=== PATIENT | female | born 1940 | race Caucasian/White ===

== ENCOUNTER 2016-11-20 12:32 | Inpatient (IN) | payer OTHER, MEDICARE ==
[~2016-11-20] VITALS: Ht 160 cm; Wt 68.9 kg
[~2016-11-20 12:32] MED LIST: ADVAIR DISKUS 21 DSK INH; ALEVE220 MG PO; DUONEB 3 MG/3 ML3 ML INH; FOLIC ACID 1 MG PO; LANOXIN-DIGO0.125 MG PO; LEADER NIC14 MG/24 H TOP; LEVOTHROID0.15 MG PO; LOPRESSOR 12.12.5 MG PO; OXAZEPAM10 MG PO; PAIN RELIEF500 MG PO; PRADAXA150 MG PO; PREDNISONE10 MG PO; VITAMIN D1000 IU PO; ZITHROMAX Z-PA250 M1 PO; [UNRECOGNIZED DRUG - OTHER] TOP
--- NOTE | 2016-11-20 12:37 | ED DYSPNEA/ASTHMA COMPLAINT ---
History of Present Illness General Chief Complaint: Dyspnea (COPD, CHF, Other) Stated Complaint: BIBA SOB Source: patient, EMS Exam Limitations: clinical condition Vital Signs & Intake/Output Vital Signs & Intake/Output Vital Signs Date Time Temp Pulse Resp B/P B/P Pulse O2 O2 Flow FiO2 Mean Ox Delivery Rate 11/21 0456 95 Ventilator 75% 11/21 0415 75 11/21 0233 75 11/21 0000 97.5 60 140/70 11/21 0000 95 Ventilator 75% 11/20 2215 75 11/20 2009 93 BIPAP 50% 11/20 1905 68 96 11/20 1833 96 BIPAP 50% 11/20 1716 66 119/53 94 BIPAP 50% 11/20 1715 66 93 11/20 1701 68 101/50 95 BIPAP 50% 11/20 1646 66 102/48 91 11/20 1630 66 106/46 11/20 1624 66 103/69 92 11/20 1616 67 103/59 11/20 1612 91/66 11/20 1611 78/40 11/20 1611 65 18 95/54 92 BIPAP 50% 11/20 1540 78/37 11/20 1400 71 26 105/52 87 BIPAP 30% 11/20 1345 96.0 11/20 1344 94 11/20 1320 87 96 11/20 1319 89 Nasal 2.0L Cannula 11/20 1235 95.0 72 22 90/68 86 Room Air ED Intake and Output 11/21 0000 11/20 1200 Intake Total 6108 Output Total 210 Balance 5898 Intake, IV 6108 Output, Other 50 Output, Urine 160 Patient 152 lb Weight Weight Reported by Patient Measurement Method Allergies Coded Allergies: NO KNOWN ALLERGIES (10/05/11) Reconcile Medications Acetaminophen (Pain Relief) 500 MG TAB 2 TAB PO DAILY PRN PAIN (Reported) Albuterol Sulfate/Ipratropiu (Duoneb) 3 MG/3 ML NEB 2 PUFF INH Q6 copd Aspirin (Aspirin*) 81 MG TAB.CHEW 1 TAB PO DAILY HEART (Reported) Cholecalciferol (Vitamin D3) 1,000 IU TAB 1 TAB PO DAILY BONES (Reported) Digoxin (Lanoxin-Digoxin 0.125MG Tab) 0.125 MG TAB 0.125 MG PO 1700 AFIB FLUTICASONE/SALMETEROL (Advair 250-50 Diskus) 1 DSK DSK 1 PUFF INH BID COPD ( Reported) Folic Acid 1 MG TAB 1 MG PO DAILY FOLIC ACID SUPPLEMENT (Reported) Levothyroxine Sodium (Levothroid) 0.15 MG TAB 1 TAB PO DAILY AC HYPOTHYROIDISM (Reported) Metoprolol Tartrate (Lopressor) 12.5 MG TAB 1 TAB PO BID AFIB Naproxen Sodium (Aleve) 220 MG TAB 1 TAB PO DAILY PRN PAIN (Reported) Nicotine (Nicotine Patch) 14 MG/24 HR TDM 1 PAT TOP DAILY smoking cessation Oxazepam 10 MG CAP 1 TAB PO Q8 PRN ANXIETY (Reported) Prednisone 5 MG TABLET 1 TAB PO DAILY PSEUDOGOUT Zinc Oxide (Diaper Relief) 1 OIN OIN 1 ESTEFANY TOP BID skin rash Triage Nurses Notes Reviewed? yes Onset: Gradual Duration: week(s): (1), worse persistent since (this morning) Timing: recent history Severity: severe Activities at Onset: sleep Associated Symptoms: DIFFICULTY BREATHING HPI: 76 year old female with history of COPD< still smoking presents via EMS from home for chief complaint of cyanosis and altered mental status. Per the family she was sick with cold symptoms since last sunday and saw Dr. Liang on sunday adn was prescribed a zpack. She also took some cought medications with codeine last night. Today her daughter found her cold, blue and unresponsive. Past History Medical History Any Pertinent Medical History? see below for history Neurological: NONE EENT: NONE Cardiovascular: NONE Respiratory: pneumonia Gastrointestinal: NONE Hepatic: NONE Renal: NONE Musculoskeletal: NONE, ARTHRITIS Psychiatric: NONE Endocrine: hypothyroidism Blood Disorders: NONE Cancer(s): NONE History of MRSA: No History of VRE: No History of CDIFF: No Pneumonia Vaccine: 05/02/13 Surgical History Surgical History: non-contributory Psychosocial History Who do you live with Patient/Self Services at Home None What is your primary language [place]an Family History Hx Contributory? No Review of Systems Review of Systems Constitutional: Reports: weakness. Denies: fever. EENTM: Reports: no symptoms. Respiratory: Reports: cough, short of breath, sputum production. Cardiovascular: Denies: chest pain. GI: Reports: no symptoms. Genitourinary: Reports: no symptoms. Musculoskeletal: Reports: no symptoms. Skin: Reports: no symptoms. Neurological/Psychological: Reports: confusion. Hematologic/Endocrine: Reports: no symptoms. Immunologic/Allergic: Reports: no symptoms. All Other Systems: Reviewed and Negative Physical Exam Physical Exam General Appearance: alert, awake, anxious, thin Head: atraumatic Eyes: Bilateral: PERRL, EOMI. Ears, Nose, Throat: normal pharynx, hearing grossly normal Neck: normal inspection Respiratory: decreased breath sounds, accessory muscle use, wheezing Cardiovascular: regular rate/rhythm Peripheral Pulses: 2+ radial (R), 2+ radial (L) Gastrointestinal: soft, non-tender Extremities: normal inspection, no edema Neurologic/Psych: OBTUNDED, RESPONSIVE TO LOUD VERBAL STIMULI Skin: cyanosis, COLD Core Measures ACS in differential dx? Yes ASA ordered for poss ACS? Yes-ordered Severe Sepsis Present: No Septic Shock Present: No ED Sepsis Exam Date of Focused Sepsis Exam: 11/20/16 Time of Focused Sepsis Exam: 1351 Sepsis Cardiac Exam: Tachycardia Sepsis Resp Exam: B/L WHEEZING Sepsis Cap Refill Exam: >2 sec Sepsis Peripheral Pulse Exam: Weak Sepsis Peripheral Pulse Location: Radial Sepsis Skin Color Exam: Cyanotic Skin Temp/Moisture Exam: Warm/Dry Progress Differential Diagnosis: COPD, pneumonia, HYPERCARBIA, BACTEREMIA, SEPSIS Plan of Care: Orders Procedure Date/time Status Nothing by Mouth 11/21 B Active TROPONIN LEVEL 11/21 0500 Active CBC WITHOUT DIFFERENTIAL 11/21 0500 Active BASIC ELECTROLYTES PLUS BUN&CR 11/21 0500 Active EKG 11/21 0500 Active LACTIC ACID 11/21 0013 Complete ICU LAB BUNDLE 11/21 0013 Complete Nursing Misc 11/21 UNK Active Nothing by Mouth 11/20 D Complete ARTERIAL BLOOD GAS (GEN) 11/20 2339 Complete PARTIAL THROMBOPLASTIN TIME 11/20 2330 Complete LOWER RESPIRATORY CULTURE 11/20 2307 Active CULTURE,BODY FLUID 11/20 2307 Active VENTILATOR PARAMETERS 11/20 2200 Complete TROPONIN LEVEL 11/20 2200 Complete ICU LAB BUNDLE 11/20 2200 Complete EKG 11/20 2200 Active DIRECT BILIRUBIN 11/20 2140 Complete BIPAP 11/20 2130 Complete BIPAP 11/20 2100 Complete Lab Add-on Test 11/20 2020 Active Lab Add-on Test 11/20 1918 Active BIPAP 11/20 1905 Complete LACTIC ACID 11/20 1900 Complete Turn and Reposition 11/20 1832 Active Teach/Educate 11/20 183 Active Skin Integrity Protocol 11/20 1832 Active Skin/Pressure Ulcer Assess (Sk 11/20 1832 Active Precautions 11/20 1832 Active Pain Treatment and Response 11/20 183 Active Nutritional Intake, Monitor 11/20 1832 Active Isolation 11/20 183 Active Patient Care Conference 11/20 1832 Active Activity/Ambulation 11/20 1832 Active VRE ACTIVE SURVIELLANCE 11/20 1720 Active ACTIVE SURVEILLANCE NARES 11/20 1720 Active TRC EVALUATION (GEN) 11/20 1659 Active Pathway - chart 11/20 1659 Active House Staff 11/20 1659 Active Patient Data 11/20 1659 Active STREP PNEUMO URINARY ANTIGEN 11/20 1659 Complete LEGIONELLA URINARY ANTIGEN 11/20 1659 Complete THYROID STIMULATING HORMONE 11/20 1640 Complete FREE T4 11/20 1640 Complete DIGOXIN 11/20 1640 Complete PROTHROMBIN TIME 11/20 1629 Complete ARTERIAL BLOOD GAS (GEN) 11/20 1628 Complete TROPONIN LEVEL 11/20 1628 Complete ICU LAB BUNDLE 11/20 1628 Complete CBC WITHOUT DIFFERENTIAL 11/20 1628 Complete URINE LYTES, SPOT 11/20 1621 Complete LACTIC ACID 11/20 1536 Complete Pathway - chart 11/20 1532 Active Patient Data 11/20 1532 Active Admit to inpatient 11/20 1511 Active Vital Signs 11/20 1511 Complete Black, Insertion/Removal/Asses 11/20 1511 Active CULTURE,URINE 11/20 1511 Active URINE DRUGS OF ABUSE 11/20 1511 Complete URINALYSIS 11/20 1511 Complete Code Status 11/20 1511 Active Add-on Test (ER Only) 11/20 1453 Active EKG 11/20 1452 Active Add-on Test (ER Only) 11/20 1417 Active Intake & Output 11/20 1341 Complete TROPONIN LEVEL 11/20 1253 Complete MAGNESIUM 11/20 1253 Complete LIPID PANEL 11/20 1253 Complete FOLIC ACID 11/20 1253 Complete COMPREHENSIVE METABOLIC PANEL 11/20 1253 Complete CREATINE PHOSPHOKINASE 11/20 1253 Complete VITAMIN B12 11/20 1253 Complete EKG 11/20 1240 Active RT ED ORDERS 11/20 1236 Complete ARTERIAL BLOOD GAS (GEN) 11/20 1236 Complete Telemetry/Audio Visual Aids Director 11/20 1236 Active LOWER RESPIRATORY CULTURE 11/20 1236 Active BLOOD CULTURE 11/20 1236 Active LACTIC ACID 11/20 1236 Complete CBC WITHOUT DIFFERENTIAL 11/20 1236 Complete EKG 11/20 1233 Active US-GUIDANCE 11/20 UNK Active SPUTUM INDUCTION (GEN) 11/20 UNK Complete BIPAP 11/20 UNK Complete Lab Add-on Test 11/20 UNK Active VTE Mechanical Prophylaxis 11/20 UNK Active Vital Signs 11/20 UNK Active Restraint- Medical 11/20 UNK Active OGT 11/20 UNK Active Nursing Misc 11/20 UNK Active Intake & Output 11/20 UNK Active FingerStick- Glucose 11/20 UNK Active ECHOCARDIOGRAM 11/20 UNK Active Current Medications Sig/Shilpa Start time Last Medication Dose Stop Time Status Admin Aspirin 81 MG DAILY 11/21 1000 AC (Aspirin) Ceftriaxone Sodium 1,000 MG DAILY 11/21 1000 CAN (Rocephin) Clopidogrel Bisulfate 75 MG DAILY 11/21 1000 AC (Plavix) Fentanyl Citrate 1,000 MCG Q13H 11/21 07 AC (Fentanyl Drip) Dextrose/Water 250 ML (Dextrose 5%) Levothyroxine Sodium 0.15 MG DAILY AC 11/21 0700 AC (Synthroid) Nystatin 1 ESTEFANY TIDPRN PRN 11/21 0330 AC (Mycostatin) Metronidazole 500 MG IQ8 11/21 0000 AC 11/21 (Flagyl) 0049 N/A 1 UNIT (No Carrier) Propofol 1,000 MG Q24H 11/20 2300 AC 11/20 (PROPOFOL DRIP) 2342 N/A 100 ML ([id number]) Budesonide/ 2 PUF BID 11/20 2199 AC Formoterol Fumarate (Symbicort) Dabigatran 150 MG BID 11/20 2199 CAN (PRADAXA) Methylprednisolone 40 MG Q12 11/20 2199 AC 11/20 (Solumedrol) 2117 Non-Formulary 0 SEE ADMIN CRITERIA 11/20 2199 CAN Medication (NON FORMULARY) Non-Formulary 0 SEE ADMIN CRITERIA 11/20 2199 CAN Medication (NON FORMULARY) Non-Formulary 0 ONCE ONE 11/20 2144 CAN Medication 11/20 2145 (NON FORMULARY) Dextrose/Sodium 1,000 ML Q20H 11/20 2014 AC 11/20 Chloride 2031 (D5-Normal Saline) Pantoprazole Sodium 40 MG DAILY 11/21 2011 AC 11/20 (Protonix) 2038 Norepinephrine 4 MG Q14H 11/21 1999 AC (Levophed Drip) Sodium Chloride 250 ML (Normal Saline 0.9%) Sodium Polystyrene 60 ML ONCE ONE 11/20 1745 CAN Sulfonate 11/20 1746 (Kayexalate) Sodium Polystyrene 60 ML ONCE ONE 11/20 1730 CAN Sulfonate 11/20 1731 (Kayexalate) Atorvastatin Calcium 80 MG 1700 11/20 1700 AC (Lipitor) Sodium Chloride 1,000 ML BOLUS ONE 11/20 1630 CAN (Normal Saline 0.9%) 11/20 1729 Heparin Sodium 25,000 UNIT Q24H 11/20 1500 AC 11/20 (Porcine) 1730 (Heparin) Sodium Chloride 500 ML Laboratory Tests 11/21/16 0445: Sodium Pending, Potassium Pending, Chloride Pending, Carbon Dioxide Pending, Anion Gap Pending, BUN Pending, Creatinine Pending, BUN/Creatinine Ratio Pending , Troponin I Pending, CBC w Diff MAN DIFF ORDERED, WBC Pending, RBC Pending, Hgb Pending, Hct Pending, MCV Pending, MCH Pending, RDW Pending, Plt Count Pending, MPV Pending, Gran % Pending, Lymphocytes % Pending, Monocytes % Pending, Eosinophils % Pending, Basophils % Pending, Absolute Granulocytes Pending, Segmented Neutrophils Pending, Absolute Lymphocytes Pending, Absolute Monocytes Pending, Absolute Eosinophils Pending, Absolute Basophils Pending, PUBS MCHC Pending 11/21/16 0045: pH 7.29 *L, pCO2 38, pO2 75 L, HCO3 18 L, ABG O2 Sat (Measured) 92.0 L, P-50 (Temp Corrected) Y, Carboxyhemoglobin 1.1 L, O2 Concentration % 75%, Temperature 97.5, Respiration Rate 18, O2 Delivery Method ESPRIT, Vent Mode AC, Expiratory Pressure 5, Tidal Volume 450, Phlebotomy Draw Site RIGHT BRACHIAL 11/21/16 0025: Anion Gap 10, Estimated GFR 29 L, Glucose 149 H, Lactic Acid 1.2, Calcium 6.7 L, Phosphorus 5.3 H, Magnesium 2.3, Total Bilirubin 1.7 H, AST 7487 H, ALT 2246 H, Albumin 2.6 L 11/20/16 2325: APTT 30 11/20/16 2140: Anion Gap 7, Estimated GFR 28 L, Glucose 126 H, Calcium 6.6 L, Phosphorus 6.7 H, Magnesium 2.4 H, Total Bilirubin 1.5 H, Direct Bilirubin 1.4 H, AST 7346 H, ALT 2106 H, Troponin I 0.35 *H, Albumin 2.6 L 11/20/161945: Lactic Acid 2.6 H 11/20/16 1825: pH 7.15 *L, pCO2 56 H, pO2 90, HCO3 20 L, ABG O2 Sat (Measured) 92.0 L, P-50 (Temp Corrected) Y, Carboxyhemoglobin 2.3, O2 Concentration % 50%, Temperature 96.1 L, Respiration Rate 26, O2 Delivery Method FFM, Vent Mode ST, Expiratory Pressure 6, Inspiratory Pressure 14, Phlebotomy Draw Site RIGHT RADIAL 11/20/16 1640: Anion Gap 9, Estimated GFR 21 L, Glucose 85, Calcium 7.1 L, Phosphorus 7.6 H, Magnesium 1.6, Total Bilirubin 2.4 H, AST 7358 H, ALT 2161 H, Troponin I 0.33 *H, Albumin 2.8 L, TSH 1.530, Free T4 1.70, PT 19.1 H, INR 1.83 H, CBC w Diff MAN DIFF ORDERED, RBC 4.60, MCV 108.5 H, MCH 34.8 H, RDW 20.5 H, MPV 7.7, Gran % 96.0 H, Lymphocytes % 1.8 L, Monocytes % 2.0, Eosinophils % 0, Basophils % 0.2, Absolute Granulocytes 17.8 H, Segmented Neutrophils 84 H, Band Neutrophils 13 H, Absolute Lymphocytes 0.3 L, Lymphocytes 2 L, Monocytes 1 L, Absolute Monocytes 0.4, Absolute Eosinophils 0, Absolute Basophils 0, Nucleated RBCs 4 H, Platelet Estimate VERIFIED BY SMEAR, Polychromasia 1+, Anisocytosis 1+, Macrocytic Cells 1+, PUBS MCHC 32.1 L, Fld Total RBCs Counted 100, Digoxin 2.5 H 11/20/16 1632: Digoxin Cancelled 11/20/16 1621: Ur Random Creatinine 184.0, Ur Random Sodium < 5 L, Ur Random Potassium 29.6 11/20/16 1621: Urine Opiates Screen > 4000.00 H, Methadone Screen < 40, Barbiturate Screen < 60, Ur Phencyclidine Scrn < 6.00, Amphetamines Screen 113, U Benzodiazepines Scrn 377 H, Urine Cocaine Screen < 50, Urine Cannabis Screen < 5.00, Urinalysis LIGHT H, Urine Color BROWN H, Urine Clarity HAZY H, Urine pH 6.0, Ur Specific [place] 1.025, Urine Protein 100 H, Urine Ketones NEG, Urine Nitrite NEG, Urine Bilirubin MOD H, Urine Urobilinogen 2.0 H, Ur Leukocyte Esterase NEG, Ur Microscopic SEDIMENT EXAMINED, Urine RBC 1-3, Urine WBC 3-5 H, Ur Epithelial Cells FEW, Hyaline Casts RARE H, Urine Mucus FEW, Urine Hemoglobin MOD H, Urine Glucose NEG 11/20/16 1618: Lactic Acid 2.7 H 11/20/16 1516: Ur Random Creatinine Cancelled, Ur Random Sodium Cancelled, Ur Random Potassium Cancelled, Fraction Sodium Excret Cancelled 11/20/16 1254: Lactic Acid 3.1 H, CBC w Diff MAN DIFF ORDERED, RBC 4.62, MCV 107.1 H, MCH 34.9 H, RDW 20.2 H, MPV 7.4, Gran % 81.6 H, Lymphocytes % 3.2 L, Monocytes % 13.8 H, Eosinophils % 0, Basophils % 1.4, Absolute Granulocytes 12.5 H, Segmented Neutrophils 69, Band Neutrophils 14 H, Absolute Lymphocytes 0.5 L, Lymphocytes 10 L, Monocytes 7, Absolute Monocytes 2.1 H, Absolute Eosinophils 0, Absolute Basophils 0.2, Nucleated RBCs 4 H, Platelet Estimate DECREASED, Polychromasia 1+, Poikilocytosis 1+, Anisocytosis 1+, Macrocytic Cells 1+, PUBS MCHC 32.6 L 11/20/16 1253: Anion Gap 12, Estimated GFR 20 L, BUN/Creatinine Ratio 21.3, Glucose 95, Calcium 8.5, Magnesium 2.0, Total Bilirubin 2.1 H, AST 3935 H, ALT 1348 H, Alkaline Phosphatase 183 H, Creatine Kinase 144 H, Troponin I 0.25 *H, Total Protein 6.1 L, Albumin 3.4 L, Globulin 2.7, Albumin/Globulin Ratio 1.3, Triglycerides 106, Cholesterol 158, LDL Cholesterol, Calc 99, HDL Cholesterol 38 L, Cholesterol/HDL Ratio 4, Vitamin B12 > 1000 H, Folate > 20.0 H 11/20/16 1247: pH 7.22 *L, pCO2 67 *H, pO2 55 L, HCO3 27, ABG O2 Sat (Measured) 76.0 L, P-50 (Temp Corrected) N, Carboxyhemoglobin 3.7, O2 Concentration % 2L, O2 Delivery Method N/C, Phlebotomy Draw Site RIGHT RADIAL 11/20/16 1247: pH Pending, pCO2 Pending, pO2 Pending, HCO3 Pending, ABG O2 Sat (Measured) Pending, P-50 (Temp Corrected) Pending, Carboxyhemoglobin Pending, O2 Concentration % Pending, Temperature Pending, O2 Delivery Method Pending, Phlebotomy Draw Site Pending Microbiology 11/20 2334 URINE ROUT: Legionella Antigen - COMP 11/20 2334 URINE ROUT: Streptococcus pneumoniae Antigen (M - COMP 11/20 2309 BODY FLUID: Body Fluid Culture - RECD 11/20 231 BODY FLUID: Gram Stain - RECD 11/20 2200 LOWER RESP: Respiratory Culture - RECD 11/20 2200 LOWER RESP: Gram Stain - RECD 11/20 1800 UPPER RESP: Surveillance Culture - RECD 11/20 1800 GI: Surveillance Culture - RECD 11/20 1621 URINE ROUT: Urine Culture - RECD 11/20 1316 LOWER RESP: Respiratory Culture - RES 11/20 1316 LOWER RESP: Gram Stain - RES 11/20 1306 BLOOD: Blood Culture - RECD 11/20 1300 BLOOD: Blood Culture - RECD 3:25 PM D/W DR PRESLEY REGARDING ACUTE EKG CHANGES. DOES NOT ADVISE CATH TRANSFER AT THIS TIME PATIENT IS CRITICALLY ILL WITH MULTIORGAN FAILURE. AWARE PATIENT TO GO TO ICU. AGREES WITH HEPARINIZATION. (JOEY DE LEÓN,MICHAEL) Diagnostic Imaging: Viewed by Me: Radiology Read. Discussed w/RAD: Radiology Read. CXR Impression: PATIENT: ROHIT FERGUSON PRESENT AGE: 76 PATIENT ACCOUNT NO: [id number] : 42 LOCATION: [facility] ORDERING PHYSICIAN: MICHAEL COOK MD SERVICE DATE: 11/20/16 EXAM TYPE: RAD - XRY-PORTABLE CHEST XRAY EXAMINATION: XR PORTABLE CHEST CLINICAL INFORMATION: Cough and hypoxia, evaluate for pneumonia. COMPARISON: 09/03/2015. TECHNIQUE: Portable upright 75 degree view of the chest was obtained. FINDINGS: The heart appears enlarged largely unchanged. Right paratracheal soft tissue prominence is likely related to rotation and overlapping vessels. The lungs and pleural spaces appear clear without evidence of congestion, consolidation, or significant appearing effusion or atelectasis. There is a new patchy opacity identified lateral to the left heart margin at the left lung base concerning for an evolving infiltrate and pneumonia in the proper clinical setting. There is no evidence of pneumothorax or pulmonary edema. Included osseous structures appear largely unremarkable. IMPRESSION: Cardiomegaly with a patchy opacity left lower lung field abnormality suggesting an evolving pneumonia for which follow-up to clearing is recommended. DICTATED BY: JUSTIN WATTS MD DATE/TIME DICTATED:1332 FIGURE MODEL:SABRINA DATE/TIME TRANSCRIBED:11/20/161332 CONFIDENTIAL, DO NOT COPY WITHOUT APPROPRIATE AUTHORIZATION. <Electronically signed in Other Vendor System> SIGNED BY: JUSTIN WATTS MD 11/20/161338 Initial ED EKG: NSR, ST elevation (333, ) Prior EKG: changed Rhythm Strip: normal sinus rhythm Departure Departure Time of Disposition: 1515 Disposition: STILL A PATIENT Condition: Guarded Clinical Impression Primary Impression: Multiorgan failure Secondary Impressions: Acute respiratory failure with hypoxia and hypercarbia, Conjunctivitis, COPD exacerbation, Tobacco abuse Referrals: ALE DE LEÓN,KONSTANTIN [place] (PCP/Family) Departure Forms: Customer Survey General Discharge Information Prescriptions: Current Visit Scripts Prednisone 1 TAB PO DAILY #30 TAB Admission Note Spoke With: RONA DE LEÓN,ABELARDO Love Documentation of Exam: Documentation of any treatments & extenuating circumstances including Concerns Regarding Discharge (functional status, medication knowledge or non-compliance, living conditions, etc.) that warrant an admission rather than observation: [ TELE MONITOR, BIPAP, IV ABX, IV STEROIDS, TRC/NEBS,, CARDIOLOGY CONSULT DR PRESLEY CALLED, IV HEPARIN, SERIAL EKG/TROPONIN, TREND LFT'S, REPEAT SODIUM, SPOT URINE ELECTROLYTES ] Critical Care Note Critical Care Note Critical Care Time: 75-104 min
--- NOTE | 2016-11-20 12:54 | NUR ---
CRITICAL TEST RESULTS [id number] ROHIT FERGUSON 76 F TESTS AND RESULTS: LACTIC 3.1 Results received and read back by: GRANT THOMAS Results received date and time: 11/20/16 1437 The following provider was notified of the results, and read the results back: Notified date and time: 11/20/16 at 1255
[2016-11-20 13:05] LABS: ABSOLUTE BASOPHIL COUNT 0.2 /CUMM (0.0-0.2); ABSOLUTE EOSINOPHIL COUNT 0 /CUMM (0.0-0.7); ABSOLUTE GRANULOCYTE CT 12.5 /CUMM (1.4-6.5); ABSOLUTE LYMPH COUNT 0.5 /CUMM (1.2-3.4); ABSOLUTE MONOCYTE COUNT 2.1 /CUMM (0.10-0.60); BASOPHIL % 1.4 % (0.0-2.0); EOSINOPHIL % 0 % (0-5); HEMATOCRIT 49.5 % (37-47); MEAN CORPUSCULAR HGB 34.9 PG (27.0-31.0); MEAN CORPUSCULAR HGB CONC 32.6 G/DL (33.0-37.0); MEAN CORPUSCULAR VOLUME 107.1 FL (81.0-99.0); MEAN PLATELET VOLUME 7.4 FL (7.4-10.4); PLATELET COUNT 245 /CUMM (130-400); RBC DISTRIBUTION WIDTH 20.2 % (11.5-14.5); RED BLOOD CELL CT 4.62 /CUMM (4.20-5.40); WHITE BLOOD CELL COUNT 15.3 /CUMM (4.8-10.8)
[2016-11-20 13:09] LABS: GRANULOCYTE % 81.6 % (42.2-75.2)
--- NOTE | 2016-11-20 13:39 | RADIOLOGY REPORT ---
EXAMINATION: XR PORTABLE CHEST CLINICAL INFORMATION: Cough and hypoxia, evaluate for pneumonia. COMPARISON: 09/03/2015. TECHNIQUE: Portable upright 75 degree view of the chest was obtained. FINDINGS: The heart appears enlarged largely unchanged. Right paratracheal soft tissue prominence is likely related to rotation and overlapping vessels. The lungs and pleural spaces appear clear without evidence of congestion, consolidation, or significant appearing effusion or atelectasis. There is a new patchy opacity identified lateral to the left heart margin at the left lung base concerning for an evolving infiltrate and pneumonia in the proper clinical setting. There is no evidence of pneumothorax or pulmonary edema. Included osseous structures appear largely unremarkable. IMPRESSION: Cardiomegaly with a patchy opacity left lower lung field abnormality suggesting an evolving pneumonia for which follow-up to clearing is recommended.
--- NOTE | 2016-11-20 13:40 | NUR ---
ABX INFUSING DIRECTED PT PLACED ON BIBAP APPROX. 1315
--- NOTE | 2016-11-20 13:40 | NUR ---
PT BIBA FROM HOME AFTER PERIOD OF SOB AND UNRESPONSIVENESS. PT ARRIVES SOB BILAT UPPER AND LOWER EXT. COLD TO TOUCH. PT AWAKES TO LOUD VERBAL STIM. DR. COOK AT BEDSIDE. PT HAVING DIFFICULTY BREATHING PLACED ON 02 4L VIA NC. UNABLE TO OBTAIN 02 SAT. ABG COLLECTED BY RESP.
--- NOTE | 2016-11-20 13:59 | NUR ---
SPO2 97% ON 30% FIO2. RESPIRATORY NOTIFIED
--- NOTE | 2016-11-20 14:49 | NUR ---
CRITICAL TEST RESULTS [id number] ROHIT FERGUSON 76 F TESTS AND RESULTS: TROP 0.25 Results received and read back by: DANIELE NOWAK Results received date and time: 11/20/16 1449 The following provider was notified of the results, and read the results back: DR COOK Notified date and time: 11/20/16 at 1442
--- NOTE | 2016-11-20 15:56 | NUR ---
PT WITH SBP IN 70S ON MONITOR AND WITH MANUAL BP. DR COOK AWARE. ADDITIONAL IVF BOLUS ORDERED
--- NOTE | 2016-11-20 15:59 | History & Physical ---
ORTIZ DE LEÓN,[facility] 11/20/16 1559: General Information and HPI Statement: I have seen and personally examined ROHIT FERGUSON and documented this H&P. The patient is a 76 year old F who presented with a patient stated chief complaint of [cough and fevers]. Source of Information: family, old records Exam Limitations: no limitations History of Present Illness: Mrs. Ferguson is a 76-year-old lady was medical issues include hypertension, COPD, one pack per day smoker, A. fib on Pradaxa that presents to the emergency room with her daughter secondary to cough fevers and chills over the course of last week. She did see her PCP Dr. Norwood who prescribed her azithromycin last week however her symptoms have persisted. Patient's daughter states that over the course of the same time she has had decreased by mouth intake area. The patient was found to be hypercarbic, hypotensive, BETH, positive troponin with mild ST to T wave changes. She is being admitted to the intensive care unit for the same. A meaningful review systems could not be obtained from her given her critical condition. Allergies/Medications Allergies: Coded Allergies: NO KNOWN ALLERGIES (10/05/11) Past History Travel History Traveled to [place] past 21 day No Medical History Neurological: NONE EENT: NONE Cardiovascular: NONE Respiratory: COPD, pneumonia Gastrointestinal: NONE Hepatic: NONE Renal: NONE Musculoskeletal: NONE, ARTHRITIS Psychiatric: NONE Endocrine: hypothyroidism Blood Disorders: NONE Cancer(s): NONE History of MRSA: No History of VRE: No History of CDIFF: No Pneumonia Vaccine: 05/02/13 Surgical History Surgical History: non-contributory Past Family/Social History Psychosocial History Who Do You Live With? self Services at Home: None Primary Language: Kazakh ETOH Use: occasional use Illicit Drug Use: denies illicit drug use Functional Ability ADLs Independent: dressing, eating, toileting, bathing. Ambulation: independent Review of Systems Review of Systems Constitutional: Reports: see HPI. Exam & Diagnostic Data Last 24 Hrs of Vital Signs/I&O Vital Signs Date Time Temp Pulse Resp B/P B/P Pulse O2 O2 Flow FiO2 Mean Ox Delivery Rate 11/20 1624 66 103/69 92 11/20 1612 91/66 11/20 1611 78/40 11/20 1611 65 18 95/54 92 BIPAP 50% 11/20 1540 78/37 11/20 1400 71 26 105/52 87 BIPAP 30% 11/20 1345 96.0 11/20 1344 94 11/20 1320 87 96 11/20 1319 89 Nasal 2.0L Cannula 11/20 1235 95.0 72 22 90/68 86 Room Air Intake & Output 11/20 1600 11/20 0800 11/20 0000 Intake Total 1250 Output Total Balance 1250 Intake, IV 1250 Output, Urine Patient 125 lb Weight Weight Estimated Measurement Method Physical Exam General Appearance Alert, Cooperative, Mild Distress Skin No Rashes Skin Temp/Moisture Exam: Cool/Dry Sepsis Skin Exam (color): Mottled HEENT Atraumatic, PERRLA, EOMI Cardiovascular Normal S1, Normal S2, irregular rate and rhythm Lungs bilateral diffuse rhonchi and wheezing Abdomen Normal Bowel Sounds, Soft, No Tenderness Sepsis Peripheral Pulse Location: Radial Sepsis Peripheral Pulse Exam: Weak Sepsis Cap Refill Exam: >2 sec Last 24 Hrs of Labs/Chase: Laboratory Tests 11/20/16 1621: Urine Color Pending, Urine Clarity Pending, Urine pH Pending, Ur Specific [place] Pending, Urine Protein Pending, Urine Ketones Pending, Urine Nitrite Pending, Urine Bilirubin Pending, Urine Urobilinogen Pending, Ur Leukocyte Esterase Pending, Ur Microscopic SEDIMENT EXAMINED, Urine RBC Pending, Urine Hemoglobin Pending, Urine Glucose Pending 11/20/16 1621: Methadone Screen Pending, Barbiturate Screen Pending, Ur Phencyclidine Scrn Pending, Amphetamines Screen Pending, U Benzodiazepines Scrn Pending, Urine Cocaine Screen Pending, Urine Cannabis Screen Pending, Ur Random Creatinine Pending, Ur Random Sodium Pending, Ur Random Potassium Pending, Fraction Sodium Excret Pending 11/20/16 1618: Lactic Acid Pending 11/20/16 1516: Ur Random Creatinine Cancelled, Ur Random Sodium Cancelled, Ur Random Potassium Cancelled, Fraction Sodium Excret Cancelled 11/20/16 1254: Lactic Acid 3.1 H, CBC w Diff MAN DIFF ORDERED, RBC 4.62, MCV 107.1 H, MCH 34.9 H, RDW 20.2 H, MPV 7.4, Gran % 81.6 H, Lymphocytes % 3.2 L, Monocytes % 13.8 H, Eosinophils % 0, Basophils % 1.4, Absolute Granulocytes 12.5 H, Segmented Neutrophils 69, Band Neutrophils 14 H, Absolute Lymphocytes 0.5 L, Lymphocytes 10 L, Monocytes 7, Absolute Monocytes 2.1 H, Absolute Eosinophils 0, Absolute Basophils 0.2, Nucleated RBCs 4 H, Platelet Estimate DECREASED, Polychromasia 1+, Poikilocytosis 1+, Anisocytosis 1+, Macrocytic Cells 1+, PUBS MCHC 32.6 L 11/20/16 1253: Anion Gap 12, Estimated GFR 20 L, BUN/Creatinine Ratio 21.3, Glucose 95, Calcium 8.5, Magnesium 2.0, Total Bilirubin 2.1 H, AST 3935 H, ALT 1348 H, Alkaline Phosphatase 183 H, Creatine Kinase Pending, Troponin I 0.25 *H, Total Protein 6.1 L, Albumin 3.4 L, Globulin 2.7, Albumin/Globulin Ratio 1.3 11/20/16 1247: pH 7.22 *L, pCO2 67 *H, pO2 55 L, HCO3 27, ABG O2 Sat (Measured) 76.0 L, P-50 (Temp Corrected) N, Carboxyhemoglobin 3.7, O2 Concentration % 2L, O2 Delivery Method N/C, Phlebotomy Draw Site RIGHT RADIAL 11/20/16 1247: pH Pending, pCO2 Pending, pO2 Pending, HCO3 Pending, ABG O2 Sat (Measured) Pending, P-50 (Temp Corrected) Pending, Carboxyhemoglobin Pending, O2 Concentration % Pending, Temperature Pending, O2 Delivery Method Pending, Phlebotomy Draw Site Pending Microbiology 11/20 1621 URINE ROUT: Urine Culture - RECD 11/20 1316 LOWER RESP: Respiratory Culture - RES 11/20 1316 LOWER RESP: Gram Stain - RES 11/20 1306 BLOOD: Blood Culture - RECD 11/20 1300 BLOOD: Blood Culture - RECD Diagnostic Data EKG Results Rate 77, per 172, QRS 98, QTc 385 next in sinus rhythm, ST to T wave changes in leads 3, aVL, V4, V5, V6 CXR Results PATIENT: ROHIT FERGUSON PRESENT AGE: 76 PATIENT ACCOUNT NO: [id number] : 42 LOCATION: [facility] ORDERING PHYSICIAN: MICHAEL COOK MD SERVICE DATE: 11/20/16 EXAM TYPE: RAD - XRY-PORTABLE CHEST XRAY EXAMINATION: XR PORTABLE CHEST CLINICAL INFORMATION: Cough and hypoxia, evaluate for pneumonia. COMPARISON: 09/03/2015. TECHNIQUE: Portable upright 75 degree view of the chest was obtained. FINDINGS: The heart appears enlarged largely unchanged. Right paratracheal soft tissue prominence is likely related to rotation and overlapping vessels. The lungs and pleural spaces appear clear without evidence of congestion, consolidation, or significant appearing effusion or atelectasis. There is a new patchy opacity identified lateral to the left heart margin at the left lung base concerning for an evolving infiltrate and pneumonia in the proper clinical setting. There is no evidence of pneumothorax or pulmonary edema. Included osseous structures appear largely unremarkable. IMPRESSION: Cardiomegaly with a patchy opacity left lower lung field abnormality suggesting an evolving pneumonia for which follow-up to clearing is recommended. DICTATED BY: JUSTIN WATTS MD DATE/TIME DICTATED:11/20/161332 BOTTOM TURNER:SABRINA DATE/TIME TRANSCRIBED:11/20/161332 CONFIDENTIAL, DO NOT COPY WITHOUT APPROPRIATE AUTHORIZATION. <Electronically signed in Other Vendor System> SIGNED BY: JUSTIN WATTS MD [id number] Assessment/Plan Assessment: Assessment- 1. Sepsis secondary to left lower lobe pneumonia 2. Hyponatremia secondary to decreased by mouth intake 3. Acute kidney injury, secondary to hypotension and dehydration 4. Positive troponin with ST to T wave changes suggestive of no NSTEMI 5. Transaminitis and hyperbilirubinemia suggestive of shock liver 6. Chronic atrial fibrillation, on Pradaxa 7. Urinary tract infection 8. Leukocytosis with bandemia likely secondary to pneumonia and urinary tract infection 9. Hyperkalemia 10. Hypercarbic respiratory failure 11. Known COPD 12. One pack per day smoker, at present Plan- Admit to the ICU Vitals per protocol IV fluid hydration Maintain map greater than 65, CVP greater than 12 IV heparin started after the ER physician did speak with Dr. Mcpherson Cannot do beta blockers for now given hypotension We'll give aspirin and statin Trend troponin and EKG, repeat labs Nguyễn culture We'll start on ceftriaxone and azithromycin and titrate antibiotics accordingly Reconfirmed CMR with family DVT prophylaxis been addressed with Pradaxa Nothing by mouth for now Repeat ABG Pain pathway Full code As Ranked By This Provider Problem List: 1. Multiorgan failure 2. Tobacco abuse Core Measures/Miscellaneous Acute Coronary Syndrome ACS Diagnosis: Yes Date of most recent Echo 08/30/15 Last Known EF % 60 OLIVIA/ARB For EF <40% No No OLIVIA/ARB d/t Medical Contraindication ASA W/I 24hr of admit Yes Beta-Adolfo W/I 24hrs No No Beta-Adolfo d/t Hypotension LDL assessed W/I 24 hrs Yes Currently on Statin Yes Cerebrovascular Accident CVA/TIA Diagnosis: No Congestive Heart Failure CHF Diagnosis: No Venous Thromboembolism VTE Risk Factors: Age > 40 No [facility] VTE prophylaxis d/t: No contraindications No VTE Pharm Prophylaxis d/t: No contraindications VTE Diagnosis: No VTE Type: NONE VTE Confirmed by (Test): NONE Severe Sepsis Severe Sepsis Present: Yes BC x2: Yes Lactic Acid x2: Yes IV ABX Broad Spectrum: Yes NS/LR Started: Yes Septic Shock Septic Shock Present: No Miscellaneous Documentation Attending Case Discussed With: ABELARDO REA MD Primary Care Physician: KONSTANTIN AGUILERA MD Patient sees these Specialists dr. margaret werner Level of Patient Care: Critical Care (CRI) Resident Review Statement Resident Statement: examined this patient, discussed with manager internal ABELARDO REA MD 11/20/16 1935: General Information and HPI Allergies/Medications Home Med list Acetaminophen (Pain Relief) 500 MG TAB 2 TAB PO DAILY PRN PAIN (Reported) Albuterol Sulfate/Ipratropiu (Duoneb) 3 MG/3 ML NEB 2 PUFF INH Q6 copd Aspirin (Aspirin*) 81 MG TAB.CHEW 1 TAB PO DAILY HEART (Reported) Cholecalciferol (Vitamin D3) 1,000 IU TAB 1 TAB PO DAILY BONES (Reported) DABIGATRAN ETEXILATE MESYLATE (Pradaxa) 150 MG CAP 1 TAB PO BID ATRIAL FIBRILLATION Digoxin (Lanoxin-Digoxin 0.125MG Tab) 0.125 MG TAB 0.125 MG PO 1700 AFIB FLUTICASONE/SALMETEROL (Advair 250-50 Diskus) 1 DSK DSK 1 PUFF INH BID COPD ( Reported) Folic Acid 1 MG TAB 1 MG PO DAILY FOLIC ACID SUPPLEMENT (Reported) Levothyroxine Sodium (Levothroid) 0.15 MG TAB 1 TAB PO DAILY AC HYPOTHYROIDISM (Reported) Metoprolol Tartrate (Lopressor) 12.5 MG TAB 1 TAB PO BID AFIB Naproxen Sodium (Aleve) 220 MG TAB 1 TAB PO DAILY PRN PAIN (Reported) Nicotine (Nicotine Patch) 14 MG/24 HR TDM 1 PAT TOP DAILY smoking cessation Oxazepam 10 MG CAP 1 TAB PO Q8 PRN ANXIETY (Reported) Prednisone 5 MG TABLET 1 TAB PO DAILY PSEUDOGOUT Zinc Oxide (Diaper Relief) 1 OIN OIN 1 ESTEFANY TOP BID skin rash
--- NOTE | 2016-11-20 16:19 | NUR ---
2ND LACTIC SENT
--- NOTE | 2016-11-20 16:23 | NUR ---
PT RESPONSIVE AND APPROPRIATE FOR CATHETER INSERTION. FOLLOWS COMMANDS. 15FR BALDERRAMA CATHETER PLACED. UC SENT.
--- NOTE | 2016-11-20 16:59 | NUR ---
PT TO 110
[2016-11-20 17:00] LABS: ABSOLUTE BASOPHIL COUNT 0 /CUMM (0.0-0.2); ABSOLUTE EOSINOPHIL COUNT 0 /CUMM (0.0-0.7); ABSOLUTE GRANULOCYTE CT 17.8 /CUMM (1.4-6.5); ABSOLUTE LYMPH COUNT 0.3 /CUMM (1.2-3.4); ABSOLUTE MONOCYTE COUNT 0.4 /CUMM (0.10-0.60); BASOPHIL % 0.2 % (0.0-2.0); EOSINOPHIL % 0 % (0-5); HEMATOCRIT 49.9 % (37-47); MEAN CORPUSCULAR HGB 34.8 PG (27.0-31.0); MEAN CORPUSCULAR HGB CONC 32.1 G/DL (33.0-37.0); MEAN CORPUSCULAR VOLUME 108.5 FL (81.0-99.0); MEAN PLATELET VOLUME 7.7 FL (7.4-10.4); PLATELET COUNT 211 /CUMM (130-400); RBC DISTRIBUTION WIDTH 20.5 % (11.5-14.5); WHITE BLOOD CELL COUNT 18.5 /CUMM (4.8-10.8)
[2016-11-20 17:08] LABS: PT 19.1 SEC (9.4-12.5)
--- NOTE | 2016-11-20 17:54 | NUR ---
CRITICAL TEST RESULTS [id number] ROHIT FERGUSON 76 F TESTS AND RESULTS: LACTIC ACID Results received and read back by: AFIA Results received date and time: 11/20/16 2215 The following provider was notified of the results, and read the results back: DR. COOK Notified date and time: 11/20/16 at 1719
[2016-11-20] MEDS ORDERED: ASPIRIN81 M4 PO (18:28)
[2016-11-20] MEDS ORDERED: PREDNISONE5 M1 PO (18:30)
--- NOTE | 2016-11-20 19:36 | NUR ---
RECVD PT AT 1730. DROWSY AROUSABLE, FOLLOWING COMMANDS, MOVES ALL EXTREMETIES. PERRL 3MM. PT ON BIPAP 50 %, ABG DRAWN. REPORTED TO DR REA. ADJUSTMENT MADE TO I/EPAP PER MD ORDER. PT SUCTIONED ORALLY OF GREEN/YELLOW THICK MUCOUS ORALLY. EYES NOTED TO BE RED AND CRUSTED. DTR AT BEDSIDE SAID PT HAS BEEN BEING TREATED FOR PINK EYE. DR BECKY ALCANTAR NOTIFIED. mED LIST PROVIDED TO THIS MD AND PLACED IN CHART. PT IS NSR ON THE MONITOR 60'S BP 100, STARTED ON 4TH L OF NS BOLUS. VANCO STARTED, MAG X 1GM. D50 AND 10U INSULIN GIVEN IV FOR K 5.7. BALDERRAMA INSITU, ONLY 40ML SINCE PT ARRIVED TO UNIT. DR REA NOTIFIED. HEPARIN STARTED WHEN PT ARRIVED TO UNIT AT 12 U PER KG PER HR. RI ASPIRIN GIVEN TO PT. PT DENIES CHEST PAIN. HAT BLOCK MAKER TO BEDSIDE TO ASSESS PT. PT OFFERS NO COMPLAINTS. 3RD IV ACCESS ESTABLISHED. REPORT GIVEN TO ONCOMING RN.
--- NOTE | 2016-11-20 19:41 | Cons- CRCU ---
See Addendum General Information and HPI Consulting Request Date of Consult: 11/20/16 Requested By: ed History of Present Illness: Mrs. Sánchez is a 76-year-old lady was medical issues include hypertension, COPD, one pack per day smoker, A. fib on Pradaxa that presents to the emergency room with her daughter secondary to cough fevers and chills over the course of last week. She did see her PCP Dr. Norwood who prescribed her azithromycin last week however her symptoms have persisted. Patient's daughter states that over the course of the same time she has had decreased by mouth intake area. The patient was found to be hypercarbic, hypotensive, BETH, positive troponin with mild ST to T wave changes. She is being admitted to the intensive care unit for the same. A meaningful review systems could not be obtained from her given her critical condition Pt does have severe copd by pft ongoing smoking Has had gall stones in the past Recent fatigue pt is on anticoag and has been on oxazepam Since she came in she has been more lethargic and then had to be started on BiPAP. Her urine tox screen was positive for benzos and as well as opioids. Patient has been on oxazepam but there is no mention of any benzo use. She also has been on Pradaxa, as needed Naprosyn and has been on steroids as well. She does have digoxin in her med list She has had atrial fibrillation since last admission He is history of alcohol dependence Previous and SVT Previous history of significant hyponatremia. Allergies/Medications Allergies: Coded Allergies: NO KNOWN ALLERGIES (10/05/11) Home Med List: Acetaminophen (Pain Relief) 500 MG TAB 2 TAB PO DAILY PRN PAIN (Reported) Albuterol Sulfate/Ipratropiu (Duoneb) 3 MG/3 ML NEB 2 PUFF INH Q6 copd Aspirin (Aspirin*) 81 MG TAB.CHEW 1 TAB PO DAILY HEART (Reported) Cholecalciferol (Vitamin D3) 1,000 IU TAB 1 TAB PO DAILY BONES (Reported) DABIGATRAN ETEXILATE MESYLATE (Pradaxa) 150 MG CAP 1 TAB PO BID ATRIAL FIBRILLATION Digoxin (Lanoxin-Digoxin 0.125MG Tab) 0.125 MG TAB 0.125 MG PO 1700 AFIB FLUTICASONE/SALMETEROL (Advair 250-50 Diskus) 1 DSK DSK 1 PUFF INH BID COPD ( Reported) Folic Acid 1 MG TAB 1 MG PO DAILY FOLIC ACID SUPPLEMENT (Reported) Levothyroxine Sodium (Levothroid) 0.15 MG TAB 1 TAB PO DAILY AC HYPOTHYROIDISM (Reported) Metoprolol Tartrate (Lopressor) 12.5 MG TAB 1 TAB PO BID AFIB Naproxen Sodium (Aleve) 220 MG TAB 1 TAB PO DAILY PRN PAIN (Reported) Nicotine (Nicotine Patch) 14 MG/24 HR TDM 1 PAT TOP DAILY smoking cessation Oxazepam 10 MG CAP 1 TAB PO Q8 PRN ANXIETY (Reported) Prednisone 5 MG TABLET 1 TAB PO DAILY PSEUDOGOUT Zinc Oxide (Diaper Relief) 1 OIN OIN 1 ESTEFANY TOP BID skin rash Review of Systems Review of Systems Hematologic/Endocrine: Reports: see HPI. 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 self Services at Home: None Primary Language: Wallisian Smoking Status: Current Everyday Smoker ETOH Use: occasional use Illicit Drug Use: denies illicit drug use Functional Ability ADLs Independent: dressing, eating, toileting, bathing. Ambulation: independent Exam & Diagnostic Data Last 24 Hrs of Vital Signs/I&O Vital Signs Date Time Temp Pulse Resp B/P B/P Pulse O2 O2 Flow FiO2 Mean Ox Delivery Rate 11/20 1833 96 BIPAP 50% 11/20 1716 66 119/53 94 BIPAP 50% 11/20 1715 66 93 11/20 1701 68 101/50 95 BIPAP 50% 11/20 1646 66 102/48 91 11/20 1630 66 106/46 11/20 1624 66 103/69 92 11/20 1616 67 103/59 11/20 1612 91/66 11/20 1611 78/40 11/20 1611 65 18 95/54 92 BIPAP 50% 11/20 1540 78/37 11/20 1400 71 26 105/52 87 BIPAP 30% 11/20 1345 96.0 11/20 1344 94 11/20 1320 87 96 11/20 1319 89 Nasal 2.0L Cannula 11/20 1235 95.0 72 22 90/68 86 Room Air Intake & Output 11/20 1600 11/20 0800 11/20 0000 Intake Total 1250 Output Total Balance 1250 Intake, IV 1250 Output, Urine Patient 125 lb Weight Weight Estimated Measurement Method Last 48 Hrs of Labs/Chase: Laboratory Tests 11/20/16 1825: pH 7.15 *L, pCO2 56 H, pO2 90, HCO3 20 L, ABG O2 Sat (Measured) 92.0 L, P-50 (Temp Corrected) Y, Carboxyhemoglobin 2.3, O2 Concentration % 50%, Temperature 96.1 L, Respiration Rate 26, O2 Delivery Method FFM, Vent Mode ST, Expiratory Pressure 6, Inspiratory Pressure 14, Phlebotomy Draw Site RIGHT RADIAL 11/20/16 1640: Anion Gap 9, Estimated GFR 21 L, Glucose 85, Calcium 7.1 L, Phosphorus 7.6 H, Magnesium 1.6, Total Bilirubin 2.4 H, AST 7358 H, ALT 2161 H, Troponin I 0.33 *H, Albumin 2.8 L, PT 19.1 H, INR 1.83 H, CBC w Diff MAN DIFF ORDERED, RBC 4.60, MCV 108.5 H, MCH 34.8 H, RDW 20.5 H, MPV 7.7, Gran % 96.0 H, Lymphocytes % 1.8 L, Monocytes % 2.0, Eosinophils % 0, Basophils % 0.2, Absolute Granulocytes 17.8 H, Segmented Neutrophils 84 H, Band Neutrophils 13 H, Absolute Lymphocytes 0.3 L, Lymphocytes 2 L, Monocytes 1 L, Absolute Monocytes 0.4, Absolute Eosinophils 0, Absolute Basophils 0, Nucleated RBCs 4 H , Platelet Estimate VERIFIED BY SMEAR, Polychromasia 1+, Anisocytosis 1+, Macrocytic Cells 1+, PUBS MCHC 32.1 L, Fld Total RBCs Counted 100, Digoxin 2.5 H 11/20/16 1632: Digoxin Cancelled 11/20/16 1621: Ur Random Creatinine 184.0, Ur Random Sodium < 5 L, Ur Random Potassium 29.6 11/20/16 1621: Urine Opiates Screen > 4000.00 H, Methadone Screen < 40, Barbiturate Screen < 60, Ur Phencyclidine Scrn < 6.00, Amphetamines Screen 113, U Benzodiazepines Scrn 377 H, Urine Cocaine Screen < 50, Urine Cannabis Screen < 5.00, Urinalysis LIGHT H, Urine Color BROWN H, Urine Clarity HAZY H, Urine pH 6.0, Ur Specific [place] 1.025, Urine Protein 100 H, Urine Ketones NEG, Urine Nitrite NEG, Urine Bilirubin MOD H, Urine Urobilinogen 2.0 H, Ur Leukocyte Esterase NEG, Ur Microscopic SEDIMENT EXAMINED, Urine RBC 1-3, Urine WBC 3-5 H, Ur Epithelial Cells FEW, Hyaline Casts RARE H, Urine Mucus FEW, Urine Hemoglobin MOD H, Urine Glucose NEG 11/20/16 1618: Lactic Acid 2.7 H 11/20/16 1516: Ur Random Creatinine Cancelled, Ur Random Sodium Cancelled, Ur Random Potassium Cancelled, Fraction Sodium Excret Cancelled 11/20/16 1254: Lactic Acid 3.1 H, CBC w Diff MAN DIFF ORDERED, RBC 4.62, MCV 107.1 H, MCH 34.9 H, RDW 20.2 H, MPV 7.4, Gran % 81.6 H, Lymphocytes % 3.2 L, Monocytes % 13.8 H, Eosinophils % 0, Basophils % 1.4, Absolute Granulocytes 12.5 H, Segmented Neutrophils 69, Band Neutrophils 14 H, Absolute Lymphocytes 0.5 L, Lymphocytes 10 L, Monocytes 7, Absolute Monocytes 2.1 H, Absolute Eosinophils 0, Absolute Basophils 0.2, Nucleated RBCs 4 H, Platelet Estimate DECREASED, Polychromasia 1+, Poikilocytosis 1+, Anisocytosis 1+, Macrocytic Cells 1+, PUBS MCHC 32.6 L 11/20/16 1253: Anion Gap 12, Estimated GFR 20 L, BUN/Creatinine Ratio 21.3, Glucose 95, Calcium 8.5, Magnesium 2.0, Total Bilirubin 2.1 H, AST 3935 H, ALT 1348 H, Alkaline Phosphatase 183 H, Creatine Kinase 144 H, Troponin I 0.25 *H, Total Protein 6.1 L, Albumin 3.4 L, Globulin 2.7, Albumin/Globulin Ratio 1.3, Triglycerides 106, Cholesterol 158, LDL Cholesterol, Calc 99, HDL Cholesterol 38 L, Cholesterol/HDL Ratio 4, Vitamin B12 Pending, Folate Pending 11/20/16 1247: pH 7.22 *L, pCO2 67 *H, pO2 55 L, HCO3 27, ABG O2 Sat (Measured) 76.0 L, P-50 (Temp Corrected) N, Carboxyhemoglobin 3.7, O2 Concentration % 2L, O2 Delivery Method N/C, Phlebotomy Draw Site RIGHT RADIAL 11/20/16 1247: pH Pending, pCO2 Pending, pO2 Pending, HCO3 Pending, ABG O2 Sat (Measured) Pending, P-50 (Temp Corrected) Pending, Carboxyhemoglobin Pending, O2 Concentration % Pending, Temperature Pending, O2 Delivery Method Pending, Phlebotomy Draw Site Pending Assessment/Plan Impression/Plan: Physical Exam General Appearance Alert, Cooperative, Mild Distress Skin No Rashes Skin Temp/Moisture Exam: Cool/Dry Sepsis Skin Exam (color): Mottled HEENT Atraumatic, PERRLA, EOMI Cardiovascular Normal S1, Normal S2, irregular rate and rhythm Lungs bilateral diffuse rhonchi and wheezing Abdomen Normal Bowel Sounds, Soft, No Tenderness Sepsis Peripheral Pulse Location: Radial Sepsis Peripheral Pulse Exam: Weak Sepsis Cap Refill Exam: >2 sec SIGNIFICANT DATA Urine tox screen reviewed positive for benzos and opiates patient has not been on opiates at home per her records blood work reviewed as noted sodium is low creatinine is elevated anion gap initially was slightly elevated now has normalized lactic acid initially was 3.1 which is coming down to 2.7 her liver enzymes were significantly elevated with the increasing bilirubin and altered LFTs with alkaline phosphatase her troponin was 0.33. Her last TSH was 0.15 to a digoxin level today was elevated at 2.5 She does have hyperkalemia with elevated digoxin Her ABG reviewed which showed 7.15/56/90 previous ABG initially upon admission was 7.22/57. IMPRESSION This is a 76-year-old lady with very poor performance status, severe COPD from her previous PFTs, 1 pack a day smoker, previous alcohol use, and so diazepam use, atrial fibrillation on anticoagulation and on digoxin, hypertension, recent cough wheezing for which she had taken azithromycin, history of hypothyroidism on appropriate supplementation, previous history of pneumonia and chronic respiratory insufficiency with acute on chronic respiratory failure, previous history of strep pneumo infection, now comes in with * Acute on chronic hypercarbic and hypoxemic respiratory failure related to significant COPD compounded by probable pneumonia with minimal wheezing with underlying sepsis. Sepsis appears to be due to pneumonia versus any intra- abdominal pathology which needs to be ruled out. Patient has been on benzodiazepines, however in the urine tox screen she has tested positive for morphine, this may be contributing to her respiratory acidosis as well. * Profound hyponatremia probably related to syndrome of inappropriate ADH secretion * Significantly altered LFTs could be related to sepsis from her suspected pneumonia versus any biliary pathology needs to be ruled out as alkaline phosphatase is elevated as well. Patient has had history of a biliary stones * Atrial fibrillation on anticoagulation with per doc's with no overt bleeding, on digoxin, with elevated digoxin level with mild hyperkalemia. Patient does have trace troponin elevation and subtle EKG changes. If Worse significant digitalis toxicity needs to be treated with Digibind * Hyponatremia and hyperkalemia * Acute renal failure related to sepsis and other obstructive physiology of the urinary tract needs to be ruled out but this seems less likely * Ongoing cigarette smoking with previous history of alcohol use * History of hypothyroidism * Vitamin D deficiency, ongoing smoking with worsening performance status RECOMMENDATION Watch in ICU If she deteriorates clinically we will intubate the patient at this time she is awake alert and oriented 3 and seems to be perfusing well Urine lytes and fena Will not correct sodium rapidly Hold off on further narcotics and benzos 40 mg of Solu-Medrol every 12 hrs from am, Nebs atc Check her labs every 4 hours so that her sodium will not be corrected rapidly After this current liter of IV fluids if her blood pressure is stable will reduce her fluids to D5 normal saline [address] scan chest abdomen and pelvis If there is any evidence suggestive of obstructive jaundice will have a stat GI consult. Rule out for MA Continue to watch sodium, potassium and creatinine. If her potassium continues to rise we will institute Digibind therapy to reverse digitalis toxicity. Cardiology evaluation Intravenous proton pump inhibitor Discontinue her Pradaxa and continue heparin Keep her nothing by mouth Hold all by mouth medications unless it's absolutely necessary Watch WBCs Check folic acid level Echocardiogram Ultrasound of abdomen which has been ordered Prognosis is very poor we'll discuss with the family again Patient is critically ill total time spent 45 minutes Consult Acknowledgment - Thank you for your consult request.
--- NOTE | 2016-11-20 19:41 | Admission Certification ---
Admission Certification Certification Statement - As attending physician, I certify that at the time of - admission, based on clinical presentation, severity of - symptoms, need for further diagnostic testing and - therapeutic interventions, and risk of adverse outcomes - without in-hospital treatment, in my clinical assessment, - this patient requires an acute hospital stay for a minimum - of two nights or longer. I have also considered psychsocial - factors such as support system, advanced age, financial - issues, cognitive issues, and failed out-patient treatments, - past re-admission history, safety of patient, and lack of - compliance as applicable. Specific rationale supporting this admission is: resp failure and sepsis
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
--- NOTE | 2016-11-20 20:19 | ULTRASOUND REPORT ---
EXAMINATION: US ABDOMEN COMPLETE CLINICAL INFORMATION: Fever, transaminitis. Elevated bilirubin.. COMPARISON: CT from 08/29/2015. TECHNIQUE: Real-time imaging of the abdominal viscera. FINDINGS: PANCREAS: The pancreas appears somewhat prominent. The head and body appear otherwise unremarkable. The tail is obscured by gas. ABDOMINAL AORTA: Not well seen secondary to bowel gas. INFERIOR VENA CAVA: Visualized portions are normal. LIVER: The liver demonstrates normal size with heterogeneous echogenicity. No focal lesion or intrahepatic biliary duct dilatation. GALLBLADDER: Gallstones are present. There is prominent gallbladder wall thickening measuring up to 1 cm. There is gallbladder wall edema. Pericholecystic fluid is present. Impacted gallstone measures 1.3 cm. COMMON BILE DUCT: Normal in caliber measuring 0.4 cm in diameter. RIGHT KIDNEY: Normal. No hydronephrosis. No renal calculi or focal parenchymal lesions. The kidney measures 9.8 cm in maximum dimension. LEFT KIDNEY: Normal. No hydronephrosis. No renal calculi or focal parenchymal lesions. The kidney measures 9.4 cm in maximum dimension. SPLEEN: Normal. The spleen measures 7 cm in maximum dimension. FREE FLUID: Small volume of free fluid. IMPRESSION: A normal appearance of the gallbladder. Impacted gallstone in the gallbladder neck with gallbladder wall thickening, gallbladder wall edema, and pericholecystic fluid. These findings are suggestive of acute cholecystitis.
--- NOTE | 2016-11-20 20:52 | NUR ---
@1900, REPORT RECEIVED.PT LETHARGIC AND RESPOND TO VERBAL STIMULUS.PUPILS REACTIVE. FOLLOWS COMMANDS.GEN WEAKNESS AND WARE WITH +CMS.+PP. NO EDEMA. ALEN LE'S COOL TO TOUCH.AFEBRILE, SBP 70-90'S; AND MADE AWARE.RECEIVED IV BOLUS AND MAG REPLACEMENT VIA PIV SITE. HEPARIN GTT AND CT SCAN ON HOLD.US OF ABD/RENAL DONE AT BEDSIDE.NO ACTIVE BLEEDING NOTED. LACTATE ACID DRAWN AND RESULTS PENDING.LUNG SOUNDS DIMINISHED AND ON BIPAP AT 50% AND SATS @90%.HOB ELEVATED. NPO.BALDERRAMA PATENT WITH FAIR UO. PLAN OF CARE REVIEWED WITH FAMILY AND .SKIN COOL TO TOUCH WITH NO PRESSURE ULCER. -PLAN FOR IR PROCEDURE.
--- NOTE | 2016-11-20 22:13 | Event Note ---
Event Note Event Note: Pt was noted to have increased work of breathing and was slightly hypotensive chelsey Discussed with the patient and family they agree for intubation PT intubated by anesthesia and sig amount of yellow sputum suctioned PTs blood pressure is low and has been kevin premwell WIll cont mech vent IVF Peripheral vasopressors Will start on digibind TLC cath IR at the bedside Pt is critically ill family aware TTS additional 30 mins
--- NOTE | 2016-11-20 22:56 | Cons- General Surgery ---
General Information and HPI Consulting Request Date of Consult: 11/20/16 Requested By: RONA DE LEÓN,ABELARDO Love History of Present Illness: I was asked to consult on this 76-year-old woman who presents with apparent respiratory distress. She has COPD, atrial fibrillation with anticoagulation. There is concern about acute cholecystitis. She has multisystem organ dysfunction with significant hepatocellular injury and elevated bilirubin. Ultrasound shows markedly thickened gallbladder wall with inflammatory changes and a gallstone impacted in the neck of the gallbladder. There is no abdominal pain. History is limited due to acute medical illness. Allergies/Medications Allergies: Coded Allergies: NO KNOWN ALLERGIES (10/05/11) Home Med List: Acetaminophen (Pain Relief) 500 MG TAB 2 TAB PO DAILY PRN PAIN (Reported) Albuterol Sulfate/Ipratropiu (Duoneb) 3 MG/3 ML NEB 2 PUFF INH Q6 copd Aspirin (Aspirin*) 81 MG TAB.CHEW 1 TAB PO DAILY HEART (Reported) Cholecalciferol (Vitamin D3) 1,000 IU TAB 1 TAB PO DAILY BONES (Reported) Digoxin (Lanoxin-Digoxin 0.125MG Tab) 0.125 MG TAB 0.125 MG PO 1700 AFIB FLUTICASONE/SALMETEROL (Advair 250-50 Diskus) 1 DSK DSK 1 PUFF INH BID COPD ( Reported) Folic Acid 1 MG TAB 1 MG PO DAILY FOLIC ACID SUPPLEMENT (Reported) Levothyroxine Sodium (Levothroid) 0.15 MG TAB 1 TAB PO DAILY AC HYPOTHYROIDISM (Reported) Metoprolol Tartrate (Lopressor) 12.5 MG TAB 1 TAB PO BID AFIB Naproxen Sodium (Aleve) 220 MG TAB 1 TAB PO DAILY PRN PAIN (Reported) Nicotine (Nicotine Patch) 14 MG/24 HR TDM 1 PAT TOP DAILY smoking cessation Oxazepam 10 MG CAP 1 TAB PO Q8 PRN ANXIETY (Reported) Prednisone 5 MG TABLET 1 TAB PO DAILY PSEUDOGOUT Zinc Oxide (Diaper Relief) 1 OIN OIN 1 ESTEFANY TOP BID skin rash Current Medications: Current Medications Sig/Shilpa Start time Last Medication Dose Route Stop Time Status Admin Albuterol Sulfate 3 ML ONCE ONE 11/20 1245 DC 11/20 INH 11/20 1246 1251 Aspirin 81 MG DAILY 11/21 1000 AC PO Aspirin 300 MG ONCE ONE 11/20 1700 DC 11/20 TX 11/20 1701 1823 Atorvastatin Calcium 80 MG 1700 11/20 1700 AC PO Azithromycin 500 MG Q24H 11/20 1700 DC Sodium Chloride 250 ML IV Azithromycin 500 MG ONCE ONE 11/20 1245 DC 11/20 Sodium Chloride 250 ML IV 11/20 1344 1345 Budesonide/ 2 PUF BID 11/20 2200 AC Formoterol Fumarate INH Ceftriaxone Sodium 1,000 MG DAILY 11/21 1000 CAN IV Ceftriaxone Sodium 0 .STK-MED ONE 11/20 1330 DC .ROUTE Ceftriaxone Sodium 1,000 MG ONCE ONE 11/20 1245 DC 11/20 IV 11/20 1246 1337 Clopidogrel Bisulfate 75 MG DAILY 11/21 1000 AC PO Clopidogrel Bisulfate 300 MG ONCE ONE 11/20 2030 DC PO 11/20 203 Clopidogrel Bisulfate 75 MG DAILY 11/21 2011 DC PO Dabigatran 150 MG BID 11/20 2200 CAN PO Dextrose 25 GM ONCE ONE 11/20 1730 DC 11/20 IV 11/20 1731 1805 Dextrose/Sodium 1,000 ML Q20H 11/20 2014 AC 11/20 Chloride IV 203 Digoxin 0.125 MG 1700 11/20 1700 DC PO Fentanyl Citrate 1,000 MCG Q24H 11/20 2200 AC Dextrose/Water 250 ML IV Heparin Sodium 0 .STK-MED ONE 11/20 170 DC (Porcine) .ROUTE Heparin Sodium 4,000 UNIT ONCE ONE 11/20 1500 DC 11/20 (Porcine) IV 11/20 1501 1712 Heparin Sodium 25,000 UNIT Q24H 11/20 1500 AC 11/20 (Porcine) IV 1730 Sodium Chloride 500 ML Insulin Human Regular 10 UNITS ONCE ONE 11/20 1730 DC 11/20 IV 11/20 1731 1812 Ipratropium [place] 2.5 ML ONCE ONE 11/20 1245 DC 11/20 INH 11/20 1246 1251 Levothyroxine Sodium 0.15 MG DAILY AC 11/21 0700 AC PO Magnesium Sulfate 1 GM Q2H 11/20 1730 DC 11/20 Dextrose/Water 100 ML IV 11/209 1948 Methylprednisolone 40 MG Q8 11/20 2200 DC IV Methylprednisolone 40 MG Q12 11/20 2200 AC 11/20 IV 2118 Methylprednisolone 0 .STK-MED ONE 11/20 1329 DC .ROUTE Methylprednisolone 125 MG ONCE ONE 11/20 1245 DC 11/20 IV 11/20 1246 1337 Metronidazole 500 MG IQ8 11/21 0000 AC N/A 1 UNIT IV Non-Formulary 0 SEE ADMIN CRITERIA 11/20 2199 CAN Medication ANY Non-Formulary 0 SEE ADMIN CRITERIA 11/20 2199 CAN Medication ANY Non-Formulary 0 ONCE ONE 11/20 2144 CAN Medication ANY 11/20 2145 Pantoprazole Sodium 40 MG DAILY 11/21 2011 AC 11/20 IV 2039 Sodium Chloride 1,000 ML BOLUS ONE 11/20 2100 DC 11/20 IV 11/20 2159 2116 Sodium Chloride 1,000 ML ONCE ONE 11/20 1700 AC 11/20 IV 11/21 0259 1948 Sodium Chloride 1,000 ML BOLUS ONE 11/20 1630 DC 11/20 IV 11/20 1729 1712 Sodium Chloride 1,000 ML BOLUS ONE 11/20 1630 CAN IV 11/20 1729 Sodium Chloride 1,000 ML BOLUS ONE 11/20 1545 DC 11/20 IV 11/20 1644 1545 Sodium Chloride 1,000 ML BOLUS ONE 11/20 1545 DC 11/20 IV 11/20 1644 1600 Sodium Chloride 1,000 ML BOLUS ONE 11/20 1400 DC 11/20 IV 11/20 1459 1403 Sodium Chloride 500 ML BOLUS ONE 11/20 1400 DC 11/20 IV 11/20 1459 1410 Sodium Polystyrene 60 ML ONCE ONE 11/20 1930 DC Sulfonate PO 11/20 1931 Sodium Polystyrene 60 ML ONCE ONE 11/20 1745 CAN Sulfonate TX 11/20 1746 Sodium Polystyrene 60 ML ONCE ONE 11/20 1730 CAN Sulfonate PO 11/20 1731 Vancomycin HCl 1,000 MG ONCE ONE 11/20 1515 DC 11/20 Sodium Chloride 250 ML IV 11/20 1614 1730 Past History Medical History Blood Transfusion Hx: No Neurological: NONE EENT: hearing loss Cardiovascular: AFIB, hypertension Respiratory: COPD, pneumonia Gastrointestinal: upper GI bleed Hepatic: NONE Renal: NONE Musculoskeletal: ARTHRITIS Psychiatric: alcohol dependence, anxiety, depression Endocrine: hypothyroidism Blood Disorders: anemia Cancer(s): NONE 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 self Services at Home: None Primary Language: [place] Smoking Status: Current Everyday Smoker (2ppd down to 1/2 ppd) ETOH Use: alcohol abuse Illicit Drug Use: denies illicit drug use Functional Ability ADLs Independent: dressing, eating, toileting, bathing. Ambulation: independent Review of Systems Review of Systems: Unobtainable Exam & Diagnostic Data Vital Signs and I&O Vital Signs Date Time Temp Pulse Resp B/P B/P Pulse O2 O2 Flow FiO2 Mean Ox Delivery Rate 11/20 2215 75 11/20 2009 93 BIPAP 50% 11/20 1905 68 96 11/20 1833 96 BIPAP 50% 11/20 1716 66 119/53 94 BIPAP 50% 11/20 1715 66 93 11/20 1701 68 101/50 95 BIPAP 50% 11/20 1646 66 102/48 91 11/20 1630 66 106/46 11/20 1624 66 103/69 92 11/20 1616 67 103/59 11/20 1612 91/66 11/20 1611 78/40 11/20 1611 65 18 95/54 92 BIPAP 50% 11/20 1540 78/37 11/20 1400 71 26 105/52 87 BIPAP 30% 11/20 1345 96.0 11/20 1344 94 11/20 1320 87 96 11/20 1319 89 Nasal 2.0L Cannula 11/20 1235 95.0 72 22 90/68 86 Room Air Intake & Output 11/20 1600 11/20 0800 11/20 0000 11/19 1600 11/19 0800 11/19 0000 Intake Total 1250 Output Total Balance 1250 Intake, IV 1250 Output, Urine Patient 125 lb Weight Weight Estimated Measurement Method Last 24 Hours of Labs: Laboratory Tests 11/20 11/20 11/20 2140 1946 6835 Blood Gas pH (7.35 - 7.45 PH) 7.15 *L pCO2 (35 - 45 TORR) 56 H pO2 (80 - 100 TORR) 90 HCO3 (21 - 28 MEQ/L) 20 L ABG O2 Sat (Measured) (>96.0 %) 92.0 L P-50 (Temp Corrected) Y Carboxyhemoglobin (1.5 - 5.0 %) 2.3 O2 Concentration % 50% Temperature (97.0 - 100.0 FARH) 96.1 L Respiration Rate (BPM) 26 O2 Delivery Method FFM Vent Mode ST Expiratory Pressure (CM H2O P) 6 Inspiratory Pressure (CM H2O P) 14 Chemistry Sodium Pending Potassium Pending Chloride Pending Carbon Dioxide Pending Anion Gap Pending BUN Pending Creatinine Pending Glucose Pending Lactic Acid (0.7 - 2.1 mmol/L) Pending 2.6 H Calcium Pending Phosphorus Pending Magnesium Pending Total Bilirubin Pending AST Pending ALT Pending Troponin I Pending Albumin Pending Miscellaneous Phlebotomy Draw Site RIGHT RADIAL 11/20 11/20 11/20 1640 1632 1621 Chemistry Sodium (137 - 145 mmol/L) 121 L Potassium (3.5 - 5.1 mmol/L) 5.7 H Chloride (98 - 107 mmol/L) 88 L Carbon Dioxide (22 - 30 mmol/L) 24 Anion Gap (5 - 16) 9 BUN (7 - 17 mg/dL) 46 H Creatinine (0.5 - 1.0 mg/dL) 2.3 H Estimated GFR (>60 ml/min) 21 L Glucose (65 - 99 mg/dL) 85 Calcium (8.4 - 10.2 mg/dL) 7.1 L Phosphorus (2.5 - 4.5 mg/dL) 7.6 H Magnesium (1.6 - 2.3 mg/dL) 1.6 Total Bilirubin (0.2 - 1.3 mg/dL) 2.4 H AST (14 - 36 U/L) 7358 H ALT (9 - 52 U/L) 2161 H Troponin I (< 0.11 ng/ml) 0.33 *H Albumin (3.5 - 5.0 g/dL) 2.8 L TSH (0.270 - 4.200 uIU/mL) 1.530 Free T4 (0.78 - 2.44 ng/dL) 1.70 Coagulation PT (9.4 - 12.5 SEC) 19.1 H INR (0.90 - 1.19) 1.83 H Hematology CBC w Diff MAN DIFF ORDERED WBC (4.8 - 10.8 /CUMM) 18.5 H RBC (4.20 - 5.40 /CUMM) 4.60 Hgb (12.0 - 16.0 G/DL) 16.0 Hct (37 - 47 %) 49.9 H MCV (81.0 - 99.0 FL) 108.5 H MCH (27.0 - 31.0 PG) 34.8 H RDW (11.5 - 14.5 %) 20.5 H Plt Count (130 - 400 /CUMM) 211 MPV (7.4 - 10.4 FL) 7.7 Gran % (42.2 - 75.2 %) 96.0 H Lymphocytes % (20.5 - 51.1 %) 1.8 L Monocytes % (1.7 - 9.3 %) 2.0 Eosinophils % (0 - 5 %) 0 Basophils % (0.0 - 2.0 %) 0.2 Absolute Granulocytes (1.4 - 6.5 /CUMM) 17.8 H Segmented Neutrophils (42.2 - 75.2 %) 84 H Band Neutrophils (0.0 - 5.0 %) 13 H Absolute Lymphocytes (1.2 - 3.4 /CUMM) 0.3 L Lymphocytes (20.5 - 51.1 %) 2 L Monocytes (1.7 - 9.3 %) 1 L Absolute Monocytes (0.10 - 0.60 /CUMM) 0.4 Absolute Eosinophils (0.0 - 0.7 /CUMM) 0 Absolute Basophils (0.0 - 0.2 /CUMM) 0 Nucleated RBCs (0.0 - 0.0 /100WBC) 4 H Platelet Estimate (ADEQUATE) VERIFIED BY SMEAR Polychromasia 1+ Anisocytosis 1+ Macrocytic Cells 1+ PUBS MCHC (33.0 - 37.0 G/DL) 32.1 L Other Body Source Fld Total RBCs Counted (%) 100 Toxicology Digoxin (0.8 - 2.0 ng/mL) 2.5 H Cancelled Urines Ur Random Creatinine (mg/dL) 184.0 Ur Random Sodium (30 - 90 mmol/L) < 5 L Ur Random Potassium (mmol/L) 29.6 11/20 11/20 11/20 1621 1618 1516 Chemistry Lactic Acid (0.7 - 2.1 mmol/L) 2.7 H Toxicology Urine Opiates Screen (>2000 NG/ML) > 4000.00 H Methadone Screen (>300 NG/ML) < 40 Barbiturate Screen (>200 NG/ML) < 60 Ur Phencyclidine Scrn (>25 NG/ML) < 6.00 Amphetamines Screen (>1000 NG/ML) 113 U Benzodiazepines Scrn (>200 NG/ML) 377 H Urine Cocaine Screen (>300 NG/ML) < 50 Urine Cannabis Screen (>50 NG/ML) < 5.00 Urines Urinalysis LIGHT H Urine Color (YEL,AMB,STR) BROWN H Urine Clarity (CLEAR) HAZY H Urine pH (5.0 - 8.0) 6.0 Ur Specific Nitro (1.001 - 1.035) 1.025 Urine Protein (NEG,<30 MG/DL) 100 H Urine Ketones (NEG) NEG Urine Nitrite (NEG) NEG Urine Bilirubin (NEG) MOD H Urine Urobilinogen (0.1 - 1.0 EU/dl) 2.0 H Ur Leukocyte Esterase (NEG) NEG Ur Microscopic SEDIMENT EXAMINED Urine RBC (0 - 5 /HPF) 1-3 Urine WBC (0 - 2 /HPF) 3-5 H Ur Epithelial Cells (NONE,FEW) FEW Hyaline Casts (0/LPF) RARE H Urine Mucus (FEW,NONE) FEW Urine Hemoglobin (NEG) MOD H Ur Random Creatinine Cancelled Ur Random Sodium Cancelled Ur Random Potassium Cancelled Fraction Sodium Excret Cancelled Urine Glucose (N MG/DL) NEG 11/20 11/20 1254 1253 Chemistry Sodium (137 - 145 mmol/L) 120 L Potassium (3.5 - 5.1 mmol/L) 5.4 H Chloride (98 - 107 mmol/L) 79 L Carbon Dioxide (22 - 30 mmol/L) 29 Anion Gap (5 - 16) 12 BUN (7 - 17 mg/dL) 51 H Creatinine (0.5 - 1.0 mg/dL) 2.4 H Estimated GFR (>60 ml/min) 20 L BUN/Creatinine Ratio (7 - 25 %) 21.3 Glucose (65 - 99 mg/dL) 95 Lactic Acid (0.7 - 2.1 mmol/L) 3.1 H Calcium (8.4 - 10.2 mg/dL) 8.5 Magnesium (1.6 - 2.3 mg/dL) 2.0 Total Bilirubin (0.2 - 1.3 mg/dL) 2.1 H AST (14 - 36 U/L) 3935 H ALT (9 - 52 U/L) 1348 H Alkaline Phosphatase (<127 U/L) 183 H Creatine Kinase (30 - 135 U/L) 144 H Troponin I (< 0.11 ng/ml) 0.25 *H Total Protein (6.3 - 8.2 g/dL) 6.1 L Albumin (3.5 - 5.0 g/dL) 3.4 L Globulin (1.9 - 4.2 gm/dL) 2.7 Albumin/Globulin Ratio (1.1 - 2.2 %) 1.3 Triglycerides (<150 mg/dL) 106 Cholesterol (<200 MG/DL) 158 LDL Cholesterol, Calc (65 - 129 mg/dL) 99 HDL Cholesterol (40 - 60 mg/dL) 38 L Cholesterol/HDL Ratio (0.00 - 4.23 %) 4 Vitamin B12 (239 - 931 pg/mL) > 1000 H Folate (2.76 - 20.0 ng/mL) > 20.0 H Hematology CBC w Diff MAN DIFF ORDERED WBC (4.8 - 10.8 /CUMM) 15.3 H RBC (4.20 - 5.40 /CUMM) 4.62 Hgb (12.0 - 16.0 G/DL) 16.1 H Hct (37 - 47 %) 49.5 H MCV (81.0 - 99.0 FL) 107.1 H MCH (27.0 - 31.0 PG) 34.9 H RDW (11.5 - 14.5 %) 20.2 H Plt Count (130 - 400 /CUMM) 245 MPV (7.4 - 10.4 FL) 7.4 Gran % (42.2 - 75.2 %) 81.6 H Lymphocytes % (20.5 - 51.1 %) 3.2 L Monocytes % (1.7 - 9.3 %) 13.8 H Eosinophils % (0 - 5 %) 0 Basophils % (0.0 - 2.0 %) 1.4 Absolute Granulocytes (1.4 - 6.5 /CUMM) 12.5 H Segmented Neutrophils (42.2 - 75.2 %) 69 Band Neutrophils (0.0 - 5.0 %) 14 H Absolute Lymphocytes (1.2 - 3.4 /CUMM) 0.5 L Lymphocytes (20.5 - 51.1 %) 10 L Monocytes (1.7 - 9.3 %) 7 Absolute Monocytes (0.10 - 0.60 /CUMM) 2.1 H Absolute Eosinophils (0.0 - 0.7 /CUMM) 0 Absolute Basophils (0.0 - 0.2 /CUMM) 0.2 Nucleated RBCs (0.0 - 0.0 /100WBC) 4 H Platelet Estimate (ADEQUATE) DECREASED Polychromasia 1+ Poikilocytosis 1+ Anisocytosis 1+ Macrocytic Cells 1+ PUBS MCHC (33.0 - 37.0 G/DL) 32.6 L 11/20 11/20 1247 1247 Blood Gas pH (7.35 - 7.45 PH) 7.22 *L Pending pCO2 (35 - 45 TORR) 67 *H Pending pO2 (80 - 100 TORR) 55 L Pending HCO3 (21 - 28 MEQ/L) 27 Pending ABG O2 Sat (Measured) (>96.0 %) 76.0 L Pending P-50 (Temp Corrected) N Pending Carboxyhemoglobin (1.5 - 5.0 %) 3.7 Pending O2 Concentration % 2L Pending Temperature Pending O2 Delivery Method N/C Pending Miscellaneous Phlebotomy Draw Site RIGHT RADIAL Pending Imaging Results: Ultrasound shows gallstones with severe wall thickening and edema. The CBD is normal. Assessment/Plan Assessment/Plan Patient is significant hepatocellular injury as evidenced by markedly elevated AST and ALT. There is also elevated bilirubin. Normally, acute cholecystitis would not be significant enough to cause such severe elevation in her liver enzymes. 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 If such is the case, decompression of the gallbladder should relieve the obstruction and cause resolution of her hepatocellular injury. The alternative is that her elevated enzymes or from sepsis and "shock liver." More commonly choledocholithiasis and/or ascending cholangitis will cause severe AST ALT and bilirubin elevation. However her bile duct was normal on ultrasound making this diagnosis less likely. The case was discussed with her ICU attending who recommended nonsurgical intervention regarding her gallbladder. Plan will be to proceed with percutaneous cholecystostomy tube in order to temporize her acute cholecystitis. Consult Acknowledgment - Thank you for your consult request.
--- NOTE | 2016-11-20 23:44 | RADIOLOGY REPORT ---
XR PORTABLE CHEST CLINICAL INFORMATION: Endotracheal tube/orogastric tube, and central line placement. COMPARISON: Chest x-ray November 20, 2016. TECHNIQUE: Portable frontal view of the chest was obtained. FINDINGS: Endotracheal tube tip projects at the level of the cori. 3 to 4 cm retraction recommended. Enteric tube is difficult to track below the diaphragm secondary to technique and an abdominal plain film is recommended for more definitive assessment. The right IJ central venous catheter tip terminates over the mid SVC. There is no pneumothorax. Small bilateral pleural effusions with adjacent airspace opacities appear progressed. Cardiac silhouette size remains enlarged. Osseous structures are stable. IMPRESSION: - Endotracheal tube tip projects at the level of the cori. 3 to 4 cm retraction recommended. - Enteric tube is difficult to track below the diaphragm secondary to technique and an abdominal plain film is recommended for more definitive assessment. - The right IJ central venous catheter tip terminates over the mid SVC. There is no pneumothorax. - Worsening small bilateral pleural effusions with adjacent basilar airspace opacities. The referrer has been paged with these results and once reached an addendum will be made.
[2016-11-21] VITALS: BP 140/70
[2016-11-21 00:19] LABS: PTT 30 SEC (25-37)
--- NOTE | 2016-11-21 01:31 | RADIOLOGY REPORT ---
AP PORTABLE CHEST X-RAY CLINICAL INFORMATION: Confirm position of ET tube and OG tube. COMPARISON: Chest x-ray November 20, 2016. FINDINGS: Endotracheal tube tip is likely approximately 2 cm above the cori. The orogastric tube courses below the diaphragm with its tip projecting over the stomach. Right IJ central venous catheter tip terminates over the mid SVC. No pneumothorax. Cardiac silhouette is enlarged and unchanged. Small bilateral pleural effusions with adjacent basilar airspace opacities appear slightly increased. IMPRESSION: - Endotracheal tube tip is likely approximately 2 cm above the cori. Rotation/technique limits definitive assessment. - Orogastric tube tip terminates over the stomach. - Small bilateral pleural effusions with adjacent basilar airspace opacities appear slightly increased.
[2016-11-21 05:45] LABS: ABSOLUTE BASOPHIL COUNT 0 /CUMM (0.0-0.2); ABSOLUTE EOSINOPHIL COUNT 0 /CUMM (0.0-0.7); ABSOLUTE GRANULOCYTE CT 13.1 /CUMM (1.4-6.5); ABSOLUTE LYMPH COUNT 0.2 /CUMM (1.2-3.4); ABSOLUTE MONOCYTE COUNT 0.3 /CUMM (0.10-0.60); BASOPHIL % 0 % (0.0-2.0); EOSINOPHIL % 0 % (0-5); GRANULOCYTE % 96.3 % (42.2-75.2); HEMATOCRIT 47.2 % (37-47); MEAN CORPUSCULAR HGB 35.2 PG (27.0-31.0); MEAN CORPUSCULAR HGB CONC 32.6 G/DL (33.0-37.0); MEAN CORPUSCULAR VOLUME 107.8 FL (81.0-99.0); MEAN PLATELET VOLUME 7.6 FL (7.4-10.4); PLATELET COUNT 262 /CUMM (130-400); RBC DISTRIBUTION WIDTH 20.6 % (11.5-14.5); RED BLOOD CELL CT 4.38 /CUMM (4.20-5.40); WHITE BLOOD CELL COUNT 13.6 /CUMM (4.8-10.8)
--- NOTE | 2016-11-21 07:08 | PN- Resident CRCU ---
KEVIN DE LEÓN,ELIZ 11/21/16 0707: Subjective HPI/CRCU Issues: Patient seen and examined at bedside this AM. She remains intubated on fentanyl for sedation and has percutanous cholecystostomy tube in place that is draining dark bilious material. Patient is also on a heparin drip for anticoagulation in the setting of atrial fibrillation and NSTEMI. She remained afebrile overnight but required pressors for blood pressure support in the setting of severe sepsis. 24 Hour Events: Telemetry events: No significant telemetry events since admission. Vital signs last 24 hours: T 96.1-97.5, HR 58-75, RR 17-26, BP 83-151/39-67, O2 91-99% on BiPAP transitioned to AC ventilation at 2300. settings are AC 18, TV 450, FiO2 75% and 5 PEEP. Total input last 24 hours: 3798 cc Total output last 24 hours: 555 cc of which 90 are from the perc tube Objective Vital Signs & I&O Last 8 Hrs of Vitals and I&O: T 96.1-97.5, HR 58-75, RR 17-26, BP 83-151/39-67, O2 91-99% on BiPAP transitioned to AC ventilation at 2300. settings are AC 18, TV 450, FiO2 75% and 5 PEEP. Exam General Appearance: no apparent distress, sedated, intubated Head: atraumatic, normal appearance Ears, Nose, Throat: Dry mucous membranes, normal pharynx Neck: normal inspection, supple, No JVD Respiratory: Bilateral diffuse rhonchi, occasional wheeze Cardiovascular: Irregular rhythm, normal S1/S2 Gastrointestinal: soft, non-tender Extremities: normal inspection Skin: No rashes Nutrition Nutrition: NPO Current Medications: Current Medications Sig/Shilpa Start time Last Medication Dose Route Stop Time Status Admin Acetaminophen 650 MG .STK-MED ONE 11/20 1813 DC MO 11/20 1814 Albuterol Sulfate 3 ML TID 11/21 1000 AC 11/21 INH 0808 Albuterol Sulfate 3 ML ONCE ONE 11/20 1245 DC 11/20 INH 11/20 1246 1251 Aspirin 81 MG DAILY 11/21 1000 AC PO Aspirin 300 MG ONCE ONE 11/20 1700 DC 11/20 MO 11/20 1701 1823 Atorvastatin Calcium 80 MG 1700 11/20 1700 AC 11/20 PO 1730 Azithromycin 500 MG Q24H 11/21 1345 AC Sodium Chloride 250 ML IV Azithromycin 500 MG Q24H 11/20 1700 DC Sodium Chloride 250 ML IV Azithromycin 500 MG ONCE ONE 11/20 1245 DC 11/20 Sodium Chloride 250 ML IV 11/20 1344 1345 Budesonide/ 2 PUF BID 11/20 2200 AC Formoterol Fumarate INH Ceftriaxone Sodium 1,000 MG Q24H 11/21 1330 AC IV Ceftriaxone Sodium 1,000 MG DAILY 11/21 1000 CAN IV Ceftriaxone Sodium 0 .STK-MED ONE 11/20 1330 DC .ROUTE Ceftriaxone Sodium 1,000 MG ONCE ONE 11/20 1245 DC 11/20 IV 11/20 1246 1337 Clopidogrel Bisulfate 75 MG DAILY 11/21 1000 AC PO Clopidogrel Bisulfate 300 MG ONCE ONE 11/20 2030 DC PO 11/20 2031 Clopidogrel Bisulfate 75 MG DAILY 11/21 2011 DC PO Dabigatran 150 MG BID 11/20 2200 CAN PO Dextrose 25 GM ONCE ONE 11/20 1730 DC 11/20 IV 11/20 1731 1805 Dextrose/Sodium 1,000 ML Q20H 11/20 2015 AC 11/20 Chloride IV 2032 Digoxin 0.125 MG 1700 11/20 1700 DC PO Digoxin Immune LADONNA 1 MOLLY ONCE ONE 11/21 0145 DC 11/21 IV 11/21 0146 0231 Fentanyl Citrate 1,000 MCG Q13H 11/21 0700 AC Dextrose/Water 250 ML IV Fentanyl Citrate 1,000 MCG Q24H 11/20 2200 DC 11/20 Dextrose/Water 250 ML IV 2150 Heparin Sodium 0 .STK-MED ONE 11/20 1702 DC (Porcine) .ROUTE Heparin Sodium 4,000 UNIT ONCE ONE 11/20 1500 DC 11/20 (Porcine) IV 11/20 1501 1712 Heparin Sodium 25,000 UNIT Q24H 11/20 1500 AC 11/20 (Porcine) IV 1730 Sodium Chloride 500 ML Insulin Human Regular 10 UNITS ONCE ONE 11/20 1730 DC 11/20 IV 11/20 1731 1812 Ipratropium Standish 2.5 ML TID 11/21 1000 AC 11/21 INH 0807 Ipratropium Standish 2.5 ML ONCE ONE 11/20 1245 DC 11/20 INH 11/20 1246 1251 Levothyroxine Sodium 0.15 MG DAILY AC 11/21 0700 AC 11/21 PO 0744 Magnesium Sulfate 1 GM Q2H 11/20 1730 DC 11/20 Dextrose/Water 100 ML IV 11/20 2129 1948 Methylprednisolone 40 MG Q8 11/200 DC IV Methylprednisolone 40 MG Q12 11/20 2200 AC 11/20 IV 2118 Methylprednisolone 0 .STK-MED ONE 11/20 1329 DC .ROUTE Methylprednisolone 125 MG ONCE ONE 11/20 1245 DC 11/20 IV 11/20 1246 1337 Metronidazole 500 MG IQ8 11/21 0000 AC 11/21 N/A 1 UNIT IV 0049 Non-Formulary 0 SEE ADMIN CRITERIA 11/20 2199 CAN Medication ANY Non-Formulary 0 SEE ADMIN CRITERIA 11/20 2199 CAN Medication ANY Non-Formulary 0 ONCE ONE 11/20 2144 CAN Medication ANY 11/20 2145 Norepinephrine 4 MG Q14H 11/21 1999 AC 11/20 Sodium Chloride 250 ML IV 2359 Nystatin 1 ESTEFANY TIDPRN PRN 11/21 0330 TOP Pantoprazole Sodium 40 MG DAILY 11/21 2011 AC 11/20 IV 203 Propofol 1,000 MG Q24H 11/20 2300 AC 11/20 N/A 100 ML IV 2342 Propofol 5 MG ONCE ONE 11/20 2145 DC 11/20 IV 11/20 214 2150 Propofol 5 MG ONCE ONE 11/20 2145 DC 11/20 IV 11/20 2146 2150 Sodium Chloride 1,000 ML BOLUS ONE 11/20 2100 DC 11/20 IV 11/20 2159 2116 Sodium Chloride 1,000 ML ONCE ONE 11/20 1700 DC 11/20 IV 11/21 0259 1948 Sodium Chloride 1,000 ML BOLUS ONE 11/20 1630 DC 11/20 IV 11/20 1729 1712 Sodium Chloride 1,000 ML BOLUS ONE 11/20 1630 CAN IV 11/20 1729 Sodium Chloride 1,000 ML BOLUS ONE 11/20 1545 DC 11/20 IV 11/20 1644 1545 Sodium Chloride 1,000 ML BOLUS ONE 11/20 1545 DC 11/20 IV 11/20 1644 1600 Sodium Chloride 1,000 ML BOLUS ONE 11/20 1400 DC 11/20 IV 11/20 1459 1403 Sodium Chloride 500 ML BOLUS ONE 11/20 1400 DC 11/20 IV 11/20 1459 1410 Sodium Polystyrene 60 ML ONCE ONE 11/20 1930 DC Sulfonate PO 11/20 193 Sodium Polystyrene 60 ML ONCE ONE 11/20 1745 CAN Sulfonate MO 11/20 174 Sodium Polystyrene 60 ML ONCE ONE 11/20 1730 CAN Sulfonate PO 11/20 173 Vancomycin HCl 1,000 MG ONCE ONE 11/20 1515 DC 11/20 Sodium Chloride 250 ML IV 11/20 1614 1730 Vecuronium Standish 10 MG ONCE ONE 11/20 2315 DC 11/20 IV 11/20 2316 2342 CXR Findings: IMPRESSION: - Endotracheal tube tip is likely approximately 2 cm above the cori. Rotation/technique limits definitive assessment. - Orogastric tube tip terminates over the stomach. - Small bilateral pleural effusions with adjacent basilar airspace opacities appear slightly increased. EKG Findings: NSR HR 77, QRS 98, QTc 385, ST/T wave changes in leads 3, aVL, V4, V5, V6 US Findings: Abdominal US: IMPRESSION: A normal appearance of the gallbladder. Impacted gallstone in the gallbladder neck with gallbladder wall thickening, gallbladder wall edema, and pericholecystic fluid. These findings are suggestive of acute cholecystitis. Impression/Plan Impression/Problem List Impression: Ms. Sánchez is a 76 year old female with PMH HTN, severe COPD, cigarette abuse (1 PPD), previous alcohol use, atrial fibrillation on Pradaxa and digoxin, GI bleed and hypothyroidism who presents with chief complaint of cough, decreased oral intake, fatigue, fever and chills for one week. Of note, patient did she her PCP Dr. Enma MD who prescribed her azithromycin for presumed bronchitis though her symptoms persisted prompting evaluation in our emergency department. In the ED: Vital signs showed T 95.0, HR 72, RR 22, BP 90/68, O2 86% RA. Labs were significant for WBC 15.3, 14 bands, 81% granulocytes, H&H 16.1/49.5, Plt 245, Na 120, K 5.4, Cl 79, HCO3 29, BUN 51, Cre 2.4, Glu 95, lactic acid 3.1 , TBili 2.1, DBili 1.4, AST/ALT 7358/2161, trop 0.25, INR 1.83. Abdominal US showd impacted gallstone in GB neck with GB wall thickening, wall edema and pericholecystic fluid. CXR showed cardiomegaly with a patchy opacity left lower lung field abnormality. suggesting an evolving pneumonia EKG showed non-specific ST elevations in leads [address] depressions in the high lateral leads I and L. Patient is admitted to the intensive care unit and the following is the management: 1. Septic shock requiring pressors with mutiorgan dysfunction * Patient hypotensive, tachycardic and tachypneic on admission with likely source being intraabdominal pathology * Follow up BC x 2, UC, LRC (urine for legionella and strep negative) * WBC trending down today to 13.6, though patient still has 20 bands; patient has been afebrile since admission * IV fluids at 100 cc/h per sepsis protocol * Continue IV flagyl pending ID recommendations * Trend CBC, ICU bundle 2. Transaminitis and hyperbilirubinemia with acute cholecytsitis * Concern for acute cholecystitis with RUQ US findings of gallstones with wall thickening and edema * Patient is s/p percutaneous cholecystostomy tube with surgery, draining well * Continue to follow surgical recommendations * Hepatitis panel negative, tylenol <10 * Transaminitis possibly attributed to shock liver in the setting of hypotension from sepsis * Trend LFTs/Bili to improvement * GI consult placed, follow up recommendations * Statin on hold 2/2 shock liver 3. Elevated troponin * Troponins peaked at 0.35, have since trended down * Likely represents demand/supply mismatch (demand ischemia); unlikely to be ACS * Cardio consult with Dr. Vida MD appreciated * Aspirin, Plavix and IV heparin initially started but have been discontinued as patient possible surgical candidate, history of GIB and noted oropharyngeal bleeding * Follow up further cardio recommendations, continuous telemetry monitoring * Echo pending, f/u results 4. Possible pneumonia, aspiration vs. CAP * CXR on admission showed LLL abnormality suggestive of PNA * Follow up CT chest today showed small/moderate pleural effusion with RML/ partial RLL collapse; trace left pleural effusion * Increased TV from 450 to 550, add mucomyst and chest PT * Patient started on IV ceftriaxone and azithromycin, continue pending ID recommendations * ID consult placed for antibiotic reevaluation 5. Paroxysmal atrial fibrillation with digitalis toxicity * Digoxin level elevated on admission requiring digibind * Continue to hold digoxin * Hold off anticoagulation, aspirin, plavix at this point as patient was noted to have + oropharyngeal bleeding * Continuous telmetry monitoring * Follow up cardio recommendations * Hold metoprolol due to hypotension, restart once BP well controlled 6. Hyponatremia * Likely hypovolemic hyponatremia in setting of severe dehydration and sepsis * Trend ICU bundle frequently, caution with overcorrection * COntinue IVF with D5W-NS at 100 cc/h 7. Acute on chronic respiratory failure with severe COPD/emphysema in the setting of tobacco dependance * Patient noted to be 86% on RA during admission * Initially placed on BiPAP but was intubated due to increased work of breathing around 2200 on 11/20/16 * Continue AC ventilation and increase tidal volume to 550 2/2 RML/RLL collapse * IV protonix while intubated, daily CXR to ensure appropriate positioning 8. BETH * BUN 51, Cre 2.4 on admission, likely secondary to hypotension and severe sepsis (prerenal) * IMPROVING * Continue IVF and trend ICU bundle * Avoid nephrotoxins FULL CODE DVTP: ALPS (no pharm DVTP at this time 2/2 oropharyngeal bleeding) Diet: NPO Mild pain pathway Problem List: 1. Multiorgan failure 2. Tobacco abuse 3. Acute respiratory failure with hypoxia and hypercarbia 4. Hypoxia 5. Hyponatremia Pain Ratin Tomorrow's Labs & Rationales: ICU bundle (hyponatremia, hyperkalemia, BETH CBC (severe sepsis) PTT (heparin drip) Plan DVT/Prophylaxis: BRINA Cabrales MD 11/21/16 0951: Attending MD Review Statement Attending Sign Off Attending Cosign Statement: I have: examined this patient, reviewed [facility] EMR data, personally reviewd images, discussd w/resident/PA/ENGRAVER MACHINE, discussed mgmt plan w/rick, discussed mgmt plan w/CM, discussed mgmt plan w/pt, agreed w/resident/PA/ENGRAVER MACHINE, amended to note. Other Findings: Impression 76 year old woman * septic shock secondary to likely abdominal pathlogy, also with a pneumonia that can be likely aspiration vs. CAP * shock liver * hyponatremia * digitalis toxicity * troponinemia - likely demand ischemia * BETH improved * respiratory failure - hypoxemic * tobacco dependence and severe COPD/emphysema Plan Respiratory -reduce fio2 as tolerted -abg this pm -dc solumedrol -trc/nebs ID -ID consultation -on flagyl, ceftriaxone and zithromax for now -panculture follow up -s/p cholecystostomy tube CVS -monitor hemodynamics -levophed titrate to off -f/u cardiology recommendations, however in the setting of oropharyngeal bleeding and possible surgical intervention, will hold anticoagulants and will alert the deburr technician -ECHO pending Heme -dc plavix, dc aspirin given bleeding and possible intervention -heparin questionable further use, given hx of gi bleed and oropharyngeal bleeding -will alert cardiology to see if can be stopped Metabolic -ins/outs -beth improved -shock liver -monitor for now -gi/surgery consulted -s/p cholecystomy tube -hyponatremia - improved - hypovolemic most likely - hydrate, monitor cvp Alimentary -NPO Neuro -sedation as necessary TTS 50 min
[2016-11-21 08:00] VITALS: BP 102/62
[2016-11-21 09:55] LABS: PTT 45 SEC (25-37)
--- NOTE | 2016-11-21 12:17 | CT SCAN REPORT ---
EXAMINATION: CT CHEST, ABDOMEN AND PELVIS WITH CONTRAST CLINICAL INFORMATION: Pneumonia and pleural effusions, sepsis. COMPARISON: Abdominal and pelvic CT 08/29/2015. TECHNIQUE: Multidetector volumetric imaging was performed from the thoracic inlet through the pubic symphysis without contrast. Sagittal and coronal reformatted images were obtained on the technologist workstation. DLP: 682 mGy-cm FINDINGS: CHEST: LUNG: There are small bilateral pleural effusions, right side greater than left with airspace disease which appears to be predominately atelectasis involving the majority of the basilar segments in the right lower lobe, and the entire right middle lobe, infiltrate and pneumonia less likely though not entirely excluded, there are some air bronchograms identified proximally in the right middle lobe. No central obstructing mass is seen. There is linear scarring or atelectasis in the right apex medially. There is subsegmental atelectasis in the lingula and right lower lobe, otherwise the right lung appears well-expanded and clear. The right upper lobe is somewhat hyperexpanded and clear. No highly suspicious appearing pulmonary nodules are seen. MEDIASTINUM: The heart is enlarged with atherosclerotic coronary and aortic calcification. The ascending aorta is ectatic and borderline aneurysmal measuring 4 cm AP dimension at the level of the main pulmonary artery. There is no lower cervical, mediastinal, or left hilar adenopathy. No definite right hilar adenopathy is seen, however is more difficult to exclude given the associated right middle and lower lobe collapse. There are a few small pretracheal lymph nodes measuring under 1 cm short axis dimension. There is a right IJ central venous catheter with its tip at the SVC right atrial junction. There is an endotracheal tube identified with its tip 2.8 cm proximal to the cori. An enteric tube is identified in the esophagus with its tip in the body of the stomach. The thyroid appears mildly enlarged and lobular. PERICARDIUM/PLEURA: Bilateral pleural effusions, right side greater than left as noted above. CHEST WALL/AXILLA: Numerous calcifications in the breasts bilaterally. ABDOMEN/PELVIS: LIVER, GALLBLADDER, BILIARY TREE: A portion of a cholecystostomy tube travels through the inferior right lobe of the liver laterally with its pigtail coiled in the fundus of the gallbladder. Small gallstones are suggested. Biliary tree is nondilated. PANCREAS: Unremarkable. SPLEEN: Unremarkable. ADRENAL GLANDS AND KIDNEYS: Unremarkable on this noncontrast examination. URETERS AND BLADDER: Nondilated, no evidence of calculi or soft tissue masses. BOWEL LOOPS: There is fairly extensive colonic diverticulosis throughout the left colon most notably in the sigmoid colon. Definite inflammatory changes are not visualized, however some mild mural thickening especially in the proximal descending colon is not completely excluded, there is a small amount of fluid in the left paracolic gutter. LYMPHOVASCULAR STRUCTURES: There is extensive atherosclerotic aortic calcification without aneurysmal dilatation. There is no evidence of pathologically enlarged lymph nodes by size criteria. PERITONEAL CAVITY: There is a small amount of intraperitoneal free fluid most notably in the right upper quadrant and along the right paracolic gutter, fluid is new compared with the previous exam 08/29/2015. PELVIC VISCERA: Lback catheter is identified in the bladder with a small focus of air likely iatrogenic. The uterus is not visualized likely previously removed. What appears to represent a left ovary appears unremarkable. Right ovary not definitively seen. BONES: There is osteopenia without focal destructive or sclerotic lesions. There are multilevel vertebroplasty changes without evidence of complication with mild compression deformities. No acute compression deformities are seen. There is superficial anasarca predominately in the buttocks regions. IMPRESSION: 1. Small to moderate-sized right-sided pleural effusion with collapse of the right middle lobe and the majority of the basal segments of the right lower lobe. No definite obstructing lesion is identified, however pulmonary consultation should be considered. 2. Trace left pleural effusion. 3. Lines and tubes as noted. 4. Thyroid appears mildly enlarged and nodular. 5. Intraperitoneal free fluid and soft tissue anasarca. 6. Extensive colonic diverticulosis, mild colitis not entirely excluded, clinical correlation recommended.
--- NOTE | 2016-11-21 12:27 | ULTRASOUND REPORT ---
PROCEDURES: LIMITED SONOGRAM OF THE RIGHT UPPER ABDOMINAL QUADRANT PLACEMENT OF AN 8-[place] LOCKING ALL-PURPOSE DRAINAGE CATHETER INTO THE GALLBLADDER CLINICAL HISTORY: 76 year old female with sepsis, transaminitis and ultrasound findings concerning for acute cholecystitis. Patient is hemodynamically unstable. Percutaneous cholecystostomy tube placement is requested at the bedside in the intensive care unit. PHYSICIANS: Bob Jose M.D. MEDICATIONS: The patient was intubated and sedated in the ICU immediately prior to the procedure. For additional details, please see nursing flow sheet. COMPLICATIONS: None ESTIMATED BLOOD LOSS: < 5 mL SPECIMENS: None CONTRAST: None. DLP: 682.34 mGy-cm PROCEDURE NOTE: The procedure, risks, benefits, and alternatives were carefully explained to the patient's family and written informed consent was obtained. Immediately prior to the procedure, the patient was intubated by the ICU team. A time out was performed. Prior to prepping the patient, a limited sonogram of the right upper quadrant was performed to localize the gallbladder and chose an appropriate access. Note was made of loops of colon interposed between the anterior abdominal wall and liver which limited the access window to the gallbladder. The right upper abdomen was prepped and draped in usual sterile fashion. After choosing a subcostal approach, the skin and subcutaneous tissues were anesthetized with Lidocaine. Using a 5-[place] [employer] catheter, the gallbladder was accessed through the liver. Thick bile was aspirated. A 0.035" Amplatz wire wire was advanced through the needle and coiled in the gallbladder. The needle was removed and the tract was dilated over the wire. An 8-[place] Barr-Morales drainage catheter was advanced over the wire. The wire was removed. The drain was sutured to skin with 0 silk suture. FINDINGS: 1. Distended gallbladder on ultrasound, filled with sludge and stones. 2. Aspiration of thick bile upon access of gallbladder. 3. Placement of an 8-[place] Barr-Morales drainage catheter. IMPRESSION: Successful placement of an 8-[place] cholecystostomy catheter. PLAN: The patient was stable after the procedure and remained intubated in the ICU. The tube should be open to external gravity drainage via drainage bag. The tube should be flushed twice daily with 10 mL normal saline. The drain needs to remain in place for at least 6 weeks to give time for the tract to mature.
[2016-11-21 16:00] VITALS: BP 90/54
--- NOTE | 2016-11-21 16:06 | PN- Cardiology ---
Subjective Subjective: * Intubated and sedated. * sinus rhythm * cardiac enzymes are coming down Objective Vital Signs and I&Os Vital Signs Date Time Temp Pulse Resp B/P B/P Pulse O2 O2 Flow FiO2 Mean Ox Delivery Rate 11/21 1250 75 11/21 1200 92 Ventilator 75% 11/21 0957 Ventilator 75% 11/21 0808 75 11/21 0800 92 Ventilator 75% 11/21 0800 97.5 60 18 102/62 92 Ventilator 75% 11/21 0614 75 11/21 0456 95 Ventilator 75% 11/21 0415 75 11/21 0233 75 11/21 0000 97.5 60 140/70 11/21 0000 95 Ventilator 75% 11/20 2215 75 11/20 2009 93 BIPAP 50% 11/20 1905 68 96 11/20 1833 96 BIPAP 50% 11/20 1716 66 119/53 94 BIPAP 50% 11/20 1715 66 93 11/20 1701 68 101/50 95 BIPAP 50% 11/20 1646 66 102/48 91 11/20 1630 66 106/46 11/20 1624 66 103/69 92 11/20 1616 67 103/59 11/20 1612 91/66 11/20 1611 78/40 11/20 1611 65 18 95/54 92 BIPAP 50% Intake & Output 11/21 1600 11/21 0800 11/21 0000 11/20 1600 11/20 0800 11/20 0000 Intake Total 7846 446 7022 2250 Output Total 420 385 210 Balance 892 765 4530 2250 Intake, IV 778 924 5632 2250 Intake, Other 80 Output, 0 Gastric Drainage Output, Other 45 40 50 Output, Urine 375 345 160 Patient 152 lb 125 lb Weight Weight Reported by Patient Estimated Measurement Method Physical Exam: General: WD/ WN female in NAD; sedated Neck: no JVD, no carotid bruit Heart: RRR with 2/6 systolic murmur Lungs: decreased air movement bilaterally, no crackles Abdomen: soft, NT, no bowel sounds Extemities: no edema Assessment/Plan Assessment/Plan * This patient is unlikely to have a ruptured intracoronary plaque with thrombus. There is a real possibility that surgery may be required in this patient. I do not think that IV heparin or antiplatelet agents are necessary and may be held in anticipation of a possible procedure. * creatinine is improved. * Digoxin is being held and is now in an acceptable therapeutic range. * Wean off levophed as tolerated by BP. Continue antibiotic therapy. Continue telemetry? Yes
--- NOTE | 2016-11-21 16:55 | Cons- Infect Disease ---
"General Information and HPI Consulting Request Date of Consult: 11/21/16 Requested By: BRINA BENTON MD Reason for Consult: Rule out sepsis Exam Limitations: clinical condition History of Present Illness: This is a 76-year-old woman with COPD, atrial fibrillation, maintained on Pradaxa, alcohol abuse, rheumatoid arthritis, apparently recently placed on Methotrexate, recently begun on Azithromycin for cough, fevers and chills, with no improvement and with decreasing po intake, admitted on November 20 because of decreasing responsiveness and increasing shortness of breath. On admission she was only responsive to verbal stimuli. She had a temperature of 95 and was in respiratory distress, for which she was placed on BiPAP. Laboratory data revealed a white blood cell count of 15,000, with 69 segs and 14 bands, BUN/ creatinine 51 and 2.4, sodium 120, bilirubin 2.1, alkaline phosphatase 183, AST/ ALT 3935 and 1348, troponin 0.25, INR 1.83. ABG 7.22/67/55 on 2 L/m. Urinalysis 1-3 RBC/3-5 WBCs. Abdominal ultrasound revealed an impacted stone in the gallbladder neck with gallbladder wall thickening, gallbladder wall edema and pericholecystic fluid. Chest x-ray revealed cardiomegaly with a patchy opacity at the left lower lung field. Her blood pressure dropped in the emergency room to the 70s systolic and she was given fluids and admitted to the ICU. She was begun on Ceftriaxone, Azithromycin, and Flagyl and given 1 dose of Vancomycin. She was begun on Heparin and given 1 dose of Solumedrol. Her blood pressure remained in the 80s and she was begun on Levophed and a right IJ triple lumen catheter was placed. Her respiratory status worsened and she was intubated. She was evaluated by Surgery and IR, with placement of a cholecystostomy tube. Overnight her temperatures normalized. Her blood pressure stabilized, though she remains on Levophed. Her white blood cell count has decreased today, though she has increased bands, her renal function has improved and her liver enzymes are decreasing. She has been sedated and is unable to provide any history. Allergies/Medications Allergies: Coded Allergies: NO KNOWN ALLERGIES (10/05/11) Home Med List: Acetaminophen (Pain Relief) 500 MG TAB 2 TAB PO DAILY PRN PAIN (Reported) Albuterol Sulfate/Ipratropiu (Duoneb) 3 MG/3 ML NEB 2 PUFF INH Q6 copd Aspirin (Aspirin*) 81 MG TAB.CHEW 1 TAB PO DAILY HEART (Reported) Cholecalciferol (Vitamin D3) 1,000 IU TAB 1 TAB PO DAILY BONES (Reported) Digoxin (Lanoxin-Digoxin 0.125MG Tab) 0.125 MG TAB 0.125 MG PO 1700 AFIB FLUTICASONE/SALMETEROL (Advair 250-50 Diskus) 1 DSK DSK 1 PUFF INH BID COPD ( Reported) Folic Acid 1 MG TAB 1 MG PO DAILY FOLIC ACID SUPPLEMENT (Reported) Levothyroxine Sodium (Levothroid) 0.15 MG TAB 1 TAB PO DAILY AC HYPOTHYROIDISM (Reported) Metoprolol Tartrate (Lopressor) 12.5 MG TAB 1 TAB PO BID AFIB Naproxen Sodium (Aleve) 220 MG TAB 1 TAB PO DAILY PRN PAIN (Reported) Nicotine (Nicotine Patch) 14 MG/24 HR TDM 1 PAT TOP DAILY smoking cessation Oxazepam 10 MG CAP 1 TAB PO Q8 PRN ANXIETY (Reported) Prednisone 5 MG TABLET 1 TAB PO DAILY PSEUDOGOUT Zinc Oxide (Diaper Relief) 1 OIN OIN 1 ESTEFANY TOP BID skin rash Past History Travel History Traveled to [place] past 21 day No Medical History Blood Transfusion Hx: No Neurological: NONE EENT: hearing loss Cardiovascular: AFIB, hypertension Respiratory: COPD, pneumonia Gastrointestinal: upper GI bleed Hepatic: NONE Renal: NONE Musculoskeletal: ARTHRITIS Psychiatric: alcohol dependence, anxiety, depression Endocrine: hypothyroidism Blood Disorders: anemia Cancer(s): NONE [employer]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 Other Medical Hx: vertebral fracture s/p vertebralplasty GI bleed Hypothyroidism hysterectomy with unilateral oophorectomy hemorrhoidectomy ATRIAL FIBRILLATION (427.31 | I48.91) COPD (CHRONIC OBSTRUCTIVE PULMONARY DISEASE) (496 | J44.9) Arthritis SHORTNESS OF BREATH ON EXERTION (786.05 | R06.02) ANEMIA (285.9 | D64.9) ETOH DEPENDENCE (303.90 | F10.20) COMMUNITY ACQUIRED PNEUMONIA (486 | J18.9) History of MRSA: No History of VRE: No History of CDIFF: No Isolation History: Standard Pneumonia Vaccine: 05/02/13 Surgical History Surgical History: hysterectomy (with unilateral oophorectomy), spinal fusion, vertebral fracture s/p vertebraplasty hemorrhoidectomy Psychosocial History Who Do You Live With? self Services at Home: None Primary Language: Greek Smoking Status: Current Everyday Smoker (2ppd down to 1/2 ppd) ETOH Use: alcohol abuse Illicit Drug Use: denies illicit drug use Functional Ability ADLs Independent: dressing, eating, toileting, bathing. Ambulation: independent Review of Systems Comments Unobtainable Exam & Diagnostic Data Last 24 Hrs of Vital Signs/I&O Vital Signs Date Time Temp Pulse Resp B/P B/P Pulse O2 O2 Flow FiO2 Mean Ox Delivery Rate 11/21 1614 75 11/21 1250 75 11/21 1200 92 Ventilator 75% 11/21 0957 Ventilator 75% 11/21 0808 75 11/21 0800 92 Ventilator 75% 11/21 0800 97.5 60 18 102/62 92 Ventilator 75% 11/21 0614 75 11/21 0456 95 Ventilator 75% 11/21 0415 75 11/21 0233 75 11/21 0000 97.5 60 140/70 11/21 0000 95 Ventilator 75% 11/20 2215 75 11/20 2009 93 BIPAP 50% 11/20 1905 68 96 11/20 1833 96 BIPAP 50% 11/20 1716 66 119/53 94 BIPAP 50% 11/20 1715 66 93 11/20 1701 68 101/50 95 BIPAP 50% 11/20 1646 66 102/48 91 Intake & Output 11/21 1600 11/21 0800 11/21 0000 Intake Total 0972 376 6404 Output Total 420 385 210 Balance 137 888 4027 Intake, IV 679 005 5392 Intake, Other 80 Output, 0 Gastric Drainage Output, Other 45 40 50 Output, Urine 375 345 160 Patient 152 lb Weight Weight Reported by Patient Measurement Method Physical Exam Other Physical Findings: She is sedated and unresponsive on the ventilator. She is afebrile. Skin reveals no rash. HEENT exam is negative. Neck is supple with no adenopathy; right IJ triple-lumen catheter in place with no inflammation at the site. Lungs bilateral rhonchi. Heart regular rhythm with no murmur. Abdomen is distended, with positive bowel sounds; cholecystostomy tube in place with bilious drainage. Back no CVA tenderness. Extremities no cyanosis, clubbing or edema. Neuro is without focality. Black catheter is in place. Last 24 Hours of Lab Results: Laboratory Tests 11/21 11/21 11/21 11/21 1415 1200 0830 0830 Chemistry Sodium (137 - 145 mmol/L) 125 L Cancelled Potassium (3.5 - 5.1 mmol/L) 4.3 Cancelled Chloride (98 - 107 mmol/L) 97 L Cancelled Carbon Dioxide (22 - 30 mmol/L) 22 Cancelled Anion Gap (5 - 16) 6 Cancelled BUN (7 - 17 mg/dL) 43 H Cancelled Creatinine (0.5 - 1.0 mg/dL) 1.4 H Cancelled Estimated GFR (>60 ml/min) 37 L Glucose (65 - 99 mg/dL) 158 H Cancelled Calcium (8.4 - 10.2 mg/dL) 6.5 L Cancelled Phosphorus (2.5 - 4.5 mg/dL) 3.6 Cancelled Magnesium (1.6 - 2.3 mg/dL) 2.1 Cancelled Total Bilirubin (0.2 - 1.3 mg/dL) 1.8 H Cancelled AST (14 - 36 U/L) 3361 H Cancelled ALT (9 - 52 U/L) 1774 H Cancelled Albumin (3.5 - 5.0 g/dL) 2.3 L Cancelled Coagulation APTT (25 - 37 SEC) 45 H Serology Hepatitis A IgM Ab (NONREACTIVE) NONREACTIVE Hep Bs Antigen (NONREACTIVE) NONREACTIVE Hep B Core IgM Ab Conf (NONREACTIVE) NONREACTIVE Hepatitis C Antibody (NONREACTIVE) NONREACTIVE Toxicology Acetaminophen (10.0 - 30.0 ug/mL) Cancelled < 10.0 L 11/21 11/21 0445 0045 Blood Gas pH (7.35 - 7.45 PH) 7.29 *L pCO2 (35 - 45 TORR) 38 pO2 (80 - 100 TORR) 75 L HCO3 (21 - 28 MEQ/L) 18 L ABG O2 Sat (Measured) (>96.0 %) 92.0 L P-50 (Temp Corrected) Y Carboxyhemoglobin (1.5 - 5.0 %) 1.1 L O2 Concentration % 75% Temperature (97.0 - 100.0 FARH) 97.5 Respiration Rate (BPM) 18 O2 Delivery Method ESPRIT Vent Mode AC Expiratory Pressure (CMH2O/P) 5 Tidal Volume (CC) 450 Chemistry Sodium (137 - 145 mmol/L) 126 L Potassium (3.5 - 5.1 mmol/L) 4.6 Chloride (98 - 107 mmol/L) 96 L Carbon Dioxide (22 - 30 mmol/L) 20 L Anion Gap (5 - 16) 9 BUN (7 - 17 mg/dL) 44 H Creatinine (0.5 - 1.0 mg/dL) 1.6 H Estimated GFR (>60 ml/min) 32 L BUN/Creatinine Ratio (7 - 25 %) 27.5 H Phosphorus (2.5 - 4.5 mg/dL) 4.6 H Magnesium (1.6 - 2.3 mg/dL) 2.1 Total Bilirubin (0.2 - 1.3 mg/dL) 1.5 H Direct Bilirubin (< 0.4 mg/dL) 1.3 H AST (14 - 36 U/L) 6223 H ALT (9 - 52 U/L) 2062 H Alkaline Phosphatase (<127 U/L) 159 H Troponin I (< 0.11 ng/ml) 0.29 *H Total Protein (6.3 - 8.2 g/dL) 4.8 L Albumin (3.5 - 5.0 g/dL) 2.5 L Hematology CBC w Diff MAN DIFF ORDERED WBC (4.8 - 10.8 /CUMM) 13.6 H RBC (4.20 - 5.40 /CUMM) 4.38 Hgb (12.0 - 16.0 G/DL) 15.4 Hct (37 - 47 %) 47.2 H MCV (81.0 - 99.0 FL) 107.8 H MCH (27.0 - 31.0 PG) 35.2 H RDW (11.5 - 14.5 %) 20.6 H Plt Count (130 - 400 /CUMM) 262 MPV (7.4 - 10.4 FL) 7.6 Gran % (42.2 - 75.2 %) 96.3 H Lymphocytes % (20.5 - 51.1 %) 1.6 L Monocytes % (1.7 - 9.3 %) 2.1 Eosinophils % (0 - 5 %) 0 Basophils % (0.0 - 2.0 %) 0 L Absolute Granulocytes (1.4 - 6.5 /CUMM) 13.1 H Segmented Neutrophils (42.2 - 75.2 %) 76 H Band Neutrophils (0.0 - 5.0 %) 20 H Absolute Lymphocytes (1.2 - 3.4 /CUMM) 0.2 L Lymphocytes (20.5 - 51.1 %) 3 L Monocytes (1.7 - 9.3 %) 1 L Absolute Monocytes (0.10 - 0.60 /CUMM) 0.3 Absolute Eosinophils (0.0 - 0.7 /CUMM) 0 Absolute Basophils (0.0 - 0.2 /CUMM) 0 Platelet Estimate (ADEQUATE) ADEQUATE Polychromasia 1+ Macrocytic Cells 2+ PUBS MCHC (33.0 - 37.0 G/DL) 32.6 L Miscellaneous Phlebotomy Draw Site RIGHT BRACHIAL 11/21 11/20 11/20 11/20 11/20 0025 2325 2140 1946 1825 Blood Gas pH (7.35 - 7.45 PH) 7.15 *L pCO2 (35 - 45 TORR) 56 H pO2 (80 - 100 TORR) 90 HCO3 (21 - 28 MEQ/L) 20 L ABG O2 Sat (Measured) (>96.0 %) 92.0 L P-50 (Temp Corrected) Y Carboxyhemoglobin (1.5 - 5.0 %) 2.3 O2 Concentration % 50% Temperature (97.0 - 100.0 FARH) 96.1 L Respiration Rate (BPM) 26 O2 Delivery Method FFM Vent Mode ST Expiratory Pressure (CM H2O P) 6 Inspiratory Pressure (CM H2O P) 14 Chemistry Sodium (137 - 145 mmol/L) 125 L 122 L Potassium (3.5 - 5.1 mmol/L) 4.7 5.0 Chloride (98 - 107 mmol/L) 95 L 93 L Carbon Dioxide (22 - 30 mmol/L) 19 L 22 Anion Gap (5 - 16) 10 7 BUN (7 - 17 mg/dL) 44 H 43 H Creatinine (0.5 - 1.0 mg/dL) 1.7 H 1.8 H Estimated GFR (>60 ml/min) 29 L 28 L Glucose (65 - 99 mg/dL) 149 H 126 H Lactic Acid (0.7 - 2.1 mmol/L) 1.2 2.6 H Calcium (8.4 - 10.2 mg/dL) 6.7 L 6.6 L Phosphorus (2.5 - 4.5 mg/dL) 5.3 H 6.7 H Magnesium (1.6 - 2.3 mg/dL) 2.3 2.4 H Total Bilirubin (0.2 - 1.3 mg/dL) 1.7 H 1.5 H Direct Bilirubin (< 0.4 mg/dL) 1.4 H AST (14 - 36 U/L) 7487 H 7346 H ALT (9 - 52 U/L) 2246 H 2106 H Troponin I (< 0.11 ng/ml) 0.35 *H Albumin (3.5 - 5.0 g/dL) 2.6 L 2.6 L Coagulation APTT (25 - 37 SEC) 30 Miscellaneous Phlebotomy Draw Site RIGHT RADIAL Toxicology Digoxin (0.8 - 2.0 ng/mL) 1.9 / 1640 Chemistry Sodium (137 - 145 mmol/L) 121 L Potassium (3.5 - 5.1 mmol/L) 5.7 H Chloride (98 - 107 mmol/L) 88 L Carbon Dioxide (22 - 30 mmol/L) 24 Anion Gap (5 - 16) 9 BUN (7 - 17 mg/dL) 46 H Creatinine (0.5 - 1.0 mg/dL) 2.3 H Estimated GFR (>60 ml/min) 21 L Glucose (65 - 99 mg/dL) 85 Calcium (8.4 - 10.2 mg/dL) 7.1 L Phosphorus (2.5 - 4.5 mg/dL) 7.6 H Magnesium (1.6 - 2.3 mg/dL) 1.6 Total Bilirubin (0.2 - 1.3 mg/dL) 2.4 H AST (14 - 36 U/L) 7358 H ALT (9 - 52 U/L) 2161 H Troponin I (< 0.11 ng/ml) 0.33 *H Albumin (3.5 - 5.0 g/dL) 2.8 L TSH (0.270 - 4.200 uIU/mL) 1.530 Free T4 (0.78 - 2.44 ng/dL) 1.70 Coagulation PT (9.4 - 12.5 SEC) 19.1 H INR (0.90 - 1.19) 1.83 H Hematology CBC w Diff MAN DIFF ORDERED WBC (4.8 - 10.8 /CUMM) 18.5 H RBC (4.20 - 5.40 /CUMM) 4.60 Hgb (12.0 - 16.0 G/DL) 16.0 Hct (37 - 47 %) 49.9 H MCV (81.0 - 99.0 FL) 108.5 H MCH (27.0 - 31.0 PG) 34.8 H RDW (11.5 - 14.5 %) 20.5 H Plt Count (130 - 400 /CUMM) 211 MPV (7.4 - 10.4 FL) 7.7 Gran % (42.2 - 75.2 %) 96.0 H Lymphocytes % (20.5 - 51.1 %) 1.8 L Monocytes % (1.7 - 9.3 %) 2.0 Eosinophils % (0 - 5 %) 0 Basophils % (0.0 - 2.0 %) 0.2 Absolute Granulocytes (1.4 - 6.5 /CUMM) 17.8 H Segmented Neutrophils (42.2 - 75.2 %) 84 H Band Neutrophils (0.0 - 5.0 %) 13 H Absolute Lymphocytes (1.2 - 3.4 /CUMM) 0.3 L Lymphocytes (20.5 - 51.1 %) 2 L Monocytes (1.7 - 9.3 %) 1 L Absolute Monocytes (0.10 - 0.60 /CUMM) 0.4 Absolute Eosinophils (0.0 - 0.7 /CUMM) 0 Absolute Basophils (0.0 - 0.2 /CUMM) 0 Nucleated RBCs (0.0 - 0.0 /100WBC) 4 H Platelet Estimate (ADEQUATE) VERIFIED BY SMEAR Polychromasia 1+ Anisocytosis 1+ Macrocytic Cells 1+ PUBS MCHC (33.0 - 37.0 G/DL) 32.1 L Other Body Source Fld Total RBCs Counted (%) 100 Toxicology Digoxin (0.8 - 2.0 ng/mL) 2.5 H Last 24 Hours of [place] Results: Blood cultures November 20 negative Urine culture November 20 negative Sputum culture November 20 mixed jeane, with gram stain revealing many white blood cells and many gram-positive cocci in pairs Bile culture November 20 pending, with gram stain revealing no white blood cells and no organisms Urine strep pneumo antigen and Legionella antigen November 21 negative Diagnostic Data Recent Imaging Findings: Abdominal ultrasound revealed an impacted stone in the gallbladder neck with gallbladder wall thickening, gallbladder wall edema and pericholecystic fluid. Chest x-ray revealed cardiomegaly with a patchy opacity at the left lower lung field. CT the chest, abdomen and pelvis November 21 reveals small to moderate size right pleural effusion with collapse of the right middle lobe and of the majority of the basal segments of the right lower lobe; intraperitoneal free fluid and soft tissue anasarca; extensive diverticulosis and a question of colitis in the proximal descending colon Chest x-ray November 21 reveals small bilateral pleural effusions with adjacent bibasilar airspace opacities Assessment/Plan Assessment/Plan Impression: This is a 76-year-old woman with a history of COPD, atrial fibrillation, alcohol abuse and rheumatoid arthritis, treated with Azithromycin for the past week for a presumed pneumonia, admitted on November 20 with increasing shortness of breath and altered mental status, found to be hypothermic, hypotensive and hypoxic, requiring fluids, pressors and intubation, with a leukocytosis/bandemia, acute renal failure and elevated liver enzymes with imaging suggesting acute cholecystitis, for which a cholecystostomy tube was placed. Her clinical picture is consistent with severe sepsis. She has several possible sources including the biliary tree, though the gram stain of the bile was negative for white cells and organisms and her ultrasound did not reveal any dilated ducts, another intra-abdominal process, with the question of colitis on the CT scan, which could be ischemic or C. difficile with her recent antibiotics, and pneumonia, with bibasilar densities and effusions, which might suggest the possibility of an empyema, particularly as she did not respond to empiric treatment with Azithromycin as an outpatient. The intraperitoneal free fluid in the right upper quadrant raises the possibility of a perforation and further evaluation for this may be necessary. Her elevated liver enzymes are likely secondary to shock liver, with cholangitis possible but less likely. Suggestion: 1. Follow-up recent cultures 2. Stool for C. difficile if diarrhea 3. Consider repeat CT of the abdomen and pelvis in the a.m. if she has not improved 4. Discontinue Azithromycin 5. Restart Vancomycin 1 g IV every 24 hours pending above 6. Continue Ceftriaxone and Flagyl pending above Consult Acknowledgment - Thank you for your consult request."
--- NOTE | 2016-11-21 17:19 | Cons- Gastroenterology ---
"General Information and HPI Consulting Request Date of Consult: 11/21/16 Requested By: BRINA BENTON MD Reason for Consult: Transaminitis Hyperbilirubinemia Source of Information: old records Exam Limitations: unable to give history History of Present Illness: To follow Allergies/Medications Allergies: Coded Allergies: NO KNOWN ALLERGIES (10/05/11) Home Med List: Acetaminophen (Pain Relief) 500 MG TAB 2 TAB PO DAILY PRN PAIN (Reported) Albuterol Sulfate/Ipratropiu (Duoneb) 3 MG/3 ML NEB 2 PUFF INH Q6 copd Aspirin (Aspirin*) 81 MG TAB.CHEW 1 TAB PO DAILY HEART (Reported) Cholecalciferol (Vitamin D3) 1,000 IU TAB 1 TAB PO DAILY BONES (Reported) Digoxin (Lanoxin-Digoxin 0.125MG Tab) 0.125 MG TAB 0.125 MG PO 1700 AFIB FLUTICASONE/SALMETEROL (Advair 250-50 Diskus) 1 DSK DSK 1 PUFF INH BID COPD ( Reported) Folic Acid 1 MG TAB 1 MG PO DAILY FOLIC ACID SUPPLEMENT (Reported) Levothyroxine Sodium (Levothroid) 0.15 MG TAB 1 TAB PO DAILY AC HYPOTHYROIDISM (Reported) Metoprolol Tartrate (Lopressor) 12.5 MG TAB 1 TAB PO BID AFIB Naproxen Sodium (Aleve) 220 MG TAB 1 TAB PO DAILY PRN PAIN (Reported) Nicotine (Nicotine Patch) 14 MG/24 HR TDM 1 PAT TOP DAILY smoking cessation Oxazepam 10 MG CAP 1 TAB PO Q8 PRN ANXIETY (Reported) Prednisone 5 MG TABLET 1 TAB PO DAILY PSEUDOGOUT Zinc Oxide (Diaper Relief) 1 OIN OIN 1 ESTEFANY TOP BID skin rash Current Medications: Current Medications Sig/Shilpa Start time Last Medication Dose Route Stop Time Status Admin Acetaminophen 650 MG .STK-MED ONE 11/20 1813 DC [place] 11/20 1814 Acetylcysteine 2 ML BID 11/21 1235 AC INH Albuterol Sulfate 3 ML EVERY 4 HRS/AWAKE 11/21 1600 AC 11/21 INH 1613 Albuterol Sulfate 3 ML TID 11/21 1000 DC 11/21 INH 1307 Aspirin 81 MG DAILY 11/21 1000 DC 11/21 PO 0938 Atorvastatin Calcium 80 MG 1700 11/20 1700 DC 11/20 PO 1730 Azithromycin 500 MG Q24H 11/21 1345 DC 11/21 Sodium Chloride 250 ML IV 1439 Azithromycin 500 MG Q24H 11/20 1700 DC Sodium Chloride 250 ML IV Budesonide/ 2 PUF BID 11/20 2200 DC Formoterol Fumarate INH Ceftriaxone Sodium 1,000 MG Q24H 11/21 1330 AC 11/21 IV 1430 Ceftriaxone Sodium 1,000 MG DAILY 11/21 1000 CAN IV Clopidogrel Bisulfate 75 MG DAILY 11/21 1000 DC 11/21 PO 0938 Clopidogrel Bisulfate 300 MG ONCE ONE 11/20 2030 DC PO 11/20 203 Clopidogrel Bisulfate 75 MG DAILY 11/21 2011 DC PO Dabigatran 150 MG BID 11/20 2200 CAN PO Dextrose 25 GM ONCE ONE 11/20 1730 DC 11/20 IV 11/20 1731 1805 Dextrose/Sodium 1,000 ML Q20H 11/20 2015 AC 11/20 Chloride IV 2032 Digoxin 0.125 MG 1700 11/20 1700 DC PO Digoxin Immune LADONNA 1 MOLLY ONCE ONE 11/21 0145 DC 11/21 IV 11/21 0146 0231 Fentanyl Citrate 1,000 MCG Q13H 11/21 0700 AC 11/21 Dextrose/Water 250 ML IV 0941 Fentanyl Citrate 1,000 MCG Q24H 11/20 2200 DC 11/20 Dextrose/Water 250 ML IV 2150 Guaifenesin 600 MG Q12 11/21 1000 AC 11/21 PO 1131 Heparin Sodium 25,000 UNIT Q24H 11/20 1500 DC 11/20 (Porcine) IV 1730 Sodium Chloride 500 ML Insulin Human Regular 10 UNITS ONCE ONE 11/20 1730 DC 11/20 IV 11/20 1731 1812 Ipratropium [place] 2.5 ML TID 11/21 1000 DC 11/21 INH 1307 Levothyroxine Sodium 0.15 MG DAILY AC 11/21 0700 AC 11/21 PO 0744 Magnesium Sulfate 1 GM Q2H 11/20 1730 DC 11/20 Dextrose/Water 100 ML IV 11/20 2129 1948 Methylprednisolone 40 MG Q8 11/20 2199 DC IV Methylprednisolone 40 MG Q12 11/20 2200 DC 11/21 IV 0938 Metronidazole 500 MG IQ8 11/21 0000 AC 11/21 N/A 1 UNIT IV 1131 Non-Formulary 0 SEE ADMIN CRITERIA 11/20 2199 CAN Medication ANY Non-Formulary 0 SEE ADMIN CRITERIA 11/20 2199 CAN Medication ANY Non-Formulary 0 ONCE ONE 11/20 2144 CAN Medication ANY 11/20 2145 Norepinephrine 4 MG Q14H 11/21 1999 AC 11/20 Sodium Chloride 250 ML IV 235 Nystatin 1 ESTEFANY TIDPRN PRN 11/21 0330 AC TOP Pantoprazole Sodium 40 MG DAILY 11/21 2011 AC 11/21 IV 0937 Propofol 1,000 MG Q24H 11/20 2300 AC 11/20 N/A 100 ML IV 234 Propofol 5 MG ONCE ONE 11/20 2145 DC 11/20 IV 11/20 214 2150 Propofol 5 MG ONCE ONE 11/20 2145 DC 11/20 IV 11/20 2145 2150 Sodium Chloride 1,000 ML BOLUS ONE 11/20 2100 DC 11/20 IV 11/20 2158 211 Sodium Chloride 1,000 ML ONCE ONE 11/20 1700 DC 11/20 IV 11/21 0259 1948 Sodium Chloride 1,000 ML BOLUS ONE 11/20 1630 DC 11/20 IV 11/20 1729 1712 Sodium Polystyrene 60 ML ONCE ONE 11/20 1930 DC Sulfonate PO 11/20 1931 Sodium Polystyrene 60 ML ONCE ONE 11/20 1745 CAN Sulfonate [place] 11/20 1746 Sodium Polystyrene 60 ML ONCE ONE 11/20 1730 CAN Sulfonate PO 11/20 1731 Vancomycin HCl 1,000 MG 1800 11/21 1800 AC Sodium Chloride 250 ML IV Vecuronium [place] 10 MG ONCE ONE 11/20 2315 DC 11/20 IV 11/20 231 2342 Past History Travel History Traveled to [place] past 21 day No Medical History Blood Transfusion Hx: No Neurological: NONE EENT: hearing loss Cardiovascular: AFIB, hypertension Respiratory: COPD, pneumonia Gastrointestinal: upper GI bleed Hepatic: NONE Renal: NONE Musculoskeletal: ARTHRITIS Psychiatric: alcohol dependence, anxiety, depression Endocrine: hypothyroidism Blood Disorders: anemia 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(s): 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 self Services at Home: None Primary Language: Telugu Smoking Status: Current Everyday Smoker (2ppd down to 1/2 ppd) ETOH Use: alcohol abuse Illicit Drug Use: denies illicit drug use Functional Ability ADLs Independent: dressing, eating, toileting, bathing. Ambulation: independent Review of Systems Review of Systems: Unobtainable (intubated and sedated) Exam & Diagnostic Data Vital Signs and I&O Vital Signs Date Time Temp Pulse Resp B/P B/P Pulse O2 O2 Flow FiO2 Mean Ox Delivery Rate 11/21 1614 75 11/21 1250 75 11/21 1200 92 Ventilator 75% 11/21 0957 Ventilator 75% 11/21 0808 75 11/21 0800 92 Ventilator 75% 11/21 0800 97.5 60 18 102/62 92 Ventilator 75% 11/21 0614 75 11/21 0456 95 Ventilator 75% 11/21 0415 75 11/21 0233 75 11/21 0000 97.5 60 140/70 11/21 0000 95 Ventilator 75% 11/20 2215 75 11/20 2009 93 BIPAP 50% 11/20 1905 68 96 11/20 1833 96 BIPAP 50% 11/20 1716 66 119/53 94 BIPAP 50% 11/20 1715 66 93 Intake & Output 11/21 1600 11/21 0400 11/20 1600 11/20 0400 11/19 1600 11/19 0400 Intake Total 1994 3858 2250 Output Total 805 210 Balance 1190 3648 2250 Intake, IV 1915 3858 2250 Intake, Other 80 Output, 0 Gastric Drainage Output, Other 85 50 Output, Urine 720 160 Patient 152 lb 125 lb Weight Weight Reported by Patient Estimated Measurement Method Results Pertinent Lab Results: Laboratory Tests 11/21 11/21 11/21 11/21 1415 1200 0830 0830 Chemistry Sodium (137 - 145 mmol/L) 125 L Cancelled Potassium (3.5 - 5.1 mmol/L) 4.3 Cancelled Chloride (98 - 107 mmol/L) 97 L Cancelled Carbon Dioxide (22 - 30 mmol/L) 22 Cancelled Anion Gap (5 - 16) 6 Cancelled BUN (7 - 17 mg/dL) 43 H Cancelled Creatinine (0.5 - 1.0 mg/dL) 1.4 H Cancelled Estimated GFR (>60 ml/min) 37 L Glucose (65 - 99 mg/dL) 158 H Cancelled Calcium (8.4 - 10.2 mg/dL) 6.5 L Cancelled Phosphorus (2.5 - 4.5 mg/dL) 3.6 Cancelled Magnesium (1.6 - 2.3 mg/dL) 2.1 Cancelled Total Bilirubin (0.2 - 1.3 mg/dL) 1.8 H Cancelled AST (14 - 36 U/L) 3361 H Cancelled ALT (9 - 52 U/L) 1774 H Cancelled Albumin (3.5 - 5.0 g/dL) 2.3 L Cancelled Coagulation APTT (25 - 37 SEC) 45 H Serology Hepatitis A IgM Ab (NONREACTIVE) NONREACTIVE Hep Bs Antigen (NONREACTIVE) NONREACTIVE Hep B Core IgM Ab Conf (NONREACTIVE) NONREACTIVE Hepatitis C Antibody (NONREACTIVE) NONREACTIVE Toxicology Acetaminophen (10.0 - 30.0 ug/mL) Cancelled < 10.0 L 11/21 11/21 0445 0045 Blood Gas pH (7.35 - 7.45 PH) 7.29 *L pCO2 (35 - 45 TORR) 38 pO2 (80 - 100 TORR) 75 L HCO3 (21 - 28 MEQ/L) 18 L ABG O2 Sat (Measured) (>96.0 %) 92.0 L P-50 (Temp Corrected) Y Carboxyhemoglobin (1.5 - 5.0 %) 1.1 L O2 Concentration % 75% Temperature (97.0 - 100.0 FARH) 97.5 Respiration Rate (BPM) 18 O2 Delivery Method ESPRIT Vent Mode AC Expiratory Pressure (CMH2O/P) 5 Tidal Volume (CC) 450 Chemistry Sodium (137 - 145 mmol/L) 126 L Potassium (3.5 - 5.1 mmol/L) 4.6 Chloride (98 - 107 mmol/L) 96 L Carbon Dioxide (22 - 30 mmol/L) 20 L Anion Gap (5 - 16) 9 BUN (7 - 17 mg/dL) 44 H Creatinine (0.5 - 1.0 mg/dL) 1.6 H Estimated GFR (>60 ml/min) 32 L BUN/Creatinine Ratio (7 - 25 %) 27.5 H Phosphorus (2.5 - 4.5 mg/dL) 4.6 H Magnesium (1.6 - 2.3 mg/dL) 2.1 Total Bilirubin (0.2 - 1.3 mg/dL) 1.5 H Direct Bilirubin (< 0.4 mg/dL) 1.3 H AST (14 - 36 U/L) 6223 H ALT (9 - 52 U/L) 2062 H Alkaline Phosphatase (<127 U/L) 159 H Troponin I (< 0.11 ng/ml) 0.29 *H Total Protein (6.3 - 8.2 g/dL) 4.8 L Albumin (3.5 - 5.0 g/dL) 2.5 L Hematology CBC w Diff MAN DIFF ORDERED WBC (4.8 - 10.8 /CUMM) 13.6 H RBC (4.20 - 5.40 /CUMM) 4.38 Hgb (12.0 - 16.0 G/DL) 15.4 Hct (37 - 47 %) 47.2 H MCV (81.0 - 99.0 FL) 107.8 H MCH (27.0 - 31.0 PG) 35.2 H RDW (11.5 - 14.5 %) 20.6 H Plt Count (130 - 400 /CUMM) 262 MPV (7.4 - 10.4 FL) 7.6 Gran % (42.2 - 75.2 %) 96.3 H Lymphocytes % (20.5 - 51.1 %) 1.6 L Monocytes % (1.7 - 9.3 %) 2.1 Eosinophils % (0 - 5 %) 0 Basophils % (0.0 - 2.0 %) 0 L Absolute Granulocytes (1.4 - 6.5 /CUMM) 13.1 H Segmented Neutrophils (42.2 - 75.2 %) 76 H Band Neutrophils (0.0 - 5.0 %) 20 H Absolute Lymphocytes (1.2 - 3.4 /CUMM) 0.2 L Lymphocytes (20.5 - 51.1 %) 3 L Monocytes (1.7 - 9.3 %) 1 L Absolute Monocytes (0.10 - 0.60 /CUMM) 0.3 Absolute Eosinophils (0.0 - 0.7 /CUMM) 0 Absolute Basophils (0.0 - 0.2 /CUMM) 0 Platelet Estimate (ADEQUATE) ADEQUATE Polychromasia 1+ Macrocytic Cells 2+ PUBS MCHC (33.0 - 37.0 G/DL) 32.6 L Miscellaneous Phlebotomy Draw Site RIGHT BRACHIAL 11/21 11/20 11/20 11/20 11/20 0025 4719 5937 1946 1825 Blood Gas pH (7.35 - 7.45 PH) 7.15 *L pCO2 (35 - 45 TORR) 56 H pO2 (80 - 100 TORR) 90 HCO3 (21 - 28 MEQ/L) 20 L ABG O2 Sat (Measured) (>96.0 %) 92.0 L P-50 (Temp Corrected) Y Carboxyhemoglobin (1.5 - 5.0 %) 2.3 O2 Concentration % 50% Temperature (97.0 - 100.0 FARH) 96.1 L Respiration Rate (BPM) 26 O2 Delivery Method FFM Vent Mode ST Expiratory Pressure (CM H2O P) 6 Inspiratory Pressure (CM H2O P) 14 Chemistry Sodium (137 - 145 mmol/L) 125 L 122 L Potassium (3.5 - 5.1 mmol/L) 4.7 5.0 Chloride (98 - 107 mmol/L) 95 L 93 L Carbon Dioxide (22 - 30 mmol/L) 19 L 22 Anion Gap (5 - 16) 10 7 BUN (7 - 17 mg/dL) 44 H 43 H Creatinine (0.5 - 1.0 mg/dL) 1.7 H 1.8 H Estimated GFR (>60 ml/min) 29 L 28 L Glucose (65 - 99 mg/dL) 149 H 126 H Lactic Acid (0.7 - 2.1 mmol/L) 1.2 2.6 H Calcium (8.4 - 10.2 mg/dL) 6.7 L 6.6 L Phosphorus (2.5 - 4.5 mg/dL) 5.3 H 6.7 H Magnesium (1.6 - 2.3 mg/dL) 2.3 2.4 H Total Bilirubin (0.2 - 1.3 mg/dL) 1.7 H 1.5 H Direct Bilirubin (< 0.4 mg/dL) 1.4 H AST (14 - 36 U/L) 7487 H 7346 H ALT (9 - 52 U/L) 2246 H 2106 H Troponin I (< 0.11 ng/ml) 0.35 *H Albumin (3.5 - 5.0 g/dL) 2.6 L 2.6 L Coagulation APTT (25 - 37 SEC) 30 Miscellaneous Phlebotomy Draw Site RIGHT RADIAL Toxicology Digoxin (0.8 - 2.0 ng/mL) 1.9 11/20 11/20 11/20 1640 1632 1621 Chemistry Sodium (137 - 145 mmol/L) 121 L Potassium (3.5 - 5.1 mmol/L) 5.7 H Chloride (98 - 107 mmol/L) 88 L Carbon Dioxide (22 - 30 mmol/L) 24 Anion Gap (5 - 16) 9 BUN (7 - 17 mg/dL) 46 H Creatinine (0.5 - 1.0 mg/dL) 2.3 H Estimated GFR (>60 ml/min) 21 L Glucose (65 - 99 mg/dL) 85 Calcium (8.4 - 10.2 mg/dL) 7.1 L Phosphorus (2.5 - 4.5 mg/dL) 7.6 H Magnesium (1.6 - 2.3 mg/dL) 1.6 Total Bilirubin (0.2 - 1.3 mg/dL) 2.4 H AST (14 - 36 U/L) 7358 H ALT (9 - 52 U/L) 2161 H Troponin I (< 0.11 ng/ml) 0.33 *H Albumin (3.5 - 5.0 g/dL) 2.8 L TSH (0.270 - 4.200 uIU/mL) 1.530 Free T4 (0.78 - 2.44 ng/dL) 1.70 Coagulation PT (9.4 - 12.5 SEC) 19.1 H INR (0.90 - 1.19) 1.83 H Hematology CBC w Diff MAN DIFF ORDERED WBC (4.8 - 10.8 /CUMM) 18.5 H RBC (4.20 - 5.40 /CUMM) 4.60 Hgb (12.0 - 16.0 G/DL) 16.0 Hct (37 - 47 %) 49.9 H MCV (81.0 - 99.0 FL) 108.5 H MCH (27.0 - 31.0 PG) 34.8 H RDW (11.5 - 14.5 %) 20.5 H Plt Count (130 - 400 /CUMM) 211 MPV (7.4 - 10.4 FL) 7.7 Gran % (42.2 - 75.2 %) 96.0 H Lymphocytes % (20.5 - 51.1 %) 1.8 L Monocytes % (1.7 - 9.3 %) 2.0 Eosinophils % (0 - 5 %) 0 Basophils % (0.0 - 2.0 %) 0.2 Absolute Granulocytes (1.4 - 6.5 /CUMM) 17.8 H Segmented Neutrophils (42.2 - 75.2 %) 84 H Band Neutrophils (0.0 - 5.0 %) 13 H Absolute Lymphocytes (1.2 - 3.4 /CUMM) 0.3 L Lymphocytes (20.5 - 51.1 %) 2 L Monocytes (1.7 - 9.3 %) 1 L Absolute Monocytes (0.10 - 0.60 /CUMM) 0.4 Absolute Eosinophils (0.0 - 0.7 /CUMM) 0 Absolute Basophils (0.0 - 0.2 /CUMM) 0 Nucleated RBCs (0.0 - 0.0 /100WBC) 4 H Platelet Estimate (ADEQUATE) VERIFIED BY SMEAR Polychromasia 1+ Anisocytosis 1+ Macrocytic Cells 1+ PUBS MCHC (33.0 - 37.0 G/DL) 32.1 L Other Body Source Fld Total RBCs Counted (%) 100 Toxicology Digoxin (0.8 - 2.0 ng/mL) 2.5 H Cancelled Urines Ur Random Creatinine (mg/dL) 184.0 Ur Random Sodium (30 - 90 mmol/L) < 5 L Ur Random Potassium (mmol/L) 29.6 11/20 11/20 11/20 1621 1618 1516 Chemistry Lactic Acid (0.7 - 2.1 mmol/L) 2.7 H Toxicology Urine Opiates Screen (>2000 NG/ML) > 4000.00 H Methadone Screen (>300 NG/ML) < 40 Barbiturate Screen (>200 NG/ML) < 60 Ur Phencyclidine Scrn (>25 NG/ML) < 6.00 Amphetamines Screen (>1000 NG/ML) 113 U Benzodiazepines Scrn (>200 NG/ML) 377 H Urine Cocaine Screen (>300 NG/ML) < 50 Urine Cannabis Screen (>50 NG/ML) < 5.00 Urines Urinalysis LIGHT H Urine Color (YEL,AMB,STR) BROWN H Urine Clarity (CLEAR) HAZY H Urine pH (5.0 - 8.0) 6.0 Ur Specific [place] (1.001 - 1.035) 1.025 Urine Protein (NEG,<30 MG/DL) 100 H Urine Ketones (NEG) NEG Urine Nitrite (NEG) NEG Urine Bilirubin (NEG) MOD H Urine Urobilinogen (0.1 - 1.0 EU/dl) 2.0 H Ur Leukocyte Esterase (NEG) NEG Ur Microscopic SEDIMENT EXAMINED Urine RBC (0 - 5 /HPF) 1-3 Urine WBC (0 - 2 /HPF) 3-5 H Ur Epithelial Cells (NONE,FEW) FEW Hyaline Casts (0/LPF) RARE H Urine Mucus (FEW,NONE) FEW Urine Hemoglobin (NEG) MOD H Ur Random Creatinine Cancelled Ur Random Sodium Cancelled Ur Random Potassium Cancelled Fraction Sodium Excret Cancelled Urine Glucose (N MG/DL) NEG 11/20 11/20 1254 1253 Chemistry Sodium (137 - 145 mmol/L) 120 L Potassium (3.5 - 5.1 mmol/L) 5.4 H Chloride (98 - 107 mmol/L) 79 L Carbon Dioxide (22 - 30 mmol/L) 29 Anion Gap (5 - 16) 12 BUN (7 - 17 mg/dL) 51 H Creatinine (0.5 - 1.0 mg/dL) 2.4 H Estimated GFR (>60 ml/min) 20 L BUN/Creatinine Ratio (7 - 25 %) 21.3 Glucose (65 - 99 mg/dL) 95 Lactic Acid (0.7 - 2.1 mmol/L) 3.1 H Calcium (8.4 - 10.2 mg/dL) 8.5 Magnesium (1.6 - 2.3 mg/dL) 2.0 Total Bilirubin (0.2 - 1.3 mg/dL) 2.1 H AST (14 - 36 U/L) 3935 H ALT (9 - 52 U/L) 1348 H Alkaline Phosphatase (<127 U/L) 183 H Creatine Kinase (30 - 135 U/L) 144 H Troponin I (< 0.11 ng/ml) 0.25 *H Total Protein (6.3 - 8.2 g/dL) 6.1 L Albumin (3.5 - 5.0 g/dL) 3.4 L Globulin (1.9 - 4.2 gm/dL) 2.7 Albumin/Globulin Ratio (1.1 - 2.2 %) 1.3 Triglycerides (<150 mg/dL) 106 Cholesterol (<200 MG/DL) 158 LDL Cholesterol, Calc (65 - 129 mg/dL) 99 HDL Cholesterol (40 - 60 mg/dL) 38 L Cholesterol/HDL Ratio (0.00 - 4.23 %) 4 Vitamin B12 (239 - 931 pg/mL) > 1000 H Folate (2.76 - 20.0 ng/mL) > 20.0 H Hematology CBC w Diff MAN DIFF ORDERED WBC (4.8 - 10.8 /CUMM) 15.3 H RBC (4.20 - 5.40 /CUMM) 4.62 Hgb (12.0 - 16.0 G/DL) 16.1 H Hct (37 - 47 %) 49.5 H MCV (81.0 - 99.0 FL) 107.1 H MCH (27.0 - 31.0 PG) 34.9 H RDW (11.5 - 14.5 %) 20.2 H Plt Count (130 - 400 /CUMM) 245 MPV (7.4 - 10.4 FL) 7.4 Gran % (42.2 - 75.2 %) 81.6 H Lymphocytes % (20.5 - 51.1 %) 3.2 L Monocytes % (1.7 - 9.3 %) 13.8 H Eosinophils % (0 - 5 %) 0 Basophils % (0.0 - 2.0 %) 1.4 Absolute Granulocytes (1.4 - 6.5 /CUMM) 12.5 H Segmented Neutrophils (42.2 - 75.2 %) 69 Band Neutrophils (0.0 - 5.0 %) 14 H Absolute Lymphocytes (1.2 - 3.4 /CUMM) 0.5 L Lymphocytes (20.5 - 51.1 %) 10 L Monocytes (1.7 - 9.3 %) 7 Absolute Monocytes (0.10 - 0.60 /CUMM) 2.1 H Absolute Eosinophils (0.0 - 0.7 /CUMM) 0 Absolute Basophils (0.0 - 0.2 /CUMM) 0.2 Nucleated RBCs (0.0 - 0.0 /100WBC) 4 H Platelet Estimate (ADEQUATE) DECREASED Polychromasia 1+ Poikilocytosis 1+ Anisocytosis 1+ Macrocytic Cells 1+ PUBS MCHC (33.0 - 37.0 G/DL) 32.6 L 11/20 11/20 1247 1247 Blood Gas pH (7.35 - 7.45 PH) 7.22 *L Pending pCO2 (35 - 45 TORR) 67 *H Pending pO2 (80 - 100 TORR) 55 L Pending HCO3 (21 - 28 MEQ/L) 27 Pending ABG O2 Sat (Measured) (>96.0 %) 76.0 L Pending P-50 (Temp Corrected) N Pending Carboxyhemoglobin (1.5 - 5.0 %) 3.7 Pending O2 Concentration % 2L Pending Temperature Pending O2 Delivery Method N/C Pending Miscellaneous Phlebotomy Draw Site RIGHT RADIAL Pending Assessment/Plan Assessment/Recommendations: 1. Transaminitis. Markedly elevated AST greater than ALT. Most likely etiology is ischemic hepatitis in the setting of sepsis. May be contributors of biliary disease, pneumonitis, medications, etc. 2. Hyperbilirubinemia. Likely multifactorial, secondary to ischemic hepatitis and sepsis. Once again, may be contributed biliary disease, although alkaline phosphatase is near normal. Recommendations * Continue to follow LFTs (including alkaline phosphatase) with supportive therapy including antibiotics, vasopressors, gallbladder drainage. * Check INR, and follow this as well. * Consider eventual cholangiogram through cholecystostomy tube; do not perform this as of yet with supposition that an infected gallbladder is still under pressure. Consult Acknowledgment - Thank you for your consult request."
--- NOTE | 2016-11-21 18:29 | ECHOCARDIOGRAM REPORT ---
ROHIT FERGUSON Age: 76 : 1940 Gender: F Exam Date: 11/21/2016 11:12 Exam Location: [facility] Ht (in): 61 Wt (lb): 151 BSA: 1.74 BP: 140 / 70 Ordering Physician: SANDOR ALCANTAR M Referring Physician: SANDOR ALCANTAR MD Technologist: Ovi Hsieh [facility] Room Number: 110-1 Indications: AFIB/FLUTTER Rhythm: Sinus Technical Quality: Technically difficult study FINDINGS Left Ventricle Normal size left ventricle. Mild concentric left ventricular hypertrophy. No obvious regional wall motion abnormalities. Normal left ventricular ejection fraction visually estimated at 65%. Abnormal relaxation filling pattern of the left ventricle for age (stage 1 diastolic dysfunction). Right Ventricle Moderate right ventricular dilatation. Right Atrium Mild to moderate right atrial dilatation. Left Atrium Mild to moderate left atrial dilatation. Mitral Valve Mildly calcified mitral valve. Mildly thickened mitral valve leaflets. No mitral regurgitation. Aortic Valve Aortic valve not well visualized. Very mild aortic stenosis. No aortic regurgitation. Tricuspid Valve Structurally normal tricuspid valve. Mild tricuspid regurgitation. Moderate pulmonary hypertension. Right ventricular systolic pressure estimated to be elevated at 45 mmHg. Pulmonic Valve Pulmonic valve not well visualized, grossly normal. No pulmonic regurgitation. Pericardium No pericardial effusion. Great Vessels Normal size aortic root. Mildly dilated ascending aorta. Dilated inferior vena cava. CONCLUSIONS Normal size left ventricle. Mild concentric left ventricular hypertrophy. Normal left ventricular ejection fraction visually estimated at 65%. Abnormal relaxation filling pattern of the left ventricle for age (stage 1 diastolic dysfunction). Moderate right ventricular dilatation. Mild to moderate atrial dilatation. Very mild aortic stenosis. Mild tricuspid regurgitation. Moderate pulmonary hypertension. Mildly dilated ascending aorta. Dilated inferior vena cava. Ramone Howell M.D. (Electronically Signed) Final Date: 21 Nov 2016 18:29 MEASUREMENTS (Male / Female) Normal Values 2D ECHO LV Diastolic Diameter PLAX 3.7 cm 4.2 - 5.9 / 3.9 - 5.3 cm LV Systolic Diameter PLAX 2.4 cm 2.1 - 4.0 cm LV Fractional Shortening PLAX 35.1 % 25 - 46 % LV Ejection Fraction 2D Teich 65.3 % IVS Diastolic Thickness 1.1 cm LVPW Diastolic Thickness 1.0 cm LV Relative Wall Thickness 0.6 RV Internal Dim ED PLAX 4.1 cm 1.9 - 3.8 cm LVOT Diameter 2.0 cm Aortic Root Diameter 3.0 cm LA Systolic Diameter LX 3.4 cm 3.0 - 4.0 / 2.7 - 3.8 cm Ascending Aorta Diameter 3.4 cm DOPPLER AV Peak Velocity 218.0 cm/s AV Peak Gradient 19.0 mmHg AV Mean Velocity 142.0 cm/s AV Mean Gradient 10.0 mmHg AV Velocity Time Integral 45.0 cm LVOT Peak Velocity 83.5 cm/s LVOT Peak Gradient 2.8 mmHg LVOT Mean Velocity 57.2 cm/s LVOT Mean Gradient 2.0 mmHg LVOT Velocity Time Integral 24.1 cm LVOT Stroke Volume 75.7 cm AV Area Cont Eq vti 1.7 cm AV Area Cont Eq pk 1.2 cm MV Peak Velocity 95.1 cm/s MV Peak Gradient 3.6 mmHg MV Mean Velocity 46.0 cm/s MV Mean Gradient 1.0 mmHg Mitral E Point Velocity 69.6 cm/s Mitral A Point Velocity 83.9 cm/s Mitral E to A Ratio 0.8 MV PHT Velocity 96.4 cm/s MV Deceleration Wagoner 304.0 cm/s MV Pressure Half Time 95.1 ms MV Area PHT 2.3 cm MV Deceleration Time 394.0 ms TR Peak Velocity 297.0 cm/s TR Peak Gradient 35.3 mmHg Right Atrial Pressure 10.0 mmHg Pulmonary Artery Systolic Pressu 45.3 mmHg Right Ventricular Systolic Press 45.3 mmHg PV Peak Velocity 93.0 cm/s PV Peak Gradient 3.5 mmHg PV Mean Velocity 62.4 cm/s PV Mean Gradient 2.0 mmHg PV Velocity Time Integral 21.3 cm LV E' Lateral Velocity 9.6 cm/s Mitral E to LV E' Lateral Ratio 7.3 LV E' Septal Velocity 6.6 cm/s Mitral E to LV E' Septal Ratio 10.5
--- NOTE | 2016-11-21 19:52 | NUR ---
Received patient at 0800. SAS-3 fentanyl gtt at 60 mcg/hr and titrated down to 35 mcg/hr by end of shift w/ bradycardia and propofol running at 15 mcg/kg/min. Orally intubated w/ #8 to the right at 21 cm and mechanically ventilated w/ rate of 16, tv 450 but increased to 550 @ 1250 after going for CTscan and seeing the R lower lobe collapse, FIO2 started at and left at 75% w/ peep of 5. Patient's o2 sats 92-93%. Large oral/deep secretions. White frothy oral and thick [place]/light yellow deep suctioned. When patient aroused, occasionally agitated w/ episodes of coughing caused some bleeding down side of mouth in the am. Plavix and ASA held and heparin gtt shut off and 10 am. No other evidence of bleeding noted. Pupils 2mm and equal/reactive to light briskly all day. Patient moves her arms/opens her eyes occasionally to command. SB-NSR on the monitor 50s-60s. SBP 90s-110s, levo titrated down to 1 mcg/min by end of shift. D5NS increased from 50 mls/hr to 100 mls/hr in the am OGT to low wall suction w/ scant brown/green drainage. abdomen is soft w/ hypoactive bowel sounds. T tube to right side of abdomen w/ dressing bloody/dried and otherwise intact. T tube draining moderate thick/sludgey brown fluid. Skin otherwise intact w/ no edema. Black in place draining adequate clear derrell urine. RIJ TLC placed 11/20/16 w/ dressing replaced today, 11/21/16. All caps changed. Patient to be placed on specialty mattress w/ percussion when available per Bed company. Patient and family given emotional reassurance and continuing to montior.
--- NOTE | 2016-11-21 23:32 | NUR ---
AVSS.SEDATED AND RESPOND TO VERBAL COMMANDS.SEDATED WITH PROPOFOL.FOLLOW COMMANDS.C'O GEN DISCOMFORT AND FENTANYL CONT WITH GOOD EFFECT.+PP.SBP RANGING 90-110'S; LEVOPHED CONT VIA TLC SITE.IVF CONT VIA TLC.REMAIN VENTILATED WITH NO CHANGE TO VENT SETTINGS AND SATS >95%.HOB ELEVATED.OGT TO LWS.BALDERRAMA PATENT WITH GOOD UO. CHOLEYCYSTOMY CATHETER PATENT AND DSG INTACT WITH MARKED DRIED SANGUINOUS OUTPUT.PLAN OF CARE REVIEWED WITH PT.
[2016-11-21 23:46] LABS: PT 15.4 SEC (9.4-12.5)
[2016-11-22] VITALS: BP 100/60
--- NOTE | 2016-11-22 03:20 | NUR ---
11/21/16 2330 PATIENT RECEIVED THRASHING IN BED, BITING ON ETT- PROPOFAL DRIP INCREASED TO 30 MCG/KG/MIN (12.5 ML/HR), FENTANYL INFUSING AT 35 MCG/HR (8.8ML/HR), ETS DONE WITH MODERATE AMTS OF WHITISH SECRETIONS OBTAINED 11/22/16 0000 SEDATION EFFECTIVE- SAS 3, PATIENT AROUSABLE WITH STIMULI BUT QUICKLY RETURNS TO SLEEP ONCE STIMULI CEASES, PUPILS 2MM, EQUAL AND REACTIVE TO LIGHT, ETT TO VENTILATOR WITH FIO2 OF 75%- CONTINUOUS O2 SAT 94 TO 95%, BREATHE SOUNDS: UPPER SIMON RHONCHORUS, RIGHT BASE DIMINISHED, LEFT BASE FAINT CRACKLES, SUMMER CHILD CAREGIVER SINUS WITH HEART RATE 60/MIN, LEVOPHED DRIP INFUSING AT 2 MCG/MIN (7.5 ML/HR) VIA RIGHT IJ TLC, BP 100/60 MANUALLY, OGT IN PLACE AND TO LOW INTERMITTENT WALL SUCTION, ABDOME SOFT, NO AUDIBLE BS NOTED, CHOLEYCYSTOSTOMY TUBE TO GRAVITY- FLUSHES EASILT WITH 10 ML NS ORDERED- BILE COLORED DRAINAGE NOTED, BALDERRAMA TO GRAVITY DRAINAGE WITH ADEQUATE UO NOTED
--- NOTE | 2016-11-22 03:42 | NUR ---
0030 ? CHANGE TO JUNCTIONAL RHYTHYM ON WRAPPER HAND, EKG DONE, DR LOO NOTIFIED AND IN AT BEDSIDE, TROPONIN DRAW AND TO LAB
--- NOTE | 2016-11-22 03:43 | NUR ---
0300 BP UP TO 140/SYSTOLIC- LEVOPHED TITRATED DOWN- SEE FREQUET VS SHEET, LEVOPHED DRIP NOW OFF BP 116/65, MAP 85
[2016-11-22 04:49] LABS: ABSOLUTE BASOPHIL COUNT 0 /CUMM (0.0-0.2); ABSOLUTE EOSINOPHIL COUNT 0 /CUMM (0.0-0.7); ABSOLUTE LYMPH COUNT 0.4 /CUMM (1.2-3.4); ABSOLUTE MONOCYTE COUNT 0.1 /CUMM (0.10-0.60); BASOPHIL % 0 % (0.0-2.0); EOSINOPHIL % 0 % (0-5); MEAN CORPUSCULAR HGB 34.5 PG (27.0-31.0); MEAN CORPUSCULAR HGB CONC 32.9 G/DL (33.0-37.0); MEAN PLATELET VOLUME 7.6 FL (7.4-10.4); PLATELET COUNT 182 /CUMM (130-400); RBC DISTRIBUTION WIDTH 19.7 % (11.5-14.5); RED BLOOD CELL CT 3.89 /CUMM (4.20-5.40); WHITE BLOOD CELL COUNT 8.6 /CUMM (4.8-10.8)
[2016-11-22 04:54] LABS: PT 16.8 SEC (9.4-12.5)
[2016-11-22 04:56] LABS: HEMATOCRIT 40.8 % (37-47)
--- NOTE | 2016-11-22 06:44 | NUR ---
PATIENT REMAINS COMFORTABLY SEDATED WITH SAS 3 ALTHOUGHT DOES RESIST CARE WITH MOVING AND TURNING AND DOES NOT FOLLOW COMMANDS, SBP 100'S TOO 110'S/SYSTOLIC, BREATHE SOUNDS CLEARER THIS AM- NO RHONCHI, NO CRACKLES, RIGHT BASE MUCH DIMINISHED, AM CXR DONE, AWAITING AM MD ROUNDS
--- NOTE | 2016-11-22 06:53 | PN- Resident CRCU ---
KEVIN DE LEÓN,ELIZ 11/22/16 0653: Subjective HPI/CRCU Issues: Patient seen and examined at bedside this AM. She remains sedated on propofol and fentanyl drip, though there was report of agitation yesterday evening and overnight. Patient remained afebrile on current ceftriaxone, vencomycin and flagyl. She is currently off of pressors. She continues to have drainage from her cholecystostomy tube. 24 Hour Events: cafeteria monitor: Noted bradycardia to 41 bpm. Vital signs last 24 hours: T 97.1-98.1, HR 56-72, RR 18-22, BP 91-141/46-66, O2 90-96% on AC ventilation RR 18 TV 550 75% FiO2 and 5 PEEP. Objective Vital Signs & I&O Last 8 Hrs of Vitals and I&O: Intake & Output 11/22 1600 Intake Total Output Total Balance Patient 152 lb Weight Exam General Appearance: well developed/nourished, no apparent distress, sedated, intubated Head: atraumatic, normal appearance Ears, Nose, Throat: moist mucus membranes Neck: normal inspection, supple Respiratory: Rhonchi RLL, decreased breath sounds RUL Cardiovascular: regular rate/rhythm Gastrointestinal: normal bowel sounds, soft, non-tender Extremities: normal inspection Cranial Nerves: PERRL Skin: normal color, warm/dry Nutrition Nutrition: NPO Current Medications: Current Medications Sig/Shilpa Start time Last Medication Dose Route Stop Time Status Admin Acetylcysteine 2 ML BID 11/21 1235 AC 11/22 INH 0756 Albuterol Sulfate 3 ML EVERY 4 HRS/AWAKE 11/21 1600 AC 11/22 INH 1151 Albuterol Sulfate 3 ML TID 11/21 1000 DC 11/21 INH 1307 Azithromycin 500 MG Q24H 11/21 1345 DC 11/21 Sodium Chloride 250 ML IV 1439 Ceftriaxone Sodium 1,000 MG Q24H 11/21 1330 AC 11/21 IV 1430 Dextrose/Sodium 1,000 ML Q20H 11/20 2015 AC 11/22 Chloride IV 1226 Fentanyl Citrate 1,000 MCG Q13H 11/21 0700 AC 11/22 Dextrose/Water 250 ML IV 0000 Guaifenesin 600 MG Q12 11/21 1000 AC 11/21 PO 2131 Ipratropium [place] 2.5 ML TID 11/21 1000 DC 11/21 INH 1307 Levothyroxine Sodium 75 MCG DAILY 11/22 1000 AC 11/22 IV 0933 Levothyroxine Sodium 0.15 MG DAILY AC 11/21 0700 DC 11/21 PO 0744 Lorazepam 50 MG Q24H 11/22 1015 AC 11/22 Dextrose/Water 500 ML IV 1200 Metronidazole 500 MG IQ8 11/21 0000 AC 11/22 N/A 1 UNIT IV 0900 Norepinephrine 4 MG Q14H 11/20 2000 DC 11/22 Sodium Chloride 250 ML IV 0007 Nystatin 1 ESTEFANY TIDPRN PRN 11/21 0330 AC TOP Pantoprazole Sodium 40 MG DAILY 11/21 2011 AC 11/22 IV 0933 Potassium Chloride 10 MEQ ONCE ONE 11/22 0715 DC 11/22 IV 11/22 0716 1032 Propofol 1,000 MG Q8 11/22 0600 AC 11/22 N/A 100 ML IV 0600 Propofol 1,000 MG .STK-MED ONE 11/22 0002 DC IV 11/22 0003 Propofol 1,000 MG Q24H 11/20 2300 DC 11/22 N/A 100 ML IV 0002 Vancomycin HCl 1,000 MG 1800 11/21 1800 AC 11/21 Sodium Chloride [address] Scan Findings: Abdomen/pelvis CT: IMPRESSION: 1. Small to moderate-sized right-sided pleural effusion with collapse of the right middle lobe and the majority of the basal segments of the right lower lobe. No definite obstructing lesion is identified, however pulmonary consultation should be considered. 2. Trace left pleural effusion. 3. Lines and tubes as noted. 4. Thyroid appears mildly enlarged and nodular. 5. Intraperitoneal free fluid and soft tissue anasarca. 6. Extensive colonic diverticulosis, mild colitis not entirely excluded, clinical correlation recommended. ECHO Findings: CONCLUSIONS Normal size left ventricle. Mild concentric left ventricular hypertrophy. Normal left ventricular ejection fraction visually estimated at 65%. Abnormal relaxation filling pattern of the left ventricle for age (stage 1 diastolic dysfunction). Moderate right ventricular dilatation. Mild to moderate atrial dilatation. Very mild aortic stenosis. Mild tricuspid regurgitation. Moderate pulmonary hypertension. Mildly dilated ascending aorta. Dilated inferior vena cava. Impression/Plan Impression/Problem List Impression: Ms. Sánchez is a 76 year old female with PMH HTN, severe COPD, cigarette abuse (1 PPD), previous alcohol use, atrial fibrillation on Pradaxa and digoxin, GI bleed and hypothyroidism who presents with chief complaint of cough, decreased oral intake, fatigue, fever and chills for one week. Of note, patient did she her PCP Dr. Enma MD who prescribed her azithromycin for presumed bronchitis though her symptoms persisted prompting evaluation in our emergency department. In the ED: Vital signs showed T 95.0, HR 72, RR 22, BP 90/68, O2 86% RA. Labs were significant for WBC 15.3, 14 bands, 81% granulocytes, H&H 16.1/49.5, Plt 245, Na 120, K 5.4, Cl 79, HCO3 29, BUN 51, Cre 2.4, Glu 95, lactic acid 3.1 , TBili 2.1, DBili 1.4, AST/ALT 7358/2161, trop 0.25, INR 1.83. Abdominal US showd impacted gallstone in GB neck with GB wall thickening, wall edema and pericholecystic fluid. CXR showed cardiomegaly with a patchy opacity left lower lung field abnormality. suggesting an evolving pneumonia EKG showed non-specific ST elevations in leads [address] depressions in the high lateral leads I and L. Patient is admitted to the intensive care unit and the following is the management: 1. Septic shock requiring pressors with mutiorgan dysfunction * Patient hypotensive, tachycardic and tachypneic on admission with likely source being intraabdominal pathology * Today, WBC normalized to 8.6 without bands today; patient has been afebrile * ID consult appreciated * Cultures so far showing no growth, with no growth from bile culture, sputum only growing mixed jeane * Will continue empiric antibiotic therapy with IV vancomycin, flagyl and ceftriaxone pending final cultures due to severity of her illness * IV fluids with [id number] Saline at 100 cc/h per continued with goal CVP 8-10 * Patient hemodynamically stable OFF of pressors today * Trend CBC, ICU bundle 2. Transaminitis and hyperbilirubinemia with acute cholecytsitis * Concern for acute cholecystitis with RUQ US findings of gallstones with wall thickening and edema * Patient is s/p percutaneous cholecystostomy tube with surgery, draining well * Continue to follow surgical recommendations * Hepatitis panel negative, tylenol <10 * Transaminitis likely 2/2 shock liver in the setting of hypotension from sepsis * Trend LFTs/Bili to improvement * GI consult placed, follow up recommendations; will consider eventual cholangiogram via cholecystostomy tube * Statin on hold 2/2 shock liver 3. Elevated troponin * Troponins peaked at 0.35, have since trended down * Likely represents demand/supply mismatch (demand ischemia); unlikely to be ACS * Cardio consult with Dr. Vida MD appreciated * Aspirin, Plavix and IV heparin initially started but have been discontinued as patient possible surgical candidate, history of GIB and noted oropharyngeal bleeding * Follow up further cardio recommendations, continuous telemetry monitoring * Echo pending, f/u results 4. Possible pneumonia, aspiration vs. CAP * CXR on admission showed LLL abnormality suggestive of PNA * Follow up CT chest today showed small/moderate pleural effusion with RML/ partial RLL collapse; trace left pleural effusion * Increased TV from 450 to 550, add mucomyst and chest PT * Patient started on IV ceftriaxone and azithromycin, continue pending ID recommendations * ID consult placed for antibiotic reevaluation 5. Paroxysmal atrial fibrillation with digitalis toxicity * Digoxin level elevated on admission requiring digibind * Continue to hold digoxin, recheck dig level tomorrow * Hold off anticoagulation, aspirin, plavix at this point as patient was noted to have + oropharyngeal bleeding * Continuous telmetry monitoring * Follow up cardio recommendations * Hold metoprolol due to hypotension, restart once BP well controlled 6. Hyponatremia, improving * Likely hypovolemic hyponatremia in setting of severe dehydration and sepsis * Trend ICU bundle frequently, caution with overcorrection * Continue IVF with D5W-NS at 100 cc/h 7. Acute on chronic respiratory failure with severe COPD/emphysema in the setting of tobacco dependance * Patient noted to be 86% on RA during admission * Initially placed on BiPAP but was intubated due to increased work of breathing around 2200 on 11/20/16 * Continue AC ventilation and increased tidal volume yesterday to 550 2/2 RML/ RLL collapse * Patient continues to have high FiO2 requirements at 75%, titrate down to maintain sat >92% * Add ativan drip to fentanyl and propfol drip for sedation, attempt to tirate off propofol * IV protonix while intubated, daily CXR to ensure appropriate positioning * Recheck ABG 5 pm tonight 8. BETH * BUN 51, Cre 2.4 on admission, likely secondary to hypotension and severe sepsis (prerenal) * IMPROVING * Continue IVF and trend ICU bundle * Avoid nephrotoxins FULL CODE DVTP: ALPS (no pharm DVTP at this time 2/2 oropharyngeal bleeding) Diet: NPO Mild pain pathway Problem List: 1. Acute cholecystitis 2. Multiorgan failure 3. Tobacco abuse 4. Acute respiratory failure with hypoxia and hypercarbia Pain Ratin Tomorrow's Labs & Rationales: CBC (sepsis) ICU bundle (hyponatremia, renal dysfunction) INR (shock liver) Plan DVT/Prophylaxis: BRINA Cabrales MD 11/22/16 0927: Attending MD Review Statement Attending Sign Off Attending Cosign Statement: I have: examined this patient, reviewed [employer] EMR data, personally reviewd images, discussd w/resident/PA/PARENT PARTNER, discussed mgmt plan w/rick, discussed mgmt plan w/CM, discussed mgmt plan w/pt, agreed w/resident/PA/PARENT PARTNER, amended to note. Other Findings: I have: examined this patient, reviewed aval[employer] EMR data, personally reviewd images, discussd w/resident/PA/PARENT PARTNER, discussed mgmt plan w/rick, discussed mgmt plan w/CM, discussed mgmt plan w/pt, agreed w/resident/PA/PARENT PARTNER, amended to note. Other Findings: Impression 76 year old woman * septic shock secondary to likely abdominal pathlogy, also with a pneumonia that can be likely aspiration vs. CAP * shock liver * hyponatremia * digitalis toxicity * troponinemia - likely demand ischemia * BETH improved * respiratory failure - hypoxemic * tobacco dependence and severe COPD/emphysema Plan Respiratory -reduce fio2 as tolerted -abg this pm -dc solumedrol -trc/nebs ID -ID consultation -on flagyl, ceftriaxone and zithromax for now -panculture follow up -s/p cholecystostomy tube CVS -monitor hemodynamics -levophed titrate to off -f/u cardiology recommendations, however in the setting of oropharyngeal bleeding and possible surgical intervention, will hold anticoagulants and will alert the paid intern -ECHO pending Heme -dc plavix, dc aspirin given bleeding and possible intervention -heparin questionable further use, given hx of gi bleed and oropharyngeal bleeding -will alert cardiology to see if can be stopped Metabolic -ins/outs -beth improved -shock liver -monitor for now -gi/surgery consulted -s/p cholecystomy tube -hyponatremia - improved - hypovolemic most likely - hydrate, monitor cvp Alimentary -NPO Neuro -sedation as necessary TTS 50 min
[2016-11-22 08:00] VITALS: BP 130/74
--- NOTE | 2016-11-22 09:02 | NUR ---
Received patient at 0800, SAS-3, fentanyl running at 30 mcg/hr and propofol running at 30 mcg/kg/hr. Pupils 2mm and sluggish. Bilateral wrist restraints in and renewed. Positive pedal pulses bilaterally. Orally intubated w/ #8 to the right at 21 cm and mechanically ventilated w/ AC-18, TV 550, FIO2 75%, Peep of 5 satting 95%. Deep suctioned for scant frothy white, mouth care completed and orally suctioned for scant clear frothy sputum. Lungs clear throughout/diminished to the bases. Scattered course breath sounds througout. SKin is warm/dry/pink and intact. +1 edema to hips/upper thighs. OGT to low wall suction, green drainage noted. Abdomen distended/soft, positive bowel sounds. T-tube to right side of abdomen w/ dried/bloody drainage to dsg. Flushed w/ 10 cc NS at this time. Black in place draining clear derrell urine. NSR 60s on the monitor worker, SBP 110s, no levo running any longer. D5-NS running 100 mls/hr. Given emotional reassurance. Continuing to monitor.
--- NOTE | 2016-11-22 10:42 | PN- Infect Dx ---
Subjective Subjective: Afebrile. She remains off pressors. She does not report any complaints Objective Last 24 Hrs of Vital Signs/I&O Vital Signs Date Time Temp Pulse Resp B/P B/P Pulse O2 O2 Flow FiO2 Mean Ox Delivery Rate 11/22 0844 75 11/22 0800 95 Ventilator 75% 11/22 0800 98.6 64 18 130/74 95 Ventilator 75% 11/22 0653 75 11/22 0400 95 Ventilator 75% 11/22 0338 75 11/22 0151 75 11/22 0007 97.5 60 18 116/54 11/22 0000 94 Ventilator 75% 11/22 0000 97.5 60 18 100/60 94 Ventilator 75% 11/21 2219 75 11/21 2030 92 Ventilator 75% 11/21 1919 75 11/21 1801 61 99/46 11/21 1614 75 11/21 1600 98.1 56 18 90/54 91 Ventilator 75% 11/21 1600 95 Ventilator 75% 11/21 1250 75 11/21 1200 92 Ventilator 75% Intake & Output 11/22 1600 11/22 0800 11/22 0000 Intake Total 1025 1602 Output Total 495 440 Balance 530 1162 Intake, IV 1025 1562 Intake, Tube 40 Irrigant Number 0 Bowel Movements Output, 45 Drainage Output, 50 100 Gastric Drainage Output, Other 50 Output, Urine 400 290 Patient 152 lb Weight Physical Exam Other Physical Findings: She is awake and alert on the ventilator Neck right IJ triple-lumen catheter with no inflammation at the site Lungs clear Heart regular rhythm with no murmur Abdomen is distended, nontender with positive bowel sounds; cholecystostomy tube draining bilious material Extremities trace edema both lower extremities Black catheter remains in place Results Last 24 Hours of Lab Results: Laboratory Tests 11/22 11/22 11/21 0420 0110 2330 Chemistry Sodium (137 - 145 mmol/L) 130 L Potassium (3.5 - 5.1 mmol/L) 3.9 Chloride (98 - 107 mmol/L) 100 Carbon Dioxide (22 - 30 mmol/L) 21 L Anion Gap (5 - 16) 8 BUN (7 - 17 mg/dL) 38 H Creatinine (0.5 - 1.0 mg/dL) 1.0 Estimated GFR (>60 ml/min) 54 L Glucose (65 - 99 mg/dL) 171 H Calcium (8.4 - 10.2 mg/dL) 6.8 L Phosphorus (2.5 - 4.5 mg/dL) 2.5 Magnesium (1.6 - 2.3 mg/dL) 2.0 Total Bilirubin (0.2 - 1.3 mg/dL) 1.7 H AST (14 - 36 U/L) 1719 H ALT (9 - 52 U/L) 1485 H Alkaline Phosphatase (<127 U/L) 123 Troponin I (< 0.11 ng/ml) 0.16 *H Albumin (3.5 - 5.0 g/dL) 2.2 L Coagulation PT (9.4 - 12.5 SEC) 16.8 H 15.4 H INR (0.90 - 1.19) 1.61 H 1.47 H Hematology CBC w Diff MAN DIFF ORDERED WBC (4.8 - 10.8 /CUMM) 8.6 RBC (4.20 - 5.40 /CUMM) 3.89 L Hgb (12.0 - 16.0 G/DL) 13.4 Hct (37 - 47 %) 40.8 MCV (81.0 - 99.0 FL) 105.0 H MCH (27.0 - 31.0 PG) 34.5 H RDW (11.5 - 14.5 %) 19.7 H Plt Count (130 - 400 /CUMM) 182 MPV (7.4 - 10.4 FL) 7.6 Gran % (42.2 - 75.2 %) 94.0 H Lymphocytes % (20.5 - 51.1 %) 5.1 L Monocytes % (1.7 - 9.3 %) 0.9 L Eosinophils % (0 - 5 %) 0 Basophils % (0.0 - 2.0 %) 0 L Absolute Granulocytes (1.4 - 6.5 /CUMM) 8.0 H Segmented Neutrophils (42.2 - 75.2 %) 94 H Absolute Lymphocytes (1.2 - 3.4 /CUMM) 0.4 L Lymphocytes (20.5 - 51.1 %) 2 L Monocytes (1.7 - 9.3 %) 4 Absolute Monocytes (0.10 - 0.60 /CUMM) 0.1 L Absolute Eosinophils (0.0 - 0.7 /CUMM) 0 Absolute Basophils (0.0 - 0.2 /CUMM) 0 Nucleated RBCs (0.0 - 0.0 /100WBC) 1 H Platelet Estimate (ADEQUATE) ADEQUATE Polychromasia 1+ Hypochromic-Microcytic 1+ Poikilocytosis 1+ Anisocytosis 2+ Macrocytic Cells 2+ Ovalocytes 1+ PUBS MCHC (33.0 - 37.0 G/DL) 32.9 L Other Body Source Fld Total RBCs Counted (%) 100 11/21 11/21 11/21 11/21 2253 1715 1415 1200 Blood Gas pH (7.35 - 7.45 PH) 7.47 H pCO2 (35 - 45 TORR) 25 L pO2 (80 - 100 TORR) 71 L HCO3 (21 - 28 MEQ/L) 18 L ABG O2 Sat (Measured) (>96.0 %) 93.0 L Carboxyhemoglobin (1.5 - 5.0 %) 0.9 L O2 Concentration % 75% Temperature (97.0 - 100.0 FARH) 96.6 L Respiration Rate (BPM) 18 O2 Delivery Method VENT Vent Mode CMV Expiratory Pressure (CMH2O/P) 5 Tidal Volume (CC) 550 Chemistry Sodium (137 - 145 mmol/L) 126 L 125 L Cancelled Potassium (3.5 - 5.1 mmol/L) 4.0 4.3 Cancelled Chloride (98 - 107 mmol/L) 99 97 L Cancelled Carbon Dioxide (22 - 30 mmol/L) 21 L 22 Cancelled Anion Gap (5 - 16) 6 6 Cancelled BUN (7 - 17 mg/dL) 42 H 43 H Cancelled Creatinine (0.5 - 1.0 mg/dL) 1.1 H 1.4 H Cancelled Estimated GFR (>60 ml/min) 49 L 37 L Glucose (65 - 99 mg/dL) 164 H 158 H Cancelled Calcium (8.4 - 10.2 mg/dL) 6.6 L 6.5 L Cancelled Phosphorus (2.5 - 4.5 mg/dL) 2.9 3.6 Cancelled Magnesium (1.6 - 2.3 mg/dL) 2.0 2.1 Cancelled Total Bilirubin (0.2 - 1.3 mg/dL) 1.9 H 1.8 H Cancelled AST (14 - 36 U/L) 2519 H 3361 H Cancelled ALT (9 - 52 U/L) 1655 H 1774 H Cancelled Albumin (3.5 - 5.0 g/dL) 2.4 L 2.3 L Cancelled Miscellaneous Phlebotomy Draw Site RIGHT BRACHIAL Last 24 Hours of Chase Results: Blood cultures November 20 negative Sputum culture November 20 mixed jeane with yeast Urine culture November 20 negative Sputum culture November 21 mixed jeane Bile culture November 20 negative Assessment/Plan Impression: Condition has improved with blood pressure stable off pressors, temperatures remaining normal, white blood cell count now normal, with no bandemia, improving renal function and decreasing liver enzymes suggesting a response to treatment for presumed sepsis, though cultures are all negative so far. She is now on Vancomycin, Flagyl and Ceftriaxone empirically for possible acute cholecystitis, with the bile culture remaining negative, versus pneumonia, though her sputum culture is only growing mixed jeane, versus an intra-abdominal process, such as ischemic or C. difficile colitis. If her cultures remain negative her antibiotic regimen can be adjusted but, given the severity of her illness, she should be continued on broad-spectrum antibiotics at this time. Suggestion: 1. Follow-up final cultures 2. Stool for C. difficile if diarrhea 3. Continue Vancomycin, Flagyl and Ceftriaxone pending above
--- NOTE | 2016-11-22 13:44 | PN- Cardiology ---
Subjective Subjective: * Patient is intubated and sedated. * Sinus rhythm with PAC's * creatinine is normal at 1.0 * sodium improved to 130 * hepatic transaminases are trending down Objective Vital Signs and I&Os Vital Signs Date Time Temp Pulse Resp B/P B/P Pulse O2 O2 Flow FiO2 Mean Ox Delivery Rate 11/22 1200 98 Ventilator 75% 11/22 1138 75 11/22 0844 75 11/22 0800 95 Ventilator 75% 11/22 0800 98.6 64 18 130/74 95 Ventilator 75% 11/22 0653 75 11/22 0400 95 Ventilator 75% 11/22 0338 75 11/22 0151 75 11/22 0007 97.5 60 18 116/54 11/22 0000 94 Ventilator 75% 11/22 0000 97.5 60 18 100/60 94 Ventilator 75% 11/21 2219 75 11/21 2030 92 Ventilator 75% 11/21 1919 75 11/21 1801 61 99/46 11/21 1614 75 11/21 1600 98.1 56 18 90/54 91 Ventilator 75% 11/21 1600 95 Ventilator 75% Intake & Output 11/22 1600 11/22 0800 11/22 0000 11/21 1600 11/21 0800 11/21 0000 Intake Total 1025 1602 4622 060 0289 Output Total 495 440 420 385 210 Balance 530 1162 103 921 0982 Intake, IV 1025 1562 556 631 5201 Intake, Other 80 Intake, Tube 40 Irrigant Number 0 Bowel Movements Output, 45 Drainage Output, 50 100 0 Gastric Drainage Output, Other 50 45 40 50 Output, Urine 400 290 375 345 160 Patient 152 lb 152 lb Weight Weight Reported by Patient Measurement Method Physical Exam: General: WD/ WN female in NAD; sedated Heart: RRR with 2/6 systolic murmur Lungs: decreased air movement bilaterally, no crackles Extemities: no edema Assessment/Plan Assessment/Plan * This patient is hemodynamically stable in a sinus rhythm and off pressors. * creatinine is improved. * Digoxin is being held and is now in an acceptable therapeutic range. Continue telemetry? Yes
--- NOTE | 2016-11-22 15:38 | RADIOLOGY REPORT ---
EXAMINATION: XR CHEST CLINICAL INFORMATION: Pneumonia, effusions. Acute chronic respiratory failure. COMPARISON: X-ray portable chest 11/21/2016. TECHNIQUE: Portable frontal view of the chest was obtained. FINDINGS: The tip of the endotracheal tube is located approximately 2.8 cm above the level of the cori. The tip of the enteric tube is not well-visualized but appeared infradiaphragmatic. The right-sided central line appears in good position, projecting at the level of the cavoatrial junction. Small right-sided pleural effusion is noted. Nonspecific bibasilar airspace disease is noted (right greater than left), appears unchanged. Bilateral nonspecific calcifications are noted within the breasts, unchanged. IMPRESSION: 1. The tip of the endotracheal tube is located approximately 2.8 cm above the level of the cori. 2. No significant change within the pleural parenchymal disease since 11/21/2016.
[2016-11-22 16:00] VITALS: BP 120/60
--- NOTE | 2016-11-22 20:03 | NUR ---
1030: PATIENT NOTED TO BE HAVING AN IRREGULAR RHYTHYM/BEATS WITH SOME INVERTED P WAVES/ PVCS' AND PAC'S. DR. BROWN AWARE, AND EKG ORDERED AND DONE SHOWING SB/NSR WITH ATRIAL BEATS AND TWAVE IRREGULARITIES. DR. BROWN STATED IT WAS OKAY AND CONTINUING TO MONTIOR PATIENT. PATIENT PLACED ON ATIVAN GTT AT 2MG AT 1200 AND PROPOFOL TITRATED OFF/D/C'D IN THE EVENING. PATIENT SAS 2-3 AND IMPROVING TO 3 AFTER PROPOFOL TURNED OFF. D5NS @ 100 MLS/HR CHANGED TO NS @ 100 MLS/HR FOR ELEVATED BLOOD SUGARS @ 233 AND 213. IMPROVED AT NS TO 193 AT 1800. FIO2 BEING DECREASED SLOWLY THE SHIFT WENT ON FROM 75% TO 55%. PATIENT'S O2 SATS 94-97% AND DOING WELL ON HER NEW BED WITH THE CHEST PT. CONTINUING TO MONITOR.
[2016-11-23] VITALS: BP 98/60
--- NOTE | 2016-11-23 02:00 | NUR ---
PATIENT ON FENTANYL AT 35 MCG/HR AND ATIVAN AT 2 MG/HR.SAS=3. WILL OPEN EYES TO TACTILE STIMULI. DAVID. MONITOR SINUS BRADYCARDIA AT RATE OF 58.BP 98/60 MANUAL. ETT TO VENTILATOR AT 55%.SAT=95%. OGT TO LOW WALL SUCTION.
[2016-11-23 05:28] LABS: ABSOLUTE BASOPHIL COUNT 0 /CUMM (0.0-0.2); ABSOLUTE EOSINOPHIL COUNT 0 /CUMM (0.0-0.7); ABSOLUTE GRANULOCYTE CT 7.2 /CUMM (1.4-6.5); ABSOLUTE LYMPH COUNT 0.5 /CUMM (1.2-3.4); ABSOLUTE MONOCYTE COUNT 0 /CUMM (0.10-0.60); BASOPHIL % 0.1 % (0.0-2.0); EOSINOPHIL % 0.3 % (0-5); GRANULOCYTE % 92.2 % (42.2-75.2); HEMATOCRIT 42.5 % (37-47); MEAN CORPUSCULAR HGB 34.7 PG (27.0-31.0); MEAN CORPUSCULAR HGB CONC 32.6 G/DL (33.0-37.0); MEAN CORPUSCULAR VOLUME 106.4 FL (81.0-99.0); MEAN PLATELET VOLUME 7.5 FL (7.4-10.4); PLATELET COUNT 181 /CUMM (130-400); RBC DISTRIBUTION WIDTH 20.1 % (11.5-14.5); RED BLOOD CELL CT 3.99 /CUMM (4.20-5.40); WHITE BLOOD CELL COUNT 7.8 /CUMM (4.8-10.8)
[2016-11-23 05:29] LABS: PT 14.7 SEC (9.4-12.5)
--- NOTE | 2016-11-23 06:47 | PN- Resident CRCU ---
Subjective HPI/CRCU Issues: Patient seen and examined at bedside this AM. She remains intubated and sedated on ativan/fentanyl. She does not follow commands. Patient continues to have improvement in WBC cound and she has remained afebrile over the last 24 hours. Her antibiotic regimen has been narrowed per ID recommendations today. 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 Vital signs last 24 hours: T 96.0-97.4, HR 52-72, RR 14-18, BP 91-120/47-57 and O2 saturation of 94-99% on AC 14 TV 500 55% FiO2 and 5 PEEP. Total intake last 24 hours: 2940 cc Total output: 1795 (160 cc from perc. ross. tube) Objective Vital Signs & I&O Last 8 Hrs of Vitals and I&O: T 96.0-97.4, HR 52-72, RR 14-18, BP 91-120/47-57 and O2 saturation of 94-99% on AC 14 TV 500 55% FiO2 and 5 PEEP. Exam General Appearance: well developed/nourished, no apparent distress, comfortable, sedated, intubated Head: atraumatic, normal appearance Ears, Nose, Throat: moist mucus membranes Neck: normal inspection, supple Respiratory: Intubated, diffuse rhonchi worse over right lung field Cardiovascular: regular rate/rhythm Gastrointestinal: normal bowel sounds, soft, non-tender Extremities: normal inspection, Minimal edema Cranial Nerves: No facial droop Skin: normal color, warm/dry Nutrition Nutrition: NPO Current Medications: Current Medications Sig/Shilpa Start time Last Medication Dose Route Stop Time Status Admin Acetylcysteine 2 ML BID 11/21 1235 AC 11/23 INH 0828 Albuterol Sulfate 3 ML EVERY 4 HRS/AWAKE 11/21 1600 AC 11/23 INH 1208 Ampicillin Sodium/ 3,000 MG Q6 11/23 1216 AC Sulbactam Sodium IV Sodium Chloride 100 ML Ceftriaxone Sodium 1,000 MG Q24H 11/21 1330 DC 11/22 IV 1430 Dextrose/Sodium 1,000 ML Q20H 11/20 2014 DC 11/22 Chloride IV 1226 Fentanyl Citrate 1,000 MCG Q13H 11/22 2145 AC 11/23 Dextrose/Water 250 ML IV 0702 Fentanyl Citrate 1,000 MCG Q13H 11/21 0700 DC 11/22 Dextrose/Water 250 ML IV 0000 Guaifenesin 600 MG Q12 11/21 1000 AC 11/21 PO 2131 Levothyroxine Sodium 75 MCG DAILY 11/22 1000 AC 11/23 IV 0933 Lorazepam 50 MG Q24H 11/22 1015 AC 11/22 Dextrose/Water 500 ML IV 1200 Magnesium Sulfate 1 GM ONCE ONE 11/23 0700 DC 11/23 Dextrose/Water 100 ML IV 11/23 1059 0933 Metronidazole 500 MG IQ8 11/21 0000 DC 11/23 N/A 1 UNIT IV 0817 Nystatin 1 ESTEFANY TIDPRN PRN 11/21 0330 AC 11/23 TOP 0934 Pantoprazole Sodium 40 MG DAILY 11/21 2011 AC 11/23 IV 0935 Potassium Chloride 10 MEQ ONCE ONE 11/23 0700 DC 11/23 IV 11/23 0701 0708 Propofol 1,000 MG Q8 11/22 0600 DC 11/22 N/A 100 ML IV 1400 Sodium Chloride 1,000 ML Q10H 11/22 1445 AC 11/23 IV 0933 Vancomycin HCl 1,000 MG 1800 11/21 1800 DC 11/22 Sodium Chloride 250 ML IV 1815 CXR Findings: IMPRESSION: 1. Endotracheal tube tip 7.5 cm above the cori. 2. Positioning of enteric tube and right jugular central venous line as discussed above. 3. No interval change in bilateral lower lobe consolidation, right greater than left with associated small pleural effusions. Impression/Plan Impression/Problem List Impression: Ms. Sánchez is a 76 year old female with PMH HTN, severe COPD, cigarette abuse (1 PPD), previous alcohol use, atrial fibrillation on Pradaxa and digoxin, GI bleed and hypothyroidism who presents with chief complaint of cough, decreased oral intake, fatigue, fever and chills for one week. Of note, patient did she her PCP Dr. Enma MD who prescribed her azithromycin for presumed bronchitis though her symptoms persisted prompting evaluation in our emergency department. In the ED: Vital signs showed T 95.0, HR 72, RR 22, BP 90/68, O2 86% RA. Labs were significant for WBC 15.3, 14 bands, 81% granulocytes, H&H 16.1/49.5, Plt 245, Na 120, K 5.4, Cl 79, HCO3 29, BUN 51, Cre 2.4, Glu 95, lactic acid 3.1 , TBili 2.1, DBili 1.4, AST/ALT 7358/2161, trop 0.25, INR 1.83. Abdominal US showd impacted gallstone in GB neck with GB wall thickening, wall edema and pericholecystic fluid. CXR showed cardiomegaly with a patchy opacity left lower lung field abnormality. suggesting an evolving pneumonia EKG showed non-specific ST elevations in leads [address] depressions in the high lateral leads I and L. Patient is admitted to the intensive care unit and the following is the management: 1. Septic shock requiring pressors with mutiorgan dysfunction, IMPROVING * Patient hypotensive, tachycardic and tachypneic on admission with likely source being intraabdominal pathology * Today, WBC normalized to 7.8 without bands today; patient has been afebrile * ID consult appreciated * Cultures so far showing no growth, with no growth from bile culture, sputum only growing mixed jeane * Will taper antibiotic coverage today to IV unasyn per ID recommendations * IV fluids with Normal Saline at 100 cc/h per continued with goal CVP 8-10 * Patient hemodynamically stable OFF of pressors * Trend CBC, ICU bundle 2. Transaminitis and hyperbilirubinemia with acute cholecytsitis * Concern for acute cholecystitis with RUQ US findings of gallstones with wall thickening and edema * Patient is s/p percutaneous cholecystostomy tube with surgery, draining well * Continue to follow surgical recommendations * Hepatitis panel negative, tylenol <10 * Transaminitis likely 2/2 shock liver in the setting of hypotension from sepsis * Trend LFTs/Bili to improvement * GI consult appreciated; will consider eventual cholangiogram via cholecystostomy tube * Statin on hold 2/2 shock liver * Will discuss with GI about starting tube feeds vs keeping patient NPI 3. Elevated troponin * Troponins peaked at 0.35, have since trended down * Likely represents demand/supply mismatch (demand ischemia); unlikely to be ACS * Cardio consult with Dr. Vida MD appreciated * Aspirin, Plavix and IV heparin initially started but have been discontinued as patient possible surgical candidate, history of GIB and noted oropharyngeal bleeding * Follow up further cardio recommendations, continuous telemetry monitoring * Echo showed mild concentric LVH, normal EF >65%, stage 1 diastolic dysfunction 4. Possible pneumonia, aspiration vs. CAP * CXR on admission showed LLL abnormality suggestive of PNA * Follow up CT chest yesterday showed small/moderate pleural effusion with RML/ partial RLL collapse; trace left pleural effusion * Continue mucomyst and chest PT until resolution * Start IV unasyn today 5. Paroxysmal atrial fibrillation with digitalis toxicity * Digoxin level elevated on admission requiring digibind * Continue to hold digoxin, recheck dig level tomorrow * Hold off anticoagulation, aspirin, plavix at this point as patient was noted to have + oropharyngeal bleeding * Continuous telmetry monitoring * Follow up cardio recommendations * Hold metoprolol due to hypotension, restart once BP well controlled 6. Hyponatremia, improving * Likely hypovolemic hyponatremia in setting of severe dehydration and sepsis * Trend ICU bundle frequently, caution with overcorrection * Continue IVF with NS at 100 cc/h 7. Acute on chronic respiratory failure with severe COPD/emphysema in the setting of tobacco dependance * Patient noted to be 86% on RA during admission * Initially placed on BiPAP but was intubated due to increased work of breathing around 2200 on 11/20/16 * Continue AC ventilation and increased tidal volume yesterday to 500 2/2 RML/ RLL collapse * Titrate FiO2 down to keep O2 sat >92% * Continue ativan and fentanyl for sedation * IV protonix while intubated, daily CXR to ensure appropriate positioning 8. BETH * BUN 51, Cre 2.4 on admission, likely secondary to hypotension and severe sepsis (prerenal) * IMPROVING * Continue IVF and trend ICU bundle * Avoid nephrotoxins FULL CODE DVTP: ALPS (no pharm DVTP at this time 2/2 oropharyngeal bleeding) Diet: NPO Mild pain pathway Problem List: 1. Acute cholecystitis 2. Multiorgan failure 3. Tobacco abuse 4. Acute respiratory failure with hypoxia and hypercarbia Pain Ratin Tomorrow's Labs & Rationales: CBC (septic shock) ICU bundle (hyponatremia, renal dysfunction) INR (shock liver) Plan DVT/Prophylaxis: mechanical INR (shock liver) Plan DVT/Prophylaxis: mechanical
[2016-11-23 08:00] VITALS: BP 106/60
--- NOTE | 2016-11-23 09:35 | PN- CRCU ---
Subjective HPI/Critical Care Issues: pt seen and examined afebrile fio2 55% remains on mechanical ventilation no leukocytosis MCV 106.4 Objective Current Medications: Current Medications Sig/Shilpa Start time Last Medication Dose Route Stop Time Status Admin Acetylcysteine 2 ML BID 11/21 1235 AC 11/23 INH 0828 Albuterol Sulfate 3 ML EVERY 4 HRS/AWAKE 11/21 1600 AC 11/23 INH 0828 Ceftriaxone Sodium 1,000 MG Q24H 11/21 1330 AC 11/22 IV 1430 Dextrose/Sodium 1,000 ML Q20H 11/20 2014 LA 11/22 Chloride IV 1226 Fentanyl Citrate 1,000 MCG Q13H 11/22 2145 11/23 Dextrose/Water 250 ML IV 0702 Fentanyl Citrate 1,000 MCG Q13H 11/21 0700 LA 11/22 Dextrose/Water 250 ML IV 0000 Guaifenesin 600 MG Q12 11/21 1000 AC 11/21 PO 2131 Levothyroxine Sodium 75 MCG DAILY 11/22 1000 11/22 IV 0933 Lorazepam 50 MG Q24H 11/22 1015 11/22 Dextrose/Water 500 ML IV 1200 Magnesium Sulfate 1 GM ONCE ONE 11/23 07 AC Dextrose/Water 100 ML IV 11/23 1059 Metronidazole 500 MG IQ8 11/21 0000 AC 11/23 N/A 1 UNIT IV 0817 Norepinephrine 4 MG Q14H 11/21 1999 LA 11/22 Sodium Chloride 250 ML IV 0007 Nystatin 1 ESTEFANY TIDPRN PRN 11/21 0330 AC TOP Pantoprazole Sodium 40 MG DAILY 11/21 2011 AC 11/22 IV 0933 Potassium Chloride 10 MEQ ONCE ONE 11/23 07 DC 11/23 IV 11/23 0701 0708 Propofol 1,000 MG Q8 11/22 06 DC 11/22 N/A 100 ML IV 1400 Sodium Chloride 1,000 ML Q10H 11/22 1445 11/23 IV 0600 Vancomycin HCl 1,000 MG 1800 11/21 1800 AC 11/22 Sodium Chloride 250 ML IV 1815 Vital Signs & I&O Last 24 Hrs of Vitals and I&O: Vital Signs Date Time Temp Pulse Resp B/P B/P Pulse O2 O2 Flow FiO2 Mean Ox Delivery Rate 11/23 0824 55 11/23 0800 95 Ventilator 55% 11/23 08 96.1 52 14 106/60 94 Ventilator 55% 11/23 0605 55 11/23 0415 55 11/23 0400 94 Ventilator 55% 11/23 0147 55 11/23 0000 97.4 58 14 98/60 95 Ventilator 55% 11/23 0000 95 Ventilator 55% 11/22 2215 55 11/23 1999 97 Ventilator 55% 11/22 1915 55 11/22 1700 60 11/22 1600 97 Ventilator 65% 11/22 1600 97.8 60 18 120/60 96 Ventilator 65% 11/22 1403 65 11/22 1200 98 Ventilator 75% 11/22 1138 75 Intake & Output 11/23 1600 11/23 0800 11/23 0000 Intake Total 905 1013 Output Total 640 560 Balance 265 453 Intake, IV 905 1013 Output, 50 Gastric Drainage Output, Other 50 60 Output, Urine 540 500 Exam Other Physical Findings: gen intubated heent ett cvs s1, s2 lungs transmitted bs abd soft, some distention with cholecystostomy tube ext trace edema Results Last 24 Hrs of Lab Results: Laboratory Tests 11/23/16 0500: pH 7.45, pCO2 27 L, pO2 85, HCO3 18 L, ABG O2 Sat (Measured) 95.0 L, P-50 ( Temp Corrected) Y, Carboxyhemoglobin 0.8 L, O2 Concentration % 55%, Temperature 97.4, Respiration Rate 14, O2 Delivery Method ESPRIT, Vent Mode AC, Expiratory Pressure 5, Tidal Volume 500, Phlebotomy Draw Site RIGHT RADIAL 11/23/16 0400: Anion Gap 9, Estimated GFR > 60, Glucose 110 H, Calcium 6.9 L, Phosphorus 2.9, Magnesium 1.8, Total Bilirubin 1.0, AST 621 H, ALT 914 H, Alkaline Phosphatase 114, Albumin 2.4 L, PT 14.7 H, INR 1.40 H, CBC w Diff NO MAN DIFF REQ, RBC 3.99 L, MCV 106.4 H, MCH 34.7 H, RDW 20.1 H, MPV 7.5, Gran % 92.2 H, Lymphocytes % 6.9 L, Monocytes % 0.5 L, Eosinophils % 0.3, Basophils % 0.1, Absolute Granulocytes 7.2 H, Absolute Lymphocytes 0.5 L, Absolute Monocytes 0 L, Absolute Eosinophils 0, Absolute Basophils 0, PUBS MCHC 32.6 L, Digoxin 0.8 11/22/16 2030: pH 7.53 H, pCO2 21 L, pO2 89, HCO3 18 L, ABG O2 Sat (Measured) 96.0, P-50 ( Temp Corrected) N, Carboxyhemoglobin 1.1 L, O2 Concentration % 55, Temperature 97.0, Respiration Rate 18, O2 Delivery Method ESPRIT, Vent Mode AC, Expiratory Pressure 5, Tidal Volume 550, Phlebotomy Draw Site RIGHT RADIAL Impression/Plan Impression/Plan Impression/Plan: Impression 76 year old woman * septic shock secondary to likely abdominal pathlogy, also with a pneumonia that can be likely aspiration vs. CAP * shock liver significantly improved * hyponatremia * digitalis toxicity * troponinemia - likely demand ischemia * BETH improved * respiratory failure - hypoxemic * tobacco dependence and severe COPD/emphysema Plan Respiratory -reduce fio2 as tolerted -trc/nebs ID -ID consultation -on flagyl, ceftriaxone and zithromax for now -panculture follow up -s/p cholecystostomy tube CVS -monitor hemodynamics -levophed titrate to off -a/c held given bleeding Heme -f/u cbc, coags, cardiology recommendations Metabolic -ins/outs -beth improved -shock liver improved -monitor for now -gi/surgery consulted -s/p cholecystomy tube Alimentary -NPO Neuro -sedation as necessary TTS 40 min
--- NOTE | 2016-11-23 10:02 | PN- Cardiology ---
Subjective Subjective: Patient seen and examined. She is seen lying in bed with her head elevated intubated on a ventilator with multiple lines in place. She appears to be in no acute distress. Review of systems is unobtainable. Review of Systems Constitutional: Reports: see HPI. Objective Vital Signs and I&Os Vital Signs Date Time Temp Pulse Resp B/P B/P Pulse O2 O2 Flow FiO2 Mean Ox Delivery Rate 11/23 0824 55 11/23 0800 95 Ventilator 55% 11/23 0800 96.1 52 14 106/60 94 Ventilator 55% 11/23 0605 55 11/23 0415 55 11/23 0400 94 Ventilator 55% 11/23 0147 55 11/23 0000 97.4 58 14 98/60 95 Ventilator 55% 11/23 0000 95 Ventilator 55% 11/22 2215 55 11/22 2000 97 Ventilator 55% 11/22 1915 55 11/22 1700 60 11/22 1600 97 Ventilator 65% 11/22 1600 97.8 60 18 120/60 96 Ventilator 65% 11/22 1403 65 11/22 1200 98 Ventilator 75% 11/22 1138 75 Intake & Output 11/23 1600 11/23 0800 11/23 0000 11/22 1600 11/22 0800 11/22 0000 Intake Total 905 1013 1022 1025 1602 Output Total 640 560 595 495 440 Balance 265 453 374 375 8537 Intake, IV 905 1013 1012 1025 1562 Intake, Tube 10 40 Irrigant Number 0 Bowel Movements Output, 45 Drainage Output, 50 110 50 100 Gastric Drainage Output, Other 50 60 60 50 Output, Urine 540 500 425 400 290 Patient 68.946 kg Weight Physical Exam: General- frail/elderly ill appearing sedated woman HEENT- NCAT, PERRL, intubated on ventilator, right triple lumen catheter in place, supple, no JVD CVS- 2/6 systolic murmur, RRR Resp- Diminished bibasilar airflow, rhoncherous right air heard GI- soft, nontender, mild distention, cholecystostomy tube in place Ext- normal pulses, no cyanosis/clubbing, bilateral upper extremity soft restraints in place Current Medications: Current Medications Sig/Shilpa Start time Last Medication Dose Route Stop Time Status Admin Acetylcysteine 2 ML BID 11/21 1235 AC 11/23 INH 0828 Albuterol Sulfate 3 ML EVERY 4 HRS/AWAKE 11/21 1600 AC 11/23 INH 0828 Ceftriaxone Sodium 1,000 MG Q24H 11/21 1330 AC 11/22 IV 1430 Dextrose/Sodium 1,000 ML Q20H 11/20 2014 DC 11/22 Chloride IV 1226 Fentanyl Citrate 1,000 MCG Q13H 11/22 2145 AC 11/23 Dextrose/Water 250 ML IV 0702 Fentanyl Citrate 1,000 MCG Q13H 11/21 0700 DC 11/22 Dextrose/Water 250 ML IV 0000 Guaifenesin 600 MG Q12 11/21 1000 AC 11/21 PO 2131 Levothyroxine Sodium 75 MCG DAILY 11/22 1000 AC 11/23 IV 0933 Lorazepam 50 MG Q24H 11/22 1015 AC 11/22 Dextrose/Water 500 ML IV 1200 Magnesium Sulfate 1 GM ONCE ONE 11/23 0700 AC 11/23 Dextrose/Water 100 ML IV 11/23 1059 0933 Metronidazole 500 MG IQ8 11/21 0000 AC 11/23 N/A 1 UNIT IV 0817 Norepinephrine 4 MG Q14H 11/20 2000 DC 11/22 Sodium Chloride 250 ML IV 0007 Nystatin 1 ESTEFANY TIDPRN PRN 11/21 0330 AC 11/23 TOP 0934 Pantoprazole Sodium 40 MG DAILY 11/21 2011 AC 11/23 IV 0935 Potassium Chloride 10 MEQ ONCE ONE 11/23 0700 DC 11/23 IV 11/23 0701 0708 Propofol 1,000 MG Q8 11/22 0600 DC 11/22 N/A 100 ML IV 1400 Sodium Chloride 1,000 ML Q10H 11/22 1445 AC 11/23 IV 0933 Vancomycin HCl 1,000 MG 1800 11/21 1800 AC 11/22 Sodium Chloride 250 ML IV 1815 Assessment/Plan Assessment/Plan * Patient remaints intubed and sedated. She continues to remain hemodynamically stable with telemetry demonstrating sinus bradycardia. She is continued off vasopressors, blood pressure is maintained on intravenous fluids. Creatinine remains stable. * Digoxin was held initially as level was demonstrated to be supretherapeutic. Digoxin level today was 0.8. Patients heart rate has been consistently in 50s/ 60s. Continue to hold digoxin as patients heart rate is on the lower side. Continue telemetry? Yes
--- NOTE | 2016-11-23 10:47 | RADIOLOGY REPORT ---
EXAMINATION: XR PORTABLE CHEST CLINICAL INFORMATION: Hypoxic respiratory failure. ET tube placement. COMPARISON: X-ray portable chest dated 11/22/2016, 11/21/2016, 11/20/2016. TECHNIQUE: Portable frontal view of the chest was obtained. FINDINGS: Endotracheal tube approximately 7.5 cm above the cori. Enteric tube courses into the abdomen with tip not included. Right jugular central venous line is at the cavoatrial junction. The cardiomediastinal silhouette is within normal limits in size. Calcification of the aorta is seen. Bilateral small pleural effusions and associated bibasilar consolidation, right greater than left, again seen, unchanged. Remainder of the lungs remains clear. No pneumothorax. Diffuse osteopenia is seen. IMPRESSION: 1. Endotracheal tube tip 7.5 cm above the cori. 2. Positioning of enteric tube and right jugular central venous line as discussed above. 3. No interval change in bilateral lower lobe consolidation, right greater than left with associated small pleural effusions.
--- NOTE | 2016-11-23 10:53 | PN- Infect Dx ---
Subjective Subjective: Afebrile. Her blood pressure remains stable off pressors Objective Last 24 Hrs of Vital Signs/I&O Vital Signs Date Time Temp Pulse Resp B/P B/P Pulse O2 O2 Flow FiO2 Mean Ox Delivery Rate 11/23 0824 55 11/23 0800 95 Ventilator 55% 11/23 0800 96.1 52 14 106/60 94 Ventilator 55% 11/23 0605 55 11/23 0415 55 11/23 0400 94 Ventilator 55% 11/23 0147 55 11/23 0000 97.4 58 14 98/60 95 Ventilator 55% 11/23 0000 95 Ventilator 55% 11/22 2215 55 11/22 2000 97 Ventilator 55% 11/22 1915 55 11/22 1700 60 11/22 1600 97 Ventilator 65% 11/22 1600 97.8 60 18 120/60 96 Ventilator 65% 11/22 1403 65 11/22 1200 98 Ventilator 75% 11/22 1138 75 Intake & Output 11/23 1600 11/23 0800 05 0000 Intake Total 905 1013 Output Total 640 560 Balance 265 453 Intake, IV 905 1013 Output, 50 Gastric Drainage Output, Other 50 60 Output, Urine 540 500 Physical Exam Other Physical Findings: She is sedated with no response to pain Neck right IJ triple-lumen catheter with no inflammation at the site Lungs bilateral rhonchi Heart regular rhythm with no murmur Abdomen is soft, with positive bowel sounds; cholecystostomy tube with bilious drainage Extremities no cyanosis, clubbing or edema Black catheter remains in place Results Last 24 Hours of Lab Results: Laboratory Tests 11/23 11/23 0500 0400 Blood Gas pH (7.35 - 7.45 PH) 7.45 pCO2 (35 - 45 TORR) 27 L pO2 (80 - 100 TORR) 85 HCO3 (21 - 28 MEQ/L) 18 L ABG O2 Sat (Measured) (>96.0 %) 95.0 L P-50 (Temp Corrected) Y Carboxyhemoglobin (1.5 - 5.0 %) 0.8 L O2 Concentration % 55% Temperature (97.0 - 100.0 FARH) 97.4 Respiration Rate (BPM) 14 O2 Delivery Method ESPRIT Vent Mode AC Expiratory Pressure (CMH2O/P) 5 Tidal Volume (CC) 500 Chemistry Sodium (137 - 145 mmol/L) 134 L Potassium (3.5 - 5.1 mmol/L) 3.9 Chloride (98 - 107 mmol/L) 104 Carbon Dioxide (22 - 30 mmol/L) 21 L Anion Gap (5 - 16) 9 BUN (7 - 17 mg/dL) 27 H Creatinine (0.5 - 1.0 mg/dL) 0.8 Estimated GFR (>60 ml/min) > 60 Glucose (65 - 99 mg/dL) 110 H Calcium (8.4 - 10.2 mg/dL) 6.9 L Phosphorus (2.5 - 4.5 mg/dL) 2.9 Magnesium (1.6 - 2.3 mg/dL) 1.8 Total Bilirubin (0.2 - 1.3 mg/dL) 1.0 AST (14 - 36 U/L) 621 H ALT (9 - 52 U/L) 914 H Alkaline Phosphatase (<127 U/L) 114 Albumin (3.5 - 5.0 g/dL) 2.4 L Coagulation PT (9.4 - 12.5 SEC) 14.7 H INR (0.90 - 1.19) 1.40 H Hematology CBC w Diff NO MAN DIFF REQ WBC (4.8 - 10.8 /CUMM) 7.8 RBC (4.20 - 5.40 /CUMM) 3.99 L Hgb (12.0 - 16.0 G/DL) 13.8 Hct (37 - 47 %) 42.5 MCV (81.0 - 99.0 FL) 106.4 H MCH (27.0 - 31.0 PG) 34.7 H RDW (11.5 - 14.5 %) 20.1 H Plt Count (130 - 400 /CUMM) 181 MPV (7.4 - 10.4 FL) 7.5 Gran % (42.2 - 75.2 %) 92.2 H Lymphocytes % (20.5 - 51.1 %) 6.9 L Monocytes % (1.7 - 9.3 %) 0.5 L Eosinophils % (0 - 5 %) 0.3 Basophils % (0.0 - 2.0 %) 0.1 Absolute Granulocytes (1.4 - 6.5 /CUMM) 7.2 H Absolute Lymphocytes (1.2 - 3.4 /CUMM) 0.5 L Absolute Monocytes (0.10 - 0.60 /CUMM) 0 L Absolute Eosinophils (0.0 - 0.7 /CUMM) 0 Absolute Basophils (0.0 - 0.2 /CUMM) 0 PUBS MCHC (33.0 - 37.0 G/DL) 32.6 L Miscellaneous Phlebotomy Draw Site RIGHT RADIAL Toxicology Digoxin (0.8 - 2.0 ng/mL) 0.8 05/24 2030 Blood Gas pH (7.35 - 7.45 PH) 7.53 H pCO2 (35 - 45 TORR) 21 L pO2 (80 - 100 TORR) 89 HCO3 (21 - 28 MEQ/L) 18 L ABG O2 Sat (Measured) (>96.0 %) 96.0 P-50 (Temp Corrected) N Carboxyhemoglobin (1.5 - 5.0 %) 1.1 L O2 Concentration % 55 Temperature (97.0 - 100.0 FARH) 97.0 Respiration Rate (BPM) 18 O2 Delivery Method ESPRIT Vent Mode AC Expiratory Pressure (CMH2O/P) 5 Tidal Volume (CC) 550 Miscellaneous Phlebotomy Draw Site RIGHT RADIAL Last 24 Hours of [place] Results: Bile culture November 20 negative Blood cultures 2 November 20 negative Assessment/Plan Impression: Condition continues to improve with temperatures and white blood cell count remaining normal, improving renal function and decreasing liver enzymes suggesting a response to treatment for presumed sepsis, though cultures are all negative. She remains on Vancomycin, Flagyl and Ceftriaxone empirically for possible acute cholecystitis versus pneumonia versus an intra-abdominal process, such as ischemic colitis but, with negative cultures, her antibiotics should be able to be narrowed. Suggestion: 1. Discontinue Vancomycin, Flagyl and Ceftriaxone 2. Begin Unasyn 3 g IV every 6 hours
--- NOTE | 2016-11-23 14:53 | NUR ---
ETT ADVANCED, 22CM AT THE LIP. CXR OBTAINED.
--- NOTE | 2016-11-23 14:59 | RADIOLOGY REPORT ---
EXAMINATION: XR PORTABLE CHEST CLINICAL INFORMATION: Endotracheal tube advanced. COMPARISON: 11/23/2016 TECHNIQUE: Portable frontal view of the chest was obtained. FINDINGS: The endotracheal tube terminates approximately 3 cm above the cori. An enteric tube is in place which appears to terminate over the distal esophagus, although visualization is limited. Right internal jugular central venous catheter terminates near the cavoatrial junction. Cardiac leads overlie the chest. The lungs are well expanded. Hazy basilar opacities suggest small pleural effusions with airspace opacity. This correlates to the appearance on the prior CT and is similar to previous given differences in technique, with a more upright positioning on the current study. No pneumothorax. The cardiomediastinal silhouette is unchanged. IMPRESSION: 1. Endotracheal tube terminating 3 cm above the cori. 2. Enteric tube is not well evaluated. This may terminate over the distal esophagus. 3. Persistent small bilateral pleural effusions with airspace opacity.
--- NOTE | 2016-11-23 15:10 | NUR ---
PT CONTINUES TO BE INTUBATED AND SEDATED TO AN SAS OF 3 WITH 1MG/HR OF ATIVAN AND FENTANYL 25MCG/HR. WILL OPEN EYES TO COMMAND, BUT NO OTHER COMMANDS. PERRL 2MM BRISK. PT IS IN A NSR TO SB 50-60'S. BP 90-110. OGT TO LWS, TO BEGIN TUBE FEED THIS EVENING. BALDERRAMA INSITU W 375 ML OF YELLOW CLEAR URINE/8 HRS. PT HAS A T TUBE TO R ABDOMINAL WALL W 40 ML OF DARK GREEN BILIOUS OUTPUT. IV ABX CHANGED TO UNASYN. NS IVF AT 100ML.
[2016-11-23 16:00] VITALS: BP 104/60
--- NOTE | 2016-11-23 16:41 | NUR ---
OGT ADVANCED TO 65 CM AT THE LIP. AWAITING CXR TO CONFIRM PLACEMENT TO START TUBE FEED.
--- NOTE | 2016-11-23 17:24 | RADIOLOGY REPORT ---
EXAMINATION: XR PORTABLE CHEST CLINICAL INFORMATION: Advancement of OG tube. COMPARISON: Radiograph from earlier today TECHNIQUE: Portable frontal view of the chest was obtained. FINDINGS: The endotracheal tube terminates 3 cm above the cori. The enteric tube extends into the stomach, terminating in the region of the antrum. Right internal jugular central venous catheter terminates near the cavoatrial junction. Low lung volumes. Persistent small bilateral pleural effusions, right greater than left, with associated airspace opacity. No pneumothorax. The cardiomediastinal silhouette is unchanged. IMPRESSION: 1. Endotracheal tube terminating 3 cm above the cori. 2. Enteric tube extending into the stomach in good position. 3. Persistent small bilateral pleural effusions with airspace opacity, right greater than left.
--- NOTE | 2016-11-23 20:39 | NUR ---
PATIENT SEDATED. WILL ATTEMPT TO OPEN EYES TO TACTILE STIMULI. ATIVAN DRIP AT 1 MG/HR. FENTANYL DRIP AT 25 MCG/HR. MONITOR SINUS RHYTHM WITH OCCASIONAL PACS AT RATE OF 64. LU=055/70.ETT TO VENTILATOR AT 55%.
[2016-11-24] VITALS: BP 100/58
[2016-11-24 06:05] LABS: ABSOLUTE BASOPHIL COUNT 0 /CUMM (0.0-0.2); ABSOLUTE EOSINOPHIL COUNT 0 /CUMM (0.0-0.7); ABSOLUTE GRANULOCYTE CT 6.7 /CUMM (1.4-6.5); ABSOLUTE LYMPH COUNT 1.7 /CUMM (1.2-3.4); ABSOLUTE MONOCYTE COUNT 0 /CUMM (0.10-0.60); BASOPHIL % 0.3 % (0.0-2.0); EOSINOPHIL % 0.5 % (0-5); GRANULOCYTE % 78.6 % (42.2-75.2); HEMATOCRIT 41.7 % (37-47); MEAN CORPUSCULAR HGB CONC 32.8 G/DL (33.0-37.0); MEAN CORPUSCULAR VOLUME 106.7 FL (81.0-99.0); MEAN PLATELET VOLUME 7.5 FL (7.4-10.4); PLATELET COUNT 153 /CUMM (130-400); RBC DISTRIBUTION WIDTH 20.1 % (11.5-14.5); RED BLOOD CELL CT 3.91 /CUMM (4.20-5.40); WHITE BLOOD CELL COUNT 8.6 /CUMM (4.8-10.8)
[2016-11-24 06:09] LABS: PT 13.4 SEC (9.4-12.5)
--- NOTE | 2016-11-24 06:55 | PN- Resident CRCU ---
Subjective HPI/CRCU Issues: Patient seen and examined at bedside this AM. She remains intubated and sedated and no reported events overnight. She is continued on mechanical ventilation with fentanyl and ativan for sedation. 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 This AM patient found to be in supraventricular bigeminy but HR was controlled and BP stable. Cardio aware. Patient has 2 large bore IVs peripherally so central catheter removed with patient in appropriate trendelenberg positioning and tube feeds off. Vital signs last 24 hours: T 96.1-98.0, HR 52-73, RR 14, BP 94-112/39-60, O2 saturation 93-97% on AC 14 TV 500 55% FiO2 and 5 PEEP. Total intake: 3302 cc last 24 hours Total output: 1320 cc last 24 hours Objective Vital Signs & I&O Last 8 Hrs of Vitals and I&O: Intake & Output 11/24 1600 Intake Total 1605 Output Total 530 Balance 1075 Intake, IV 1188 Intake, Other 40 Intake, Tube 187 Feeding Intake, Tube 190 Irrigant Output, Other 50 Output, Urine 480 Exam General Appearance: well developed/nourished, no apparent distress, sedated, intubated Head: atraumatic, normal appearance Ears, Nose, Throat: normal pharynx, normal ENT inspection Neck: normal inspection, supple Respiratory: chest non-tender, no respiratory distress Cardiovascular: regular rate/rhythm Gastrointestinal: normal bowel sounds, soft Extremities: normal inspection Cranial Nerves: No facial asymmetry Skin: normal color, warm/dry Nutrition Nutrition: tube feeding Current Medications: Current Medications Sig/Shilpa Start time Last Medication Dose Route Stop Time Status Admin Acetylcysteine 2 ML BID 11/21 1235 AC 11/24 INH 0914 Albuterol Sulfate 3 ML EVERY 4 HRS/AWAKE 11/21 1600 AC 11/24 INH 1205 Ampicillin Sodium/ 3,000 MG Q6 11/23 1216 AC 11/24 Sulbactam Sodium IV 1200 Sodium Chloride 100 ML Dextrose/Sodium 1,000 ML Q10H 11/24 0700 AC 11/24 Chloride IV 0851 Fentanyl Citrate 1,000 MCG Q13H 11/22 2145 AC 11/24 Dextrose/Water 250 ML IV 0843 Guaifenesin 600 MG Q12 11/21 1000 DC 11/21 PO 2131 Levothyroxine Sodium 75 MCG DAILY 11/22 1000 AC 11/24 IV 1016 Lorazepam 50 MG Q24H 11/22 1015 AC 11/24 Dextrose/Water 500 ML IV 1317 Magnesium Sulfate 1 GM Q2H 11/24 0700 DC 11/24 Dextrose/Water 100 ML IV 11/24 1059 1015 Nystatin 1 ESTEFANY TIDPRN PRN 11/21 0330 11/23 TOP 0934 Pantoprazole Sodium 40 MG DAILY 11/21 2011 AC 11/24 IV 0909 Phosphate 250 MG ONCE ONE 11/24 0700 DC 11/24 PO 11/24 0701 0909 Potassium Chloride 20 MEQ Q1H 11/24 0700 DC 11/24 IV 11/24 0801 1015 Sodium Chloride 1,000 ML Q10H 11/22 1445 DC 11/24 IV 0652 Impression/Plan Impression/Problem List Impression: Ms. Sánchez is a 76 year old female with PMH HTN, severe COPD, cigarette abuse (1 PPD), previous alcohol use, atrial fibrillation on Pradaxa and digoxin, GI bleed and hypothyroidism who presents with chief complaint of cough, decreased oral intake, fatigue, fever and chills for one week. Of note, patient did she her PCP Dr. Enma MD who prescribed her azithromycin for presumed bronchitis though her symptoms persisted prompting evaluation in our emergency department. In the ED: Vital signs showed T 95.0, HR 72, RR 22, BP 90/68, O2 86% RA. Labs were significant for WBC 15.3, 14 bands, 81% granulocytes, H&H 16.1/49.5, Plt 245, Na 120, K 5.4, Cl 79, HCO3 29, BUN 51, Cre 2.4, Glu 95, lactic acid 3.1 , TBili 2.1, DBili 1.4, AST/ALT 7358/2161, trop 0.25, INR 1.83. Abdominal US showd impacted gallstone in GB neck with GB wall thickening, wall edema and pericholecystic fluid. CXR showed cardiomegaly with a patchy opacity left lower lung field abnormality. suggesting an evolving pneumonia EKG showed non-specific ST elevations in leads [address] depressions in the high lateral leads I and L. Patient is admitted to the intensive care unit and the following is the management: 1. Septic shock requiring pressors with mutiorgan dysfunction, IMPROVING * Patient hypotensive, tachycardic and tachypneic on admission with likely source being intraabdominal pathology * Today, WBC normalized to 8.6 without bands; patient has been afebrile * ID consult appreciated * Cultures so far showing no growth, with no growth from bile culture, sputum only growing mixed jeane * Will continue IV unasyn per ID recommendations * IV fluids with D5-Normal Saline at 100 cc/h per continued with goal CVP 8-10 * Patient hemodynamically stable OFF of pressors * Trend CBC, ICU bundle 2. Transaminitis and hyperbilirubinemia with acute cholecytsitis * Concern for acute cholecystitis with RUQ US findings of gallstones with wall thickening and edema * Patient is s/p percutaneous cholecystostomy tube with surgery, draining well * Continue to follow surgical recommendations * Hepatitis panel negative, tylenol <10 * Transaminitis likely 2/2 shock liver in the setting of hypotension from sepsis , IMPROVING * GI consult appreciated; will consider eventual cholangiogram via cholecystostomy tube * Statin on hold 2/2 shock liver * Continue tube feeds 3. Elevated troponin * Troponins peaked at 0.35, have since trended down * Likely represents demand/supply mismatch (demand ischemia); unlikely to be ACS * Cardio consult with Dr. Vida MD appreciated * Aspirin, Plavix and IV heparin initially started but have been discontinued as patient possible surgical candidate, history of GIB and noted oropharyngeal bleeding * Follow up further cardio recommendations, continuous telemetry monitoring * Echo showed mild concentric LVH, normal EF >65%, stage 1 diastolic dysfunction 4. Possible pneumonia, aspiration vs. CAP * CXR on admission showed LLL abnormality suggestive of PNA * Follow up CT chest showed small/moderate pleural effusion with RML/partial RLL collapse; trace left pleural effusion * Continue mucomyst and chest PT until resolution * IV unasyn 5. Paroxysmal atrial fibrillation with digitalis toxicity * Digoxin level elevated on admission requiring digibind * Continue to hold digoxin, recheck dig level tomorrow * Hold off anticoagulation, aspirin, plavix at this point as patient was noted to have + oropharyngeal bleeding * Continuous telemetry monitoring * Follow up cardio recommendations * Hold metoprolol due to hypotension, restart once BP well controlled 6. Hyponatremia, improved * Likely hypovolemic hyponatremia in setting of severe dehydration and sepsis * Trend ICU bundle frequently, caution with overcorrection * Continue IVF with D5-NS at 100 cc/h 7. Acute on chronic respiratory failure with severe COPD/emphysema in the setting of tobacco dependance * Patient noted to be 86% on RA during admission * Initially placed on BiPAP but was intubated due to increased work of breathing around 2200 on 11/20/16 * Continue AC ventilation and monitor for improvement in RLL collapse * Titrate FiO2 down to keep O2 sat >92% * Continue ativan and fentanyl for sedation * IV protonix while intubated, daily CXR to ensure appropriate positioning 8. BETH * BUN 51, Cre 2.4 on admission, likely secondary to hypotension and severe sepsis (prerenal) * IMPROVING * Continue IVF and trend ICU bundle * Avoid nephrotoxins FULL CODE DVTP: ALPS (no pharm DVTP at this time 2/2 oropharyngeal bleeding) Diet: TUBE FEEDS Mild pain pathway Problem List: 1. Acute cholecystitis 2. Multiorgan failure 3. Tobacco abuse 4. Acute respiratory failure with hypoxia and hypercarbia Pain Ratin Tomorrow's Labs & Rationales: CBC, ICU bundle, digoxin, INR Plan DVT/Prophylaxis: mechanical
[2016-11-24 08:00] VITALS: BP 104/58
--- NOTE | 2016-11-24 09:08 | PN- CRCU ---
Subjective HPI/Critical Care Issues: pt seen and examined remains on mechanical ventilation 55% fio2 Objective Current Medications: Current Medications Sig/Shilpa Start time Last Medication Dose Route Stop Time Status Admin Acetylcysteine 2 ML BID 11/21 1235 AC 11/23 INH 2104 Albuterol Sulfate 3 ML EVERY 4 HRS/AWAKE 11/21 1600 AC 11/23 INH 2104 Ampicillin Sodium/ 3,000 MG Q6 11/23 1216 AC 11/24 Sulbactam Sodium IV 0651 Sodium Chloride 100 ML Ceftriaxone Sodium 1,000 MG Q24H 11/21 1330 DC 11/22 IV 1430 Dextrose/Sodium 1,000 ML Q10H 11/24 0700 AC Chloride IV Fentanyl Citrate 1,000 MCG Q13H 11/22 2145 AC 11/24 Dextrose/Water 250 ML IV 0843 Guaifenesin 600 MG Q12 11/21 1000 DC 11/21 PO 2131 Levothyroxine Sodium 75 MCG DAILY 11/22 1000 AC 11/23 IV 0933 Lorazepam 50 MG Q24H 11/22 1015 11/23 Dextrose/Water 500 ML IV 1336 Magnesium Sulfate 1 GM Q2H 11/24 0700 AC Dextrose/Water 100 ML IV 11/24 1059 Magnesium Sulfate 1 GM ONCE ONE 11/23 0700 DC 11/23 Dextrose/Water 100 ML IV 11/23 1059 0933 Metronidazole 500 MG IQ8 11/21 0000 DC 11/23 N/A 1 UNIT IV 0817 Nystatin 1 ESTEFANY TIDPRN PRN 11/21 0330 11/23 TOP 0934 Pantoprazole Sodium 40 MG DAILY 11/21 2011 11/23 IV 0935 Phosphate 250 MG ONCE ONE 11/24 0700 DC PO 11/24 0701 Potassium Chloride 20 MEQ Q1H 11/24 0700 DC IV 11/24 0801 Sodium Chloride 1,000 ML Q10H 11/22 1445 DC 11/24 IV 0652 Vancomycin HCl 1,000 MG 1800 11/21 1800 DC 11/22 Sodium Chloride 250 ML IV 1815 Vital Signs & I&O Last 24 Hrs of Vitals and I&O: Vital Signs Date Time Temp Pulse Resp B/P B/P Pulse O2 O2 Flow FiO2 Mean Ox Delivery Rate 11/24 0619 55 11/24 0415 55 11/24 0400 94 Ventilator 55% 11/24 0146 55 11/24 0000 98.0 64 14 100/58 93 Ventilator 55% 11/23 2240 55 11/23 Ventilator 55% 11/23 1920 55 11/23 1620 55 11/23 1600 95 Ventilator 50% 11/23 1600 97.2 97 14 104/60 93 Nasal 50% Cannula 11/23 1428 55 11/23 1209 55 11/23 1200 95 Ventilator 50% Intake & Output 11/24 1600 11/24 0800 11/24 0000 Intake Total 1266 983 Output Total 500 405 Balance 766 578 Intake, IV 913 930 Intake, Tube 163 53 Feeding Intake, Tube 190 Irrigant Output, Other 50 50 Output, Urine 450 355 Exam Other Physical Findings: gen intubated heent ett cvs s1, s2 lungs transmitted bs abd soft, some distention with cholecystostomy tube ext trace edema Results Last 24 Hrs of Lab Results: Laboratory Tests 11/24/16 0430: Anion Gap 7, Estimated GFR > 60, Glucose 74, Calcium 7.5 L, Phosphorus 2.1 L, Magnesium 1.7, Total Bilirubin 1.2, AST 203 H, ALT 628 H, Alkaline Phosphatase 100, Albumin 2.1 L, PT 13.4 H, INR 1.28 H, CBC w Diff NO MAN DIFF REQ, RBC 3.91 L, MCV 106.7 H, MCH 35.0 H, RDW 20.1 H, MPV 7.5, Gran % 78.6 H, Lymphocytes % 20.2 L, Monocytes % 0.4 L, Eosinophils % 0.5, Basophils % 0.3, Absolute Granulocytes 6.7 H, Absolute Lymphocytes 1.7, Absolute Monocytes 0 L, Absolute Eosinophils 0, Absolute Basophils 0, PUBS MCHC 32.8 L, Digoxin 0.6 L Impression/Plan Impression/Plan Impression/Plan: Impression 76 year old woman * resolved septic shock secondary to likely abdominal pathlogy, also with a pneumonia that can be likely aspiration vs. CAP * shock liver significantly improved and resolving * hyponatremia * digitalis toxicity * troponinemia - likely demand ischemia * BETH improved * respiratory failure - hypoxemic * tobacco dependence and severe COPD/emphysema Plan Respiratory -reduce fio2 as tolerted - plan for cpap trial when fio2 is 40% -trc/nebs ID -ID consultation -on unasyn -s/p cholecystostomy tube CVS -monitor hemodynamics -a/c held given bleeding Heme -f/u cbc, coags, cardiology recommendations Metabolic -ins/outs -beth improved -shock liver improved -monitor for now -gi/surgery consulted -s/p cholecystomy tube Alimentary -f/u gi/surgery recommendations Neuro -sedation as necessary TTS 40 min
--- NOTE | 2016-11-24 09:52 | PN- Cardiology ---
KYLEIGH DE LEÓN,TANNER 11/24/16 0945: Subjective Subjective: Patient seen and examined. She is seen lying in bed with her head elevated intubated on a ventilator with multiple lines in place. She appears to be in no acute distress. Review of systems is unobtainable. Review of Systems Constitutional: Reports: see HPI. Objective Vital Signs and I&Os Vital Signs Date Time Temp Pulse Resp B/P B/P Pulse O2 O2 Flow FiO2 Mean Ox Delivery Rate 11/24 0905 50 11/24 0619 55 11/24 0415 55 11/24 0400 94 Ventilator 55% 11/24 0146 55 11/24 0000 98.0 64 14 100/58 93 Ventilator 55% 11/23 2240 55 11/24 1999 93 Ventilator 55% 11/23 1920 55 11/23 1620 55 11/23 1600 95 Ventilator 50% 11/23 1600 97.2 97 14 104/60 93 Nasal 50% Cannula 11/23 1428 55 11/23 1209 55 11/23 1200 95 Ventilator 50% Intake & Output 11/24 1600 11/24 0800 11/24 0000 11/23 1600 11/23 0800 11/23 0000 Intake Total 8918 971 0500 905 1013 Output Total 500 405 415 640 560 Balance 766 578 638 265 453 Intake, IV 760 470 2085 905 1013 Intake, Tube 163 53 Feeding Intake, Tube 190 Irrigant Output, 40 Drainage Output, 50 Gastric Drainage Output, Other 50 50 50 60 Output, Urine 450 355 375 540 500 Patient 68.946 kg Weight Physical Exam: General- frail/elderly ill appearing sedated woman HEENT- NCAT, PERRL, intubated on ventilator, right triple lumen catheter in place, supple, no JVD CVS- 2/6 systolic murmur, RRR Resp- Diminished bibasilar airflow, rhoncherous right air heard GI- soft, nontender, mild distention, cholecystostomy tube in place - faith catheter in place draining dark yellow urine Neuro- Intubated and sedated, not rousable to verbal stimuli Ext- normal pulses, no cyanosis/clubbing, bilateral upper extremity soft restraints in place Current Medications: Current Medications Sig/Shilpa Start time Last Medication Dose Route Stop Time Status Admin Acetylcysteine 2 ML BID 11/21 1235 AC 11/24 INH 0914 Albuterol Sulfate 3 ML EVERY 4 HRS/AWAKE 11/21 1600 AC 11/24 INH 0914 Ampicillin Sodium/ 3,000 MG Q6 11/23 1216 AC 11/24 Sulbactam Sodium IV 0651 Sodium Chloride 100 ML Ceftriaxone Sodium 1,000 MG Q24H 11/21 1330 DC 11/22 IV 1430 Dextrose/Sodium 1,000 ML Q10H 11/24 0700 AC 11/24 Chloride IV 0851 Fentanyl Citrate 1,000 MCG Q13H 11/22 2145 AC 11/24 Dextrose/Water 250 ML IV 0843 Guaifenesin 600 MG Q12 11/21 1000 DC 11/21 PO 2131 Levothyroxine Sodium 75 MCG DAILY 11/22 1000 AC 11/23 IV 0933 Lorazepam 50 MG Q24H 11/22 1015 11/23 Dextrose/Water 500 ML IV 1336 Magnesium Sulfate 1 GM Q2H 11/24 0700 AC 11/24 Dextrose/Water 100 ML IV 11/24 1059 0851 Magnesium Sulfate 1 GM ONCE ONE 11/23 0700 DC 11/23 Dextrose/Water 100 ML IV 11/23 1059 0933 Metronidazole 500 MG IQ8 11/21 0000 DC 11/23 N/A 1 UNIT IV 0817 Nystatin 1 ESTEFANY TIDPRN PRN 11/21 0330 11/23 TOP 0934 Pantoprazole Sodium 40 MG DAILY 11/21 2011 11/24 IV 0909 Phosphate 250 MG ONCE ONE 11/24 0700 DC 11/24 PO 11/24 0701 0909 Potassium Chloride 20 MEQ Q1H 11/24 0700 DC 11/24 IV 11/24 0801 0851 Sodium Chloride 1,000 ML Q10H 11/22 1445 DC 11/24 IV 0652 Vancomycin HCl 1,000 MG 1800 11/21 1800 DC 11/22 Sodium Chloride 250 ML IV 1815 Results Last 48 Hrs of Labs/Mics: Laboratory Tests 11/24/16 0925: Troponin I 0.10 11/24/16 0430: Anion Gap 7, Estimated GFR > 60, Glucose 74, Calcium 7.5 L, Phosphorus 2.1 L, Magnesium 1.7, Total Bilirubin 1.2, AST 203 H, ALT 628 H, Alkaline Phosphatase 100, Albumin 2.1 L, PT 13.4 H, INR 1.28 H, CBC w Diff NO MAN DIFF REQ, RBC 3.91 L, MCV 106.7 H, MCH 35.0 H, RDW 20.1 H, MPV 7.5, Gran % 78.6 H, Lymphocytes % 20.2 L, Monocytes % 0.4 L, Eosinophils % 0.5, Basophils % 0.3, Absolute Granulocytes 6.7 H, Absolute Lymphocytes 1.7, Absolute Monocytes 0 L, Absolute Eosinophils 0, Absolute Basophils 0, PUBS MCHC 32.8 L, Digoxin 0.6 L 11/23/16 0500: pH 7.45, pCO2 27 L, pO2 85, HCO3 18 L, ABG O2 Sat (Measured) 95.0 L, P-50 ( Temp Corrected) Y, Carboxyhemoglobin 0.8 L, O2 Concentration % 55%, Temperature 97.4, Respiration Rate 14, O2 Delivery Method ESPRIT, Vent Mode AC, Expiratory Pressure 5, Tidal Volume 500, Phlebotomy Draw Site RIGHT RADIAL 11/23/16 0400: Anion Gap 9, Estimated GFR > 60, Glucose 110 H, Calcium 6.9 L, Phosphorus 2.9, Magnesium 1.8, Total Bilirubin 1.0, AST 621 H, ALT 914 H, Alkaline Phosphatase 114, Albumin 2.4 L, PT 14.7 H, INR 1.40 H, CBC w Diff NO MAN DIFF REQ, RBC 3.99 L, MCV 106.4 H, MCH 34.7 H, RDW 20.1 H, MPV 7.5, Gran % 92.2 H, Lymphocytes % 6.9 L, Monocytes % 0.5 L, Eosinophils % 0.3, Basophils % 0.1, Absolute Granulocytes 7.2 H, Absolute Lymphocytes 0.5 L, Absolute Monocytes 0 L, Absolute Eosinophils 0, Absolute Basophils 0, PUBS MCHC 32.6 L, Digoxin 0.8 11/22/16 2030: pH 7.53 H, pCO2 21 L, pO2 89, HCO3 18 L, ABG O2 Sat (Measured) 96.0, P-50 ( Temp Corrected) N, Carboxyhemoglobin 1.1 L, O2 Concentration % 55, Temperature 97.0, Respiration Rate 18, O2 Delivery Method ESPRIT, Vent Mode AC, Expiratory Pressure 5, Tidal Volume 550, Phlebotomy Draw Site RIGHT RADIAL Assessment/Plan Assessment/Plan * Patient continues to remain intubated/sedated. She remains hemodynamically stable. cardiac monitor in past 24 hours demonstrates normal sinus rhythm with occasional supraventricular beats. Repeat EKG reviewed - demonstrated supraventricular bigeminy. Blood pressure remains within acceptable range. Continue to monitor telemetry and electrolytes, replete as necessary. * Digoxin remains on hold, digoxin level this morning 0.6. Her vitals signs remain borderline, her heart rate has mildly increased to 60's/70's. Continue to hold digoxin. Continue telemetry? Yes SAKINA DE LEÓN,PRIYANKA Jewell 11/24/16 1017: Objective Vital Signs and I&Os Vital Signs Date Time Temp Pulse Resp B/P B/P Pulse O2 O2 Flow FiO2 Mean Ox Delivery Rate 11/24 0905 50 11/24 0619 55 11/24 0415 55 11/24 0400 94 Ventilator 55% 11/24 0146 55 11/24 0000 98.0 64 14 100/58 93 Ventilator 55% 11/23 2240 55 11/23 2000 93 Ventilator 55% 11/23 1920 55 11/23 1620 55 11/23 1600 95 Ventilator 50% 11/23 1600 97.2 97 14 104/60 93 Nasal 50% Cannula 11/23 1428 55 11/23 1209 55 11/23 1200 95 Ventilator 50% Intake & Output 11/24 1600 11/24 0800 11/24 0000 11/23 1600 11/23 0800 11/23 0000 Intake Total 6338 840 1626 905 1013 Output Total 500 405 415 640 560 Balance 766 578 638 265 453 Intake, IV 319 822 7296 905 1013 Intake, Tube 163 53 Feeding Intake, Tube 190 Irrigant Output, 40 Drainage Output, 50 Gastric Drainage Output, Other 50 50 50 60 Output, Urine 450 355 375 540 500 Patient 152 lb Weight
--- NOTE | 2016-11-24 10:15 | PN- Infect Dx ---
Subjective Subjective: Afebrile. She has had no bowel movements. Minimal secretions reported. Objective Last 24 Hrs of Vital Signs/I&O Vital Signs Date Time Temp Pulse Resp B/P B/P Pulse O2 O2 Flow FiO2 Mean Ox Delivery Rate 11/24 0905 50 11/24 0619 55 11/24 0415 55 11/24 0400 94 Ventilator 55% 11/24 0146 55 11/24 0000 98.0 64 14 100/58 93 Ventilator 55% 11/23 2240 55 11/23 2000 93 Ventilator 55% 11/23 1920 55 11/23 1620 55 11/23 1600 95 Ventilator 50% 11/23 1600 97.2 97 14 104/60 93 Nasal 50% Cannula 11/23 1428 55 11/23 1209 55 11/23 1200 95 Ventilator 50% Intake & Output 11/24 1600 11/24 0800 11/24 0000 Intake Total 1266 983 Output Total 500 405 Balance 766 578 Intake, IV 913 930 Intake, Tube 163 53 Feeding Intake, Tube 190 Irrigant Output, Other 50 50 Output, Urine 450 355 Physical Exam Other Physical Findings: She is sedated on the ventilator Neck right IJ triple lumen catheter with no inflammation at the site Lungs bilateral rhonchi Abdomen soft, positive bowel sounds, cholecystostomy tube in place with bilious drainage Extremities no cyanosis, clubbing or edema Black catheter remains in place Results Last 24 Hours of Lab Results: Laboratory Tests 11/24 11/24 0925 0430 Chemistry Sodium (137 - 145 mmol/L) 137 Potassium (3.5 - 5.1 mmol/L) 3.5 Chloride (98 - 107 mmol/L) 107 Carbon Dioxide (22 - 30 mmol/L) 23 Anion Gap (5 - 16) 7 BUN (7 - 17 mg/dL) 20 H Creatinine (0.5 - 1.0 mg/dL) 0.7 Estimated GFR (>60 ml/min) > 60 Glucose (65 - 99 mg/dL) 74 Calcium (8.4 - 10.2 mg/dL) 7.5 L Phosphorus (2.5 - 4.5 mg/dL) 2.1 L Magnesium (1.6 - 2.3 mg/dL) 1.7 Total Bilirubin (0.2 - 1.3 mg/dL) 1.2 AST (14 - 36 U/L) 203 H ALT (9 - 52 U/L) 628 H Alkaline Phosphatase (<127 U/L) 100 Troponin I Pending Albumin (3.5 - 5.0 g/dL) 2.1 L Coagulation PT (9.4 - 12.5 SEC) 13.4 H INR (0.90 - 1.19) 1.28 H Hematology CBC w Diff NO MAN DIFF REQ WBC (4.8 - 10.8 /CUMM) 8.6 RBC (4.20 - 5.40 /CUMM) 3.91 L Hgb (12.0 - 16.0 G/DL) 13.7 Hct (37 - 47 %) 41.7 MCV (81.0 - 99.0 FL) 106.7 H MCH (27.0 - 31.0 PG) 35.0 H RDW (11.5 - 14.5 %) 20.1 H Plt Count (130 - 400 /CUMM) 153 MPV (7.4 - 10.4 FL) 7.5 Gran % (42.2 - 75.2 %) 78.6 H Lymphocytes % (20.5 - 51.1 %) 20.2 L Monocytes % (1.7 - 9.3 %) 0.4 L Eosinophils % (0 - 5 %) 0.5 Basophils % (0.0 - 2.0 %) 0.3 Absolute Granulocytes (1.4 - 6.5 /CUMM) 6.7 H Absolute Lymphocytes (1.2 - 3.4 /CUMM) 1.7 Absolute Monocytes (0.10 - 0.60 /CUMM) 0 L Absolute Eosinophils (0.0 - 0.7 /CUMM) 0 Absolute Basophils (0.0 - 0.2 /CUMM) 0 PUBS MCHC (33.0 - 37.0 G/DL) 32.8 L Toxicology Digoxin (0.8 - 2.0 ng/mL) 0.6 L Last 24 Hours of [place] Results: Bile culture November 20 negative Blood cultures 2 November 20 remain negative Recent Imaging Studies: Chest x-ray November 23, personally reviewed, reveals persistent small bilateral pleural effusions with airspace opacities Assessment/Plan Impression: Remains critically ill, with severe respiratory failure, possibly secondary to atelectasis versus pneumonia, with bilateral pleural effusions. She remains afebrile with white blood cell count normal now on Unasyn Day 4 of treatment for presumed sepsis secondary to acute cholecystitis versus pneumonia versus an intra-abdominal process, such as ischemic colitis, with cultures all negative. Suggestion: 1. Would remove right IJ triple-lumen catheter if peripheral access available; if not would pursue placement of a PICC 2. Continue Unasyn
[2016-11-24 16:00] VITALS: BP 100/60
--- NOTE | 2016-11-24 20:43 | NUR ---
PATIENT SEDATED ON ATIVAN AT 1 MG/HR.FENTANYL AT 25 MCG/HR.WILL ATTEMPT TO OPEN EYES TO COMMAND.WILL RESPOND TO TACTILE STIMULI AND SUCTIONING.DAVID.MONITOR SINUS RHYTHM WITH PACS AT RATE OF 86. MANUAL ZU=659/60.IVF AT 100 ML/HR. TUBE FEEDING VIA OGT AT 45 ML/HR. 5ML RESIDUAL. ETT TO VENTILATOR AT 55%.MOUTH CARE GIVEN.T-TUBE TO GRAVITY DRAINAGE.DRAINING DARK GREEN DRAINAGE.TURNED AND REPOSITIONED.
[2016-11-25] VITALS: BP 114/60
[2016-11-25 04:32] LABS: ABSOLUTE BASOPHIL COUNT 0 /CUMM (0.0-0.2); ABSOLUTE EOSINOPHIL COUNT 0.1 /CUMM (0.0-0.7); ABSOLUTE LYMPH COUNT 1.1 /CUMM (1.2-3.4); ABSOLUTE MONOCYTE COUNT 0.1 /CUMM (0.10-0.60); BASOPHIL % 0.5 % (0.0-2.0); EOSINOPHIL % 0.8 % (0-5); GRANULOCYTE % 82.1 % (42.2-75.2); HEMATOCRIT 42.2 % (37-47); MEAN CORPUSCULAR HGB 34.8 PG (27.0-31.0); MEAN CORPUSCULAR HGB CONC 32.6 G/DL (33.0-37.0); MEAN PLATELET VOLUME 7.5 FL (7.4-10.4); PLATELET COUNT 137 /CUMM (130-400); RBC DISTRIBUTION WIDTH 20.2 % (11.5-14.5); RED BLOOD CELL CT 3.95 /CUMM (4.20-5.40); WHITE BLOOD CELL COUNT 7.3 /CUMM (4.8-10.8)
[2016-11-25 08:00] VITALS: BP 120/60
--- NOTE | 2016-11-25 08:00 | RADIOLOGY REPORT ---
EXAMINATION: XR PORTABLE CHEST CLINICAL INFORMATION: Respiratory failure. ET tube placement COMPARISON: Chest x-ray from 11/23/2016 TECHNIQUE: Portable frontal view of the chest was obtained. FINDINGS: Endotracheal tube is approximately 1.5 cm above the cori. There is an enteric tube in the stomach. Cardiomegaly is unchanged. There is increasing hypoexpansion of the lungs. There is elevation of the right diaphragm. There is increasing opacity at the right lung base which may be a combination of increasing atelectasis/consolidation and pleural effusion. There is no pneumothorax. IMPRESSION: Endotracheal tube positioned 1.5 cm above the cori. Increasing hypoexpansion of the lungs, right greater than left, with increasing opacity at the right lung base possibly related to pleural effusion with atelectasis/consolidation.
--- NOTE | 2016-11-25 08:10 | PN- Resident CRCU ---
Subjective HPI/CRCU Issues: 1. Intubated - AHRF with possible pneumonia, aspiration vs. CAP 2. Septic shock in the setting of acute cholecytsitis and possible PNA - improved 3. Transaminitis - improving 4. Elevated troponin (demand ischemia) - trended down 24 Hour Events: Patient is seen and examined at bedside, she remains intubated on fentanyl and lorazepam. There were no report of overnight events. On the monitor the patient continues to have episodes of supraventricular premature beats. Objective Vital Signs & I&O Last 8 Hrs of Vitals and I&O: Max Temp 98.8 OK 63-74 BP 93/48 to 116/60 Vent setting: rate 14/TV 500/PEEP 5/FiO2 45% I: 1334 cc O: 532 cc Exam General Appearance: well developed/nourished, no apparent distress, sedated, intubated Head: atraumatic Neck: normal inspection Respiratory: scattered expiratory wheezing on both lungs Cardiovascular: regular rate/rhythm Gastrointestinal: normal bowel sounds, soft, per cutaneous cholecystomy tube in place on the right upper abdomen Extremities: normal inspection Cranial Nerves: no facial asymmetry Skin: normal color, warm/dry Skin Temp/Moisture Exam: Warm/Dry Sepsis Skin Exam (color): Normal for Ethnicity Current Medications: Current Medications Sig/Shilpa Start time Last Medication Dose Route Stop Time Status Admin Acetylcysteine 2 ML BID 11/21 1235 AC 11/25 INH 0837 Albuterol Sulfate 3 ML EVERY 4 HRS/AWAKE 11/21 1600 AC 11/25 INH 1157 Ampicillin Sodium/ 3,000 MG Q6 11/23 1216 AC 11/25 Sulbactam Sodium IV 1117 Sodium Chloride 100 ML Bisacodyl 10 MG DAILY PRN 11/25 1245 AC OK Dextrose/Sodium 1,000 ML Q10H 11/24 0700 11/25 Chloride IV 1118 Fentanyl Citrate 1,000 MCG Q13H 11/22 2145 AC 11/24 Dextrose/Water 250 ML IV 0843 Furosemide 20 MG ONCE ONE 11/25 1245 DC 11/25 IV PUSH 11/25 1246 1305 Levothyroxine Sodium 75 MCG DAILY 11/22 1000 AC 11/25 IV 1117 Lorazepam 50 MG Q24H 11/22 1015 AC 11/24 Dextrose/Water 500 ML IV 1317 Magnesium Oxide 400 MG ONE ONE 11/25 0830 DC 11/25 PO 11/25 0831 0922 Nystatin 1 ESTEFANY TIDPRN PRN 11/21 0330 AC 11/23 TOP 0934 Pantoprazole Sodium 40 MG DAILY 11/21 2011 AC 11/25 IV 0922 Polyethylene Glycol 17 GM DAILY 11/25 1240 AC PO Potassium Chloride 40 MEQ ONCE ONE 11/25 0830 DC 11/25 PO 11/25 0831 0922 Impression/Plan Impression/Problem List Impression: Ms. Sánchez is a 76 year old female with PMH HTN, severe COPD, cigarette abuse (1 PPD), previous alcohol use, atrial fibrillation on Pradaxa and digoxin, GI bleed and hypothyroidism who presents with chief complaint of cough, decreased oral intake, fatigue, fever and chills for one week. Of note, patient did she her PCP Dr. Enma MD who prescribed her azithromycin for presumed bronchitis though her symptoms persisted prompting evaluation in our emergency department. In the ED: Vital signs showed T 95.0, HR 72, RR 22, BP 90/68, O2 86% RA. Labs were significant for WBC 15.3, 14 bands, 81% granulocytes, H&H 16.1/49.5, Plt 245, Na 120, K 5.4, Cl 79, HCO3 29, BUN 51, Cre 2.4, Glu 95, lactic acid 3.1 , TBili 2.1, DBili 1.4, AST/ALT 7358/2161, trop 0.25, INR 1.83. Abdominal US showed impacted gallstone in GB neck with GB wall thickening, wall edema and pericholecystic fluid. CXR showed cardiomegaly with a patchy opacity left lower lung field abnormality. suggesting an evolving pneumonia EKG showed non-specific ST elevations in leads [address] depressions in the high lateral leads I and L. Patient is admitted to the intensive care unit and the following has been addressed during her hospital coarse: Respiratory Acute on chronic hypoxic respiratory failure with possible pneumonia, aspiration vs. CAP, in the setting of severe COPD/emphysema and tobacco dependance * Patient noted to be 86% on RA during admission * Initially placed on BiPAP but was intubated due to increased work of breathing around 2200 on 11/20/16 * Titrate FiO2 down to keep O2 sat >92% * Continue ativan and fentanyl for sedation * IV protonix while intubated, daily CXR to ensure appropriate positioning * CXR on admission showed LLL abnormality suggestive of PNA * Follow up CT chest showed small/moderate pleural effusion with RML/partial RLL collapse; trace left pleural effusion * Continue AC ventilation and monitor for improvement in RLL collapse * Continue mucomyst and chest PT until resolution * Continue IV unasyn ID Septic shock requiring pressors with multiorgan dysfunction - resolved * Patient hypotensive, tachycardic and tachypneic on admission most likely source being intra-abdominal pathology * WBC normalized, today 7.3 without bands; patient has been afebrile * Cultures so far showing no growth, with no growth from bile culture, sputum only growing mixed jeane * Will continue IV unasyn per ID recommendations * IV fluids with D5-Normal Saline at 100 cc/h per continued with goal CVP 8-10 * Patient hemodynamically stable OFF of pressors * Trend CBC, ICU bundle Cardiac 1. Elevated troponin * Troponins peaked at 0.35, have since trended down * Likely represents demand/supply mismatch (demand ischemia); unlikely to be ACS * Cardio consult with Dr. Vida MD appreciated * Aspirin, Plavix and IV heparin initially started but have been discontinued as patient possible surgical candidate, history of GIB and noted oropharyngeal bleeding * Follow up further cardio recommendations, continuous telemetry monitoring * Echo showed mild concentric LVH, normal EF >65%, stage 1 diastolic dysfunction 2. Paroxysmal atrial fibrillation with digitalis toxicity * Digoxin level elevated on admission requiring digibind * Continue to hold digoxin, rechecked dig level: 0.4 , Digoxin is continued to be on hold * Hold off anticoagulation, aspirin, plavix at this point as patient was noted to have + oropharyngeal bleeding * Continuous telemetry monitoring * Follow up cardio recommendations * Hold metoprolol due to hypotension, restart once BP well controlled * She has been having mutiple episodes of atrial premature beats, can consider beta-lo if she continues to have frequent APBs. Metabolic 1. Transaminitis and hyperbilirubinemia with acute cholecystitis * Concern for acute cholecystitis with RUQ US findings of gallstones with wall thickening and edema * Patient is s/p percutaneous cholecystostomy tube with surgery, draining well * Continue to follow surgical recommendations * Hepatitis panel negative, tylenol <10 * Transaminitis likely 2/2 shock liver in the setting of hypotension from sepsis , IMPROVING * GI consult appreciated; will consider eventual cholangiogram via cholecystostomy tube * Statin on hold 2/2 transaminitis * Continue tube feeds 2. Hyponatremia, improved * Likely hypovolemic hyponatremia in setting of severe dehydration and sepsis * Trend ICU bundle frequently, caution with overcorrection * Continue IVF with D5-NS at 100 cc/h 3. BETH - resolved * BUN 51, Cre 2.4 on admission, likely secondary to hypotension and severe sepsis (prerenal) * IMPROVING. BUN 15 & Cr 0.6 today * Continue IVF and trend ICU bundle * Avoid nephrotoxins FULL CODE DVTP: ALPS (no pharm DVTP at this time 2/2 oropharyngeal bleeding) Diet: TUBE FEEDS Mild pain pathway Problem List: 1. Acute cholecystitis 2. Multiorgan failure 3. Tobacco abuse 4. Acute respiratory failure with hypoxia and hypercarbia Pain Ratin Tomorrow's Labs & Rationales: CBC, ICU bundle, digoxin, INR Plan DVT/Prophylaxis: mechanical
--- NOTE | 2016-11-25 08:43 | NUR ---
0800: RECEIVED PATIENT IN BED. SAS 3. OPENS EYES TO VERBAL STIMULI. +CMS. NSR ON MONITOR. AFEBRILE. B/P WNL. INTUBATED #8 TO THE LEFT, 23CM. VENT SETTINGS AC-14 500/ 55% PEEP 5. LUNGS RONCHI IN UPPER LOBES. CLEAR ORAL SECRETIONS. OGT IN PLACE WITH TUBE FEED RUNNING AT GOAL OF 60ML/HR RESIDUAL 120ML. Q4 95 ML WATER FLUSHES. LAST BM CHARTED 11-20, WILL ADDRESS. BALDERRAMA IN PLACE DRAINING CLEAR YELLOW URINE. 2 SMALL DTI'S TO LEFT BUTTOCK. TURNED AND REPOSITIONED. DRESSING TO RIGHT NECK FROM TLC REMOVAL YESTERDAY, CLEAN DRY AND INTACT. #20 LH #20 LF. D5-NS @ 100ML/HR. FENTANYL GTT @ 6.3ML/HR OR 25MCG. ATIVAN GTT AT 10ML/HR OR 1MG. T TUBE TO RIGHT UPPER QUADRANT, FLUSHED WITH 10ML NS. DRAINING BILIOUS OUTPUT. WILL MONITOR.
--- NOTE | 2016-11-25 11:01 | PN- Pulmonary ---
Subjective HPI/Critical Care Issues: Intubated and sedated afebrile no sig bm noted Objective Current Medications: Current Medications Sig/Shilpa Start time Last Medication Dose Route Stop Time Status Admin Acetylcysteine 2 ML BID 11/21 1235 AC 11/25 INH 0837 Albuterol Sulfate 3 ML EVERY 4 HRS/AWAKE 11/21 1600 AC 11/25 INH 0835 Ampicillin Sodium/ 3,000 MG Q6 11/23 1216 11/25 Sulbactam Sodium IV 0502 Sodium Chloride 100 ML Dextrose/Sodium 1,000 ML Q10H 11/24 0700 11/24 Chloride IV 2302 Fentanyl Citrate 1,000 MCG Q13H 11/22 2145 11/24 Dextrose/Water 250 ML IV 0843 Levothyroxine Sodium 75 MCG DAILY 11/22 1000 11/24 IV 1016 Lorazepam 50 MG Q24H 11/22 1015 11/24 Dextrose/Water 500 ML IV 1317 Magnesium Oxide 400 MG ONE ONE 11/25 0830 DC 11/25 PO 11/25 0831 0922 Magnesium Sulfate 1 GM Q2H 11/24 0700 DC 11/24 Dextrose/Water 100 ML IV 11/24 1059 1015 Nystatin 1 ESTEFANY TIDPRN PRN 11/21 0330 11/23 TOP 0934 Pantoprazole Sodium 40 MG DAILY 11/21 2011 AC 11/25 IV 0922 Potassium Chloride 40 MEQ ONCE ONE 11/25 0830 DC 11/25 PO 11/25 0831 0922 Vital Signs & I&O Last 24 Hrs of Vitals and I&O: Vital Signs Date Time Temp Pulse Resp B/P B/P Pulse O2 O2 Flow FiO2 Mean Ox Delivery Rate 11/25 0843 55 11/25 0800 98 Ventilator 55% 11/25 0800 98.8 70 14 120/60 98 Ventilator 55% 11/25 0601 55 11/25 0400 96 Ventilator 55% 11/25 0302 55 11/25 0110 55 11/25 0000 98.0 74 14 114/60 93 Ventilator 55% 11/25 0000 93 Ventilator 55% 11/24 2208 55 11/24 2054 55 11/24 2000 93 Ventilator 55% 11/24 1650 55 11/24 1600 96 Ventilator 55% 11/24 1600 98.7 70 14 100/60 96 Ventilator 55% 11/24 1421 55 11/24 1200 93 Ventilator 55% 11/24 1145 55 Intake & Output 11/25 1600 11/25 0800 11/25 0000 Intake Total 1334 1574 Output Total 572 445 Balance 762 1129 Intake, IV 833 1376 Intake, Tube 311 198 Feeding Intake, Tube 190 Irrigant Output, Other 40 50 Output, Urine 532 395 Impression/Plan Impression/Plan Impression/Plan: Physical Exam General Appearance Alert, intubated Skin No Rashes Skin Temp/Moisture Exam: Cool/Dry Sepsis Skin Exam (color): Mottled HEENT Atraumatic, PERRLA, EOMI Cardiovascular Normal S1, Normal S2, irregular rate and rhythm Lungs bilateral diffuse rhonchi and wheezing Abdomen Normal Bowel Sounds, Soft, No Tenderness IMPRESSION This is a 76-year-old lady with very poor performance status, severe COPD from her previous PFTs, 1 pack a day smoker, previous alcohol use, and so diazepam use, atrial fibrillation on anticoagulation and on digoxin, hypertension, recent cough wheezing for which she had taken azithromycin, history of hypothyroidism on appropriate supplementation, previous history of pneumonia and chronic respiratory insufficiency with acute on chronic respiratory failure, previous history of strep pneumo infection, now comes in with * Acute on chronic hypercarbic and hypoxemic respiratory failure related to significant COPD compounded by probable pneumonia with minimal wheezing with underlying sepsis. Sepsis appears to be due to intraabd process with cholecystisis now s/p perc tube p * Resolved sig hyponatremia * Significantly altered LFTs could be related to sepsis with hypoxic liver injury with olimpia aswell * PAtrial fibrillation now not on anticoag as she had bleeding * REsolved Acute renal failure * Ongoing cigarette smoking with previous history of alcohol use * History of hypothyroidism * Vitamin D deficiency, ongoing smoking with worsening performance status RECOMMENDATION Watch in ICU REduce fentanyl to off and use prn morphine Agg bowel regimen today COnt abx iv lasix one dose PSV trials today Will follow Pt is critically ill TTS 40 mins
[2016-11-25 12:00] VITALS: BP 110/60
--- NOTE | 2016-11-25 12:53 | NUR ---
PER DR REA TITRATE FENTANYL DOWN TO OFF, TITRATED DOWN TO 15MCG AT THIS TIME.
--- NOTE | 2016-11-25 13:44 | PN- Cardiology ---
Subjective Subjective: The patient remains intubated and sedated. No obvious clinical changes. No obvious change in cardiac status. Objective Vital Signs and I&Os Vital Signs Date Time Temp Pulse Resp B/P B/P Pulse O2 O2 Flow FiO2 Mean Ox Delivery Rate 11/25 1200 97 Ventilator 35% 11/25 1200 98.5 74 14 110/60 97 Ventilator 35% 11/25 1147 35 11/25 0843 55 11/25 0800 98 Ventilator 55% 11/25 0800 98.8 70 14 120/60 98 Ventilator 55% 11/25 0601 55 11/25 0400 96 Ventilator 55% 11/25 0302 55 11/25 0110 55 11/25 0000 98.0 74 14 114/60 93 Ventilator 55% 11/25 0000 93 Ventilator 55% 11/24 2208 55 11/24 2054 55 11/24 2000 93 Ventilator 55% 11/24 1650 55 11/24 1600 96 Ventilator 55% 11/24 1600 98.7 70 14 100/60 96 Ventilator 55% 11/24 1421 55 Intake & Output 11/25 1600 11/25 0800 11/25 0000 11/24 1600 11/24 0800 11/24 0000 Intake Total 1334 1574 1605 1266 983 Output Total 572 445 530 500 405 Balance 762 1129 1075 766 578 Intake, IV 833 1376 1188 913 930 Intake, Other 40 Intake, Tube 311 198 187 163 53 Feeding Intake, Tube 190 190 190 Irrigant Output, Other 40 50 50 50 50 Output, Urine 532 395 480 450 355 Physical Exam: General- frail/elderly female, intubated, sedated HEENT- normal CVS-regular S1, S2. 1 to 2/6 systolic murmur left sternal border Pulmonary-decreased breath bilaterally with scattered rhonchi noted GI- soft, nontender, mild distention, cholecystostomy tube in place - faith catheter in place draining dark yellow urine Neuro- Intubated/arousable Ext- normal pulses, no cyanosis/clubbing, bilateral upper extremity soft restraints in place Current Medications: Current Medications Sig/Shilpa Start time Last Medication Dose Route Stop Time Status Admin Acetylcysteine 2 ML BID 11/21 1235 AC 11/25 INH 0837 Albuterol Sulfate 3 ML EVERY 4 HRS/AWAKE 11/21 1600 AC 11/25 INH 1157 Ampicillin Sodium/ 3,000 MG Q6 11/23 1216 AC 11/25 Sulbactam Sodium IV 1117 Sodium Chloride 100 ML Bisacodyl 10 MG DAILY PRN 11/25 1245 AC MI Dextrose/Sodium 1,000 ML Q10H 11/24 0700 AC 11/25 Chloride IV 1118 Fentanyl Citrate 1,000 MCG Q13H 11/22 2145 AC 11/24 Dextrose/Water 250 ML IV 0843 Furosemide 20 MG ONCE ONE 11/25 1245 DC 11/25 IV PUSH 11/25 1246 1305 Levothyroxine Sodium 75 MCG DAILY 11/22 1000 AC 11/25 IV 1117 Lorazepam 50 MG Q24H 11/22 1015 AC 11/24 Dextrose/Water 500 ML IV 1317 Magnesium Oxide 400 MG ONE ONE 11/25 0830 DC 11/25 PO 11/25 0831 0922 Nystatin 1 ESTEFANY TIDPRN PRN 11/21 0330 11/23 TOP 0934 Pantoprazole Sodium 40 MG DAILY 11/21 2011 AC 11/25 IV 0922 Polyethylene Glycol 17 GM DAILY 11/25 1240 AC PO Potassium Chloride 40 MEQ ONCE ONE 11/25 0830 DC 11/25 PO 11/25 0831 0922 Results Last 48 Hrs of Labs/Mics: Laboratory Tests 11/25/16 1000: Sodium Cancelled, Potassium Cancelled, Chloride Cancelled, Carbon Dioxide Cancelled, Anion Gap Cancelled, BUN Cancelled, Creatinine Cancelled, Glucose Cancelled, Calcium Cancelled, Phosphorus Cancelled, Magnesium Cancelled, Total Bilirubin Cancelled, AST Cancelled, ALT Cancelled, Albumin Cancelled 11/25/16 0345: Anion Gap 9, Estimated GFR > 60, Glucose 122 H, Calcium 7.7 L, Phosphorus 3.0, Magnesium 1.6, Total Bilirubin 1.2, AST 97 H, ALT 444 H, Albumin 2.1 L, PT 14.0 H, INR 1.34 H, CBC w Diff NO MAN DIFF REQ, RBC 3.95 L, MCV 107.0 H, MCH 34.8 H, RDW 20.2 H, MPV 7.5, Gran % 82.1 H, Lymphocytes % 15.4 L, Monocytes % 1.2 L, Eosinophils % 0.8, Basophils % 0.5, Absolute Granulocytes 6.0, Absolute Lymphocytes 1.1 L, Absolute Monocytes 0.1 L, Absolute Eosinophils 0.1 , Absolute Basophils 0, PUBS MCHC 32.6 L, Digoxin 0.4 L 11/24/16 0925: Troponin I 0.10 11/24/16 0430: Anion Gap 7, Estimated GFR > 60, Glucose 74, Calcium 7.5 L, Phosphorus 2.1 L, Magnesium 1.7, Total Bilirubin 1.2, AST 203 H, ALT 628 H, Alkaline Phosphatase 100, Albumin 2.1 L, PT 13.4 H, INR 1.28 H, CBC w Diff NO MAN DIFF REQ, RBC 3.91 L, MCV 106.7 H, MCH 35.0 H, RDW 20.1 H, MPV 7.5, Gran % 78.6 H, Lymphocytes % 20.2 L, Monocytes % 0.4 L, Eosinophils % 0.5, Basophils % 0.3, Absolute Granulocytes 6.7 H, Absolute Lymphocytes 1.7, Absolute Monocytes 0 L, Absolute Eosinophils 0, Absolute Basophils 0, PUBS MCHC 32.8 L, Digoxin 0.6 L Assessment/Plan Assessment/Plan Assessment: 1. Elevated troponin 2. Acute on chronic hypercapnic/hypoxemic respiratory failure 3. COPD exacerbation with probable pneumonia 4. Abnormal LFTs 5. Hyponatremia-improved 6. History of paroxysmal atrial fibrillation 7. Acute renal insufficiency-improved 8. Hypothyroidism 9. Volume overload Recommendations: -Continue current medical management as per the ICU team. -Continue mechanical ventilation with weaning trials as per the pulmonary service -Continue to monitor on telemetry -No anticoagulation for the present time due to the patient's prior history of bleeding -Further plans from a cardiac perspective depending on the patient's clinical progress over the next several days.
--- NOTE | 2016-11-25 14:29 | NUR ---
FENTANYL TITRATED DOWN TO 5MCG AT THIS TIME. SAS REMAINS AT 3.
[2016-11-26] VITALS: BP 100/60
--- NOTE | 2016-11-26 | NUR ---
PATIENT WILL OPEN EYES,SQUEEZE HANDS. ATIVAN DRIP AT 1 MG/HR. SAS=3. MONITOR SINUS RHYTHM AT RATE OF 89.ETT TO VENTILATOR AT 35%.SAT=92%. TUBE FEED VIA OGT AT GOAL RATE OF 60 ML/HR.NO RESIDUAL.CHOLECYSTOMY TUBE TO R SIDE OF ABDOMEN DRAINING GREEN LIQUID.
[2016-11-26 06:20] LABS: ABSOLUTE BASOPHIL COUNT 0 /CUMM (0.0-0.2); ABSOLUTE EOSINOPHIL COUNT 0.1 /CUMM (0.0-0.7); ABSOLUTE GRANULOCYTE CT 7.7 /CUMM (1.4-6.5); ABSOLUTE LYMPH COUNT 0.8 /CUMM (1.2-3.4); ABSOLUTE MONOCYTE COUNT 0.2 /CUMM (0.10-0.60); BASOPHIL % 0.1 % (0.0-2.0); EOSINOPHIL % 1.3 % (0-5); GRANULOCYTE % 87.3 % (42.2-75.2); HEMATOCRIT 41.5 % (37-47); MEAN CORPUSCULAR HGB 34.7 PG (27.0-31.0); MEAN CORPUSCULAR HGB CONC 32.2 G/DL (33.0-37.0); MEAN CORPUSCULAR VOLUME 107.5 FL (81.0-99.0); MEAN PLATELET VOLUME 7.8 FL (7.4-10.4); PLATELET COUNT 105 /CUMM (130-400); RBC DISTRIBUTION WIDTH 20.1 % (11.5-14.5); RED BLOOD CELL CT 3.86 /CUMM (4.20-5.40)
[2016-11-26 06:24] LABS: PT 14.3 SEC (9.4-12.5)
[2016-11-26 06:41] LABS: WHITE BLOOD CELL COUNT 8.8 /CUMM (4.8-10.8)
--- NOTE | 2016-11-26 07:41 | RADIOLOGY REPORT ---
EXAMINATION: XR PORTABLE CHEST CLINICAL INFORMATION: Intubated COMPARISON: Chest 11/25/2016. TECHNIQUE: Portable frontal view of the chest was obtained. FINDINGS: Position of the endotracheal tube and nasogastric tube are unchanged and in satisfactory position. There is increased opacity of the right lung base with elevated right hemidiaphragm which is stable. The right upper lung and the left lung is expanded and clear. The left lower lobe retrocardiac area is not well visualized. The heart size is enlarged. Pulmonary vascularity is normal. No gross bony abnormality seen. IMPRESSION: No change in support lines and catheters. Persistent opacity right lung base and opacity left lung base retrocardiac area is unchanged.
--- NOTE | 2016-11-26 08:28 | PN- Infect Dx ---
Subjective Subjective: Afebrile without complaints Objective Last 24 Hrs of Vital Signs/I&O Vital Signs Date Time Temp Pulse Resp B/P B/P Pulse O2 O2 Flow FiO2 Mean Ox Delivery Rate 11/26 0756 35 11/26 0645 11/26 0400 92 Ventilator 35% 11/26 0358 35 11/26 0102 35 11/26 0000 98.5 89 14 100/60 92 Ventilator 35% 11/26 0000 92 Ventilator 35% 11/25 2019 11/25 1627 35 11/25 1600 Ventilator 35% 11/25 1401 35 11/25 1200 97 Ventilator 35% 11/25 1200 98.5 74 14 110/60 97 Ventilator 35% 11/25 1147 11/25 0843 55 Intake & Output 11/26 0800 11/26 0000 Intake Total 1474 Output Total 720 Balance 754 Intake, IV 963 Intake, Tube 416 Feeding Intake, Tube 95 Irrigant Output, Other 70 Output, Urine 650 Physical Exam Other Physical Findings: She is arousable, despite sedation, on the ventilator in no acute distress Lungs are clear Heart regular rhythm with no murmur Abdomen soft, nontender with positive bowel sounds; cholecystostomy tube in place with bilious drainage Extremities no cyanosis, clubbing or edema Black catheter remains in place Results Last 24 Hours of Lab Results: Laboratory Tests 11/26 11/25 11/25 0445 1615 UNK Chemistry Sodium (137 - 145 mmol/L) 136 L 138 Cancelled Potassium (3.5 - 5.1 mmol/L) 3.5 3.8 Cancelled Chloride (98 - 107 mmol/L) 105 105 Cancelled Carbon Dioxide (22 - 30 mmol/L) 25 25 Cancelled Anion Gap (5 - 16) 6 8 Cancelled BUN (7 - 17 mg/dL) 12 13 Cancelled Creatinine (0.5 - 1.0 mg/dL) 0.6 0.6 Cancelled Estimated GFR (>60 ml/min) > 60 > 60 Glucose (65 - 99 mg/dL) 110 H 135 H Cancelled Calcium (8.4 - 10.2 mg/dL) 7.7 L 8.0 L Cancelled Phosphorus (2.5 - 4.5 mg/dL) 3.6 3.5 Cancelled Magnesium (1.6 - 2.3 mg/dL) 1.2 L 1.4 L Cancelled Total Bilirubin (0.2 - 1.3 mg/dL) 1.1 1.0 Cancelled AST (14 - 36 U/L) 53 H 74 H Cancelled ALT (9 - 52 U/L) 278 H 376 H Cancelled Albumin (3.5 - 5.0 g/dL) 1.9 L 2.2 L Cancelled Coagulation PT (9.4 - 12.5 SEC) 14.3 H INR (0.90 - 1.19) 1.37 H Hematology CBC w Diff NO MAN DIFF REQ WBC (4.8 - 10.8 /CUMM) 8.8 RBC (4.20 - 5.40 /CUMM) 3.86 L Hgb (12.0 - 16.0 G/DL) 13.4 Hct (37 - 47 %) 41.5 MCV (81.0 - 99.0 FL) 107.5 H MCH (27.0 - 31.0 PG) 34.7 H RDW (11.5 - 14.5 %) 20.1 H Plt Count (130 - 400 /CUMM) 105 L MPV (7.4 - 10.4 FL) 7.8 Gran % (42.2 - 75.2 %) 87.3 H Lymphocytes % (20.5 - 51.1 %) 9.2 L Monocytes % (1.7 - 9.3 %) 2.1 Eosinophils % (0 - 5 %) 1.3 Basophils % (0.0 - 2.0 %) 0.1 Absolute Granulocytes (1.4 - 6.5 /CUMM) 7.7 H Absolute Lymphocytes (1.2 - 3.4 /CUMM) 0.8 L Absolute Monocytes (0.10 - 0.60 /CUMM) 0.2 Absolute Eosinophils (0.0 - 0.7 /CUMM) 0.1 Absolute Basophils (0.0 - 0.2 /CUMM) 0 PUBS MCHC (33.0 - 37.0 G/DL) 32.2 L Last 24 Hours of [place] Results: Sputum culture November 25 moderate growth of yeast Recent Imaging Studies: Chest x-ray November 26, personally reviewed, reveals an increased opacity at the right lung base Assessment/Plan Impression: Overall improved with decreased oxygen requirements and with temperatures and white blood cell count remaining normal on Unasyn now Day 6 of treatment for presumed sepsis ssecondary to acute cholecystitis, status post placement of a cholecystostomy tube 6 days ago, versus pneumonia versus an intra-abdominal process, such as ischemic colitis, with cultures all negative. Her platelet count is decreasing, possibly secondary to medications, which will need to be reviewed. Her chest x-ray does reveal an increasing opacity at the right base, possibly secondary to an increasing pleural effusion, with empyema unlikely given her normal temperatures and white blood cell count. Suggestion: 1. Review her medications and discontinue all unessential ones 2. Further management of her respiratory status/pleural effusions per Pulmonary 3. Continue Unasyn
[2016-11-26 08:43] VITALS: BP 110/60
--- NOTE | 2016-11-26 08:51 | PN- Resident CRCU ---
Subjective HPI/CRCU Issues: Patient was seen and examined this morning, she is awake, follow verbal commands , denied chest pain or abdominal pain by nodding her head. Overnight events reported by the nurse. Ativan drip running at 1 mg/h 24 Hour Events: Temperature 98.8, MAXIMUM TEMPERATURE 98.8 Pulse lowest 70, highest 92 sinus rhythm Blood pressure lowest 87/42, highest 119/60 AC 500/14/5/35% saturating 92% Intake 1688, output 2830 Objective Vital Signs & I&O Last 8 Hrs of Vitals and I&O: 11 Exam General Appearance: no apparent distress, awake, intubated Head: atraumatic, normal appearance Ears, Nose, Throat: normal pharynx, normal ENT inspection Neck: normal inspection, supple, full range of motion Respiratory: chest non-tender Cardiovascular: regular rate/rhythm Gastrointestinal: normal bowel sounds, soft, non-tender, cholecystectomy packed with scant amount of secretion, was flushed this morning "10 mL of normal saline , distended Extremities: normal inspection, normal capillary refill, normal range of motion, no edema Cranial Nerves: normal hearing, PERRL Current Medications: Current Medications Sig/Shilpa Start time Last Medication Dose Route Stop Time Status Admin Acetylcysteine 2 ML BID 11/21 1235 AC 11/26 INH 0805 Albuterol Sulfate 3 ML EVERY 4 HRS/AWAKE 11/21 1600 AC 11/26 INH 1141 Ampicillin Sodium/ 3,000 MG Q6 11/23 1216 11/26 Sulbactam Sodium IV 1051 Sodium Chloride 100 ML Bisacodyl 10 MG DAILY PRN 11/25 1245 AC MI Dextrose/Sodium 1,000 ML Q10H 11/24 0700 AL 11/26 Chloride IV 0750 Fentanyl Citrate 1,000 MCG Q13H 11/22 2145 AL 11/24 Dextrose/Water 250 ML IV 0843 Furosemide 40 MG ONCE ONE 11/26 1345 AC IV 11/26 1346 Levothyroxine Sodium 75 MCG DAILY 11/22 1000 AC 11/26 IV 1051 Lorazepam 50 MG Q24H 11/22 1015 AC 11/25 Dextrose/Water 500 ML IV 1526 Magnesium Sulfate 1 GM Q2H 11/26 0730 AL 11/26 Dextrose/Water 100 ML IV 11/26 1129 0917 Nystatin 1 ESTEFANY TIDPRN PRN 11/21 0330 11/26 TOP 0329 Pantoprazole Sodium 40 MG DAILY 11/21 2011 AC 11/26 IV 0917 Polyethylene Glycol 17 GM DAILY 11/25 1240 AC 11/26 PO 0917 Potassium Chloride 40 MEQ ONCE ONE 11/26 1345 AC PO 11/26 1346 Potassium Chloride 40 MEQ ONCE ONE 11/26 0730 DC 11/26 PO 11/26 0731 0749 Potassium Chloride 40 MEQ ONCE ONE 11/26 0715 CAN PO 11/26 0716 Impression/Plan Impression/Problem List Impression: Ms. Sánchez is a 76 year old female with PMH HTN, severe COPD, cigarette abuse (1 PPD), previous alcohol use, atrial fibrillation on Pradaxa and digoxin, GI bleed and hypothyroidism who presents with chief complaint of cough, decreased oral intake, fatigue, fever and chills for one week. Of note, patient did she her PCP Dr. Enma MD who prescribed her azithromycin for presumed bronchitis though her symptoms persisted prompting evaluation in our emergency department. In the ED: Vital signs showed T 95.0, HR 72, RR 22, BP 90/68, O2 86% RA. Labs were significant for WBC 15.3, 14 bands, 81% granulocytes, H&H 16.1/49.5, Plt 245, Na 120, K 5.4, Cl 79, HCO3 29, BUN 51, Cre 2.4, Glu 95, lactic acid 3.1 , TBili 2.1, DBili 1.4, AST/ALT 7358/2161, trop 0.25, INR 1.83. Abdominal US showed impacted gallstone in GB neck with GB wall thickening, wall edema and pericholecystic fluid. CXR showed cardiomegaly with a patchy opacity left lower lung field abnormality. suggesting an evolving pneumonia EKG showed non-specific ST elevations in leads [address] depressions in the high lateral leads I and L. Patient is admitted to the intensive care unit and the following has been addressed during her hospital coarse: Respiratory Acute on chronic hypoxic respiratory failure with possible pneumonia, aspiration vs. CAP, in the setting of severe COPD/emphysema and tobacco dependance * Patient noted to be 86% on RA during admission * Initially placed on BiPAP but was intubated due to increased work of breathing around 2200 on 11/20/16 * Titrate FiO2 down to keep O2 sat >92% * Continue ativan and fentanyl for sedation, will discontinue Ativan drip later in the day and continue with Ativan when necessary doses * IV protonix while intubated, daily CXR to ensure appropriate positioning * CXR on admission showed LLL abnormality suggestive of PNA * Follow up CT chest showed small/moderate pleural effusion with RML/partial RLL collapse; trace left pleural effusion * Continue AC ventilation and monitor for improvement in RLL collapse * Continue mucomyst and chest PT until resolution * Continue IV unasyn ID Septic shock requiring pressors with multiorgan dysfunction - resolved * Patient hypotensive, tachycardic and tachypneic on admission most likely source being intra-abdominal pathology * Cultures so far showing no growth, with no growth from bile culture, sputum only growing mixed jeane and yeast * Will continue IV unasyn per ID recommendations * Will discontinue IV fluid today * Patient hemodynamically stable OFF of pressors * Trend CBC, ICU bundle Cardiac 1. Elevated troponin * Troponins peaked at 0.35, have since trended down * Likely represents demand/supply mismatch (demand ischemia); unlikely to be ACS * Cardio consult with Dr. Vida MD appreciated * Aspirin, Plavix and IV heparin initially started but have been discontinued as patient possible surgical candidate, history of GIB and noted oropharyngeal bleeding * Follow up further cardio recommendations, continuous telemetry monitoring * Echo showed mild concentric LVH, normal EF >65%, stage 1 diastolic dysfunction 2. Paroxysmal atrial fibrillation with digitalis toxicity * Digoxin level elevated on admission requiring digibind * Continue to hold digoxin, rechecked dig level: 0.4 , Digoxin is continued to be on hold * Hold off anticoagulation, aspirin, plavix at this point as patient was noted to have + oropharyngeal bleeding * Continuous telemetry monitoring * Follow up cardio recommendations * Hold metoprolol due to hypotension, restart once BP well controlled * She has been having mutiple episodes of atrial premature beats, can consider beta-lo if she continues to have frequent APBs. * Patient seems to be hypervolemic today, will give 1 dose of IV Lasix 40 mg, recommendation for 1 additional dose of Lasix 40 if needs later in the day Metabolic 1. Transaminitis and hyperbilirubinemia with acute cholecystitis * Concern for acute cholecystitis with RUQ US findings of gallstones with wall thickening and edema * Patient is s/p percutaneous cholecystostomy tube with surgery, draining well * Continue to follow surgical recommendations * Hepatitis panel negative, tylenol <10 * Transaminitis likely 2/2 shock liver in the setting of hypotension from sepsis , IMPROVING * GI consult appreciated; will consider eventual cholangiogram via cholecystostomy tube * Statin on hold 2/2 transaminitis * Continue tube feeds 2. Hyponatremia, improved * Likely hypovolemic hyponatremia in setting of severe dehydration and sepsis * Trend ICU bundle frequently, caution with overcorrection * Continue IVF with D5-NS at 100 cc/h 3. BETH - resolved * BUN 51, Cre 2.4 on admission, likely secondary to hypotension and severe sepsis (prerenal) * IMPROVING. * Continue IVF and trend ICU bundle * Avoid nephrotoxins 4. Hypokalemia * Repleted with 2 doses of potassium chloride powder 40 mg, would repeat lab and replete as needed to keep potassium above 4 FULL CODE DVTP: ALPS (no pharm DVTP at this time 2/2 oropharyngeal bleeding) Diet: TUBE FEEDS Mild pain pathway Problem List: 1. Multiorgan failure 2. Acute cholecystitis 3. Acute respiratory failure with hypoxia and hypercarbia Pain Ratin Tomorrow's Labs & Rationales: ICU bundle, CBC Plan DVT/Prophylaxis: mechanical
--- NOTE | 2016-11-26 10:36 | PN- CRCU ---
Subjective HPI/Critical Care Issues: Patient was seen and examined this morning, she is awake, follow verbal commands , denied chest pain or abdominal pain by nodding her head. Overnight events reported by the nurse. Ativan drip running at 1 mg/h 24 Hour Events: Temperature 98.8, MAXIMUM TEMPERATURE 98.8 Pulse lowest 70, highest 92 sinus rhythm Blood pressure lowest 87/42, highest 119/60 AC 500/14/5/35% saturating 92% Intake 1688, output 2830 Objective Current Medications: Current Medications Sig/Shilpa Start time Last Medication Dose Route Stop Time Status Admin Acetylcysteine 2 ML BID 11/21 1235 AC 11/26 INH 0805 Albuterol Sulfate 3 ML EVERY 4 HRS/AWAKE 11/21 1600 AC 11/26 INH 0805 Ampicillin Sodium/ 3,000 MG Q6 11/23 1216 AC 11/26 Sulbactam Sodium IV 0615 Sodium Chloride 100 ML Bisacodyl 10 MG DAILY PRN 11/25 1245 AC CO Dextrose/Sodium 1,000 ML Q10H 11/24 0700 11/26 Chloride IV 0750 Fentanyl Citrate 1,000 MCG Q13H 11/22 2145 OH 11/24 Dextrose/Water 250 ML IV 0843 Furosemide 20 MG ONCE ONE 11/25 1245 DC 11/25 IV PUSH 11/25 1246 1305 Levothyroxine Sodium 75 MCG DAILY 11/22 1000 AC 11/25 IV 1117 Lorazepam 50 MG Q24H 11/22 1015 AC 11/25 Dextrose/Water 500 ML IV 1526 Magnesium Sulfate 1 GM Q2H 11/26 0730 11/26 Dextrose/Water 100 ML IV 11/26 1129 0917 Nystatin 1 ESTEFANY TIDPRN PRN 11/21 0330 11/26 TOP 0329 Pantoprazole Sodium 40 MG DAILY 11/21 2011 11/26 IV 0917 Polyethylene Glycol 17 GM DAILY 11/25 1240 AC 11/26 PO 0917 Potassium Chloride 40 MEQ ONCE ONE 11/26 0730 DC 11/26 PO 11/26 0731 0749 Potassium Chloride 40 MEQ ONCE ONE 11/26 0715 CAN PO 11/26 0716 Vital Signs & I&O Last 24 Hrs of Vitals and I&O: Vital Signs Date Time Temp Pulse Resp B/P B/P Pulse O2 O2 Flow FiO2 Mean Ox Delivery Rate 11/26 0843 92 Ventilator 35% 11/26 0843 98.3 80 20 110/60 92 Ventilator 35% 11/26 0756 35 11/26 0645 35 11/26 0400 92 Ventilator 35% 11/26 0358 35 11/26 0102 35 11/26 0000 98.5 89 14 100/60 92 Ventilator 35% 11/26 0000 92 Ventilator 35% 11/25 2019 35 11/25 1627 35 11/25 1600 Ventilator 35% 11/25 1401 35 11/25 1200 97 Ventilator 35% 11/25 1200 98.5 74 14 110/60 97 Ventilator 35% 11/25 1147 35 Intake & Output 11/26 1600 11/26 0800 11/26 0000 Intake Total 1474 Output Total 720 Balance 754 Intake, IV 963 Intake, Tube 416 Feeding Intake, Tube 95 Irrigant Output, Other 70 Output, Urine 650 Laboratory Tests 11/26 11/25 11/25 0445 1615 UNK Chemistry Sodium (137 - 145 mmol/L) 136 L 138 Cancelled Potassium (3.5 - 5.1 mmol/L) 3.5 3.8 Cancelled Chloride (98 - 107 mmol/L) 105 105 Cancelled Carbon Dioxide (22 - 30 mmol/L) 25 25 Cancelled Anion Gap (5 - 16) 6 8 Cancelled BUN (7 - 17 mg/dL) 12 13 Cancelled Creatinine (0.5 - 1.0 mg/dL) 0.6 0.6 Cancelled Estimated GFR (>60 ml/min) > 60 > 60 Glucose (65 - 99 mg/dL) 110 H 135 H Cancelled Calcium (8.4 - 10.2 mg/dL) 7.7 L 8.0 L Cancelled Phosphorus (2.5 - 4.5 mg/dL) 3.6 3.5 Cancelled Magnesium (1.6 - 2.3 mg/dL) 1.2 L 1.4 L Cancelled Total Bilirubin (0.2 - 1.3 mg/dL) 1.1 1.0 Cancelled AST (14 - 36 U/L) 53 H 74 H Cancelled ALT (9 - 52 U/L) 278 H 376 H Cancelled Albumin (3.5 - 5.0 g/dL) 1.9 L 2.2 L Cancelled Coagulation PT (9.4 - 12.5 SEC) 14.3 H INR (0.90 - 1.19) 1.37 H Hematology CBC w Diff NO MAN DIFF REQ WBC (4.8 - 10.8 /CUMM) 8.8 RBC (4.20 - 5.40 /CUMM) 3.86 L Hgb (12.0 - 16.0 G/DL) 13.4 Hct (37 - 47 %) 41.5 MCV (81.0 - 99.0 FL) 107.5 H MCH (27.0 - 31.0 PG) 34.7 H RDW (11.5 - 14.5 %) 20.1 H Plt Count (130 - 400 /CUMM) 105 L MPV (7.4 - 10.4 FL) 7.8 Gran % (42.2 - 75.2 %) 87.3 H Lymphocytes % (20.5 - 51.1 %) 9.2 L Monocytes % (1.7 - 9.3 %) 2.1 Eosinophils % (0 - 5 %) 1.3 Basophils % (0.0 - 2.0 %) 0.1 Absolute Granulocytes (1.4 - 6.5 /CUMM) 7.7 H Absolute Lymphocytes (1.2 - 3.4 /CUMM) 0.8 L Absolute Monocytes (0.10 - 0.60 /CUMM) 0.2 Absolute Eosinophils (0.0 - 0.7 /CUMM) 0.1 Absolute Basophils (0.0 - 0.2 /CUMM) 0 PUBS MCHC (33.0 - 37.0 G/DL) 32.2 L 11/25 0345 Chemistry Sodium (137 - 145 mmol/L) 137 Potassium (3.5 - 5.1 mmol/L) 3.6 Chloride (98 - 107 mmol/L) 107 Carbon Dioxide (22 - 30 mmol/L) 21 L Anion Gap (5 - 16) 9 BUN (7 - 17 mg/dL) 15 Creatinine (0.5 - 1.0 mg/dL) 0.6 Estimated GFR (>60 ml/min) > 60 Glucose (65 - 99 mg/dL) 122 H Calcium (8.4 - 10.2 mg/dL) 7.7 L Phosphorus (2.5 - 4.5 mg/dL) 3.0 Magnesium (1.6 - 2.3 mg/dL) 1.6 Total Bilirubin (0.2 - 1.3 mg/dL) 1.2 AST (14 - 36 U/L) 97 H ALT (9 - 52 U/L) 444 H Albumin (3.5 - 5.0 g/dL) 2.1 L Coagulation PT (9.4 - 12.5 SEC) 14.0 H INR (0.90 - 1.19) 1.34 H Hematology CBC w Diff NO MAN DIFF REQ WBC (4.8 - 10.8 /CUMM) 7.3 RBC (4.20 - 5.40 /CUMM) 3.95 L Hgb (12.0 - 16.0 G/DL) 13.8 Hct (37 - 47 %) 42.2 MCV (81.0 - 99.0 FL) 107.0 H MCH (27.0 - 31.0 PG) 34.8 H RDW (11.5 - 14.5 %) 20.2 H Plt Count (130 - 400 /CUMM) 137 MPV (7.4 - 10.4 FL) 7.5 Gran % (42.2 - 75.2 %) 82.1 H Lymphocytes % (20.5 - 51.1 %) 15.4 L Monocytes % (1.7 - 9.3 %) 1.2 L Eosinophils % (0 - 5 %) 0.8 Basophils % (0.0 - 2.0 %) 0.5 Absolute Granulocytes (1.4 - 6.5 /CUMM) 6.0 Absolute Lymphocytes (1.2 - 3.4 /CUMM) 1.1 L Absolute Monocytes (0.10 - 0.60 /CUMM) 0.1 L Absolute Eosinophils (0.0 - 0.7 /CUMM) 0.1 Absolute Basophils (0.0 - 0.2 /CUMM) 0 PUBS MCHC (33.0 - 37.0 G/DL) 32.6 L Toxicology Digoxin (0.8 - 2.0 ng/mL) 0.4 L Microbiology Date/Time Procedure - Status Source Growth 11/25 1429 Respiratory Culture - RES LOWER RESP YEAST 11/25 1429 Gram Stain - RES LOWER RESP Impression/Plan Impression/Plan Impression/Plan: Physical Exam General Appearance Alert, intubated Skin No Rashes Skin Temp/Moisture Exam: Cool/Dry Sepsis Skin Exam (color): Mottled HEENT Atraumatic, PERRLA, EOMI Cardiovascular Normal S1, Normal S2, irregular rate and rhythm Lungs bilateral diffuse rhonchi and wheezing Abdomen Normal Bowel Sounds, Soft, No Tenderness IMPRESSION This is a 76-year-old lady with very poor performance status, severe COPD from her previous PFTs, 1 pack a day smoker, previous alcohol use, and so diazepam use, atrial fibrillation on anticoagulation and on digoxin, hypertension, recent cough wheezing for which she had taken azithromycin, history of hypothyroidism on appropriate supplementation, previous history of pneumonia and chronic respiratory insufficiency with acute on chronic respiratory failure, previous history of strep pneumo infection, now comes in with * Acute on chronic hypercarbic and hypoxemic respiratory failure related to significant COPD compounded by probable pneumonia with minimal wheezing with underlying sepsis. Sepsis appears to be due to intraabd process with cholecystisis now s/p perc tube p * Resolved sig hyponatremia * Significantly altered LFTs could be related to sepsis with hypoxic liver injury with olimpia aswell * PAtrial fibrillation now not on anticoag as she had bleeding * REsolved Acute renal failure * Ongoing cigarette smoking with previous history of alcohol use * History of hypothyroidism * Vitamin D deficiency, ongoing smoking with worsening performance status * Significant fluid overload today, clinically RECOMMENDATION Continue mechanical ventilator Discontinue D5 normal saline Intravenous Lasix 40 mg 1 dose now Repeat blood work this evening and repeat Lasix if she needs it Keep potassium more than 4, give 40 mEq down the tube 2 or 3 doses today When necessary morphine I reduce Ativan 2.5 mg and use as needed Discontinue Ativan later on today and use Ativan when necessary Agg bowel regimen today COnt abx PSV trials today Will follow Pt is critically ill TTS 40 mins
--- NOTE | 2016-11-26 11:43 | NUR ---
DR REA AT BEDSIDE TO TO ASISST WITH TLC PLACEMENT. LEVOPHED AT 20MCG/MIN. 2ND BOLUS OF NS INFUSING. BP 105/66 HR 99 NSR. 100% NRB AT 97%.
--- NOTE | 2016-11-26 13:11 | PN- Cardiology ---
Subjective Subjective: Patient remains intubated, awake, responsive, no obvious new cardiac issues. Objective Vital Signs and I&Os Vital Signs Date Time Temp Pulse Resp B/P B/P Pulse O2 O2 Flow FiO2 Mean Ox Delivery Rate 11/26 1200 92 Ventilator 35% 11/26 1135 35 11/26 0843 92 Ventilator 35% 11/26 0843 98.3 80 20 110/60 92 Ventilator 35% 11/26 0756 35 11/26 0645 35 11/26 0400 92 Ventilator 35% 11/26 0358 35 11/26 0102 35 11/26 0000 98.5 89 14 100/60 92 Ventilator 35% 11/26 0000 92 Ventilator 35% 11/25 2019 35 11/25 1627 35 11/25 1600 Ventilator 35% 11/25 1401 35 Intake & Output 11/26 0800 11/26 0000 11/25 1600 11/25 0800 11/25 0000 Intake Total 1474 1686 1334 1574 Output Total 720 1460 572 445 Balance 754 976 831 2722 Intake, IV 963 9724 453 7278 Intake, Tube 416 332 311 198 Feeding Intake, Tube 95 340 190 Irrigant Number 0 Bowel Movements Output, Other 70 60 40 50 Output, Urine 650 1400 532 395 Physical Exam: General- frail/elderly female, intubated, arousable/responsive HEENT- normal CVS-regular S1, S2. 1 to 2/6 systolic murmur left sternal border Pulmonary-decreased breath bilaterally with scattered rhonchi noted GI- soft, nontender, mild distention, cholecystostomy tube in place - faith catheter in place draining dark yellow urine Neuro- Intubated/arousable Ext- normal pulses, no cyanosis/clubbing, bilateral upper extremity soft restraints in place Current Medications: Current Medications Sig/Shilpa Start time Last Medication Dose Route Stop Time Status Admin Acetylcysteine 2 ML BID 11/21 1235 AC 11/26 INH 0805 Albuterol Sulfate 3 ML EVERY 4 HRS/AWAKE 11/21 1600 AC 11/26 INH 1141 Ampicillin Sodium/ 3,000 MG Q6 11/23 1216 AC 11/26 Sulbactam Sodium IV 1051 Sodium Chloride 100 ML Bisacodyl 10 MG DAILY PRN 11/25 1245 AC [place] Dextrose/Sodium 1,000 ML Q10H 11/24 0700 AC 11/26 Chloride IV 0750 Fentanyl Citrate 1,000 MCG Q13H 11/22 2145 RI 11/24 Dextrose/Water 250 ML IV 0843 Levothyroxine Sodium 75 MCG DAILY 11/22 1000 AC 11/26 IV 1051 Lorazepam 50 MG Q24H 11/22 1015 AC 11/25 Dextrose/Water 500 ML IV 1526 Magnesium Sulfate 1 GM Q2H 11/26 0730 RI 11/26 Dextrose/Water 100 ML IV 11/26 1129 0917 Nystatin 1 ESTEFANY TIDPRN PRN 11/21 0330 11/26 TOP 0329 Pantoprazole Sodium 40 MG DAILY 11/21 2011 11/26 IV 0917 Polyethylene Glycol 17 GM DAILY 11/25 1240 11/26 PO 0917 Potassium Chloride 40 MEQ ONCE ONE 11/26 0730 DC 11/26 PO 11/26 0731 0749 Potassium Chloride 40 MEQ ONCE ONE 11/26 0715 CAN PO 11/26 0716 Results Last 48 Hrs of Labs/Mics: Laboratory Tests 11/26/16 0445: Anion Gap 6, Estimated GFR > 60, Glucose 110 H, Calcium 7.7 L, Phosphorus 3.6, Magnesium 1.2 L, Total Bilirubin 1.1, AST 53 H, ALT 278 H, Albumin 1.9 L, PT 14.3 H, INR 1.37 H, CBC w Diff NO MAN DIFF REQ, RBC 3.86 L, MCV 107.5 H, MCH 34.7 H, RDW 20.1 H, MPV 7.8, Gran % 87.3 H, Lymphocytes % 9.2 L, Monocytes % 2.1, Eosinophils % 1.3, Basophils % 0.1, Absolute Granulocytes 7.7 H, Absolute Lymphocytes 0.8 L, Absolute Monocytes 0.2, Absolute Eosinophils 0.1, Absolute Basophils 0, PUBS MCHC 32.2 L 11/25/16 1615: Anion Gap 8, Estimated GFR > 60, Glucose 135 H, Calcium 8.0 L, Phosphorus 3.5, Magnesium 1.4 L, Total Bilirubin 1.0, AST 74 H, ALT 376 H, Albumin 2.2 L 11/25/16 1000: Sodium Cancelled, Potassium Cancelled, Chloride Cancelled, Carbon Dioxide Cancelled, Anion Gap Cancelled, BUN Cancelled, Creatinine Cancelled, Glucose Cancelled, Calcium Cancelled, Phosphorus Cancelled, Magnesium Cancelled, Total Bilirubin Cancelled, AST Cancelled, ALT Cancelled, Albumin Cancelled 11/25/16 0345: Anion Gap 9, Estimated GFR > 60, Glucose 122 H, Calcium 7.7 L, Phosphorus 3.0, Magnesium 1.6, Total Bilirubin 1.2, AST 97 H, ALT 444 H, Albumin 2.1 L, PT 14.0 H, INR 1.34 H, CBC w Diff NO MAN DIFF REQ, RBC 3.95 L, MCV 107.0 H, MCH 34.8 H, RDW 20.2 H, MPV 7.5, Gran % 82.1 H, Lymphocytes % 15.4 L, Monocytes % 1.2 L, Eosinophils % 0.8, Basophils % 0.5, Absolute Granulocytes 6.0, Absolute Lymphocytes 1.1 L, Absolute Monocytes 0.1 L, Absolute Eosinophils 0.1 , Absolute Basophils 0, PUBS MCHC 32.6 L, Digoxin 0.4 L Assessment/Plan Assessment/Plan Assessment: 1. Elevated troponin 2. Acute on chronic hypercapnic/hypoxemic respiratory failure 3. COPD exacerbation with probable pneumonia 4. Abnormal LFTs 5. Hyponatremia-improved 6. History of paroxysmal atrial fibrillation 7. Acute renal insufficiency-improved 8. Hypothyroidism 9. Volume overload Recommendations: -Continue current medical management as per the ICU team. -Continue mechanical ventilation with weaning trials as per the pulmonary service -Continue to monitor on telemetry -No anticoagulation for the present time due to the patient's prior history of bleeding -Further plans from a cardiac perspective depending on the patient's clinical progress over the next several days. Continue telemetry? Yes
[2016-11-26 16:00] VITALS: BP 110/59
[2016-11-26 18:06] LABS: ABSOLUTE BASOPHIL COUNT 0 /CUMM (0.0-0.2); ABSOLUTE EOSINOPHIL COUNT 0.1 /CUMM (0.0-0.7); ABSOLUTE GRANULOCYTE CT 10.7 /CUMM (1.4-6.5); ABSOLUTE LYMPH COUNT 0.9 /CUMM (1.2-3.4); ABSOLUTE MONOCYTE COUNT 1.1 /CUMM (0.10-0.60); BASOPHIL % 0.4 % (0.0-2.0); EOSINOPHIL % 1.1 % (0-5); GRANULOCYTE % 83.4 % (42.2-75.2); HEMATOCRIT 44.3 % (37-47); MEAN CORPUSCULAR HGB 34.9 PG (27.0-31.0); MEAN CORPUSCULAR HGB CONC 32.5 G/DL (33.0-37.0); MEAN CORPUSCULAR VOLUME 107.4 FL (81.0-99.0); MEAN PLATELET VOLUME 8.4 FL (7.4-10.4); PLATELET COUNT 95 /CUMM (130-400); RBC DISTRIBUTION WIDTH 19.9 % (11.5-14.5); RED BLOOD CELL CT 4.13 /CUMM (4.20-5.40); WHITE BLOOD CELL COUNT 12.8 /CUMM (4.8-10.8)
--- NOTE | 2016-11-26 18:34 | NUR ---
PT ALARMING VENTILATOR. UPON ASESSMENT, PT NOTED TO BE COUGHING UP TUBE FEED. TUBE FEED WAS TURNED OFF AND PT SUCTIONED ORALLY AND VIA ETT. DR COTTRELL NOTIFIED AND TUBE FEED WAS ORDERED TO REMAIN OFF. PT NOTED TO BE FEBRILE AT THIS TIME WELL 101.2 [address] T[address] IV[address] CORREA NOTIFIED.
--- NOTE | 2016-11-26 21:00 | NUR ---
PATIENT RESPONSIVE TO VERBAL STIMULI.MONITOR SINUS RHYTHM AT RATE OF 96. MANUAL BP=86/50. URINE OUTPUT= 37 ML LAST HOUR AFTER LARGE AMOUNT AFTER LASIX AT 1600. PATIENTS IV FLUIDS WERE D/C,TUBE FEED ON HOLD.DR.UL KENNEDY NOTIFIED AND 500 ML NS BOLUS STATRTED.ENDOTRACHEAL TUBE TO VENTILATOR AT 55%.SAT=93%.
--- NOTE | 2016-11-26 22:20 | NUR ---
BP NOW 93/49.TURNED AND REPOSITIONED. WHILE TURNING MONITOR SHOWED 8 BEAT RUN OF SVT VS VT. DR.UL KENNEDY NOTIFIED.MAGNESIUM BOLUS GIVEN FOR 1801 MG OF 1.5
[2016-11-27] VITALS: BP 94/52
[2016-11-27 05:31] LABS: ABSOLUTE BASOPHIL COUNT 0 /CUMM (0.0-0.2); ABSOLUTE EOSINOPHIL COUNT 0.1 /CUMM (0.0-0.7); ABSOLUTE GRANULOCYTE CT 8.1 /CUMM (1.4-6.5); ABSOLUTE MONOCYTE COUNT 1.8 /CUMM (0.10-0.60); BASOPHIL % 0.1 % (0.0-2.0); EOSINOPHIL % 0.9 % (0-5); GRANULOCYTE % 73.6 % (42.2-75.2); HEMATOCRIT 39.5 % (37-47); MEAN CORPUSCULAR HGB CONC 32.7 G/DL (33.0-37.0); MEAN PLATELET VOLUME 7.7 FL (7.4-10.4); PLATELET COUNT 94 /CUMM (130-400); RBC DISTRIBUTION WIDTH 19.5 % (11.5-14.5); RED BLOOD CELL CT 3.69 /CUMM (4.20-5.40)
--- NOTE | 2016-11-27 07:44 | RADIOLOGY REPORT ---
EXAMINATION: XR PORTABLE CHEST CLINICAL INFORMATION: Mechanical ventilation COMPARISON: Chest x-ray 11/26/2016 TECHNIQUE: Portable frontal view of the chest was obtained. FINDINGS: Endotracheal tube is present with the tip 3.3 cm above the cori. There is a feeding tube or enteric tube with the tip is obscured from view. Heart size is unchanged. Pulmonary vascularity is within normal limits. There is continued elevation of the right diaphragm with opacity at the right lung base unchanged. There is probable right pleural effusion unchanged. There is slight increase in opacity at the left lung base which may represent increasing atelectasis or consolidation. There is no pneumothorax appreciated. IMPRESSION: Endotracheal tube in place. Enteric tube tip is not well delineated. Slight increase in opacity at the left lung base. No change in opacity at the right lung base with elevated right diaphragm.
--- NOTE | 2016-11-27 07:52 | PN- Resident CRCU ---
Subjective HPI/CRCU Issues: Patient seen and examined at bedside this AM. She remains intubated and sedated. She had several episodes of stooling yesterday. All laxatives have since been discontinued. Tmax in the last 24 hours was 101.2 rectally (18:37) at which time she received IV tylenol and had no further episodes of fever. Patient also noted to have an episode of vomiting of tube feeds since yesterday. Tube feeds were held since that time but restarted at low rate this AM. Will consider CT chest/abdomen/pelvis with IV contrast later if vomiting occurs again. FiO2 requirements noted to be increased in the afternoon. ABG ordered and after discussion with resident physician Dr. Abida MD we will do chest, abdomen, pelvis CT with IV contrast after tube feeds held for 4 hours. 24 Hour Events: back hanger: 8 beat Vtach at 22:20 yesterday evening, otherwise no issues. Vital signs last 24 hours: T 97.8-101.2, RR 14-21, HR 78-99, BP 88-110/45-64, O2 92-97% on AC 14 TV 500 FiO2 55% and 5 PEEP. Total intake last 24 hours: 3113 cc Total output last 24 hours: 4022 cc Objective Vital Signs & I&O Last 8 Hrs of Vitals and I&O: T 97.8-101.2, RR 14-21, HR 78-99, BP 88-110/45-64, O2 92-97% on AC 14 TV 500 FiO2 55% and 5 PEEP. Exam General Appearance: well developed/nourished, no apparent distress, sedated, intubated Head: atraumatic, normal appearance Ears, Nose, Throat: normal pharynx, moist mucus membranes Neck: normal inspection, supple Respiratory: Rhonchi bilateral lung heard Cardiovascular: regular rate/rhythm Gastrointestinal: normal bowel sounds, soft, non-tender Extremities: normal inspection Cranial Nerves: PERRL Skin: warm/dry Nutrition Nutrition: tube feeding Current Medications: Current Medications Sig/Shilpa Start time Last Medication Dose Route Stop Time Status Admin Acetaminophen 1,000 MG ONCE ONE 11/26 1845 DC 11/26 N/A 1 UNIT IV 11/26 1859 1837 Acetylcysteine 2 ML BID 11/21 1235 AC 11/27 INH 0937 Albuterol Sulfate 3 ML EVERY 4 HRS/AWAKE 11/21 1600 AC 11/27 INH 0937 Ampicillin Sodium/ 3,000 MG Q6 11/23 1216 AC 11/27 Sulbactam Sodium IV 0523 Sodium Chloride 100 ML Bisacodyl 10 MG DAILY PRN 11/25 1245 DC MA Dextrose/Sodium 1,000 ML Q13H 11/26 2345 DC 11/27 Chloride IV 0011 Dextrose/Sodium 1,000 ML Q13H 11/26 2330 DC Chloride IV 11/27 1229 Dextrose/Sodium 1,000 ML Q10H 11/24 0700 DC 11/26 Chloride IV 0750 Furosemide 20 MG BID 11/27 1000 AC 11/27 IV 11/27 2201 0946 Furosemide 40 MG ONCE ONE 11/26 1345 DC 11/26 IV 11/26 1346 1414 Levothyroxine Sodium 75 MCG DAILY 11/22 1000 AC 11/27 IV 0946 Lorazepam 50 MG Q24H 11/22 1015 AC 11/26 Dextrose/Water 500 ML IV 1740 Magnesium Sulfate 1 GM .STK-MED ONE 11/27 0127 DC IV 11/27 0128 Magnesium Sulfate 1 GM Q2H 11/26 2245 DC 11/27 Dextrose/Water 100 ML IV 11/27 0244 0127 Magnesium Sulfate 1 GM Q2H 11/26 0730 DC 11/26 Dextrose/Water 100 ML IV 11/26 1129 0917 Nystatin 1 ESTEFANY TIDPRN PRN 11/21 0330 AC 11/26 TOP 0329 Pantoprazole Sodium 40 MG DAILY 11/20 2012 AC 11/27 IV 0946 Polyethylene Glycol 17 GM DAILY PRN 11/27 0815 DC PO Polyethylene Glycol 17 GM DAILY 11/25 1240 DC 11/26 PO 0917 Potassium Chloride 40 MEQ ONCE ONE 11/26 1345 DC 11/26 PO 11/26 1346 1414 Sodium Chloride 500 ML BOLUS ONE 11/26 2130 DC 11/26 IV 11/26 2229 2130 CXR Findings: IMPRESSION: Endotracheal tube in place. Enteric tube tip is not well delineated. Slight increase in opacity at the left lung base. No change in opacity at the right lung base with elevated right diaphragm. Impression/Plan Impression/Problem List Impression: Ms. Sánchez is a 76 year old female with PMH HTN, severe COPD, cigarette abuse (1 PPD), previous alcohol use, atrial fibrillation on Pradaxa and digoxin, GI bleed and hypothyroidism who presents with chief complaint of cough, decreased oral intake, fatigue, fever and chills for one week. Of note, patient did she her PCP Dr. Enma MD who prescribed her azithromycin for presumed bronchitis though her symptoms persisted prompting evaluation in our emergency department. In the ED: Vital signs showed T 95.0, HR 72, RR 22, BP 90/68, O2 86% RA. Labs were significant for WBC 15.3, 14 bands, 81% granulocytes, H&H 16.1/49.5, Plt 245, Na 120, K 5.4, Cl 79, HCO3 29, BUN 51, Cre 2.4, Glu 95, lactic acid 3.1 , TBili 2.1, DBili 1.4, AST/ALT 7358/2161, trop 0.25, INR 1.83. Abdominal US showd impacted gallstone in GB neck with GB wall thickening, wall edema and pericholecystic fluid. CXR showed cardiomegaly with a patchy opacity left lower lung field abnormality. suggesting an evolving pneumonia EKG showed non-specific ST elevations in leads [address] depressions in the high lateral leads I and L. Patient is admitted to the intensive care unit and the following is the management: 1. Septic shock requiring pressors with mutiorgan dysfunction, IMPROVING * Patient hypotensive, tachycardic and tachypneic on admission with likely source being intraabdominal pathology * Today, WBC 11 without bands; Tmax 101.2 overnight * ID consult appreciated * Cultures so far showing no growth, with no growth from bile culture, sputum only growing yeast * Will continue IV unasyn (day #4) per ID recommendations * Patient status post aggressive IVF hydration per sepsis protocol and is now fluid overloaded- will give 20 mg IV lasix x 1 today * Strict Is/Os/daily weights * Patient hemodynamically stable OFF of pressors * Trend CBC, ICU bundle 2. Transaminitis and hyperbilirubinemia with acute cholecytsitis * Concern for acute cholecystitis with RUQ US findings of gallstones with wall thickening and edema * Patient is s/p percutaneous cholecystostomy tube with surgery, draining well * Bile showed no growth after 3 days * Hepatitis panel negative, tylenol level <10 * Transaminitis likely 2/2 shock liver in the setting of hypotension from sepsis , IMPROVING * GI consult appreciated; will consider eventual cholangiogram via cholecystostomy tube * Statin on hold 2/2 shock liver * Continue tube feeds 3. Elevated troponin * Troponins peaked at 0.35, have since trended down * Likely represents demand/supply mismatch (demand ischemia); unlikely to be ACS * Cardio consult with Dr. Vida MD appreciated * Aspirin, Plavix and IV heparin initially started but have been discontinued as patient possible surgical candidate, history of GIB and noted oropharyngeal bleeding * Follow up further cardio recommendations, continuous telemetry monitoring * Echo showed mild concentric LVH, normal EF >65%, stage 1 diastolic dysfunction 4. Possible pneumonia, aspiration vs. CAP * CXR on admission showed LLL abnormality suggestive of PNA * Follow up CT chest showed small/moderate pleural effusion with RML/partial RLL collapse; trace left pleural effusion * Continue mucomyst and chest PT until resolution * IV unasyn to continue * Continue MV for now, PSV trials to start 5. Paroxysmal atrial fibrillation with digitalis toxicity * Digoxin level elevated on admission requiring digibind * Continue to hold digoxin, recheck dig level tomorrow * Hold off anticoagulation, aspirin, plavix at this point as patient was noted to have + oropharyngeal bleeding * Continuous telemetry monitoring * Follow up cardio recommendations * Hold metoprolol due to hypotension, restart once BP well controlled 6. Hyponatremia, improved * Likely hypovolemic hyponatremia in setting of severe dehydration and sepsis * Trend ICU bundle frequently, caution with overcorrection * Watch patient off of fluids, administer lasix today 7. Acute on chronic respiratory failure with severe COPD/emphysema in the setting of tobacco dependance * Patient noted to be 86% on RA during admission * Initially placed on BiPAP but was intubated due to increased work of breathing around 2200 on 11/20/16 * Continue AC ventilation and monitor for improvement in RLL collapse * Chest PT and mucomyst to continue * Titrate FiO2 down to keep O2 sat >92% * Continue ativan and fentanyl for sedation * IV protonix while intubated, daily CXR to ensure appropriate positioning 8. BETH * BUN 51, Cre 2.4 on admission, likely secondary to hypotension and severe sepsis (prerenal) * IMPROVING * Trend ICU bundle * Avoid nephrotoxins FULL CODE DVTP: ALPS (no pharm DVTP at this time 2/2 oropharyngeal bleeding) Diet: TUBE FEEDS Mild pain pathway Problem List: 1. Acute cholecystitis 2. Multiorgan failure 3. Tobacco abuse 4. Acute respiratory failure with hypoxia and hypercarbia 5. Hyponatremia 6. Hypokalemia Pain Ratin Tomorrow's Labs & Rationales: CBC (leukocytosis, thrombocytopenia) ICU bundle (hyponatremia, s/p diuresis) Plan DVT/Prophylaxis: mechanical
--- NOTE | 2016-11-27 08:56 | NUR ---
AT 0815 REC'D THE PT ORALLY INTUBATED WITH A #8 ETT TAPED ON THE LEFT AT 21CM. RECEIVING MECHANICAL VENTILATION OF AC-14/TV-500/FIO2-55%/PEEP-5. ALEN BS WTIH SL INSPIRATORY WHEEZE AND DIMINISHED AT THE BASES. O2 SAT IS 92-93%. DR REA NOTIFIED OF INCREASE IN FIO2 YESTERDAY WELL TUBE FEED OFF AT THIS TIME THE PT VOMITED AT 1800 ON 11/26. SUCTIONED FOR SM AMTS OF THIN PALE SILVA SPUTUM. MOUTH CARE PERFORMED. PT REMAINS ON THE ATIVAN GTT AT 1MG/HR OR 10ML/HR INFUSING VIA A #20 TO THE RW. SAS IS A 3. PT FOLLOWING COMMANDS AD OPENS EYES TO VERBAL AND TACTILE STIMULI. PT IS IN A NSR WITH PAC'S PER THE CARBURETOR REPAIRER. LUE WITH 1+ EDEMA AND RUE WITH TRACE EDEMA. THE PT IS CURRENTLY ON D5 1/2NS INFUSING AT 75ML/HR VIA A #20 TO THE LF. ABD IS SOFT WITH NORMOACTIVE BOWEL SOUNDS. OGT AT 55CM TO THE LIP TO LWS, DRAINING SCANT PALE GREEN FLUID. BALDERRAMA DRAINING CLEAR YELLOW URINE. POSITIONED FOR COMFORT.
--- NOTE | 2016-11-27 09:34 | PN- Pulmonary ---
Subjective HPI/Critical Care Issues: Relatively same Did have episode of temperature spike yesterday with one episode of vomiting. Patient has had 3 loose stools as well. Apparently she had thin secretions which didn't now converted into thick secretions since yesterday. This morning she was afebrile was awake and following commands now on 50% FiO2 up from 35% since yesterday MAXIMUM TEMPERATURE 101 Unable to give any history as she is intubated Vital signs otherwise stable Continues to be on assist control 500 FiO2 of 50 with PEEP of 5 She is on 1 mg of Ativan Her tube feedings were held and now back on D5 half-normal saline Urine output reviewed patient is negative by 1 L but still positive for more than 11 L since admission SIGNIFICANT DATA chest x-ray endotracheal tube in place slightly increased opacity left lung base elevated right hemidiaphragm Cultures so far has grown yeast in her sputum and blood cultures done yesterday' s pending Other blood work reviewed BUN is 12 creatinine is 0.5 White count up to 11 platelets down to 94 and there has been a steady decline in her platelet since admission INR was 1.37 Objective Current Medications: Current Medications Sig/Shilpa Start time Last Medication Dose Route Stop Time Status Admin Acetaminophen 1,000 MG ONCE ONE 11/26 1845 DC 11/26 N/A 1 UNIT IV 11/26 1859 1837 Acetylcysteine 2 ML BID 11/21 1235 AC 11/26 INH 0805 Albuterol Sulfate 3 ML EVERY 4 HRS/AWAKE 11/21 1600 AC 11/26 INH 1615 Ampicillin Sodium/ 3,000 MG Q6 11/23 1216 AC 11/27 Sulbactam Sodium IV 0523 Sodium Chloride 100 ML Bisacodyl 10 MG DAILY PRN 11/25 1245 AC CA Dextrose/Sodium 1,000 ML Q13H 11/26 2345 AC 11/27 Chloride IV 0011 Dextrose/Sodium 1,000 ML Q13H 11/26 2330 DC Chloride IV 11/27 1229 Dextrose/Sodium 1,000 ML Q10H 11/24 0700 DC 11/26 Chloride IV 0750 Furosemide 40 MG ONCE ONE 11/26 1345 DC 11/26 IV 11/26 1346 1414 Levothyroxine Sodium 75 MCG DAILY 11/22 1000 AC 11/26 IV 1051 Lorazepam 50 MG Q24H 11/22 1015 AC 11/26 Dextrose/Water 500 ML IV 1740 Magnesium Sulfate 1 GM Q2H 11/26 2245 DC 11/27 Dextrose/Water 100 ML IV 11/27 0244 0127 Magnesium Sulfate 1 GM Q2H 11/26 0730 DC 11/26 Dextrose/Water 100 ML IV 11/26 1129 0917 Nystatin 1 ESTEFANY TIDPRN PRN 11/21 0330 AC 11/26 TOP 0329 Pantoprazole Sodium 40 MG DAILY 11/21 2011 AC 11/26 IV 0917 Polyethylene Glycol 17 GM DAILY PRN 11/27 0815 AC PO Polyethylene Glycol 17 GM DAILY 11/25 1240 DC 11/26 PO 0917 Potassium Chloride 40 MEQ ONCE ONE 11/26 1345 DC 11/26 PO 11/26 1346 1414 Sodium Chloride 500 ML BOLUS ONE 11/26 2130 DC 11/26 IV 11/26 2228 2130 Vital Signs & I&O Last 24 Hrs of Vitals and I&O: Vital Signs Date Time Temp Pulse Resp B/P B/P Pulse O2 O2 Flow FiO2 Mean Ox Delivery Rate 11/27 0618 55 11/27 0400 92 Ventilator 55% 11/27 0321 55 11/27 0132 55 11/27 0000 98.5 91 14 94/52 92 Ventilator 55% 11/27 0000 92 Ventilator 55% 11/26 2220 50 11/26 2026 55 11/26 2000 97.9 11/26 2000 93 Ventilator 55% 11/26 1837 101.2 11/26 1611 55 11/26 1600 99.0 94 14 110/59 94 Ventilator 55% 11/26 1600 94 Ventilator 55% 11/26 1405 35 11/26 1200 92 Ventilator 35% 11/26 1135 35 Intake & Output 11/27 1600 11/27 0800 11/27 0000 Intake Total 590 1098 Output Total 670 2792 Balance -80 -1694 Intake, IV 590 901 Intake, Tube 197 Feeding Number 1 Bowel Movements Output, 150 Gastric Drainage Output, Other 80 100 Output, Urine 440 2692 Impression/Plan Impression/Plan Impression/Plan: Physical Exam General Appearance Alert, intubated Skin No Rashes Skin Temp/Moisture Exam: Cool/Dry Sepsis Skin Exam (color): Mottled HEENT Atraumatic, PERRLA, EOMI Cardiovascular Normal S1, Normal S2, irregular rate and rhythm Lungs bilateral diffuse rhonchi and wheezing Abdomen Normal Bowel Sounds, Soft, No Tenderness IMPRESSION This is a 76-year-old lady with very poor performance status, severe COPD from her previous PFTs, 1 pack a day smoker, previous alcohol use, and so diazepam use, atrial fibrillation on anticoagulation and on digoxin, hypertension, recent cough wheezing for which she had taken azithromycin, history of hypothyroidism on appropriate supplementation, previous history of pneumonia and chronic respiratory insufficiency with acute on chronic respiratory failure, previous history of strep pneumo infection, now comes in with * Acute on chronic hypercarbic and hypoxemic respiratory failure related to significant COPD compounded by probable pneumonia with minimal wheezing with underlying sepsis. Sepsis appears to be due to intraabd process with cholecystisis now s/p perc tube p * Resolved sig hyponatremia * Resolved Significantly altered LFTs could be related to sepsis with hypoxic liver injury with olimpia aswell * PAtrial fibrillation now not on anticoag as she had bleeding * REsolved Acute renal failure * Ongoing cigarette smoking with previous history of alcohol use * History of hypothyroidism * Vitamin D deficiency, ongoing smoking with worsening performance status * Significant fluid overload today, clinically * Thromobocytopenia could be from sepsis vs beta lactam, unlikely hit RECOMMENDATION Continue mechanical ventilator Discontinue D5 normal saline, and resume low grade tube feeding at 20 cc Check stool for cdiff IF she has vomiting again or if she spikes would need ct CAP with IVC Intravenous Lasix 20 mg 1 dose now and rpt this pm if pt tolerates Check labs this pm and replace mag and potassium When necessary morphine REduce ativan to 0.5mg per hour and then dc PSV trials daily DC all hollie softners and miralx etc till diarrhea resolves COnt abx PSV trials today Will follow Pt is critically ill TTS 42 mins
[2016-11-27 10:00] VITALS: BP 96/54
--- NOTE | 2016-11-27 10:21 | NUR ---
PER MD ORDER THE IVF WAS STOPPED AT THIS TIME THE TUBE FEEDING OF JEVITY 1.2 WAS RESTARTED AT 20ML/HR( PER NURSING MISC ORDER THIS IS TO BE THE GOAL RATE) WITH 95ML WATER FLUSHES Q4H. IN ADDITION, THE ATIVAN GTT WAS DECREASED TO 0.5MG/HR OR 5ML/HR. PT WAS INCONTINENT OF A SMALL AMOUT OF DK BROWN GELATINOUS STOOL. BOTH DR ALCANTAR AND DR BROWN MADE AWARE TOO FORMED TO SEND FOR C.DIFF.
--- NOTE | 2016-11-27 10:56 | NUR ---
ALL INTERVENTIONS DOCUMENTED AT 1000 WERE ACTUALLY PERFORMED AT 0800.
--- NOTE | 2016-11-27 13:43 | PN- Cardiology ---
Subjective Subjective: Clinically about the same. FiO2 increased to 60% earlier today. Low-grade fever noted. One episode of vomiting tube feeds noted as well. Brief nonsustained ventricular tachycardia noted earlier today. No other cardiac symptoms apparent. Objective Vital Signs and I&Os Vital Signs Date Time Temp Pulse Resp B/P B/P Pulse O2 O2 Flow FiO2 Mean Ox Delivery Rate 11/27 1200 89 Ventilator 55% 11/27 1000 93 Ventilator 55% 11/27 1000 98.5 89 15 96/54 92 Ventilator 55% 11/27 0935 55 11/27 0618 55 11/27 0400 92 Ventilator 55% 11/27 0321 55 11/27 0132 55 11/27 0000 98.5 91 14 94/52 92 Ventilator 55% 11/27 0000 92 Ventilator 55% 11/26 2220 50 11/26 2026 55 11/26 2000 97.9 11/26 2000 93 Ventilator 55% 11/26 1837 101.2 11/26 1611 55 11/26 1600 99.0 94 14 110/59 94 Ventilator 55% 11/26 1600 94 Ventilator 55% 11/26 1405 35 Intake & Output 11/27 1600 11/27 0800 11/27 0000 11/26 1600 11/26 0800 11/26 0000 Intake Total 590 9694 159 4537 Output Total 670 2792 620 720 Balance -80 -1694 107 754 Intake, IV 590 901 963 Intake, Other 310 Intake, Tube 197 417 416 Feeding Intake, Tube 95 Irrigant Number 1 2 Bowel Movements Output, 150 Gastric Drainage Output, Other 80 100 60 70 Output, Urine 440 2692 560 650 Physical Exam: General- frail/elderly female, intubated, arousable/responsive HEENT- normal CVS-regular S1, S2. 1 to 2/6 systolic murmur left sternal border Pulmonary-decreased breath bilaterally with scattered rhonchi noted GI- soft, nontender, mild distention, cholecystostomy tube in place - faith catheter in place draining dark yellow urine Neuro- Intubated/arousable Ext- normal pulses, no cyanosis/clubbing, bilateral upper extremity soft restraints in place Current Medications: Current Medications Sig/Shilpa Start time Last Medication Dose Route Stop Time Status Admin Acetaminophen 1,000 MG ONCE ONE 11/26 1845 DC 11/26 N/A 1 UNIT IV 11/26 185 1837 Acetylcysteine 2 ML BID 11/21 1235 AC 11/27 INH 0937 Albuterol Sulfate 3 ML EVERY 4 HRS/AWAKE 11/21 1600 AC 11/27 INH 1225 Ampicillin Sodium/ 3,000 MG Q6 11/23 1216 AC 11/27 Sulbactam Sodium IV 1215 Sodium Chloride 100 ML Bisacodyl 10 MG DAILY PRN 11/25 1245 DC OR Dextrose/Sodium 1,000 ML Q13H 11/26 2345 DC 11/27 Chloride IV 0011 Dextrose/Sodium 1,000 ML Q13H 11/26 2330 DC Chloride IV 11/27 1229 Furosemide 20 MG BID 11/27 1000 AC 11/27 IV 11/27 2201 0946 Furosemide 40 MG ONCE ONE 11/26 1345 DC 11/26 IV 11/26 1346 1414 Levothyroxine Sodium 75 MCG DAILY 11/22 1000 AC 11/27 IV 0946 Lorazepam 50 MG Q24H 11/22 1015 AC 11/26 Dextrose/Water 500 ML IV 1740 Magnesium Sulfate 1 GM .STK-MED ONE 11/27 0127 DC IV 11/27 0128 Magnesium Sulfate 1 GM Q2H 11/26 2245 DC 11/27 Dextrose/Water 100 ML IV 11/27 0244 0127 Nystatin 1 ESTEFANY TIDPRN PRN 11/21 0330 AC 11/26 TOP 0329 Pantoprazole Sodium 40 MG DAILY 11/21 2011 AC 11/27 IV 0946 Polyethylene Glycol 17 GM DAILY PRN 11/27 0815 DC PO Polyethylene Glycol 17 GM DAILY 11/25 1240 DC 11/26 PO 0917 Potassium Chloride 40 MEQ ONCE ONE 11/26 1345 DC 11/26 PO 11/26 1346 1414 Sodium Chloride 500 ML BOLUS ONE 11/26 2130 DC 11/26 IV 11/26 2229 2130 Results Last 48 Hrs of Labs/Mics: Laboratory Tests 11/27/16 0515: Anion Gap 8, Estimated GFR > 60, Glucose 85, Calcium 7.8 L, Phosphorus 3.5, Magnesium 1.9, Total Bilirubin 1.5 H, AST 42 H, ALT 218 H, Albumin 2.2 L, CBC w Diff NO MAN DIFF REQ, RBC 3.69 L, MCV 107.0 H, MCH 35.0 H, RDW 19.5 H, MPV 7.7, Gran % 73.6, Lymphocytes % 9.0 L, Monocytes % 16.4 H, Eosinophils % 0.9, Basophils % 0.1, Absolute Granulocytes 8.1 H, Absolute Lymphocytes 1.0 L, Absolute Monocytes 1.8 H, Absolute Eosinophils 0.1, Absolute Basophils 0, PUBS MCHC 32.7 L 11/26/16 1700: Anion Gap 7, Estimated GFR > 60, Glucose 102 H, Calcium 8.1 L, Phosphorus 3.8, Magnesium 1.5 L, Total Bilirubin 1.6 H, AST 65 H, ALT 280 H, Albumin 2.4 L, CBC w Diff MAN DIFF ORDERED, RBC 4.13 L, MCV 107.4 H, MCH 34.9 H, RDW 19.9 H , MPV 8.4, Gran % 83.4 H, Lymphocytes % 6.8 L, Monocytes % 8.3, Eosinophils % 1.1, Basophils % 0.4, Absolute Granulocytes 10.7 H, Segmented Neutrophils 80 H , Absolute Lymphocytes 0.9 L, Lymphocytes 7 L, Monocytes 13 H, Absolute Monocytes 1.1 H, Absolute Eosinophils 0.1, Absolute Basophils 0, Platelet Estimate DECREASED, Macrocytic Cells 2+, PUBS MCHC 32.5 L 11/26/16 0445: Anion Gap 6, Estimated GFR > 60, Glucose 110 H, Calcium 7.7 L, Phosphorus 3.6, Magnesium 1.2 L, Total Bilirubin 1.1, AST 53 H, ALT 278 H, Albumin 1.9 L, PT 14.3 H, INR 1.37 H, CBC w Diff NO MAN DIFF REQ, RBC 3.86 L, MCV 107.5 H, MCH 34.7 H, RDW 20.1 H, MPV 7.8, Gran % 87.3 H, Lymphocytes % 9.2 L, Monocytes % 2.1, Eosinophils % 1.3, Basophils % 0.1, Absolute Granulocytes 7.7 H, Absolute Lymphocytes 0.8 L, Absolute Monocytes 0.2, Absolute Eosinophils 0.1, Absolute Basophils 0, PUBS MCHC 32.2 L 11/25/16 1615: Anion Gap 8, Estimated GFR > 60, Glucose 135 H, Calcium 8.0 L, Phosphorus 3.5, Magnesium 1.4 L, Total Bilirubin 1.0, AST 74 H, ALT 376 H, Albumin 2.2 L Microbiology 11/25 1430 LOWER RESP: Respiratory Culture - COMP YEAST 11/25 1430 LOWER RESP: Gram Stain - COMP Assessment/Plan Assessment/Plan Assessment: 1. Elevated troponin 2. Acute on chronic hypercapnic/hypoxemic respiratory failure 3. COPD exacerbation with probable pneumonia 4. Abnormal LFTs 5. Hyponatremia-improved 6. History of paroxysmal atrial fibrillation 7. Acute renal insufficiency-improved 8. Hypothyroidism 9. Volume overload 10. Nonsustained wide complex tachycardia consistent with VT(8 beats) Recommendations: -Continue current medical management as per the ICU team. -Continue mechanical ventilation with weaning trials as per the pulmonary service -Continue to monitor on telemetry -No anticoagulation for the present time due to the patient's prior history of bleeding -Further plans from a cardiac perspective depending on the patient's clinical progress over the next several days. -If there is any evidence of recurrent wide-complex tachycardia, consider the addition of low-dose metoprolol to the patient's medication regimen.
[2016-11-27 16:00] VITALS: BP 100/52
--- NOTE | 2016-11-27 16:54 | NUR ---
THE PT'S O2 SAT DECREASED TO 88-89% AT 1220 AND DESPITE SUCTIONING/NEB TREATMENTS AND PERCUSSION THERAPY VIA THE BED THE SAT DID NOT ICRESE. SEATER ASSEMBLER INCREASED THE FIO2 TO 60% AT 1300. THE PT'S O2 HAS BEEN 91-93%. IN ADDITION, THE TUBE FEEDINGS WERE STOPPED AT 1345 THE PT HAS TO BE NPO FOR [address] OF THE CHEST/ABD/PELVIS WITH IV CONTRAST. AWAITING WORD FROM CT THEY HAVE OBTAINED CONSENT FROM THE PT'S DAUGHTER,
--- NOTE | 2016-11-27 19:03 | CT SCAN REPORT ---
EXAMINATION: CT CHEST, ABDOMEN AND PELVIS WITH CONTRAST CLINICAL INFORMATION: 76-year-old female with aspiration pneumonia, vomiting on tube feeds. COMPARISON: CT of the chest, abdomen and pelvis done on 11/21/2016. TECHNIQUE: Multidetector volumetric imaging was performed from the thoracic inlet through the pubic symphysis following administration of intravenous contrast of 95 mL of Optiray-320 intravenous contrast. Sagittal and coronal reformatted images were obtained on the technologist's workstation. 935.24 mGy-cm. FINDINGS: CHEST: LUNGS: Comparison is collapsed consolidation is noted at right lower lobe and medial segment of the right middle lobe, similar to prior study. Mild compressive atelectasis, consolidation is noted at left lower lobe of the lung, minimally progressed since prior study. The remainder of the lung bases otherwise appear clear except for presumed pleuroparenchymal scar at left lung apex anteromedially, unchanged. The tracheobronchial tree is patent. The tip of the endotracheal tube is seen extending to the level of the cori and may be repositioned. MEDIASTINUM: The thyroid gland is diffusely enlarged and appears heterogeneous, similar to prior study. Enteric tube is visualized with its tip seen within the distal part of the stomach. There are multiple shotty right paratracheal, a few shotty prevascular, aortopulmonary lymph nodes noted, unchanged. Atherosclerotic disease including coronary arterial calcifications are present. There is mild cardiomegaly present. PERICARDIUM/PLEURA: Moderate-size right-sided pleural effusion is noted, minimally increased since prior study. Trace amount of left-sided pleural effusion is noted, also minimally increased. There is no pericardial effusion present, unchanged. CHEST WALL/AXILLA: Extensive calcifications are noted within both breast, unchanged. ABDOMEN/PELVIS: LIVER, GALLBLADDER, BILIARY TREE: The liver is normal in size, shape, and attenuation. No focal hepatic lesion or biliary ductal dilatation is present. There is a cholecystostomy tube present, appears in good position, unchanged PANCREAS: Unremarkable. SPLEEN: Unremarkable. ADRENAL GLANDS: Unremarkable. KIDNEYS AND URETERS: The kidneys are normal in size, shape, and attenuation. No hydronephrosis or hydroureter or calculi seen. No perinephric stranding. BLADDER: There is a Black catheter present. Air noted within the bladder likely iatrogenic. GASTROINTESTINAL TRACT: Colonic diverticulosis related changes are noted without any CT features of superimposed acute diverticulitis. The small bowel loops are decompressed. The stomach is decompressed. No significant change. ABDOMINAL WALL: No hernia is demonstrated. Generalized fluid retention is noted within the entire subcutaneous visualized part of the predominantly abdomen and pelvis, consistent with anasarca. LYMPH NODES: Normal. VASCULAR: Diffuse atherosclerotic changes are noted throughout the aorta and its branches without aneurysm formation. PELVIC VISCERA: Previously documented free fluid within the abdomen and pelvis is no longer visualized. Minimal presacral nonspecific stranding is noted. There is no pelvic mass or free air present. OSSEOUS STRUCTURES: Stable multilevel vertebral augmentation is noted. Moderate diffuse osteopenia is seen. No suspicious superimposed lytic or sclerotic abnormality, unchanged. IMPRESSION: 1. Compared to most recent prior CT of the chest, abdomen and pelvis dated 11/21/2016, except for mild interval increase in size of previously documented bilateral pleural effusions and interval resolution of free fluid within the abdomen and pelvis, no other significant interval change is noted. 2. The tip of the endotracheal tube is located at the level of the cori and may be repositioned.
--- NOTE | 2016-11-27 19:25 | NUR ---
PT BROUGHT TO CT SCAN FOR CHEST/ABD/PELVIS WITH IV CONTRAST AT 1750 VIA STRETCHER AND ON SIDING COREBOARD INSPECTOR. RETURNED FROM CT SCAN AT 181 AND WAS TRANSFERRED TO THE BED WITHOUT INCIDENT. TUBE FEEDING OF JEVIITY 1.2 AT 20ML/HR RESUMED AT 1845.
--- NOTE | 2016-11-27 21:37 | RADIOLOGY REPORT ---
EXAMINATION: XR CHEST CLINICAL INFORMATION: Evaluate endotracheal tube position. COMPARISON: Multiple priors, most recent chest radiograph done earlier the same day at 6:30 AM. TECHNIQUE: Portable frontal view of the chest was obtained. FINDINGS: The endotracheal tube is noted with its tip terminating approximately 3 cm proximal to the cori. An endogastric tube is redemonstrated although the tip is not clearly visualized secondary to technique. There is an unchanged small right-sided pleural effusion. There is bibasilar atelectatic changes versus infiltrates, not significantly changed. Stable cardiomediastinal silhouette. No acute osseous abnormality. IMPRESSION: 1. Endotracheal tube approximately 3 cm proximal to the cori. 2. Small right pleural effusion and bibasilar atelectasis versus infiltrates, not significant changed.
[2016-11-28] VITALS: BP 100/54
[2016-11-28 05:58] LABS: ABSOLUTE BASOPHIL COUNT 0 /CUMM (0.0-0.2); ABSOLUTE EOSINOPHIL COUNT 0.1 /CUMM (0.0-0.7); ABSOLUTE GRANULOCYTE CT 6.3 /CUMM (1.4-6.5); ABSOLUTE LYMPH COUNT 0.9 /CUMM (1.2-3.4); ABSOLUTE MONOCYTE COUNT 2.2 /CUMM (0.10-0.60); HEMATOCRIT 40.5 % (37-47); MEAN CORPUSCULAR HGB 34.9 PG (27.0-31.0); MEAN CORPUSCULAR HGB CONC 32.8 G/DL (33.0-37.0); MEAN CORPUSCULAR VOLUME 106.4 FL (81.0-99.0); MEAN PLATELET VOLUME 8.6 FL (7.4-10.4); PLATELET COUNT 136 /CUMM (130-400); RBC DISTRIBUTION WIDTH 18.8 % (11.5-14.5); RED BLOOD CELL CT 3.81 /CUMM (4.20-5.40); WHITE BLOOD CELL COUNT 9.5 /CUMM (4.8-10.8)
--- NOTE | 2016-11-28 06:43 | PN- Resident CRCU ---
KEVIN DE LEÓN,ELIZ 11/28/16 0642: Subjective HPI/CRCU Issues: Patient seen and examined at bedside this AM. She was resting comfortably in bed intubated in no acute distress. She was noted to be hypoglycemic this AM to 57, given 25 gm IV dextrose, improved to 150 but then became hypoglycemic again. She was given another dextrose push and FSGs are being monitored closely. Nutrition made aware and will reevaluate tube feeds. Will follow up any further recommendations/changes. 24 Hour Events: Telemetry events: No significant overnight events. Vital signs last 24 hours: T 98.0-98.9, HR 76-108, RR 14-30, BP 91-120/47-60, O2 91-95% on AC 14 TV 500 FiO2 60 5 PEEP. Objective Vital Signs & I&O Last 8 Hrs of Vitals and I&O: T 98.0-98.9, HR 76-108, RR 14-30, BP 91-120/47-60, O2 91-95% on AC 14 TV 500 FiO2 60 5 PEEP. Exam General Appearance: well developed/nourished, no apparent distress, sedated, intubated Head: atraumatic, normal appearance Ears, Nose, Throat: normal pharynx Neck: normal inspection, supple Respiratory: Bilateral rhonchi, intubated Cardiovascular: regular rate/rhythm Gastrointestinal: normal bowel sounds, soft Extremities: normal inspection, no edema Cranial Nerves: PERRL Skin: warm/dry Nutrition Nutrition: tube feeding Current Medications: Current Medications Sig/Shilpa Start time Last Medication Dose Route Stop Time Status Admin Acetylcysteine 2 ML BID 11/21 1235 AC 11/28 INH 0756 Albuterol Sulfate 3 ML EVERY 4 HRS/AWAKE 11/21 1600 AC 11/28 INH 0756 Ampicillin Sodium/ 3,000 MG Q6 11/23 1216 AC 11/28 Sulbactam Sodium IV 0517 Sodium Chloride 100 ML Dextrose 25 GM ONCE ONE 11/28 0145 DC 11/28 IV 11/28 0146 0201 Dextrose 25 GM ONCE ONE 11/27 2230 DC 11/27 IV 11/27 223 223 Furosemide 20 MG BID 11/27 1000 DC 11/27 IV 11/27 2201 2209 Levothyroxine Sodium 75 MCG DAILY 11/22 1000 AC 11/28 IV 1020 Lorazepam 50 MG Q24H 05/24 1015 AC 11/27 Dextrose/Water 500 ML IV 1716 Magnesium Sulfate 1 GM ONCE ONE 11/28 0730 DC 11/28 Dextrose/Water 100 ML IV 11/28 1129 0800 Magnesium Sulfate 1 GM Q2H 11/27 2300 DC 11/28 Dextrose/Water 100 ML IV 11/28 0259 0119 Magnesium Sulfate 1 GM .STK-MED ONE 11/27 2300 DC IM 11/27 2301 Nystatin 1 ESTEFANY TIDPRN PRN 11/21 0330 AC 11/26 TOP 0329 Pantoprazole Sodium 40 MG DAILY 11/21 2011 AC 11/28 IV 0931 Potassium Chloride 10 MEQ Q1H 11/28 0730 DC 11/28 IV 11/28 0831 1116 Potassium Chloride 10 MEQ ONCE ONE 11/27 2300 DC 11/27 IV 11/27 2301 2300 Potassium Chloride 10 MEQ ONCE ONE 11/27 1500 DC 11/27 IV 11/27 1501 1639 Potassium Chloride 10 MEQ ONCE ONE 11/27 1500 DC 11/27 IV 11/27 1501 1516 CXR Findings: IMPRESSION: Endotracheal tube terminates approximately 2.6 cm above the cori. Right pleural effusion and basilar atelectasis, unchanged. Impression/Plan Impression/Problem List Impression: Ms. Sánchez is a 76 year old female with PMH HTN, severe COPD, cigarette abuse (1 PPD), previous alcohol use, atrial fibrillation on Pradaxa and digoxin, GI bleed and hypothyroidism who presents with chief complaint of cough, decreased oral intake, fatigue, fever and chills for one week. Of note, patient did she her PCP Dr. Enma MD who prescribed her azithromycin for presumed bronchitis though her symptoms persisted prompting evaluation in our emergency department. In the ED: Vital signs showed T 95.0, HR 72, RR 22, BP 90/68, O2 86% RA. Labs were significant for WBC 15.3, 14 bands, 81% granulocytes, H&H 16.1/49.5, Plt 245, Na 120, K 5.4, Cl 79, HCO3 29, BUN 51, Cre 2.4, Glu 95, lactic acid 3.1 , TBili 2.1, DBili 1.4, AST/ALT 7358/2161, trop 0.25, INR 1.83. Abdominal US showed impacted gallstone in GB neck with GB wall thickening, wall edema and pericholecystic fluid. CXR showed cardiomegaly with a patchy opacity in the left lower lung field suggesting an evolving pneumonia. EKG showed non- specific ST elevations in leads [address] depressions in the high lateral leads I and L. Patient is admitted to the intensive care unit and the following is the management: 1. Septic shock requiring pressors with mutiorgan dysfunction, IMPROVING * Patient hypotensive, tachycardic and tachypneic on admission with likely source being intraabdominal pathology * Today, WBC 9.5 without bands; Tmax 98.9 overnight * ID consult appreciated * Cultures so far showing no growth, with no growth from bile culture, sputum only growing yeast * Will continue IV unasyn (day #6) per ID recommendations * Strict Is/Os/daily weights * Patient hemodynamically stable OFF of pressors * Trend CBC, ICU bundle 2. Transaminitis and hyperbilirubinemia with acute cholecytsitis * Concern for acute cholecystitis with RUQ US findings of gallstones with wall thickening and edema * Patient is s/p percutaneous cholecystostomy tube with surgery, draining well * Bile showed no growth after 3 days * Hepatitis panel negative, tylenol level <10 * Transaminitis likely 2/2 shock liver in the setting of hypotension from sepsis , IMPROVING * GI consult appreciated; will consider eventual cholangiogram via cholecystostomy tube * Statin on hold 2/2 shock liver * Continue tube feeds (held 2 days ago 2/2 vomiting, will advance to goal)- nutrition consult appreciated 3. Elevated troponin * Troponins peaked at 0.35, have since trended down * Likely represents demand/supply mismatch (demand ischemia); unlikely to be ACS * Cardio consult with Dr. Vida MD appreciated * Aspirin, Plavix and IV heparin initially started but have been discontinued as patient possible surgical candidate, history of GIB and noted oropharyngeal bleeding * Follow up further cardio recommendations, continuous telemetry monitoring * Echo showed mild concentric LVH, normal EF >65%, stage 1 diastolic dysfunction 4. Possible pneumonia, aspiration vs. CAP * CXR on admission showed LLL abnormality suggestive of PNA * Follow up CT chest showed small/moderate pleural effusion with RML/partial RLL collapse; trace left pleural effusion * Continue mucomyst and chest PT until resolution * IV unasyn to continue * Continue MV for now, PSV trials to start * Obtain US chest to evaluate fluid overload and need for possible thoracentesis 5. Paroxysmal atrial fibrillation with digitalis toxicity * Digoxin level elevated on admission requiring digibind * Continue to hold digoxin * Hold off anticoagulation, aspirin, plavix at this point as patient was noted to have + oropharyngeal bleeding * Continuous telemetry monitoring * Follow up cardio recommendations * Hold metoprolol due to hypotension, restart once BP well controlled 6. Hyponatremia, improving * Likely hypovolemic hyponatremia in setting of severe dehydration and sepsis * Trend ICU bundle frequently, caution with overcorrection * Watch patient off of fluids 7. Acute on chronic respiratory failure with severe COPD/emphysema in the setting of tobacco dependance * Patient noted to be 86% on RA during admission * Initially placed on BiPAP but was intubated due to increased work of breathing around 2200 on 11/20/16 * Continue AC ventilation and monitor for improvement in RLL collapse * Chest PT and mucomyst to continue * Titrate FiO2 down to keep O2 sat >92% * Continue ativan and fentanyl for sedation * IV protonix while intubated, daily CXR to ensure appropriate positioning 8. BETH * BUN 51, Cre 2.4 on admission, likely secondary to hypotension and severe sepsis (prerenal) * IMPROVING * Trend ICU bundle * Avoid nephrotoxins FULL CODE DVTP: ALPS (no pharm DVTP at this time 2/2 oropharyngeal bleeding) Diet: TUBE FEEDS Mild pain pathway Problem List: 1. Acute cholecystitis 2. Multiorgan failure 3. Tobacco abuse 4. Acute respiratory failure with hypoxia and hypercarbia Pain Ratin Tomorrow's Labs & Rationales: CBC (Leukocytosis) ICU bundle (hyponatremia, transaminitis) Plan DVT/Prophylaxis: CRISTINO Cabrales MD 11/28/16 0926: Attending MD Review Statement Attending Sign Off Attending Cosign Statement: I have: examined this patient, reviewed avalbl EMR data, personally reviewd images, discussd w/resident/PA/BIOMEDICAL ENGINEERING AIDE, discussed mgmt plan w/rick, discussed mgmt plan w/CM, discussed mgmt plan w/pt, agreed w/resident/PA/BIOMEDICAL ENGINEERING AIDE, amended to note. Other Findings: Cristino Moon M.D. have examined this patient, reviewed available EMR data, personally reviewed images, discussed with resident/PA/BIOMEDICAL ENGINEERING AIDE, discussed management plan with housestaff and nursing staff, discussed managment plan all of healthcare providers, discussed management plan with patient and/or family, agreed with resident/PA/BIOMEDICAL ENGINEERING AIDE. The past history and parts of the chart have been autopopulated. Impression 76 year old woman * resolved septic shock secondary to likely abdominal pathlogy, also with a pneumonia that can be likely aspiration vs. CAP * shock liver significantly improved and resolving * hyponatremia * digitalis toxicity * troponinemia - likely demand ischemia * BETH improved * respiratory failure - hypoxemic * tobacco dependence and severe COPD/emphysema Plan Respiratory -reduce fio2 as tolerted - plan for cpap trial when fio2 is 40% -trc/nebs ID -ID consultation appreciated -on unasyn -s/p cholecystostomy tube CVS -monitor hemodynamics Heme -f/u cbc, coags, cardiology recommendations Metabolic -ins/outs -beth improved -shock liver improved -monitor for now -gi/surgery consulted -s/p cholecystomy tube Alimentary -f/u gi/surgery recommendations Neuro -sedation as necessary DVT prophylaxis at all times TTS 35 min
[2016-11-28 08:00] VITALS: BP 116/50
--- NOTE | 2016-11-28 08:38 | RADIOLOGY REPORT ---
EXAMINATION: XR PORTABLE CHEST CLINICAL INFORMATION: Endotracheal tube placement COMPARISON: 11/27/2016 TECHNIQUE: Portable frontal view of the chest was obtained. FINDINGS: Endotracheal tube terminates approximately 2.6 cm above the cori. No pneumothorax. Director Adult right basilar opacity with pleural effusion and elevation of the hemidiaphragm. No significant change. The left lung base is not included in the image although the left lung appears clear and unchanged. Stable cardiomediastinal silhouette. IMPRESSION: Endotracheal tube terminates approximately 2.6 cm above the cori. Right pleural effusion and basilar atelectasis, unchanged.
--- NOTE | 2016-11-28 11:28 | PN- Infect Dx ---
Subjective Subjective: Afebrile without complaints Objective Last 24 Hrs of Vital Signs/I&O Vital Signs Date Time Temp Pulse Resp B/P B/P Pulse O2 O2 Flow FiO2 Mean Ox Delivery Rate 11/28 0802 60 11/28 0800 93 Ventilator 60% 11/28 0800 97.8 114 27 116/50 93 Ventilator 60% 11/28 0553 60 11/28 0400 92 Ventilator 60% 11/28 0250 60 11/28 0102 60 11/28 0000 98.9 90 14 100/54 92 Ventilator 60% 11/28 0000 94 Ventilator 60% 11/27 2305 60 11/27 2120 60 11/27 2000 94 Ventilator 60% 11/27 1640 60 11/27 1600 92 Ventilator 60% 11/27 1600 98.9 95 14 100/52 92 Ventilator 60% 11/27 1500 60 11/27 1225 55 11/27 1200 89 Ventilator 55% Intake & Output 11/28 1600 11/28 0800 05 0000 Intake Total 778 576 Output Total 2495 600 Balance -1717 -24 Intake, IV 436 385 Intake, Tube 152 96 Feeding Intake, Tube 190 95 Irrigant Number 1 1 Bowel Movements Output, Other 45 Output, Urine 2450 600 Physical Exam Other Physical Findings: She is lethargic but arousable on the ventilator in no acute distress Lungs bilateral rhonchi Heart regular rhythm with no murmur Abdomen is soft, nontender with positive bowel sounds; cholecystostomy tube in place with bilious drainage Extremities no cyanosis, clubbing or edema Black catheter remains in place Results Last 24 Hours of Lab Results: Laboratory Tests 11/28 11/27 0450 1999 Chemistry Sodium (137 - 145 mmol/L) 134 L 133 L Potassium (3.5 - 5.1 mmol/L) 3.5 3.8 Chloride (98 - 107 mmol/L) 97 L 99 Carbon Dioxide (22 - 30 mmol/L) 29 27 Anion Gap (5 - 16) 8 7 BUN (7 - 17 mg/dL) 11 11 Creatinine (0.5 - 1.0 mg/dL) 0.6 0.6 Estimated GFR (>60 ml/min) > 60 > 60 Glucose (65 - 99 mg/dL) 69 66 Calcium (8.4 - 10.2 mg/dL) 7.9 L 7.7 L Phosphorus (2.5 - 4.5 mg/dL) 3.6 3.4 Magnesium (1.6 - 2.3 mg/dL) 1.9 1.6 Total Bilirubin (0.2 - 1.3 mg/dL) 1.9 H 1.8 H AST (14 - 36 U/L) 41 H 39 H ALT (9 - 52 U/L) 173 H 178 H Albumin (3.5 - 5.0 g/dL) 2.3 L 2.1 L Hematology CBC w Diff MAN DIFF ORDERED WBC (4.8 - 10.8 /CUMM) 9.5 RBC (4.20 - 5.40 /CUMM) 3.81 L Hgb (12.0 - 16.0 G/DL) 13.3 Hct (37 - 47 %) 40.5 MCV (81.0 - 99.0 FL) 106.4 H MCH (27.0 - 31.0 PG) 34.9 H RDW (11.5 - 14.5 %) 18.8 H Plt Count (130 - 400 /CUMM) 136 MPV (7.4 - 10.4 FL) 8.6 Lymphocytes % (20.5 - 51.1 %) 9.6 L Monocytes % (1.7 - 9.3 %) 23.3 H Absolute Granulocytes (1.4 - 6.5 /CUMM) 6.3 Segmented Neutrophils (42.2 - 75.2 %) 63 Band Neutrophils (0.0 - 5.0 %) 2 Absolute Lymphocytes (1.2 - 3.4 /CUMM) 0.9 L Lymphocytes (20.5 - 51.1 %) 11 L Monocytes (1.7 - 9.3 %) 24 H Absolute Monocytes (0.10 - 0.60 /CUMM) 2.2 H Absolute Eosinophils (0.0 - 0.7 /CUMM) 0.1 Absolute Basophils (0.0 - 0.2 /CUMM) 0 Platelet Estimate (ADEQUATE) DECREASED Macrocytic Cells 2+ PUBS MCHC (33.0 - 37.0 G/DL) 32.8 L Toxicology Digoxin (0.8 - 2.0 ng/mL) < 0.4 L 11/27 1405 Blood Gas pH (7.35 - 7.45 PH) 7.47 H pCO2 (35 - 45 TORR) 38 pO2 (80 - 100 TORR) 75 L HCO3 (21 - 28 MEQ/L) 27 ABG O2 Sat (Measured) (>96.0 %) 93.0 L Carboxyhemoglobin (1.5 - 5.0 %) 1.3 L O2 Concentration % 60% Respiration Rate (BPM) 14 O2 Delivery Method VENT Vent Mode AC Expiratory Pressure (CMH2O/P) 5 Tidal Volume (CC) 500 Miscellaneous Phlebotomy Draw Site RIGHT RADIAL Last 24 Hours of [place] Results: Blood cultures November 26 negative Sputum culture November 25 moderate growth of yeast Recent Imaging Studies: CT of the chest, abdomen and pelvis November 27 reveals moderate size right pleural effusion, increased from previous study, with a trace left pleural effusion; consolidation at the right lower lobe and medial segment of the right middle lobe with mild compressive atelectasis/consolidation of the left lower lobe Chest x-ray November 28 personally reviewed, reveals right pleural effusion and basilar atelectasis unchanged Assessment/Plan Impression: Worsening of her respiratory status, with an increasing FiO2 over the past 2 days and with an increasing right pleural effusion, with temperatures remaining normal (after a fever spike to 101 2 days ago) and with her white blood cell count also normal (after an increase 2 days ago). She remains on Unasyn Day 8 of treatment for presumed sepsis secondary to acute cholecystitis, status post placement of a cholecystostomy tube 8 days ago, versus pneumonia versus an intra -abdominal process, such as ischemic colitis. Her recent cultures are negative and her recent CT scan does not reveal any new focus of infection, though, with the increasing right pleural effusion, feel that this should be aspirated/ drained, both for diagnostic and therapeutic purposes. She did have some loose guaiac positive stools, which could be secondary to C. difficile or ischemic colitis. Suggestion: 1. Would pursue a right thoracentesis 2. Stool for C. difficile 3. Continue Unasyn pending above
[2016-11-28 16:00] VITALS: BP 106/60
--- NOTE | 2016-11-28 17:31 | ULTRASOUND REPORT ---
EXAMINATION: US PLEURAL EFFUSION CLINICAL INFORMATION: Pleural effusions, assess quantity of fluid for possible thoracentesis COMPARISON: Chest radiograph 11/28/2016, chest CT 11/27/2016 TECHNIQUE: Grayscale and color Doppler techniques were utilized to assess the right and left chest for pleural fluid. FINDINGS: Small right pleural effusion. No left pleural fluid identified. Evaluation is markedly limited due to the mid patient mobility for the evaluation. The patient was unable to sit up. IMPRESSION: Small right pleural effusion. No left pleural fluid identified. Markedly limited evaluation due to patient's inability to sit up for the study.
--- NOTE | 2016-11-28 18:11 | PN- Cardiology ---
Subjective Subjective: * Patient is awake and responsive without symptoms. * sinus rhythm with frequent PAC's. * Heart rate is mildly tachycardic at times. * recent partial lung collapse Objective Vital Signs and I&Os Vital Signs Date Time Temp Pulse Resp B/P B/P Pulse O2 O2 Flow FiO2 Mean Ox Delivery Rate 11/28 1645 50 05/ 1600 93 Ventilator 70% 05/ 1600 98.6 102 14 106/60 93 Ventilator 50% 05/ 1230 60 05/ 1200 93 Ventilator 60% 05/ 0802 60 / 0800 93 Ventilator 60% 05/ 0800 97.8 114 27 116/50 93 Ventilator 60% 05/ 0553 60 05/ 0400 92 Ventilator 60% 05/ 0250 60 / 0102 60 05/ 0000 98.9 90 14 100/54 92 Ventilator 60% 05/ 0000 94 Ventilator 60% 11/27 2305 60 / 2120 60 / 2000 94 Ventilator 60% Intake & Output 11/28 1600 11/28 0800 / 0000 11/27 1600 11/27 0800 11/27 0000 Intake Total 840 778 576 433 570 5071 Output Total 450 2495 600 2000 670 2792 Balance 390 -1717 -24 -1461 -80 -1694 Intake, IV 440 436 385 470 590 901 Intake, Tube 210 152 96 69 197 Feeding Intake, Tube 190 190 95 Irrigant Number 0 1 1 2 1 Bowel Movements Output, 100 Drainage Output, 150 Gastric Drainage Output, Other 45 30 80 100 Output, Urine 350 2450 600 2477 928 2021 Physical Exam: General: WD/ WN female in NAD Heart: RRR with ectopy and 2/6 systolic murmur Lungs: no crackles or wheezing Extemities: no edema Assessment/Plan Assessment/Plan * This patient is slightly tachycardic at times with PAC's. Some NSVT was reported over the weekend. Overall she has been hemodynamically stable. * creatinine is now normal. * This patient likely has high pulmonary pressures related to her lung issues. This will inhibit RV contractility which is compensated for by increased heart rate to maintain an adequate cardiac output. We will hold off on adding digoxin for now. Continue telemetry? Yes
[2016-11-29] VITALS: BP 104/58
[2016-11-29 05:12] LABS: ABSOLUTE BASOPHIL COUNT 0 /CUMM (0.0-0.2); ABSOLUTE EOSINOPHIL COUNT 0.1 /CUMM (0.0-0.7); ABSOLUTE GRANULOCYTE CT 5.6 /CUMM (1.4-6.5); ABSOLUTE LYMPH COUNT 1.1 /CUMM (1.2-3.4); ABSOLUTE MONOCYTE COUNT 2.1 /CUMM (0.10-0.60); BASOPHIL % 0.1 % (0.0-2.0); GRANULOCYTE % 62.8 % (42.2-75.2); HEMATOCRIT 35.7 % (37-47); MEAN CORPUSCULAR HGB 35.5 PG (27.0-31.0); MEAN CORPUSCULAR VOLUME 107.4 FL (81.0-99.0); MEAN PLATELET VOLUME 8.3 FL (7.4-10.4); PLATELET COUNT 163 /CUMM (130-400); RBC DISTRIBUTION WIDTH 17.6 % (11.5-14.5); RED BLOOD CELL CT 3.32 /CUMM (4.20-5.40)
--- NOTE | 2016-11-29 07:00 | PN- Resident CRCU ---
KEVIN DE LEÓN,ELIZ 11/29/16 0700: Subjective HPI/CRCU Issues: Patient seen and examined at bedside this AM. She was resting comfortably in bed on mechanical ventilation and ativan for sedation. 24 Hour Events: Vital signs last 24 hours: T 97.8-100.9, HR 86-114, RR 14-31, BP 95-131/46-77, O2 91-95% on AC 14 TV 500 FiO2 60 reduced to 45%, and 5 PEEP. Total intake last 24 hours: 1931 cc Total output last 24 hours: 1740 cc Objective Vital Signs & I&O Last 8 Hrs of Vitals and I&O: T 97.8-100.9, HR 86-114, RR 14-31, BP 95-131/46-77, O2 91-95% on AC 14 TV 500 FiO2 60 reduced to 45%, and 5 PEEP. Exam General Appearance: well developed/nourished, no apparent distress, alert, awake , comfortable, intubated Head: atraumatic, normal appearance Ears, Nose, Throat: normal pharynx, hearing grossly normal Neck: normal inspection, supple Respiratory: Rhonchi slightly improving but present in bilateral lung heard Cardiovascular: regular rate/rhythm Gastrointestinal: normal bowel sounds, soft, non-tender Extremities: normal inspection Cranial Nerves: normal hearing, PERRL Skin: warm/dry Nutrition Nutrition: tube feeding Current Medications: Current Medications Sig/Shilpa Start time Last Medication Dose Route Stop Time Status Admin Acetylcysteine 2 ML BID 11/21 1235 AC 11/29 INH 0754 Albuterol Sulfate 3 ML EVERY 4 HRS/AWAKE 11/21 1600 AC 11/29 INH 1159 Ampicillin Sodium/ 3,000 MG Q6 11/23 1216 DC 11/29 Sulbactam Sodium IV 0614 Sodium Chloride 100 ML Levothyroxine Sodium 75 MCG DAILY 11/22 1000 AC 11/29 IV 1027 Lorazepam 50 MG Q24H 11/28 2200 AC 11/28 Dextrose/Water 500 ML IV 2329 Lorazepam 50 MG Q24H 11/22 1015 DC 11/27 Dextrose/Water 500 ML IV 11/28 2199 1716 Magnesium Oxide 800 MG ONE ONE 11/29 0830 DC 11/29 PO 11/29 0831 1025 Magnesium Sulfate 1 GM ONCE ONE 11/29 0715 CAN Dextrose/Water 100 ML IV 11/29 1114 Magnesium Sulfate 1 GM ONCE ONE 11/29 0615 DC 11/29 Dextrose/Water 100 ML IV 11/29 1014 0618 Nystatin 1 ESTEFANY TIDPRN PRN 11/21 0330 AC 11/26 TOP 0329 Pantoprazole Sodium 40 MG DAILY 11/21 2011 AC 11/29 IV 0824 Potassium Chloride 40 MEQ ONCE ONE 11/29 0830 DC 11/29 PO 11/29 0831 1025 Potassium Chloride 10 MEQ Q1H 11/29 0715 DC IV 11/29 0816 Potassium Chloride 40 MEQ ONCE ONE 11/29 0615 DC 11/29 PO 11/29 0616 0618 Impression/Plan Impression/Problem List Impression: Ms. Sánchez is a 76 year old female with PMH HTN, severe COPD, cigarette abuse (1 PPD), previous alcohol use, atrial fibrillation on Pradaxa and digoxin, GI bleed and hypothyroidism who presents with chief complaint of cough, decreased oral intake, fatigue, fever and chills for one week. Of note, patient did she her PCP Dr. Enma MD who prescribed her azithromycin for presumed bronchitis though her symptoms persisted prompting evaluation in our emergency department. In the ED: Vital signs showed T 95.0, HR 72, RR 22, BP 90/68, O2 86% RA. Labs were significant for WBC 15.3, 14 bands, 81% granulocytes, H&H 16.1/49.5, Plt 245, Na 120, K 5.4, Cl 79, HCO3 29, BUN 51, Cre 2.4, Glu 95, lactic acid 3.1 , TBili 2.1, DBili 1.4, AST/ALT 7358/2161, trop 0.25, INR 1.83. Abdominal US showed impacted gallstone in GB neck with GB wall thickening, wall edema and pericholecystic fluid. CXR showed cardiomegaly with a patchy opacity in the left lower lung field suggesting an evolving pneumonia. EKG showed non- specific ST elevations in leads [address] depressions in the high lateral leads I and L. Patient is admitted to the intensive care unit and the following is the management: 1. Septic shock requiring pressors with mutiorgan dysfunction, IMPROVING * Patient hypotensive, tachycardic and tachypneic on admission with likely source being intraabdominal pathology (aspiration pneumonia also on ddx) * Today, WBC 9.0; Tmax 100.9 overnight * ID consult appreciated * Cultures so far showing no growth, with no growth from bile culture, sputum only growing yeast * DISCONTINUE unasyn and follow off antibiotics * Patient hemodynamically stable OFF of pressors * Trend CBC, ICU bundle 2. Transaminitis and hyperbilirubinemia with acute cholecytsitis * Concern for acute cholecystitis with RUQ US findings of gallstones with wall thickening and edema * Patient is s/p percutaneous cholecystostomy tube with surgery, draining well * Bile showed no growth after 3 days * Hepatitis panel negative, tylenol level <10 * Transaminitis likely 2/2 shock liver in the setting of hypotension from sepsis , IMPROVING * GI consult appreciated; will consider eventual cholangiogram via cholecystostomy tube * Statin continues ot be on hold * Continue tube feeds at goal rate 3. Elevated troponin * Troponins peaked at 0.35, have since trended down * Likely represents demand/supply mismatch (demand ischemia); unlikely to be ACS * Cardio consult with Dr. Vida MD appreciated * Aspirin, Plavix and IV heparin initially started but have been discontinued as patient possible surgical candidate, history of GIB and noted oropharyngeal bleeding * Follow up further cardio recommendations, continuous telemetry monitoring * Echo showed mild concentric LVH, normal EF >65%, stage 1 diastolic dysfunction 4. Possible pneumonia, aspiration vs. CAP * CXR on admission showed LLL abnormality suggestive of PNA * Follow up CT chest showed small/moderate pleural effusion with RML/partial RLL collapse; trace left pleural effusion * Continue mucomyst and chest PT until resolution * IV unasyn discontinued today * Continue MV for now, PSV trials to continue * Ativan drip while intubated * US chest showed small amount of fluid on the right, not enough effusion for thoracentesis 5. Paroxysmal atrial fibrillation with digitalis toxicity * Digoxin level elevated on admission requiring digibind; continue to hold digoxin * Hold off anticoagulation, aspirin, plavix at this point as patient was noted to have + oropharyngeal bleeding early during admission * Continuous telemetry monitoring * Follow up cardio recommendations * Hold metoprolol due to hypotension, restart once BP well controlled 6. Hyponatremia * Likely hypovolemic hyponatremia in setting of severe dehydration and sepsis * Trend ICU bundle frequently * Watch patient off of fluids 7. Acute on chronic respiratory failure with severe COPD/emphysema in the setting of tobacco dependance * Patient noted to be 86% on RA during admission * Initially placed on BiPAP but was intubated due to increased work of breathing around 2200 on 11/20/16 * Continue AC ventilation and monitor for improvement in RLL collapse * Chest PT and mucomyst to continue * Titrate FiO2 down to keep O2 sat >92%; PSV trials today * Continue ativan for sedation * IV protonix while intubated, daily CXR to ensure appropriate positioning 8. BETH * BUN 51, Cre 2.4 on admission, likely secondary to hypotension and severe sepsis (prerenal) * IMPROVING * Trend ICU bundle * Avoid nephrotoxins FULL CODE DVTP: ALPS (no pharm DVTP at this time 2/2 oropharyngeal bleeding) Diet: TUBE FEEDS Mild pain pathway Problem List: 1. Acute cholecystitis 2. Multiorgan failure 3. Tobacco abuse 4. Acute respiratory failure with hypoxia and hypercarbia Pain Ratin Tomorrow's Labs & Rationales: CBC (anemia, sepsis) ICU bundle (hyponatremia, hypokalemia) Plan DVT/Prophylaxis: CRISTINO Cabrales MD 11/29/16 0932: Attending MD Review Statement Attending Sign Off Attending Cosign Statement: I have: examined this patient, reviewed avalbl EMR data, personally reviewd images, discussd w/resident/PA/CLOTHING WORKER, discussed mgmt plan w/rick, discussed mgmt plan w/CM, discussed mgmt plan w/pt, agreed w/resident/PA/CLOTHING WORKER, amended to note. Other Findings: Cristino Moon M.D. have examined this patient, reviewed available EMR data, personally reviewed images, discussed with resident/PA/CLOTHING WORKER, discussed management plan with housestaff and nursing staff, discussed managment plan all of healthcare providers, discussed management plan with patient and/or family, agreed with resident/PA/CLOTHING WORKER. The past history and parts of the chart have been autopopulated. Impression 76 year old woman * resolved septic shock secondary to likely abdominal pathlogy, also with a pneumonia that can be likely aspiration vs. CAP * shock liver significantly improved and resolving * hyponatremia * digitalis toxicity * troponinemia - likely demand ischemia * respiratory failure - hypoxemic * tobacco dependence and severe COPD/emphysema Plan Respiratory -reduce fio2 as tolerated -no significant pleural effusion on lung ultrasound -plan for cpap trial when fio2 is 40% -trc/nebs ID -ID consultation appreciated -on unasyn -s/p cholecystostomy tube CVS -monitor hemodynamics Heme -f/u cbc, coags, cardiology recommendations Metabolic -ins/outs -gi/surgery consulted -s/p cholecystomy tube Alimentary -f/u gi/surgery recommendations Neuro -sedation as necessary DVT prophylaxis at all times TTS 35 min
[2016-11-29 08:00] VITALS: BP 98/60
--- NOTE | 2016-11-29 08:53 | RADIOLOGY REPORT ---
EXAMINATION: XR PORTABLE CHEST CLINICAL INFORMATION: ET tube placement. Hypoxic respiratory failure. COMPARISON: Chest x-ray 11/28/2016. TECHNIQUE: Portable frontal view of the chest was obtained. FINDINGS: There is an endotracheal tube with the tip approximately 3.2 cm above the level of the cori. An enteric tube is noted with tip extending below the level of the inferior margin of the image. There are multiple monitor leads overlying the chest. There is poor expansion of the right hemithorax, similar compared to the prior study, with right basilar opacity consistent with a pleural effusion and elevation of the right hemidiaphragm. There is thickening of the horizontal fissure, new compared to the prior study. The left lung is well expanded. The 0.9 cm well-defined calcification projected over the left lower zone is unchanged. The aortic arch is calcified and unfolded. There are no acute osseous findings. IMPRESSION: 1. The study demonstrates the ET tube tip 3.2 cm above the level of the cori. 2. There is persistent volume loss at the right base with pleural effusion and atelectasis.
--- NOTE | 2016-11-29 11:37 | PN- Infect Dx ---
Subjective Subjective: MAXIMUM TEMPERATURE 100. She offers no complaints. She has had 2 small bowel movements but no diarrhea. Objective Last 24 Hrs of Vital Signs/I&O Vital Signs Date Time Temp Pulse Resp B/P B/P Pulse O2 O2 Flow FiO2 Mean Ox Delivery Rate 11/29 0800 40 11/29 0800 94 Ventilator 45% 11/29 0800 99.7 91 14 98/60 94 Ventilator 45% 11/29 0615 45 11/29 0420 45 11/29 0400 92 Ventilator 45% 11/29 0145 45 11/29 0000 100.0 100 15 104/58 93 Ventilator 45% 11/29 0000 92 Ventilator 45% 11/28 2251 45 11/28 2000 92 Ventilator 45% 11/28 1900 45 11/28 1645 50 11/28 1600 93 Ventilator 70% 11/28 1600 98.6 102 14 106/60 93 Ventilator 50% 11/28 1230 60 / 1200 93 Ventilator 60% Intake & Output 11/29 1600 11/29 0800 05 0000 Intake Total 607 484 Output Total 880 410 Balance -273 74 Intake, IV 41 44 Intake, Tube 351 250 Feeding Intake, Tube 215 190 Irrigant Output, Other 80 10 Output, Urine 800 400 Physical Exam Other Physical Findings: She appears comfortable on the ventilator in no acute distress Lungs are clear Heart regular rhythm with no murmur Abdomen is soft, nontender with positive bowel sounds Extremities no cyanosis, clubbing or edema Black catheter remains in place Results Last 24 Hours of Lab Results: Laboratory Tests 11/29 11/29 0450 0435 Blood Gas pH (7.35 - 7.45 PH) 7.52 H pCO2 (35 - 45 TORR) 36 pO2 (80 - 100 TORR) 71 L HCO3 (21 - 28 MEQ/L) 28 ABG O2 Sat (Measured) (>96.0 %) 94.0 L P-50 (Temp Corrected) N Carboxyhemoglobin (1.5 - 5.0 %) 0.8 L O2 Concentration % 45% Temperature (97.0 - 100.0 FARH) 98.6 Respiration Rate (BPM) 14 O2 Delivery Method ESPRIT Vent Mode AC Expiratory Pressure (CMH2O/P) 5 Tidal Volume (CC) 500 Chemistry Sodium (137 - 145 mmol/L) 133 L Potassium (3.5 - 5.1 mmol/L) 3.3 L Chloride (98 - 107 mmol/L) 97 L Carbon Dioxide (22 - 30 mmol/L) 28 Anion Gap (5 - 16) 8 BUN (7 - 17 mg/dL) 10 Creatinine (0.5 - 1.0 mg/dL) 0.5 Estimated GFR (>60 ml/min) > 60 Glucose (65 - 99 mg/dL) 96 Calcium (8.4 - 10.2 mg/dL) 7.7 L Phosphorus (2.5 - 4.5 mg/dL) 3.5 Magnesium (1.6 - 2.3 mg/dL) 1.6 Total Bilirubin (0.2 - 1.3 mg/dL) 1.6 H AST (14 - 36 U/L) 32 ALT (9 - 52 U/L) 117 H Albumin (3.5 - 5.0 g/dL) 2.0 L Hematology CBC w Diff MAN DIFF ORDERED WBC (4.8 - 10.8 /CUMM) 9.0 RBC (4.20 - 5.40 /CUMM) 3.32 L Hgb (12.0 - 16.0 G/DL) 11.8 L Hct (37 - 47 %) 35.7 L MCV (81.0 - 99.0 FL) 107.4 H MCH (27.0 - 31.0 PG) 35.5 H RDW (11.5 - 14.5 %) 17.6 H Plt Count (130 - 400 /CUMM) 163 MPV (7.4 - 10.4 FL) 8.3 Gran % (42.2 - 75.2 %) 62.8 Lymphocytes % (20.5 - 51.1 %) 12.6 L Monocytes % (1.7 - 9.3 %) 23.5 H Eosinophils % (0 - 5 %) 1.0 Basophils % (0.0 - 2.0 %) 0.1 Absolute Granulocytes (1.4 - 6.5 /CUMM) 5.6 Segmented Neutrophils (42.2 - 75.2 %) 61 Band Neutrophils (0.0 - 5.0 %) 2 Absolute Lymphocytes (1.2 - 3.4 /CUMM) 1.1 L Lymphocytes (20.5 - 51.1 %) 12 L Monocytes (1.7 - 9.3 %) 24 H Absolute Monocytes (0.10 - 0.60 /CUMM) 2.1 H Eosinophils (0 - 5.0 %) 1 Absolute Eosinophils (0.0 - 0.7 /CUMM) 0.1 Absolute Basophils (0.0 - 0.2 /CUMM) 0 Platelet Estimate (ADEQUATE) ADEQUATE Normochromic RBCs VERIFIED Poikilocytosis 2+ Anisocytosis 1+ Macrocytic Cells 1+ Ovalocytes 1+ Stomatocytes 1+ PUBS MCHC (33.0 - 37.0 G/DL) 33.0 Miscellaneous Phlebotomy Draw Site LEFT RADIAL Other Body Source Fld Total RBCs Counted (%) 100 Last 24 Hours of [place] Results: Blood cultures November 26 negative Recent Imaging Studies: Chest x-ray November 29, personally reviewed, reveals persistent volume loss at the right base with pleural effusion and atelectasis Ultrasound of the chest November 28 small right pleural effusion Assessment/Plan Impression: Improved today with decreased oxygen requirements, with weaning in progress. She did have a low-grade fever overnight, with white blood cell count remaining normal, on Unasyn Day 9 of treatment for presumed sepsis secondary to acute cholecystitis, status post placement of a cholecystostomy tube 9 days ago, versus pneumonia versus an intra-abdominal process, such as ischemic colitis. Her recent cultures are negative and her recent CT scan did not reveal any new focus of infection. The right pleural effusion was apparently felt to be too small to tap. Suggestion: 1. Would remove Black catheter 2. Discontinue Unasyn and follow off antibiotics
[2016-11-29 16:00] VITALS: BP 94/54
[2016-11-30] VITALS: BP 110/66
--- NOTE | 2016-11-30 01:29 | NUR ---
0000 PATIENT RECEIVED RESTLESS IN BED- SKIN PINK, WARM AND DRY, SUSTAINABILITY ANALYST SINUS TACHYCARDIA WITH OCCASIONAL PAC'S, HEART RATE 100'S/MIN, ETT TO VENTLIATOR WITH FIO2 40%, CONTINUOUS O2 SAT 92 TO 95%, BREATHE SOUNDS DISTANT WITH SCATTERED RHONCHI, DIMINISHED RIGHT BASE, ABDOMEN SOFT, +BS, OGT PATENT AND IN PLACE- JEVITY 1.2 INFUSING AT 60 ML/HR, GASTRIC RESIDUAL CHECK WITH NO RETURNS, CHOLECYSTOSTOMY TUBE INTACT AND TO GRAVITY DRAINAGE, BALDERRAMA TO GRAVITY DRAINAGE WITH CLEAR DONNA COLORED UO, PATIENT INCONTINENT OF SMALL AMT LIQUID STOOL- BATHED, LINEN CHANGE DONE, SETTLED FOR SLEEP, CALL LIGHT WITHIN REACH
[2016-11-30 05:17] LABS: ABSOLUTE BASOPHIL COUNT 0 /CUMM (0.0-0.2); ABSOLUTE EOSINOPHIL COUNT 0.1 /CUMM (0.0-0.7); ABSOLUTE GRANULOCYTE CT 6.4 /CUMM (1.4-6.5); ABSOLUTE LYMPH COUNT 1.7 /CUMM (1.2-3.4); ABSOLUTE MONOCYTE COUNT 2.2 /CUMM (0.10-0.60); BASOPHIL % 0.3 % (0.0-2.0); GRANULOCYTE % 61.8 % (42.2-75.2); HEMATOCRIT 33.3 % (37-47); MEAN CORPUSCULAR HGB 35.3 PG (27.0-31.0); MEAN CORPUSCULAR HGB CONC 32.9 G/DL (33.0-37.0); MEAN CORPUSCULAR VOLUME 107.3 FL (81.0-99.0); MEAN PLATELET VOLUME 8.9 FL (7.4-10.4); PLATELET COUNT 208 /CUMM (130-400); RBC DISTRIBUTION WIDTH 18.1 % (11.5-14.5); WHITE BLOOD CELL COUNT 10.4 /CUMM (4.8-10.8)
--- NOTE | 2016-11-30 06:27 | NUR ---
PATIENT HAS SLEPT FAIRLY WELL OVERNIGHT, NO CHANGES IN STATUS NOTED, AM PORTABLE CXR DONE, RESTING QUIETLY, CONTINUES TO TOLERATE TF WELL, AWAITING AM MD ROUNDS
--- NOTE | 2016-11-30 07:08 | PN- Resident CRCU ---
KEVIN DE LEÓN,ELIZ 11/30/16 0708: Subjective HPI/CRCU Issues: Patient seen and examined at bedside this AM. She is alert and comfortable in bed and continues on AC ventilation. She denies chest pain or body pain. She is amenable to PSV trials today. Patient had Tmax 100.0 overnight without increase in WBC count. Cultures have so far seen had no growth, though respiratory culture had a light growth of yeast. Patient had PSV trial this AM and and there was rapid shallow breathing. TV she obtained was about 170s and RR 35-40s. 24 Hour Events: pvc monitor: No events. Vital signs last 24 hours: T 97.5-100.0, HR 80-112, RR 12-20, BP 84-114/45-76, O2 92-98% onAC 14 TV 500 FiO2 40% and 5 PEEP. Total intake last 24 hours: 2084 cc Total output lat 24 hours: 1635 cc Objective Vital Signs & I&O Last 8 Hrs of Vitals and I&O: T 97.5-100.0, HR 80-112, RR 12-20, BP 84-114/45-76, O2 92-98% onAC 14 TV 500 FiO2 40% and 5 PEEP. Exam General Appearance: well developed/nourished, no apparent distress, alert, intubated Head: atraumatic, normal appearance Ears, Nose, Throat: normal pharynx, hearing grossly normal Neck: normal inspection, supple Respiratory: normal breath sounds, chest non-tender Cardiovascular: regular rate/rhythm Gastrointestinal: normal bowel sounds, soft, non-tender Extremities: normal inspection Cranial Nerves: normal hearing, PERRL Skin: intact, warm/dry Weaning Parameters NIF: 240 Minute Volume: 11.6 Resp rate: 20 Vt: 530 Heart Rate: 90 Weaning Schedule Start Time: 1148 Resp Rate: 37 Vt: 250 Heart Rate: 96 End Time: 1152 Minute Volume: 15 Resp Rate: 45 Vt: 150 Heart Rate: 96 Nutrition Nutrition: tube feeding Current Medications: Current Medications Sig/Shilpa Start time Last Medication Dose Route Stop Time Status Admin Acetylcysteine 2 ML BID 11/21 1235 AC 11/30 INH 0815 Albuterol Sulfate 3 ML EVERY 4 HRS/AWAKE 11/21 1600 AC 11/30 INH 1237 Furosemide 40 MG ONCE ONE 11/30 1100 DC 11/30 IV 11/30 1101 1427 Levothyroxine Sodium 75 MCG DAILY 11/22 1000 AC 11/30 IV 0954 Lorazepam 50 MG Q24H 11/28 2200 AC 11/28 Dextrose/Water 500 ML IV 2329 Magnesium Oxide 400 MG ONE ONE 11/30 07 DC 11/30 PO 11/30 0731 0954 Nystatin 1 ESTEFANY TIDPRN PRN 11/21 0330 AC 11/26 TOP 0329 Pantoprazole Sodium 40 MG DAILY 11/21 2011 AC 11/30 IV 0954 Potassium Chloride 20 MEQ ONCE ONE 11/30 729 DC 11/30 PO 11/30 0731 0954 CXR Findings: IMPRESSION: 1. Endotracheal tube tip approximately 4 cm above the cori. 2. Enteric tube courses into the abdomen with tip not included. 3. No significant change in right-sided pleural effusion and associated consolidation in right lung base. 4. Mild left basilar subsegmental atelectasis. Impression/Plan Impression/Problem List Impression: Ms. Sánchez is a 76 year old female with PMH HTN, severe COPD, cigarette abuse (1 PPD), previous alcohol use, atrial fibrillation on Pradaxa and digoxin, GI bleed and hypothyroidism who presents with chief complaint of cough, decreased oral intake, fatigue, fever and chills for one week. Of note, patient did she her PCP Dr. Enma MD who prescribed her azithromycin for presumed bronchitis though her symptoms persisted prompting evaluation in our emergency department. In the ED: Vital signs showed T 95.0, HR 72, RR 22, BP 90/68, O2 86% RA. Labs were significant for WBC 15.3, 14 bands, 81% granulocytes, H&H 16.1/49.5, Plt 245, Na 120, K 5.4, Cl 79, HCO3 29, BUN 51, Cre 2.4, Glu 95, lactic acid 3.1 , TBili 2.1, DBili 1.4, AST/ALT 7358/2161, trop 0.25, INR 1.83. Abdominal US showed impacted gallstone in GB neck with GB wall thickening, wall edema and pericholecystic fluid. CXR showed cardiomegaly with a patchy opacity in the left lower lung field suggesting an evolving pneumonia. EKG showed non- specific ST elevations in leads [address] depressions in the high lateral leads I and L. Patient is admitted to the intensive care unit and the following is the management: 1. Septic shock requiring pressors with mutiorgan dysfunction, IMPROVING * Patient hypotensive, tachycardic and tachypneic on admission with likely source being intraabdominal pathology (aspiration pneumonia also on ddx) * Today, WBC 10.4; Tmax 100.0 overnight * ID consult appreciated * Cultures so far showing no growth, with no growth from bile culture, sputum only growing yeast * DISCONTINUED unasyn on 11/29/16 and follow off antibiotics * Patient hemodynamically stable OFF of pressors * Trend CBC, ICU bundle * Follow up stool for CDiff 2. Transaminitis and hyperbilirubinemia with acute cholecytsitis * Concern for acute cholecystitis with RUQ US findings of gallstones with wall thickening and edema * Patient is s/p percutaneous cholecystostomy tube with surgery, draining well * Bile showed no growth after 3 days * Hepatitis panel negative, tylenol level <10 * Transaminitis likely 2/2 shock liver in the setting of hypotension from sepsis , IMPROVING * GI consult appreciated; will consider eventual cholangiogram via cholecystostomy tube * Statin continues ot be on hold * Continue tube feeds at goal rate 3. Elevated troponin * Troponins peaked at 0.35, have since trended down * Likely represents demand/supply mismatch (demand ischemia); unlikely to be ACS * Cardio consult with Dr. Vida MD appreciated * Aspirin, Plavix and IV heparin initially started but have been discontinued as patient possible surgical candidate, history of GIB and noted oropharyngeal bleeding * Follow up further cardio recommendations, continuous telemetry monitoring * Echo showed mild concentric LVH, normal EF >65%, stage 1 diastolic dysfunction 4. Possible pneumonia, aspiration vs. CAP * CXR on admission showed LLL abnormality suggestive of PNA * Follow up CT chest showed small/moderate pleural effusion with RML/partial RLL collapse; trace left pleural effusion * Continue mucomyst and chest PT until resolution * IV unasyn discontinued yesterday, watch off all antibiotics * Continue MV for now, PSV trials to continue * Ativan drip while intubated * US chest showed small amount of fluid on the right, not enough effusion for thoracentesis 5. Paroxysmal atrial fibrillation with digitalis toxicity * Digoxin level elevated on admission requiring digibind; continue to hold digoxin * Hold off anticoagulation, aspirin, plavix at this point as patient was noted to have + oropharyngeal bleeding early during admission * Continuous telemetry monitoring * Follow up cardio recommendations * Hold metoprolol due to hypotension, restart once BP well controlled 6. Hyponatremia, STABLE * Likely hypovolemic hyponatremia in setting of severe dehydration and sepsis * Trend ICU bundle frequently * Watch patient off of fluids 7. Acute on chronic respiratory failure with severe COPD/emphysema in the setting of tobacco dependance * Patient noted to be 86% on RA during admission * Initially placed on BiPAP but was intubated due to increased work of breathing around 2200 on 11/20/16 * Continue AC ventilation and monitor for improvement in RLL collapse * Chest PT and mucomyst to continue * Titrate FiO2 down to keep O2 sat >92%; PSV trials today * Continue ativan for sedation * IV protonix while intubated, daily CXR to ensure appropriate positioning 8. BETH * BUN 51, Cre 2.4 on admission, likely secondary to hypotension and severe sepsis (prerenal) * IMPROVING * Trend ICU bundle * Avoid nephrotoxins FULL CODE DVTP: ALPS (no pharm DVTP at this time 2/2 oropharyngeal bleeding) Diet: TUBE FEEDS Mild pain pathway Problem List: 1. Acute cholecystitis 2. Multiorgan failure 3. Tobacco abuse 4. Acute respiratory failure with hypoxia and hypercarbia Pain Ratin Tomorrow's Labs & Rationales: CBC (leukocytosis) ICU bundle (hyponatremia) Plan DVT/Prophylaxis: CRISTINO Cabrales MD 11/30/16 0923: Attending MD Review Statement Attending Sign Off Attending Cosign Statement: I have: examined this patient, reviewed avalbl EMR data, personally reviewd images, discussd w/resident/PA/TESTING ENGINEER, discussed mgmt plan w/rick, discussed mgmt plan w/CM, discussed mgmt plan w/pt, agreed w/resident/PA/TESTING ENGINEER, amended to note. Other Findings: Cristino Moon M.D. have examined this patient, reviewed available EMR data, personally reviewed images, discussed with resident/PA/TESTING ENGINEER, discussed management plan with housestaff and nursing staff, discussed managment plan all of healthcare providers, discussed management plan with patient and/or family, agreed with resident/PA/TESTING ENGINEER. The past history and parts of the chart have been autopopulated. Impression 76 year old woman * resolved septic shock secondary to likely abdominal pathlogy, also with a pneumonia that can be likely aspiration vs. CAP * shock liver significantly improved and resolving * hyponatremia * digitalis toxicity * troponinemia - likely demand ischemia * respiratory failure - hypoxemic * tobacco dependence and severe COPD/emphysema Plan Respiratory -reduce fio2 as tolerated -no significant pleural effusion on lung ultrasound -plan for cpap trial when fio2 is 40% -trc/nebs ID -ID consultation appreciated -off Unasyn, monitor off abx -s/p cholecystostomy tube, f/u drainage CVS -monitor hemodynamics Heme -f/u cbc, coags, cardiology recommendations Metabolic -ins/outs -gi/surgery follow up -s/p cholecystomy tube Alimentary -f/u gi/surgery recommendations Neuro -sedation as necessary DVT prophylaxis at all times TTS 35 min
[2016-11-30 08:00] VITALS: BP 108/60
--- NOTE | 2016-11-30 09:40 | RADIOLOGY REPORT ---
EXAMINATION: XR PORTABLE CHEST CLINICAL INFORMATION: ET tube placement. Aspiration pneumonia. COMPARISON: Several prior chest x-rays, most recent of which is dated 11/29/2016. TECHNIQUE: Portable AP semierect view of the chest was obtained. FINDINGS: Endotracheal tube tip approximately 4 cm above the cori. Enteric tube courses into the abdomen with tip not included. Cardiomediastinal silhouette is mildly enlarged, likely related to low lung volumes and AP technique, unchanged. Calcification of the aorta is noted. There is persistent opacity in the right lung base, most consistent with an effusion with associated consolidation. This is unchanged. Minimal linear atelectatic changes in the left lung base are seen. Osteopenia is noted with degenerative changes in the shoulder joints, right greater than left. IMPRESSION: 1. Endotracheal tube tip approximately 4 cm above the cori. 2. Enteric tube courses into the abdomen with tip not included. 3. No significant change in right-sided pleural effusion and associated consolidation in right lung base. 4. Mild left basilar subsegmental atelectasis.
--- NOTE | 2016-11-30 10:36 | PN- Infect Dx ---
Subjective Subjective: MAXIMUM TEMPERATURE 100. She offers no complaints. She has had several liquid stools reported overnight. Objective Last 24 Hrs of Vital Signs/I&O Vital Signs Date Time Temp Pulse Resp B/P B/P Pulse O2 O2 Flow FiO2 Mean Ox Delivery Rate 11/30 0807 40 11/30 0800 94 Ventilator 40% 11/30 0800 97.2 81 20 108/60 92 Ventilator 40% 11/30 0548 40 11/30 0420 40 11/30 0400 97 Ventilator 40% 11/30 0152 40 11/30 0000 92 Ventilator 40% 11/30 0000 100.0 102 15 110/66 92 Ventilator 40% 11/29 2245 40 11/29 2200 94 Ventilator 40% 11/29 2006 40 11/29 1630 40 11/29 1600 95 Ventilator 40% 11/29 1600 99.3 96 14 94/54 95 Ventilator 40% 11/29 1400 40 11/29 1200 94 Ventilator 40% 11/29 1155 40 Intake & Output 11/30 1600 11/30 0800 06 0000 Intake Total 632 697 Output Total 595 515 Balance 37 182 Intake, IV 36 42 Intake, Tube 406 470 Feeding Intake, Tube 190 185 Irrigant Number 1 Bowel Movements Output, Other 45 50 Output, Urine 550 465 Physical Exam Other Physical Findings: She appears comfortable on the ventilator in no acute distress Lungs are clear Heart regular rhythm with no murmur Abdomen is soft, nontender with positive bowel sounds; cholecystostomy tube in place with bilious drainage Extremities trace edema both lower extremities Black catheter remains in place Results Last 24 Hours of Lab Results: Laboratory Tests 11/305 Chemistry Sodium (137 - 145 mmol/L) 131 L Potassium (3.5 - 5.1 mmol/L) 3.8 Chloride (98 - 107 mmol/L) 98 Carbon Dioxide (22 - 30 mmol/L) 28 Anion Gap (5 - 16) 6 BUN (7 - 17 mg/dL) 10 Creatinine (0.5 - 1.0 mg/dL) 0.5 Estimated GFR (>60 ml/min) > 60 Glucose (65 - 99 mg/dL) 98 Calcium (8.4 - 10.2 mg/dL) 7.8 L Phosphorus (2.5 - 4.5 mg/dL) 3.8 Magnesium (1.6 - 2.3 mg/dL) 1.6 Total Bilirubin (0.2 - 1.3 mg/dL) 1.2 AST (14 - 36 U/L) 30 ALT (9 - 52 U/L) 102 H Albumin (3.5 - 5.0 g/dL) 2.2 L Hematology CBC w Diff NO MAN DIFF REQ WBC (4.8 - 10.8 /CUMM) 10.4 RBC (4.20 - 5.40 /CUMM) 3.10 L Hgb (12.0 - 16.0 G/DL) 10.9 L Hct (37 - 47 %) 33.3 L MCV (81.0 - 99.0 FL) 107.3 H MCH (27.0 - 31.0 PG) 35.3 H RDW (11.5 - 14.5 %) 18.1 H Plt Count (130 - 400 /CUMM) 208 MPV (7.4 - 10.4 FL) 8.9 Gran % (42.2 - 75.2 %) 61.8 Lymphocytes % (20.5 - 51.1 %) 16.2 L Monocytes % (1.7 - 9.3 %) 20.7 H Eosinophils % (0 - 5 %) 1.0 Basophils % (0.0 - 2.0 %) 0.3 Absolute Granulocytes (1.4 - 6.5 /CUMM) 6.4 Absolute Lymphocytes (1.2 - 3.4 /CUMM) 1.7 Absolute Monocytes (0.10 - 0.60 /CUMM) 2.2 H Absolute Eosinophils (0.0 - 0.7 /CUMM) 0.1 Absolute Basophils (0.0 - 0.2 /CUMM) 0 PUBS MCHC (33.0 - 37.0 G/DL) 32.9 L Last 24 Hours of [place] Results: Stool C. difficile November 29 pending Blood cultures November 26 negative Recent Imaging Studies: Chest x-ray November 30, personally reviewed, reveals no change in the right-sided pleural effusion and associated consolidation in the right lung base Assessment/Plan Impression: Stable with decreased oxygen requirements, though chest x-ray unchanged, with what appears to be a persistent right pleural effusion apparently not felt to be large enough on ultrasound to tap. She continues to have a low-grade fever, with white blood cell count remaining normal, now off antibiotics after 9 days of treatment for presumed sepsis secondary to acute cholecystitis, status post placement of a cholecystostomy tube 10 days ago, versus pneumonia versus an intra-abdominal process, such as ischemic colitis. She has had recent diarrhea, and a stool for C. difficile is pending. Suggestion: 1. Follow-up stool for C. difficile 2. Would remove Black catheter 3. Continue to follow off antibiotics pending above
[2016-11-30 16:00] VITALS: BP 118/60
--- NOTE | 2016-11-30 17:15 | PN- Cardiology ---
Subjective Subjective: * Patient remains intubated. She is alert and responsive and denies any symptoms. * sinus rhythm * H/H is trending down Objective Vital Signs and I&Os Vital Signs Date Time Temp Pulse Resp B/P B/P Pulse O2 O2 Flow FiO2 Mean Ox Delivery Rate 11/30 1650 40 11/30 1513 40 11/30 1124 40 11/30 0807 40 11/30 0800 94 Ventilator 40% 11/30 0800 97.2 81 20 108/60 92 Ventilator 40% 11/30 0548 40 11/30 0420 40 11/30 0400 97 Ventilator 40% 11/30 0152 40 11/30 0000 92 Ventilator 40% 11/30 0000 100.0 102 15 110/66 92 Ventilator 40% 11/29 2245 40 11/29 2200 94 Ventilator 40% 11/29 2006 40 Intake & Output 11/30 1600 11/30 0800 11/30 0000 11/29 1600 11/29 0800 11/29 0000 Intake Total 632 697 850 607 484 Output Total 595 515 525 880 410 Balance 37 182 325 -273 74 Intake, IV 36 42 420 41 44 Intake, Tube 406 470 240 351 250 Feeding Intake, Tube 190 185 190 215 190 Irrigant Number 1 2 Bowel Movements Output, Other 45 50 50 80 10 Output, Urine 550 465 475 800 400 Physical Exam: General: WD/ WN female in NAD Heart: RRR with ectopy and 2/6 systolic murmur Lungs: no crackles or wheezing Extemities: no edema Assessment/Plan Assessment/Plan * Hemodynamically stable with a blood pressure at the lower limits of normal. Multiple PAC's noted but no significant dysrhythmia's. * This patient likely has high pulmonary pressures related to her lung issues. This will inhibit RV contractility which is compensated for by increased heart rate to maintain an adequate cardiac output. We will hold off on adding digoxin for now. Avoid a dehydrated state since this patient may be preload dependent. Continue telemetry? Yes
[2016-12-01] VITALS: BP 110/66
--- NOTE | 2016-12-01 00:38 | NUR ---
MD ARNOLD MADE AWARE PT HAS AXILLARY TEMP 100.7, AWAITING ORDERS.
[2016-12-01 02:03] LABS: ABSOLUTE BASOPHIL COUNT 0.1 /CUMM (0.0-0.2); ABSOLUTE EOSINOPHIL COUNT 0.1 /CUMM (0.0-0.7); ABSOLUTE GRANULOCYTE CT 8.2 /CUMM (1.4-6.5); ABSOLUTE LYMPH COUNT 1.5 /CUMM (1.2-3.4); ABSOLUTE MONOCYTE COUNT 1.7 /CUMM (0.10-0.60); BASOPHIL % 0.9 % (0.0-2.0); EOSINOPHIL % 1.2 % (0-5); GRANULOCYTE % 70.8 % (42.2-75.2); HEMATOCRIT 35.1 % (37-47); MEAN CORPUSCULAR HGB 34.6 PG (27.0-31.0); MEAN CORPUSCULAR VOLUME 104.8 FL (81.0-99.0); MEAN PLATELET VOLUME 8.4 FL (7.4-10.4); PLATELET COUNT 267 /CUMM (130-400); RED BLOOD CELL CT 3.35 /CUMM (4.20-5.40); WHITE BLOOD CELL COUNT 11.6 /CUMM (4.8-10.8)
--- NOTE | 2016-12-01 06:20 | PN- Resident CRCU ---
TRINA DE LEÓN,[facility] 12/01/16 0619: Subjective HPI/CRCU Issues: Ms Sánchez was seen and examined this morning. She is resting comfortably in bed. She is alert although appears very somnolent. She is able to follow verbal commands. She is currently intubated. Overnight she did spike a fever 100.9--> 101.1 deg F. Patient is unable to offer any complaints. 24 Hour Events: Patient Spiked a fever to 101.1 deg. Patient was hypotensive, BP: 78/41 Total Intake for the last 24 hours: 2108 Total Output: 5070 Delicatessen Manager: No Events. Vital signs last 24 hours: T: 97.2-101.1 HR: 80-112 RR: 14-22 BP: 78/41-144/55 O2 92-97% on AC 14 TV 500 FiO2 40% and 5 PEEP. Objective Vital Signs & I&O Last 8 Hrs of Vitals and I&O: Intake & Output 12/01 0800 Intake Total 828 Output Total 840 Balance -12 Intake, IV 170 Intake, Oral 0 Intake, Tube 468 Feeding Intake, Tube 190 Irrigant Number 2 Bowel Movements Output, Other 40 Output, Urine 800 Exam General Appearance: well developed/nourished, alert, sedated, intubated Head: atraumatic, normal appearance Ears, Nose, Throat: normal pharynx Respiratory: normal breath sounds, chest non-tender Cardiovascular: regular rate/rhythm Gastrointestinal: normal bowel sounds, Cholecystostomy Tube in Place. Draining. Extremities: normal inspection, no edema Weaning Parameters NIF: 36 Minute Volume: 7.14 Resp rate: 36 Vt: 200 Heart Rate: 92 Weaning Schedule Start Time: 1914 Minute Volume: 9.56 Resp Rate: 30 Vt: 318 Heart Rate: 99 End Time: 2039 Minute Volume: 7.89 Resp Rate: 26 Vt: 300 Heart Rate: 100 Current Medications: Current Medications Sig/Shilpa Start time Last Medication Dose Route Stop Time Status Admin Acetaminophen 1,000 MG ONCE ONE 12/01 0445 DC 12/01 N/A 1 UNIT IV 12/01 0459 0450 Acetylcysteine 2 ML BID 11/21 1235 AC 11/30 INH 204 Albuterol Sulfate 3 ML EVERY 4 HRS/AWAKE 11/21 1600 AC 11/30 INH 204 Ampicillin Sodium/ 3,000 MG Q6 12/01 0733 UNVr Sulbactam Sodium IV Sodium Chloride 100 ML Furosemide 40 MG ONCE ONE 11/30 1100 DC 11/30 IV 11/30 1101 1427 Levothyroxine Sodium 75 MCG DAILY 11/22 1000 AC 11/30 IV 0954 Lorazepam 50 MG Q24H 11/28 2200 AC 11/30 Dextrose/Water 500 ML IV 202 Magnesium Sulfate 1 GM Q2H 12/01 0600 AC 12/01 Dextrose/Water 100 ML IV 12/01 0959 0629 Nystatin 1 ESTEFANY TIDPRN PRN 11/21 0330 AC 11/26 TOP 0329 Pantoprazole Sodium 40 MG DAILY 11/21 2011 AC 11/30 IV 0954 Sodium Chloride 500 ML BOLUS ONE 12/01 0715 UNVr IV 12/01 0814 CXR Findings: No X-Ray done this AM Impression/Plan Impression/Problem List Impression: Ms. Sánchez is a 76 year old female with PMH HTN, severe COPD, cigarette abuse (1 PPD), previous alcohol use, atrial fibrillation on Pradaxa and digoxin, GI bleed and hypothyroidism who presents with chief complaint of cough, decreased oral intake, fatigue, fever and chills for one week. Of note, patient did she her PCP Dr. Enma MD who prescribed her azithromycin for presumed bronchitis though her symptoms persisted prompting evaluation in our emergency department. In the ED: Vital signs showed T 95.0, HR 72, RR 22, BP 90/68, O2 86% RA. Labs were significant for WBC 15.3, 14 bands, 81% granulocytes, H&H 16.1/49.5, Plt 245, Na 120, K 5.4, Cl 79, HCO3 29, BUN 51, Cre 2.4, Glu 95, lactic acid 3.1 , TBili 2.1, DBili 1.4, AST/ALT 7358/2161, trop 0.25, INR 1.83. Abdominal US showed impacted gallstone in GB neck with GB wall thickening, wall edema and pericholecystic fluid. CXR showed cardiomegaly with a patchy opacity in the left lower lung field suggesting an evolving pneumonia. EKG showed non- specific ST elevations in leads [address] depressions in the high lateral leads I and L. Patient is admitted to the intensive care unit and the following is the management: 1. Septic shock requiring pressors with mutiorgan dysfunction, IMPROVING * Patient hypotensive, tachycardic and tachypneic on admission with likely source being intraabdominal pathology (aspiration pneumonia also on ddx) * Repeat Chest Ultrasound for assessment if the patient would be eligeable for a thoracentesis. * Today, WBC 11.6; Tmax 101.1 overnight * Patient Hypotensive overnight, One time bolus 500 ml NS ordered. Second bag ordered at 75 ml/hr. * ID consult appreciated * Cultures so far showing no growth, with no growth from bile culture, sputum only growing yeast * Blood Cultures were re ordered * Trend CBC, ICU bundle 2. Transaminitis and hyperbilirubinemia with acute cholecytsitis * Concern for acute cholecystitis with RUQ US findings of gallstones with wall thickening and edema * Patient is s/p percutaneous cholecystostomy tube with surgery, draining well * Bile showed no growth after 3 days * Hepatitis panel negative, tylenol level <10 * Transaminitis likely 2/2 shock liver in the setting of hypotension from sepsis , IMPROVING * GI consult appreciated; will consider eventual cholangiogram via cholecystostomy tube * Statin continues to be on hold * Continue tube feeds at goal rate 3. Elevated troponin * Troponins peaked at 0.35, have since trended down * Likely represents demand/supply mismatch (demand ischemia); unlikely to be ACS * Cardio consult with Dr. Vida MD appreciated * Aspirin, Plavix and IV heparin initially started but have been discontinued as patient possible surgical candidate, history of GIB and noted oropharyngeal bleeding * Follow up further cardio recommendations, continuous telemetry monitoring * Echo showed mild concentric LVH, normal EF >65%, stage 1 diastolic dysfunction 4. Possible pneumonia, aspiration vs. CAP * CXR on admission showed LLL abnormality suggestive of PNA * Follow up CT chest showed small/moderate pleural effusion with RML/partial RLL collapse; trace left pleural effusion * Continue mucomyst and chest PT until resolution * Continue MV for now, PSV trials to continue * Ativan drip while intubated * US chest showed small amount of fluid on the right, not enough effusion for thoracentesis 5. Paroxysmal atrial fibrillation with digitalis toxicity * Digoxin level elevated on admission requiring digibind; continue to hold digoxin * Hold off anticoagulation, aspirin, plavix at this point as patient was noted to have + oropharyngeal bleeding early during admission * Continuous telemetry monitoring * Follow up cardio recommendations * Hold metoprolol due to hypotension, restart once BP well controlled 6. Hyponatremia, STABLE * Likely hypovolemic hyponatremia in setting of severe dehydration and sepsis * Trend ICU bundle frequently * Patient was bolused this am due to hypotension 500 ml NS Bolus. 7. Acute on chronic respiratory failure with severe COPD/emphysema in the setting of tobacco dependance * Patient noted to be 86% on RA during admission * Initially placed on BiPAP but was intubated due to increased work of breathing around 2200 on 11/20/16 * Continue AC ventilation and monitor for improvement in RLL collapse * Chest PT and mucomyst to continue * Titrate FiO2 down to keep O2 sat >92%; PSV trials today * Continue ativan for sedation * IV protonix while intubated, daily CXR to ensure appropriate positioning 8. BETH * BUN 51, Cre 2.4 on admission, likely secondary to hypotension and severe sepsis (prerenal) * IMPROVING, BUN: 11. CR: 0.6 * Trend ICU bundle * Avoid nephrotoxins 9. Diarrhea * Initial C.Diff (11/29), Negative. If diarrhea persists, consider repeating C.Diff. FULL CODE DVTP: ALPS (no pharm DVTP at this time 2/2 oropharyngeal bleeding) Diet: TUBE FEEDS Mild pain pathway Problem List: 1. Acute cholecystitis 2. Multiorgan failure 3. Tobacco abuse 4. Acute respiratory failure with hypoxia and hypercarbia Pain Ratin Tomorrow's Labs & Rationales: CBC: Monitor WBC ICU Bundle: Monitor Electrolytes C xray : Due to intubation Plan DVT/Prophylaxis: CRISTINO Cabrales MD 12/01/16 0917: Attending MD Review Statement Attending Sign Off Attending Cosign Statement: I have: examined this patient, reviewed avalbl EMR data, personally reviewd images, discussd w/resident/PA/MIDDLE SCHOOL LIBRARIAN, discussed mgmt plan w/rick, discussed mgmt plan w/CM, discussed mgmt plan w/pt, agreed w/resident/PA/MIDDLE SCHOOL LIBRARIAN, amended to note. Other Findings: Cristino Moon M.D. have examined this patient, reviewed available EMR data, personally reviewed images, discussed with resident/PA/MIDDLE SCHO[employer] LIBRARIAN, discussed management plan with housestaff and nursing staff, discussed managment plan all of healthcare providers, discussed management plan with patient and/or family, agreed with resident/PA/MIDDLE SCHOOL LIBRARIAN. The past history and parts of the chart have been autopopulated. Impression 76 year old woman * resolved septic shock secondary to likely abdominal pathlogy, also with a pneumonia that can be likely aspiration vs. CAP * shock liver significantly improved and resolving * hyponatremia * digitalis toxicity * troponinemia - likely demand ischemia * respiratory failure - hypoxemic * tobacco dependence and severe COPD/emphysema Plan Respiratory -reduce fio2 as tolerated -no significant pleural effusion on lung ultrasound -plan for cpap trial when fio2 is 40% -trc/nebs ID -ID consultation appreciated -off Unasyn, monitor off abx -s/p cholecystostomy tube, f/u drainage CVS -monitor hemodynamics Heme -f/u cbc, coags, cardiology recommendations Metabolic -ins/outs -gi/surgery follow up -s/p cholecystomy tube Alimentary -f/u gi/surgery recommendations Neuro -sedation as necessary DVT prophylaxis at all times TTS 35 min
--- NOTE | 2016-12-01 07:49 | RADIOLOGY REPORT ---
EXAMINATION: XR PORTABLE CHEST CLINICAL INFORMATION: Endotracheal tube placement. Aspiration pneumonia. COMPARISON: Chest x-ray dated 11/30/2016. TECHNIQUE: Portable AP semierect view of the chest was obtained. FINDINGS: Endotracheal tube tip is 4.3 cm above the cori. Enteric tube courses into the abdomen with tip not included. The cardiac mediastinal silhouette is within normal limits in size. Calcification of the aortic arch is seen. Low lung volumes are seen with small right-sided pleural effusion and associated consolidation in the right lung base, unchanged. Lungs are otherwise clear. No pneumothorax. Diffuse osteopenia is noted. Degenerative changes in the shoulder joints again noted. IMPRESSION: 1. Endotracheal tube tip 4.3 cm above the cori. 2. Enteric tube tip not included. 3. No change in small right-sided pleural effusion and associated basilar consolidation.
--- NOTE | 2016-12-01 10:44 | PN- Infect Dx ---
Subjective Subjective: MAXIMUM TEMPERATURE 101.1. She offers no complaints. She has had several loose stools overnight. Objective Last 24 Hrs of Vital Signs/I&O Vital Signs Date Time Temp Pulse Resp B/P B/P Pulse O2 O2 Flow FiO2 Mean Ox Delivery Rate 12/01 0852 40 / 0627 40 12/01 0607 99.8 / 0450 101.0 / 0400 101.0 / 0400 93 Ventilator 40% 12/01 0345 40 12/01 0116 40 / 0112 100.9 06/ 0000 94 Ventilator 40% 06/ 0000 100.7 110 16 110/66 94 Ventilator 40% 11/30 2241 45 06 2000 92 Ventilator 40% 11/30 1915 40 11/30 1650 40 11/30 1600 97.7 80 14 118/60 97 Ventilator 40% 11/30 1600 94 Ventilator 40% 11/30 1513 40 / 1200 96 Ventilator 40% 11/30 1124 40 Intake & Output 12/01 1600 12/01 0800 06/ 0000 Intake Total 828 565 Output Total 840 3335 Balance -12 -2770 Intake, IV 170 40 Intake, Oral 0 0 Intake, Tube 468 430 Feeding Intake, Tube 190 95 Irrigant Number 2 1 Bowel Movements Output, Other 40 35 Output, Urine 800 3300 Physical Exam Other Physical Findings: She appears comfortable in no acute distress on the ventilator Lungs bilateral rhonchi Heart regular rhythm with no murmur Abdomen is soft, nontender with positive bowel sounds; cholecystostomy tube in place with bilious drainage Back no CVA tenderness Extremities no cyanosis, clubbing or edema Black catheter remains in place Results Last 24 Hours of Lab Results: Laboratory Tests 12/01 0140 Chemistry Sodium (137 - 145 mmol/L) 132 L Potassium (3.5 - 5.1 mmol/L) 3.9 Chloride (98 - 107 mmol/L) 94 L Carbon Dioxide (22 - 30 mmol/L) 31 H Anion Gap (5 - 16) 7 BUN (7 - 17 mg/dL) 11 Creatinine (0.5 - 1.0 mg/dL) 0.6 Estimated GFR (>60 ml/min) > 60 Glucose (65 - 99 mg/dL) 108 H Calcium (8.4 - 10.2 mg/dL) 8.2 L Phosphorus (2.5 - 4.5 mg/dL) 4.6 H Magnesium (1.6 - 2.3 mg/dL) 1.3 L Total Bilirubin (0.2 - 1.3 mg/dL) 1.1 AST (14 - 36 U/L) 33 ALT (9 - 52 U/L) 89 H Albumin (3.5 - 5.0 g/dL) 2.4 L Hematology CBC w Diff NO MAN DIFF REQ WBC (4.8 - 10.8 /CUMM) 11.6 H RBC (4.20 - 5.40 /CUMM) 3.35 L Hgb (12.0 - 16.0 G/DL) 11.6 L Hct (37 - 47 %) 35.1 L MCV (81.0 - 99.0 FL) 104.8 H MCH (27.0 - 31.0 PG) 34.6 H RDW (11.5 - 14.5 %) 17.0 H Plt Count (130 - 400 /CUMM) 267 MPV (7.4 - 10.4 FL) 8.4 Gran % (42.2 - 75.2 %) 70.8 Lymphocytes % (20.5 - 51.1 %) 12.7 L Monocytes % (1.7 - 9.3 %) 14.4 H Eosinophils % (0 - 5 %) 1.2 Basophils % (0.0 - 2.0 %) 0.9 Absolute Granulocytes (1.4 - 6.5 /CUMM) 8.2 H Absolute Lymphocytes (1.2 - 3.4 /CUMM) 1.5 Absolute Monocytes (0.10 - 0.60 /CUMM) 1.7 H Absolute Eosinophils (0.0 - 0.7 /CUMM) 0.1 Absolute Basophils (0.0 - 0.2 /CUMM) 0.1 PUBS MCHC (33.0 - 37.0 G/DL) 33.0 Last 24 Hours of [place] Results: Blood cultures December 01 pending Sputum culture December 01 pending with gram stain revealing few white blood cells and rare gram-positive rods Stool C. difficile November 29 negative Blood cultures November 26 negative Recent Imaging Studies: Chest x-ray December 01, personally reviewed, reveals a persistent right pleural effusion with associated consolidation at the right base Assessment/Plan Impression: Recurrent fever with an increase in her white blood cell count raising concern for an infectious process, with Unasyn apparently restarted this morning after having been discontinued 2 days ago following 9 days of antibiotics for presumed sepsis. Her respiratory status is stable, with weaning in progress, but am concerned about the right pleural effusion and persistent right lower lobe density and feel that another attempt at thoracentesis should be considered. Her abdominal exam appears benign, with a cholecystostomy tube in place for 11 days for acute cholecystitis, but she has had diarrhea and her decreased H&H raises concern for a possible GI bleed. C. difficile is possible, though her toxin test was negative. Suggestion: 1. Would repeat ultrasound and/or CT of the chest and pursue thoracentesis if adequate fluid 2. Repeat urine culture 3. Check stool guaiacs 4. Repeat stool for C. difficile if diarrhea persists 5. Discontinue Unasyn and follow off antibiotics pending above
--- NOTE | 2016-12-01 12:27 | ULTRASOUND REPORT ---
EXAMINATION: US PLEURAL EFFUSION CLINICAL INFORMATION: Shortness of breath and fevers. Evaluate for pleural effusions. COMPARISON: Same day chest x-ray, chest ultrasound 11/28/[address] 11/27/2016 TECHNIQUE: Grayscale imaging was obtained of both pleural spaces. Examination limited secondary to patient's limited mobility within the ICU. FINDINGS: Small right-sided pleural effusion with overlying consolidation. Trace left-sided pleural fluid. IMPRESSION: Small right pleural effusion. Trace left-sided pleural fluid.
[2016-12-01 16:00] VITALS: BP 100/54
[2016-12-01 21:02] LABS: ABSOLUTE BASOPHIL COUNT 0.1 /CUMM (0.0-0.2); ABSOLUTE EOSINOPHIL COUNT 0.1 /CUMM (0.0-0.7); ABSOLUTE GRANULOCYTE CT 6.8 /CUMM (1.4-6.5); ABSOLUTE LYMPH COUNT 1.2 /CUMM (1.2-3.4); ABSOLUTE MONOCYTE COUNT 1.3 /CUMM (0.10-0.60); EOSINOPHIL % 1.1 % (0-5); GRANULOCYTE % 71.9 % (42.2-75.2); HEMATOCRIT 30.4 % (37-47); MEAN CORPUSCULAR HGB 34.9 PG (27.0-31.0); MEAN CORPUSCULAR HGB CONC 32.9 G/DL (33.0-37.0); PLATELET COUNT 260 /CUMM (130-400); RBC DISTRIBUTION WIDTH 17.5 % (11.5-14.5); RED BLOOD CELL CT 2.86 /CUMM (4.20-5.40); WHITE BLOOD CELL COUNT 9.4 /CUMM (4.8-10.8)
[2016-12-02] VITALS: BP 90/48
--- NOTE | 2016-12-02 00:25 | NUR ---
[birth year]29- RECTAL TEMP 101.4. MD JEAN MADE AWARE. IV TYLENOL ORDERED AND ADMINISTERED PER ORDERS. 2024=B/P 76/DOP. 500ML NS BOLUS PER MD DAVIES. DAUGHTER AT BEDSIDE. STAT CT SCAN ON HOLD DUE TO LOW B/P. R FLANK AREA +WARMTH AND ECCYMOTIC. T TUBE DRAINING BRWN-SILVA FLUID. ATIVAN GTT D/C PER MD ORDERS. 2099=B/P 78/41. ADDITIONAL 500ML NS BOLUS PER MD DAVIES 0=87/43 500ML NS BOLUS PER MD JEAN 0=80/42 500ML NS BOLUS PER MD GRULLON 2230=94/45 500ML NS BOLUS PER MD GRULLON 2300=96/55
--- NOTE | 2016-12-02 01:58 | Event Note ---
Event Note Event Note: Pt had doppler BP 76 and had fever of 101.5; given 1L bolus in addition to 125cc maintenance fluids. Subsequent BP 78/35. Antibiotics onboard: Ceftaz/vanco. It is noted that pt was taken off antibiotics (Unasyn) earlier. However, in light of high grade temperature, in addition to drop in pressure in this pt with multiple possible sources including gallbladder (though pt has no tenderness, no erythema and drain is patent), and PNA (her chest US showed small trace pleural effusion) cannot r/o VAP or other hospital acquired infection. Note sputum, bcx x2, urine culture sent in AM. Pt already had u/s of chest and given hypotension did not do CAT scan of chest/abdomen. Plan discussed with attending
[2016-12-02 04:53] LABS: ABSOLUTE BASOPHIL COUNT 0.1 /CUMM (0.0-0.2); ABSOLUTE EOSINOPHIL COUNT 0.2 /CUMM (0.0-0.7); ABSOLUTE GRANULOCYTE CT 7.3 /CUMM (1.4-6.5); ABSOLUTE LYMPH COUNT 1.6 /CUMM (1.2-3.4); ABSOLUTE MONOCYTE COUNT 1.3 /CUMM (0.10-0.60); BASOPHIL % 0.6 % (0.0-2.0); EOSINOPHIL % 1.5 % (0-5); GRANULOCYTE % 70.1 % (42.2-75.2); HEMATOCRIT 31.9 % (37-47); MEAN CORPUSCULAR HGB 34.8 PG (27.0-31.0); MEAN CORPUSCULAR HGB CONC 32.5 G/DL (33.0-37.0); MEAN CORPUSCULAR VOLUME 106.9 FL (81.0-99.0); MEAN PLATELET VOLUME 8.7 FL (7.4-10.4); PLATELET COUNT 303 /CUMM (130-400); RBC DISTRIBUTION WIDTH 17.6 % (11.5-14.5); RED BLOOD CELL CT 2.98 /CUMM (4.20-5.40); WHITE BLOOD CELL COUNT 10.4 /CUMM (4.8-10.8)
[2016-12-02 05:04] LABS: PT 12.7 SEC (9.4-12.5)
[2016-12-02 08:00] VITALS: BP 106/50
--- NOTE | 2016-12-02 08:52 | PN- Resident CRCU ---
Subjective HPI/CRCU Issues: Around 8:30 PM last night, patient spiked fevers to 101.5 and was noted to be hypotensive with SBP of 76 by doppler. She received NS boluses totaling 2 ml in addition to the maintenance fluids that she was on, NS @ 125 cc/hr with improvement of BP. BP remained relatively low with SBP in the 90-110 range overnight but patient maintained adequate urine output. Broad-spectrum antibiotics, vancomycin and ceftazidime, were administered for presumed sepsis of unclear etiology. CT Chest/Abdomen/Pelvis was deferred in the setting of clinical instability. Patient remains intubated and on mechanical ventilation, day #13 with the following vent settings: AC mode, VT 500, RR 14, PEEP 5 and FiO2 40%. Ativan drip was discontinued overnight and patient remains off sedation. Patient was seen and examined this morning. She is alert and following commands. She offers no complaints. Later around 5:50 PM, patient pulled out her ET tube and was subsequently placed on venti mask. A few minutes later, she developed respiratory distress and desatted and required reintubation. Objective Vital Signs & I&O Last 8 Hrs of Vitals and I&O: Intake & Output 12/02 1600 Intake Total 1465 Output Total 895 Balance 570 Intake, IV 911 Intake, Other 75 Intake, Tube 469 Feeding Intake, Tube 10 Irrigant Output, Other 45 Output, Urine 850 Exam General Appearance: well developed/nourished, no apparent distress, alert, awake , comfortable, intubated Head: atraumatic, normal appearance Ears, Nose, Throat: moist mucus membranes Neck: normal inspection Respiratory: rhonchi on bilateral lung heard Cardiovascular: regular rate/rhythm, no murmurs, rubs or gallops Gastrointestinal: soft, non-tender, positive bowel sounds Extremities: no edema, no clubbing or cyanosis Skin: intact, normal color, warm/dry Current Medications: Current Medications Sig/Shilpa Start time Last Medication Dose Route Stop Time Status Admin Acetaminophen 1,000 MG ONCE ONE 12/01 2014 DC 12/01 N/A 1 UNIT IV 12/01 2028 193 Acetylcysteine 2 ML BID 11/21 1235 AC 12/02 INH 0750 Albuterol Sulfate 3 ML EVERY 4 HRS/AWAKE 11/21 1600 AC 12/02 INH 1131 Ampicillin Sodium/ 3,000 MG Q6 12/01 2359 CAN Sulbactam Sodium IV Sodium Chloride 100 ML Ceftazidime 1,000 MG IQ8 12/02 0000 AC 12/02 IV 0944 Levothyroxine Sodium 75 MCG DAILY 11/22 1000 AC 12/02 IV 1124 Lorazepam 50 MG Q24H 11/28 2200 DC 11/30 Dextrose/Water 500 ML IV 202 Magnesium Sulfate 1 GM ONCE ONE 12/02 09 DC Dextrose/Water 100 ML IV 12/02 1259 Magnesium Sulfate 1 GM ONCE ONE 12/02 0715 DC Dextrose/Water 100 ML IV 12/02 1114 Nystatin 1 ESTEFANY TIDPRN PRN 11/21 0330 11/26 TOP 0329 Pantoprazole Sodium 40 MG DAILY 11/21 2011 AC 12/02 IV 0944 Potassium Chloride 20 MEQ ONCE ONE 12/02 09 DC 12/02 PO 12/02 0901 1154 Potassium Chloride 10 MEQ Q1H 12/02 0715 DC 12/02 IV 12/02 0816 1154 Sodium Chloride 1,000 ML BOLUS ONE 12/01 2130 DC 12/01 IV 12/01 2329 2147 Sodium Chloride 500 ML BOLUS ONE 12/01 2115 DC 12/01 IV 12/01 2214 2100 Sodium Chloride 500 ML BOLUS ONE 12/01 2045 DC 12/01 IV 12/01 2144 2025 Sodium Chloride 1,000 ML Q10H 12/01 1145 DC 12/02 IV 0624 Vancomycin HCl 1,000 MG DAILY 12/01 2106 AC 12/02 Sodium Chloride 250 ML IV 0944 Results Results: Laboratory Tests 12/02 12/02 0518 0430 Chemistry Sodium (137 - 145 mmol/L) 134 L Potassium (3.5 - 5.1 mmol/L) 3.5 Chloride (98 - 107 mmol/L) 102 Carbon Dioxide (22 - 30 mmol/L) 25 Anion Gap (5 - 16) 6 BUN (7 - 17 mg/dL) 9 Creatinine (0.5 - 1.0 mg/dL) 0.5 Estimated GFR (>60 ml/min) > 60 Glucose (65 - 99 mg/dL) 111 H Calcium (8.4 - 10.2 mg/dL) 7.4 L Phosphorus (2.5 - 4.5 mg/dL) 3.6 Magnesium (1.6 - 2.3 mg/dL) 1.6 Total Bilirubin (0.2 - 1.3 mg/dL) 0.7 AST (14 - 36 U/L) 22 ALT (9 - 52 U/L) 66 H Albumin (3.5 - 5.0 g/dL) 2.0 L Coagulation PT (9.4 - 12.5 SEC) 12.7 H INR (0.90 - 1.19) 1.21 H Hematology CBC w Diff NO MAN DIFF REQ WBC (4.8 - 10.8 /CUMM) 10.4 RBC (4.20 - 5.40 /CUMM) 2.98 L Hgb (12.0 - 16.0 G/DL) 10.4 L Hct (37 - 47 %) 31.9 L MCV (81.0 - 99.0 FL) 106.9 H MCH (27.0 - 31.0 PG) 34.8 H RDW (11.5 - 14.5 %) 17.6 H Plt Count (130 - 400 /CUMM) 303 MPV (7.4 - 10.4 FL) 8.7 Gran % (42.2 - 75.2 %) 70.1 Lymphocytes % (20.5 - 51.1 %) 15.3 L Monocytes % (1.7 - 9.3 %) 12.5 H Eosinophils % (0 - 5 %) 1.5 Basophils % (0.0 - 2.0 %) 0.6 Absolute Granulocytes (1.4 - 6.5 /CUMM) 7.3 H Absolute Lymphocytes (1.2 - 3.4 /CUMM) 1.6 Absolute Monocytes (0.10 - 0.60 /CUMM) 1.3 H Absolute Eosinophils (0.0 - 0.7 /CUMM) 0.2 Absolute Basophils (0.0 - 0.2 /CUMM) 0.1 PUBS MCHC (33.0 - 37.0 G/DL) 32.5 L 12/010 Chemistry Sodium (137 - 145 mmol/L) 129 L Potassium (3.5 - 5.1 mmol/L) 3.5 Chloride (98 - 107 mmol/L) 98 Carbon Dioxide (22 - 30 mmol/L) 26 Anion Gap (5 - 16) 6 BUN (7 - 17 mg/dL) 10 Creatinine (0.5 - 1.0 mg/dL) 0.5 Estimated GFR (>60 ml/min) > 60 Glucose (65 - 99 mg/dL) 108 H Calcium (8.4 - 10.2 mg/dL) 7.3 L Phosphorus (2.5 - 4.5 mg/dL) 4.2 Magnesium (1.6 - 2.3 mg/dL) 1.6 Total Bilirubin (0.2 - 1.3 mg/dL) 0.8 AST (14 - 36 U/L) 23 ALT (9 - 52 U/L) 75 H Albumin (3.5 - 5.0 g/dL) 2.0 L Hematology CBC w Diff NO MAN DIFF REQ WBC (4.8 - 10.8 /CUMM) 9.4 RBC (4.20 - 5.40 /CUMM) 2.86 L Hgb (12.0 - 16.0 G/DL) 10.0 L Hct (37 - 47 %) 30.4 L MCV (81.0 - 99.0 FL) 106.0 H MCH (27.0 - 31.0 PG) 34.9 H RDW (11.5 - 14.5 %) 17.5 H Plt Count (130 - 400 /CUMM) 260 MPV (7.4 - 10.4 FL) 8.0 Gran % (42.2 - 75.2 %) 71.9 Lymphocytes % (20.5 - 51.1 %) 12.6 L Monocytes % (1.7 - 9.3 %) 13.4 H Eosinophils % (0 - 5 %) 1.1 Basophils % (0.0 - 2.0 %) 1.0 Absolute Granulocytes (1.4 - 6.5 /CUMM) 6.8 H Absolute Lymphocytes (1.2 - 3.4 /CUMM) 1.2 Absolute Monocytes (0.10 - 0.60 /CUMM) 1.3 H Absolute Eosinophils (0.0 - 0.7 /CUMM) 0.1 Absolute Basophils (0.0 - 0.2 /CUMM) 0.1 PUBS MCHC (33.0 - 37.0 G/DL) 32.9 L UCx (12/01/16): NGTD BCx (12/01/16): NGTD x2 Sputum Cx (12/01/16): Light growth of yeast CXR Findings: 1. ET tube terminates approximately 3.5 cm above the cori. 2. Persistent right basilar opacification, representing a combination of pleural effusion and adjacent parenchymal atelectasis/consolidation. US Findings: CHEST US (12/01/16): Small right pleural effusion. Trace left-sided pleural fluid. Impression/Plan Impression/Problem List Impression: Ms. Sánchez is a 76 year old female with PMH HTN, severe COPD, cigarette abuse (1 PPD), previous alcohol use, atrial fibrillation on Pradaxa and digoxin, GI bleed and hypothyroidism who presents with chief complaint of cough, decreased oral intake, fatigue, fever and chills for one week. Of note, patient did she her PCP Dr. Enma MD who prescribed her azithromycin for presumed bronchitis though her symptoms persisted prompting evaluation in our emergency department. In the ED: Vital signs showed T 95.0, HR 72, RR 22, BP 90/68, O2 86% RA. Labs were significant for WBC 15.3, 14 bands, 81% granulocytes, H&H 16.1/49.5, Plt 245, Na 120, K 5.4, Cl 79, HCO3 29, BUN 51, Cre 2.4, Glu 95, lactic acid 3.1 , TBili 2.1, DBili 1.4, AST/ALT 7358/2161, trop 0.25, INR 1.83. Abdominal US showed impacted gallstone in GB neck with GB wall thickening, wall edema and pericholecystic fluid. CXR showed cardiomegaly with a patchy opacity in the left lower lung field suggesting an evolving pneumonia. EKG showed non- specific ST elevations in leads [address] depressions in the high lateral leads I and L. Patient is admitted to the intensive care unit and the following is the management: 1. Septic shock requiring pressors with mutiorgan dysfunction, IMPROVING * Patient hypotensive, tachycardic and tachypneic on admission with likely source being intraabdominal pathology (aspiration pneumonia also on ddx) * Continues to spike fevers, Tmax 101.5 overnight, though WBC count remains normal. * Hypotensive overnight but BP improved after NS boluses, total of 2 L. * Presumed sepsis in the setting of fever and hypotension. Etiology is unclear with potential sources that are being considered including the lungs given right pleural effusion and persistent right lower lobe opacity, gallbladder though there is no RUQ tenderness with cholecystostomy tube in place for 12 days for acute cholecystitis and C. difficile given diarrhea, though recent stool toxin test (11/29/16) was negative. * Repeat C. difficile stool toxin ordered. * Continue vancomycin 1 g IV daily and ceftazidime 1 g IV Q8H started overnight. ID is aware. * CT Chest/Abdomen/Pelvis with IV Contrast ordered to evaluate for potential sources of sepsis. * Monitor off IV fluids for now. * ID consult appreciated * Cultures so far showing no growth, with no growth from bile culture, sputum only growing yeast. * Most recent BCx and UCx from 12/01/16 negative so far, sputum Cx with only light growth of yeast. * Trend CBC, ICU bundle 2. Transaminitis and hyperbilirubinemia with acute cholecytsitis * Concern for acute cholecystitis with RUQ US findings of gallstones with wall thickening and edema * Patient is s/p percutaneous cholecystostomy tube with surgery, draining well * Bile showed no growth after 3 days * Hepatitis panel negative, tylenol level <10 * Transaminitis likely 2/2 shock liver in the setting of hypotension from sepsis , IMPROVING * GI consult appreciated; will consider eventual cholangiogram via cholecystostomy tube * Statin continues to be on hold * Continue tube feeds at goal rate 3. Elevated troponin * Troponins peaked at 0.35, have since trended down * Likely represents demand/supply mismatch (demand ischemia); unlikely to be ACS * Cardio consult with Dr. Vida MD appreciated * Aspirin, Plavix and IV heparin initially started but have been discontinued as patient possible surgical candidate, history of GIB and noted oropharyngeal bleeding * Follow up further cardio recommendations, continuous telemetry monitoring * Echo showed mild concentric LVH, normal EF >65%, stage 1 diastolic dysfunction 4. Possible pneumonia, aspiration vs. CAP * CXR on admission showed LLL abnormality suggestive of PNA * Follow up CT chest showed small/moderate pleural effusion with RML/partial RLL collapse; trace left pleural effusion * Continue mucomyst and chest PT until resolution * Continue MV for now, PSV trials to continue * Chest US yesterday with small right pleural effusion and trace left pleural effusion, not large enought to be tapped. 5. Paroxysmal atrial fibrillation with digitalis toxicity * Digoxin level elevated on admission requiring digibind; continue to hold digoxin * Hold off anticoagulation, aspirin, plavix at this point as patient was noted to have + oropharyngeal bleeding early during admission * Continuous telemetry monitoring * Follow up cardio recommendations * Hold metoprolol due to hypotension, restart once BP well controlled 6. Hyponatremia, STABLE * Likely hypovolemic hyponatremia in setting of severe dehydration and sepsis * Trend ICU bundle frequently 7. Acute on chronic respiratory failure with severe COPD/emphysema in the setting of tobacco dependance * Patient noted to be 86% on RA during admission * Initially placed on BiPAP but was intubated due to increased work of breathing around 2200 on 11/20/16 * Continue AC ventilation and monitor for improvement in RLL collapse * Chest PT and mucomyst to continue * Titrate FiO2 down to keep O2 sat >92%; continue * Ativan drip discontinued overnight. Monitor off sedation. * Self-extubated this evening but had to be reintubated shortly afterwards due to respiratory distress and desatting. * ABG and CXR ordered post-reintubation. * IV protonix while intubated, daily CXR to ensure appropriate positioning * Continue pressure support ventilation trials * Extubated 8. BETH * BUN 51, Cre 2.4 on admission, likely secondary to hypotension and severe sepsis (prerenal) * Resolved, Cr 0.5 this AM * Avoid nephrotoxins 9. Diarrhea * Initial C.Diff (11/29), Negative. * Repeat C. difficile stool toxin ordered. FULL CODE DVTP: ALPS (no pharm DVTP at this time 2/2 oropharyngeal bleeding) Diet: TUBE FEEDS Mild pain pathway Problem List: 1. Acute cholecystitis 2. Multiorgan failure 3. Tobacco abuse 4. Acute respiratory failure with hypoxia and hypercarbia Pain Ratin Tomorrow's Labs & Rationales: CBC and ICU bundle (ICU patient) Plan DVT/Prophylaxis: mechanical
--- NOTE | 2016-12-02 11:30 | PN- CRCU ---
Subjective HPI/Critical Care Issues: Continues to be febrile MAXIMUM TEMPERATURE 101.5 Blood pressure is relatively low but maintaining urine output on 40% FiO2 5 of PEEP Patient is positive by 4 L Patient did have to receive significant amount of normal saline boluses yesterday Significant data Chest x-ray from yesterday reviewed Ultrasound only showed small pleural effusion Blood work reviewed BUN/creatinine stable anion gap is normal white count 10.4 with 15% lymphocytes INR 1.2 ABG reviewed patient was slightly alkalotic so poor sputum cultures only grown yeast Objective Current Medications: Current Medications Sig/Shilpa Start time Last Medication Dose Route Stop Time Status Admin Acetaminophen 1,000 MG ONCE ONE 12/01 2014 DC 12/01 N/A 1 UNIT IV 12/01 2028 1930 Acetylcysteine 2 ML BID 11/21 1235 AC 12/02 INH 0750 Albuterol Sulfate 3 ML EVERY 4 HRS/AWAKE 11/21 1600 AC 12/02 INH 0750 Ampicillin Sodium/ 3,000 MG Q6 12/01 2359 CAN Sulbactam Sodium IV Sodium Chloride 100 ML Ceftazidime 1,000 MG IQ8 12/02 0000 AC 12/02 IV 0944 Levothyroxine Sodium 75 MCG DAILY 11/22 1000 AC 12/01 IV 0916 Lorazepam 50 MG Q24H 11/28 2200 DC 11/30 Dextrose/Water 500 ML IV 202 Magnesium Sulfate 1 GM ONCE ONE 12/02 899 AC Dextrose/Water 100 ML IV 12/02 1259 Magnesium Sulfate 1 GM ONCE ONE 12/02 0715 DC Dextrose/Water 100 ML IV 12/02 1114 Nystatin 1 ESTEFANY TIDPRN PRN 11/21 0330 AC 11/26 TOP 0329 Pantoprazole Sodium 40 MG DAILY 11/21 2011 AC 12/02 IV 0944 Potassium Chloride 20 MEQ ONCE ONE 12/02 0900 DC PO 12/02 0901 Potassium Chloride 10 MEQ Q1H 12/02 0715 DC IV 12/02 0816 Sodium Chloride 1,000 ML BOLUS ONE 12/01 2130 DC 12/01 IV 12/01 2329 2147 Sodium Chloride 500 ML BOLUS ONE 12/01 2115 DC 12/01 IV 12/01 2214 2100 Sodium Chloride 500 ML BOLUS ONE 12/01 2045 DC 12/01 IV 12/01 2144 2025 Sodium Chloride 1,000 ML Q10H 12/01 1145 DC 12/02 IV 0624 Sodium Chloride 500 ML BOLUS ONE 12/01 1115 DC 12/01 IV 12/01 1214 1115 Sodium Chloride 500 ML BOLUS ONE 12/01 0830 DC 12/01 IV 12/01 1509 0916 Vancomycin HCl 1,000 MG DAILY 12/01 2106 AC 12/02 Sodium Chloride 250 ML IV 0944 Vital Signs & I&O Last 24 Hrs of Vitals and I&O: Vital Signs Date Time Temp Pulse Resp B/P B/P Pulse O2 O2 Flow FiO2 Mean Ox Delivery Rate 12/02 0755 40 12/02 0619 40 12/02 0400 97 Ventilator 40% 12/02 0356 40 12/02 0156 40 12/02 0000 99.4 80 14 90/48 94 Ventilator 40% 12/02 0000 94 Ventilator 40% 12/01 2248 40 12/01 2032 101.5 12/01 2000 98 Ventilator 40% 12/01 1933 40 12/01 1930 101.4 12/01 1625 40 12/01 1600 92 Ventilator 40% 12/01 1600 99.0 94 14 100/54 92 Ventilator 40% 12/01 1510 40 12/01 1215 40 12/01 1200 95 Ventilator 40% Intake & Output 12/02 1600 12/02 0800 12/02 0000 Intake Total 1929 2384 Output Total 810 590 Balance 1119 1794 Intake, IV 1270 2158 Intake, Oral 0 Intake, Tube 469 131 Feeding Intake, Tube 190 95 Irrigant Number 1 2 Bowel Movements Output, Other 60 Output, Urine 750 590 Laboratory Tests 12/02 12/02 0518 0430 Chemistry Sodium (137 - 145 mmol/L) 134 L Potassium (3.5 - 5.1 mmol/L) 3.5 Chloride (98 - 107 mmol/L) 102 Carbon Dioxide (22 - 30 mmol/L) 25 Anion Gap (5 - 16) 6 BUN (7 - 17 mg/dL) 9 Creatinine (0.5 - 1.0 mg/dL) 0.5 Estimated GFR (>60 ml/min) > 60 Glucose (65 - 99 mg/dL) 111 H Calcium (8.4 - 10.2 mg/dL) 7.4 L Phosphorus (2.5 - 4.5 mg/dL) 3.6 Magnesium (1.6 - 2.3 mg/dL) 1.6 Total Bilirubin (0.2 - 1.3 mg/dL) 0.7 AST (14 - 36 U/L) 22 ALT (9 - 52 U/L) 66 H Albumin (3.5 - 5.0 g/dL) 2.0 L Coagulation PT (9.4 - 12.5 SEC) 12.7 H INR (0.90 - 1.19) 1.21 H Hematology CBC w Diff NO MAN DIFF REQ WBC (4.8 - 10.8 /CUMM) 10.4 RBC (4.20 - 5.40 /CUMM) 2.98 L Hgb (12.0 - 16.0 G/DL) 10.4 L Hct (37 - 47 %) 31.9 L MCV (81.0 - 99.0 FL) 106.9 H MCH (27.0 - 31.0 PG) 34.8 H RDW (11.5 - 14.5 %) 17.6 H Plt Count (130 - 400 /CUMM) 303 MPV (7.4 - 10.4 FL) 8.7 Gran % (42.2 - 75.2 %) 70.1 Lymphocytes % (20.5 - 51.1 %) 15.3 L Monocytes % (1.7 - 9.3 %) 12.5 H Eosinophils % (0 - 5 %) 1.5 Basophils % (0.0 - 2.0 %) 0.6 Absolute Granulocytes (1.4 - 6.5 /CUMM) 7.3 H Absolute Lymphocytes (1.2 - 3.4 /CUMM) 1.6 Absolute Monocytes (0.10 - 0.60 /CUMM) 1.3 H Absolute Eosinophils (0.0 - 0.7 /CUMM) 0.2 Absolute Basophils (0.0 - 0.2 /CUMM) 0.1 PUBS MCHC (33.0 - 37.0 G/DL) 32.5 L /02 12/01 2049 0140 Chemistry Sodium (137 - 145 mmol/L) 129 L 132 L Potassium (3.5 - 5.1 mmol/L) 3.5 3.9 Chloride (98 - 107 mmol/L) 98 94 L Carbon Dioxide (22 - 30 mmol/L) 26 31 H Anion Gap (5 - 16) 6 7 BUN (7 - 17 mg/dL) 10 11 Creatinine (0.5 - 1.0 mg/dL) 0.5 0.6 Estimated GFR (>60 ml/min) > 60 > 60 Glucose (65 - 99 mg/dL) 108 H 108 H Calcium (8.4 - 10.2 mg/dL) 7.3 L 8.2 L Phosphorus (2.5 - 4.5 mg/dL) 4.2 4.6 H Magnesium (1.6 - 2.3 mg/dL) 1.6 1.3 L Total Bilirubin (0.2 - 1.3 mg/dL) 0.8 1.1 AST (14 - 36 U/L) 23 33 ALT (9 - 52 U/L) 75 H 89 H Albumin (3.5 - 5.0 g/dL) 2.0 L 2.4 L Hematology CBC w Diff NO MAN DIFF REQ NO MAN DIFF REQ WBC (4.8 - 10.8 /CUMM) 9.4 11.6 H RBC (4.20 - 5.40 /CUMM) 2.86 L 3.35 L Hgb (12.0 - 16.0 G/DL) 10.0 L 11.6 L Hct (37 - 47 %) 30.4 L 35.1 L MCV (81.0 - 99.0 FL) 106.0 H 104.8 H MCH (27.0 - 31.0 PG) 34.9 H 34.6 H RDW (11.5 - 14.5 %) 17.5 H 17.0 H Plt Count (130 - 400 /CUMM) 260 267 MPV (7.4 - 10.4 FL) 8.0 8.4 Gran % (42.2 - 75.2 %) 71.9 70.8 Lymphocytes % (20.5 - 51.1 %) 12.6 L 12.7 L Monocytes % (1.7 - 9.3 %) 13.4 H 14.4 H Eosinophils % (0 - 5 %) 1.1 1.2 Basophils % (0.0 - 2.0 %) 1.0 0.9 Absolute Granulocytes (1.4 - 6.5 /CUMM) 6.8 H 8.2 H Absolute Lymphocytes (1.2 - 3.4 /CUMM) 1.2 1.5 Absolute Monocytes (0.10 - 0.60 /CUMM) 1.3 H 1.7 H Absolute Eosinophils (0.0 - 0.7 /CUMM) 0.1 0.1 Absolute Basophils (0.0 - 0.2 /CUMM) 0.1 0.1 PUBS MCHC (33.0 - 37.0 G/DL) 32.9 L 33.0 Microbiology Date/Time Procedure - Status Source Growth 12/01 1700 Urine Culture - RES URINE ROUT 12/01 0628 Respiratory Culture - RES LOWER RESP YEAST 12/01 0628 Gram Stain - RES LOWER RESP 12/01 0150 Blood Culture - [facility]KST BLOOD 12/01 0140 Blood Culture - [facility]KST BLOOD 11/29 1500 Clostridium difficile Toxin A & B - COMP STOOL Impression/Plan Impression/Plan Impression/Plan: Physical Exam General Appearance Alert, intubated Skin No Rashes Skin Temp/Moisture Exam: Cool/Dry Sepsis Skin Exam (color): Mottled HEENT Atraumatic, PERRLA, EOMI Cardiovascular Normal S1, Normal S2, irregular rate and rhythm Lungs bilateral diffuse rhonchi and wheezing Abdomen Normal Bowel Sounds, Soft, No Tenderness IMPRESSION This is a 76-year-old lady with very poor performance status, severe COPD from her previous PFTs, 1 pack a day smoker, previous alcohol use, and so diazepam use, atrial fibrillation on anticoagulation and on digoxin, hypertension, recent cough wheezing for which she had taken azithromycin, history of hypothyroidism on appropriate supplementation, previous history of pneumonia and chronic respiratory insufficiency with acute on chronic respiratory failure, previous history of strep pneumo infection, with * Acute on chronic hypercarbic and hypoxemic respiratory failure related to significant COPD compounded by probable pneumonia with minimal wheezing with underlying sepsis. Sepsis appears to be due to intraabd process with cholecystisis now s/p perc tube p * New onset fever, hypotension yesterday requiring fluid boluses indicative of new onset sepsis investigation ongoing ID on board * Resolved sig hyponatremia, altered LFTs, acute renal failure * PAtrial fibrillation now not on anticoag as she had bleeding * History of Ongoing cigarette smoking with previous history of alcohol use, hypothyroidism, vitamin D deficiency, RECOMMENDATION Continue mechanical ventilator Recall ID about appropriate antibiotic use as patient has received antibiotics last night Check stool for cdiff Patient may require CT scan of the chest abdomen and pelvis with IV contrast if she continues to spike PSV trials today Will follow Pt is critically ill TTS 36 mins
--- NOTE | 2016-12-02 13:49 | RADIOLOGY REPORT ---
EXAMINATION: XR PORTABLE CHEST CLINICAL INFORMATION: Confirm ET tube placement. COMPARISON: Chest radiography 12/01/2016. TECHNIQUE: Portable frontal view of the chest was obtained. FINDINGS: The endotracheal tube terminates approximately 3.5 cm above the cori. An enteric tube courses inferiorly within the esophagus, with the distal tip not well visualized secondary to technical factors. There is persistent right basilar opacification. No new lobar consolidation, pneumothorax, or left pleural effusion. Left breast/chest wall radiodensities are again noted. Mediastinal contours are unchanged. Aortic atherosclerotic calcification. No acute osseous abnormalities. IMPRESSION: 1. ET tube terminates approximately 3.5 cm above the cori. 2. Persistent right basilar opacification, representing a combination of pleural effusion and adjacent parenchymal atelectasis/consolidation.
[2016-12-02 16:00] VITALS: BP 101/61
--- NOTE | 2016-12-02 18:41 | Event Note ---
Event Note Event Note: Around 5:50 PM patient pulled out her ET tube, she was placed on Venti mask and a few minutes later was found to be tachypnic with a RR in the 40's-50's and saturations in the 70-80's. She was re-intubated. She handeled the procedure well. Stat CXR has been obtained to confirm ET tube placement and an ABG has also been obtained to re-assess ventilator settings.
--- NOTE | 2016-12-02 19:08 | RADIOLOGY REPORT ---
EXAMINATION: XR PORTABLE CHEST CLINICAL INFORMATION: Endotracheal tube placement COMPARISON: Chest x-ray 12/02/2016 at 6:37 AM TECHNIQUE: Portable AP view of the chest was obtained. FINDINGS: Stable cardiomediastinal silhouette. Atherosclerotic calcifications of the aortic arch again noted. There is an endotracheal tube in place with its tip located about 3.4 cm above the cori. EKG leads are projecting over the thorax. Right lower lobe opacity again noted, unchanged. The left lung is clear. No pneumothorax. Indistinct calcific densities projecting over the shadow of the left breast, similar to the comparison x-ray. IMPRESSION: An endotracheal tube is in place with its tip located about 3.4 cm above the cori. Unchanged right lower lobe pulmonary opacity.
--- NOTE | 2016-12-02 21:37 | NUR ---
1700: Patient changed of incontinent stool. Washed up/repositioned and restraints retied. Patient reoriented to room/restraints/ventilator. 1740: Noted artifact on quality assurance monitor. This RN went into patient's room, patient leaning down/slouched to the left of bed and left hand wrapped around ETT. Patient is coughing/sputtering and ETT/OGT in patient's mouth and no longer in appropriate place. Tube feeds held. Dr. Horton aware and in room along with RT Adriana & Christina. ETT removed and patient placed on 50% aerosol mask. Patient's voise is hoarse and patient is congested/rhonchorous/coughing, O2 sats up to 99% but RR 40s. Heart rate increasing from 110s to 130s. Patient knods head that she is fine. Continuing to monitor. 1814: Noted patient to start desatting, went into patient's room and assessed loud/stridorous noises coming from patient and patient's mouth closed. Patient turning blue/ayoub and no longer nodding/shaking to questions. RT paged/Dr. Horton at beside w/ intubation tray. Patient reintubated w/ #8 ETT taped to the left at 19 cm and mechanically ventilated w. original settings AC-14, TV-500, FIO2-40%, peep of 5. Orally and deeps suctioned for bloody/frothy secretions. New OGT placed to 55cm as previous. STAT CXR ordered and ETT placement confirmed but not OGT. Informed oncoming RN, Facundo. Patient's vitals stable other than heart rate in the 120s and tolerated re-intubation well. Some restlessness and anxiety noted afterwards. Patient's restraints reinforced. Patient denies pain but is angry and refusing to open mouth to be suctioned. 1mg IV ativan ordered and given at this time by Dr. Horton. Patient's heart rate decreasing w/ medication and emotional reassurance. B/P stable. Continuing to montior. Family updated by Dr. Horton.
--- NOTE | 2016-12-02 22:23 | RADIOLOGY REPORT ---
EXAMINATION: XR PORTABLE CHEST CLINICAL INFORMATION: Follow-up chest. COMPARISON: Chest performed earlier today at 6:41 PM. TECHNIQUE: Portable frontal view of the chest was obtained. FINDINGS: There is a nasogastric tube tip in the stomach. Endotracheal tube is 3.4 cm above the cori. There right CP angle is not in the [id number]. Otherwise both lungs are fairly well-expanded and clear acute process. The heart size is enlarged with normal pulmonary vascularity. No gross bony abnormality seen. IMPRESSION: Support lines and catheters in satisfactory position. Mild cardiomegaly. The lungs are otherwise clear.
[2016-12-03] VITALS: BP 93/44
--- NOTE | 2016-12-03 00:46 | RADIOLOGY REPORT ---
EXAMINATION: XR PORTABLE CHEST CLINICAL INFORMATION: OG tube placement COMPARISON: 12/02/2016 TECHNIQUE: Portable frontal view of the chest was obtained. FINDINGS: The enteric tube terminates in the stomach, similar to the previous study. The endotracheal tube terminates approximately 4 cm above the cori. The right lung is not fully included on this study. The left lung appears clear. The cardiomediastinal silhouette is unchanged, with a calcified aorta. IMPRESSION: Enteric tube terminating in the stomach.
[2016-12-03 05:06] LABS: ABSOLUTE BASOPHIL COUNT 0.1 /CUMM (0.0-0.2); ABSOLUTE EOSINOPHIL COUNT 0.2 /CUMM (0.0-0.7); ABSOLUTE GRANULOCYTE CT 5.2 /CUMM (1.4-6.5); ABSOLUTE LYMPH COUNT 1.4 /CUMM (1.2-3.4); ABSOLUTE MONOCYTE COUNT 1.1 /CUMM (0.10-0.60); BASOPHIL % 0.7 % (0.0-2.0); EOSINOPHIL % 1.9 % (0-5); GRANULOCYTE % 65.5 % (42.2-75.2); MEAN CORPUSCULAR HGB 34.8 PG (27.0-31.0); MEAN CORPUSCULAR VOLUME 105.4 FL (81.0-99.0); MEAN PLATELET VOLUME 8.4 FL (7.4-10.4); PLATELET COUNT 349 /CUMM (130-400); RBC DISTRIBUTION WIDTH 17.2 % (11.5-14.5); RED BLOOD CELL CT 3.03 /CUMM (4.20-5.40)
[2016-12-03 08:00] VITALS: BP 110/58
--- NOTE | 2016-12-03 08:08 | PN- Resident CRCU ---
Subjective HPI/CRCU Issues: Patient seen and examined at bedside this AM. She was taken for CT chest/abdomen /pelvis which showed new fluid collection in the right lateral abdominal wall musculature for which a follow up dedicated US is pending. It continued to show small bilateral effusions with patchy ground glass opacities. Stool for C. Diff returned today as POSITIVE. Dr. Mau MD made aware, patient started on PO flagyl and placed on isolation. Family updated regarding this change. 24 Hour Events: manager therapy: No significant events. Vital signs last 24 hours: T 97.8-99.3, HR 78-116, RR 14-48, BP 84-125/41-71, O2 sat 90-96% on AC 14 TV 500 FiO2 40% and 5 PEEP. Total intake last 24 hours: 2317 cc Total output last 24 hours: 2895 cc Objective Vital Signs & I&O Last 8 Hrs of Vitals and I&O: T 97.8-99.3, HR 78-116, RR 14-48, BP 84-125/41-71, O2 sat 90-96% on AC 14 TV 500 FiO2 40% and 5 PEEP. Exam General Appearance: well developed/nourished, comfortable, intubated Head: atraumatic, normal appearance Ears, Nose, Throat: hearing grossly normal, moist mucus membranes Neck: normal inspection, supple Respiratory: Rhonchi continue to be appreciated bilaterally Cardiovascular: regular rate/rhythm Gastrointestinal: normal bowel sounds, soft, Bilateral flank hematoma appreciated. Right upper abdomen with clean, dry gauze and perc olimpia tube continues to drain Extremities: normal capillary refill Skin: warm/dry Weaning Schedule Start Time: 1305 Minute Volume: 7.99 Resp Rate: 40 Vt: 360 Heart Rate: 96 Nutrition Nutrition: tube feeding Current Medications: Current Medications Sig/Shilpa Start time Last Medication Dose Route Stop Time Status Admin Acetylcysteine 2 ML BID 11/21 1235 AC 12/03 INH 0742 Albuterol Sulfate 3 ML EVERY 4 HRS/AWAKE 11/21 1600 AC 12/03 INH 1203 Ceftazidime 1,000 MG IQ8 12/02 0000 DC 12/03 IV 0900 Dextrose/Sodium 500 ML .Q6H40M 12/02 2345 DC 12/03 Chloride IV 12/03 0624 0013 Levothyroxine Sodium 75 MCG DAILY 11/22 1000 AC 12/03 IV 1059 Lorazepam 1 MG ONE ONE 12/03 0430 CAN PO 12/03 0431 Lorazepam 1 MG ONCE ONE 12/03 0430 DC 12/03 IV 12/03 0431 0427 Lorazepam 1 MG ONCE ONE 12/02 1900 DC 12/02 IV 12/02 190 1909 Magnesium Oxide 400 MG ONE ONE 12/03 0830 DC / PO 12/03 0831 1100 Metronidazole 500 MG IQ8 12/03 1600 CAN N/A 1 UNIT IV Metronidazole 250 MG Q8 12/03 1400 AC PO Nystatin 1 ESTEFANY TIDPRN PRN 11/21 0330 AC 11/26 TOP 0329 Pantoprazole Sodium 40 MG DAILY 11/21 2011 AC 12/03 IV 1059 Potassium Chloride 40 MEQ ONCE ONE 12/03 0830 DC 12/03 PO 12/03 08 1100 Vancomycin HCl 1,000 MG DAILY 12/01 2106 DC 12/03 Sodium Chloride [address] Scan Findings: IMPRESSION: 1. Mixed density, heterogeneous collection along/within the right lateral abdominal wall musculature (see correia images). It is unclear whether this represents a hematoma or infected collection. Consider targeted sonography to evaluate for a discrete/drainable fluid pocket. 2. Small bilateral pleural effusions, right greater than left. Adjacent dependent atelectasis/consolidation persists. Nonspecific patchy groundglass opacities in the right middle lobe, which could represent subtle local infection/inflammation. 3. Cholecystostomy tube in place. The gallbladder is decompressed. 4. No acute bowel pathology. 5. Diffuse atherosclerotic disease including coronary artery calcification. Impression/Plan Impression/Problem List Impression: Ms. Sánchez is a 76 year old female with PMH HTN, severe COPD, cigarette abuse (1 PPD), previous alcohol use, atrial fibrillation on Pradaxa and digoxin, GI bleed and hypothyroidism who presents with chief complaint of cough, decreased oral intake, fatigue, fever and chills for one week. Of note, patient did she her PCP Dr. Enma MD who prescribed her azithromycin for presumed bronchitis though her symptoms persisted prompting evaluation in our emergency department. In the ED: Vital signs showed T 95.0, HR 72, RR 22, BP 90/68, O2 86% RA. Labs were significant for WBC 15.3, 14 bands, 81% granulocytes, H&H 16.1/49.5, Plt 245, Na 120, K 5.4, Cl 79, HCO3 29, BUN 51, Cre 2.4, Glu 95, lactic acid 3.1 , TBili 2.1, DBili 1.4, AST/ALT 7358/2161, trop 0.25, INR 1.83. Abdominal US showed impacted gallstone in GB neck with GB wall thickening, wall edema and pericholecystic fluid. CXR showed cardiomegaly with a patchy opacity in the left lower lung field suggesting an evolving pneumonia. EKG showed non- specific ST elevations in leads [address] depressions in the high lateral leads I and L. Patient is admitted to the intensive care unit and the following is the management: 1. Septic shock requiring pressors with mutiorgan dysfunction, IMPROVING * Patient hypotensive, tachycardic and tachypneic on admission with likely source being intraabdominal pathology (aspiration pneumonia also on ddx) * Today, WBC 8.0; Tmax 99.6 overnight * ID consult appreciated * Cultures so far showing no growth, with no growth from bile culture, sputum only growing yeast * DISCONTINUED unasyn on 11/29/16 and follow off antibiotics * CLOSTRIDIUM noted to be + today, patient started on PO flagyl and placed on isolation * Patient hemodynamically stable OFF of pressors * Trend CBC, ICU bundle 2. Transaminitis and hyperbilirubinemia with acute cholecytsitis * Concern for acute cholecystitis with RUQ US findings of gallstones with wall thickening and edema * Patient is s/p percutaneous cholecystostomy tube with surgery, draining well * Bile showed no growth after 3 days * Hepatitis panel negative, tylenol level <10 * Transaminitis likely 2/2 shock liver in the setting of hypotension from sepsis , IMPROVED and have now normalized * GI consult appreciated; will consider eventual cholangiogram via cholecystostomy tube * Statin continues ot be on hold, will likely resume prior to discharge * Continue tube feeds at goal rate 3. Elevated troponin * Troponins peaked at 0.35, have since trended down * Likely represents demand/supply mismatch (demand ischemia); unlikely to be ACS * Cardio consult with Dr. Vida MD appreciated * Aspirin, Plavix and IV heparin initially started but have been discontinued as patient possible surgical candidate, history of GIB and noted oropharyngeal bleeding * Follow up further cardio recommendations, continuous telemetry monitoring * Echo showed mild concentric LVH, normal EF >65%, stage 1 diastolic dysfunction 4. Possible pneumonia, aspiration vs. CAP * CXR on admission showed LLL abnormality suggestive of PNA * Follow up CT chest showed small/moderate pleural effusion with RML/partial RLL collapse; trace left pleural effusion * Continue mucomyst and chest PT until resolution * IV unasyn has since been discontinued * Continue MV for now, PSV trials to continue * US chest showed small amount of fluid on the right, not enough effusion for thoracentesis 5. Paroxysmal atrial fibrillation with digitalis toxicity * Digoxin level elevated on admission requiring digibind; continue to hold digoxin * Hold off anticoagulation, aspirin, plavix at this point as patient was noted to have + oropharyngeal bleeding early during admission * Continuous telemetry monitoring * Follow up cardio recommendations * Hold metoprolol due to persistent borderline hypotension, restart once BP well controlled 6. Hyponatremia, STABLE * Likely hypovolemic hyponatremia in setting of severe dehydration and sepsis * Trend ICU bundle frequently * Watch patient off of fluids 7. Acute on chronic respiratory failure with severe COPD/emphysema in the setting of tobacco dependance * Patient noted to be 86% on RA during admission * Initially placed on BiPAP but was intubated due to increased work of breathing around 2200 on 11/20/16 * Continue AC ventilation and monitor for improvement in RLL collapse * Chest PT and mucomyst to continue * Titrate FiO2 down to keep O2 sat >92%; PSV trials today * IV protonix while intubated, daily CXR to ensure appropriate positioning 8. BETH * BUN 51, Cre 2.4 on admission, likely secondary to hypotension and severe sepsis (prerenal) * IMPROVING * Trend ICU bundle * Avoid nephrotoxins 9. Left lung nodule * 0.4 cm in left lung apex * Follow up as an outpatient with pulmonology for conitnued monitor 10. Clostridium dificile infection * Place on contact (special enteric) isolation * PO flagyl Q8 * Strict Is/Os * CT negative for acute bowel pathology FULL CODE DVTP: ALPS (no pharm DVTP at this time 2/2 oropharyngeal bleeding) Diet: TUBE FEEDS Mild pain pathway Problem List: 1. Acute cholecystitis 2. Clostridium difficile diarrhea 3. Multiorgan failure 4. Tobacco abuse 5. Acute respiratory failure with hypoxia and hypercarbia Pain Ratin Tomorrow's Labs & Rationales: cbc, icu bundle, cxr Plan DVT/Prophylaxis: mechanical
--- NOTE | 2016-12-03 08:41 | PN- Infect Dx ---
Subjective Subjective: Afebrile without complaints. Her blood pressure apparently dropped overnight December 01 with fever to 101.5, for which she was empirically begun on Vancomycin and Ceftazidime. She apparently pulled out her ET tube last evening, but became tachypneic with a drop in her O2 sats and she was promptly reintubated. Objective Last 24 Hrs of Vital Signs/I&O Vital Signs Date Time Temp Pulse Resp B/P B/P Pulse O2 O2 Flow FiO2 Mean Ox Delivery Rate 12/03 0752 40 / 0610 40 12/03 0400 95 Ventilator 40% 12/03 0319 40 / 0028 40 06/ 0000 98.9 96 14 93/44 95 Ventilator 40% 06/ 0000 95 Ventilator 40% / 2238 40 12/02 2000 93 Ventilator 40% 12/02 1900 40 / 1645 40 / 1600 96 Ventilator 40% / 1600 99.2 108 30 101/61 96 Ventilator 40% /03 1410 40 / 1200 90 Ventilator 40% / 1134 40 Intake & Output 12/03 1600 /04 0800 06/ 0000 Intake Total 741 120 Output Total 575 1425 Balance 166 -1305 Intake, IV 588 0 Intake, Tube 58 120 Feeding Intake, Tube 95 Irrigant Number 0 0 Bowel Movements Output, Other 75 125 Output, Urine 500 1300 Physical Exam Other Physical Findings: She appears comfortable on the ventilator in no acute distress Lungs are clear Heart regular rhythm with no murmur Abdomen is soft, nontender with positive bowel sounds; cholecystostomy tube in place with bilious drainage of 230 mL output yesterday Extremities no cyanosis, clubbing or edema Black catheter remains in place Results Last 24 Hours of Lab Results: Laboratory Tests 12/03 12/02 0435 2115 Blood Gas pH (7.35 - 7.45 PH) 7.48 H pCO2 (35 - 45 TORR) 32 L pO2 (80 - 100 TORR) 80 HCO3 (21 - 28 MEQ/L) 23 ABG O2 Sat (Measured) (>96.0 %) 95.0 L P-50 (Temp Corrected) N Carboxyhemoglobin (1.5 - 5.0 %) 0.4 L O2 Concentration % 40% Temperature (97.0 - 100.0 FARH) 97.8 Respiration Rate (BPM) 14 O2 Delivery Method ESPRIT Vent Mode AC Expiratory Pressure (CMH2O/P) 5 Tidal Volume (CC) 500 Chemistry Sodium (137 - 145 mmol/L) 133 L Potassium (3.5 - 5.1 mmol/L) 3.7 Chloride (98 - 107 mmol/L) 102 Carbon Dioxide (22 - 30 mmol/L) 25 Anion Gap (5 - 16) 6 BUN (7 - 17 mg/dL) 9 Creatinine (0.5 - 1.0 mg/dL) 0.6 Estimated GFR (>60 ml/min) > 60 Glucose (65 - 99 mg/dL) 75 Calcium (8.4 - 10.2 mg/dL) 7.8 L Phosphorus (2.5 - 4.5 mg/dL) 3.3 Magnesium (1.6 - 2.3 mg/dL) 1.9 Total Bilirubin (0.2 - 1.3 mg/dL) 1.0 AST (14 - 36 U/L) 23 ALT (9 - 52 U/L) 52 Albumin (3.5 - 5.0 g/dL) 2.2 L Hematology CBC w Diff NO MAN DIFF REQ WBC (4.8 - 10.8 /CUMM) 8.0 RBC (4.20 - 5.40 /CUMM) 3.03 L Hgb (12.0 - 16.0 G/DL) 10.6 L Hct (37 - 47 %) 32.0 L MCV (81.0 - 99.0 FL) 105.4 H MCH (27.0 - 31.0 PG) 34.8 H RDW (11.5 - 14.5 %) 17.2 H Plt Count (130 - 400 /CUMM) 349 MPV (7.4 - 10.4 FL) 8.4 Gran % (42.2 - 75.2 %) 65.5 Lymphocytes % (20.5 - 51.1 %) 18.0 L Monocytes % (1.7 - 9.3 %) 13.9 H Eosinophils % (0 - 5 %) 1.9 Basophils % (0.0 - 2.0 %) 0.7 Absolute Granulocytes (1.4 - 6.5 /CUMM) 5.2 Absolute Lymphocytes (1.2 - 3.4 /CUMM) 1.4 Absolute Monocytes (0.10 - 0.60 /CUMM) 1.1 H Absolute Eosinophils (0.0 - 0.7 /CUMM) 0.2 Absolute Basophils (0.0 - 0.2 /CUMM) 0.1 PUBS MCHC (33.0 - 37.0 G/DL) 33.0 Miscellaneous Phlebotomy Draw Site RIGHT BRACHIAL Last 24 Hours of Chase Results: Blood cultures December 01 negative Sputum culture December 01 light growth of yeast Urine culture December 01 negative Stool C. difficile December 02 pending Recent Imaging Studies: Chest x-ray December 02 unchanged right lower lobe opacity Ultrasound of the chest December 01 small right pleural effusion Assessment/Plan Impression: Stable with no further fevers and with white blood cell count normal on empiric treatment with Vancomycin and Ceftazidime, begun on the night before last because of recurrent fevers associated with a drop in her blood pressure, though she has no obvious source of sepsis and recent cultures remain negative. She has had loose stools and a repeat C. difficile is pending. Her repeat ultrasound of the chest apparently did not show a significant amount of fluid; therefore a thoracentesis was not performed. She is now 13 days status post placement of a cholecystostomy tube for acute cholecystitis. Suggestion: 1. Follow-up stool for C. difficile 2. Consider repeat CT of the chest, abdomen and pelvis with contrast if fevers recur 3. Discontinue Vancomycin and Ceftazidime and follow off antibiotics
--- NOTE | 2016-12-03 09:55 | PN- CRCU ---
Subjective HPI/Critical Care Issues: Events and data reviewed PT did self extubate herself and had to be reintubated Awake today Was sad that she could not be liberated from the respirator No other compliants Objective Current Medications: Current Medications Sig/Shilpa Start time Last Medication Dose Route Stop Time Status Admin Acetylcysteine 2 ML BID 11/21 1235 AC 12/03 INH 0742 Albuterol Sulfate 3 ML EVERY 4 HRS/AWAKE 11/21 1600 AC 12/03 INH 0742 Ceftazidime 1,000 MG IQ8 12/02 0000 AC 12/03 IV 0012 Dextrose/Sodium 500 ML .Q6H40M 12/02 2345 DC 12/03 Chloride IV 12/03 0624 0013 Levothyroxine Sodium 75 MCG DAILY 11/22 1000 AC 12/02 IV 1124 Lorazepam 1 MG ONE ONE 12/03 0430 CAN PO 12/03 0431 Lorazepam 1 MG ONCE ONE 12/03 0430 DC 12/03 IV 12/03 0431 0427 Lorazepam 1 MG ONCE ONE 12/02 1900 DC 12/02 IV 12/02 1901 1909 Magnesium Oxide 400 MG ONE ONE 12/03 0830 DC PO 12/03 0831 Magnesium Sulfate 1 GM .STK-MED ONE 12/02 1220 DC IM 12/02 1221 Magnesium Sulfate 1 GM ONCE ONE 12/02 0900 DC 12/02 Dextrose/Water 100 ML IV 12/02 1259 1500 Magnesium Sulfate 1 GM ONCE ONE 12/02 0715 DC 12/02 Dextrose/Water 100 ML IV 12/02 1114 1300 Nystatin 1 ESTEFANY TIDPRN PRN 11/21 0330 AC 11/26 TOP 0329 Pantoprazole Sodium 40 MG DAILY 11/21 2011 AC 12/02 IV 0944 Potassium Chloride 40 MEQ ONCE ONE 12/03 0830 DC PO 12/03 0831 Vancomycin HCl 1,000 MG DAILY 12/01 2107 AC 12/02 Sodium Chloride 250 ML IV 0944 Vital Signs & I&O Last 24 Hrs of Vitals and I&O: Vital Signs Date Time Temp Pulse Resp B/P B/P Pulse O2 O2 Flow FiO2 Mean Ox Delivery Rate 12/03 08 95 Ventilator 40% 12/03 08 98.4 86 15 110/58 98 Ventilator 40% 12/03 0752 40 12/03 0610 40 12/03 0400 95 Ventilator 40% 06/04 0319 40 06/04 0028 40 06/04 0000 98.9 96 14 93/44 95 Ventilator 40% 06/04 0000 95 Ventilator 40% / 2238 40 06/ 2000 93 Ventilator 40% 06/ 1900 40 06/03 1645 40 06/03 1600 96 Ventilator 40% 06/03 1600 99.2 108 30 101/61 96 Ventilator 40% 06/03 1410 40 06/ 1200 90 Ventilator 40% / 1134 40 Intake & Output / 1600 06/04 0800 06/ 0000 Intake Total 741 120 Output Total 575 1425 Balance 166 -1305 Intake, IV 588 0 Intake, Tube 58 120 Feeding Intake, Tube 95 Irrigant Number 0 0 Bowel Movements Output, Other 75 125 Output, Urine 500 1300 Impression/Plan Impression/Plan Impression/Plan: Physical Exam General Appearance Alert, intubated Skin No Rashes Skin Temp/Moisture Exam: Cool/Dry Sepsis Skin Exam (color): Mottled HEENT Atraumatic, PERRLA, EOMI Cardiovascular Normal S1, Normal S2, irregular rate and rhythm Lungs bilateral diffuse rhonchi and wheezing Abdomen Normal Bowel Sounds, Soft, No Tenderness IMPRESSION This is a 76-year-old lady with very poor performance status, severe COPD from her previous PFTs, 1 pack a day smoker, previous alcohol use, and so diazepam use, atrial fibrillation on anticoagulation and on digoxin, hypertension, recent cough wheezing for which she had taken azithromycin, history of hypothyroidism on appropriate supplementation, previous history of pneumonia and chronic respiratory insufficiency with acute on chronic respiratory failure, previous history of strep pneumo infection, with * Acute on chronic hypercarbic and hypoxemic respiratory failure related to significant COPD compounded by probable pneumonia with minimal wheezing with underlying sepsis. Sepsis appears to be due to intraabd process with cholecystisis now s/p perc tube p * New onset fever, hypotension yesterday requiring fluid boluses indicative of new onset sepsis investigation ongoing ID on board * Resolved sig hyponatremia, altered LFTs, acute renal failure * PAtrial fibrillation now not on anticoag as she had bleeding * History of Ongoing cigarette smoking with previous history of alcohol use, hypothyroidism, vitamin D deficiency, RECOMMENDATION Continue mechanical ventilator Please follow ID notes Check stool for cdiff Patient may require CT scan of the chest abdomen and pelvis with IV contrast if she continues to spike PSV trials today Will follow Pt is critically ill TTS 40 mins
--- NOTE | 2016-12-03 11:50 | CT SCAN REPORT ---
EXAMINATION: CT SCAN OF THE CHEST WITH CONTRAST CT SCAN OF THE ABDOMEN AND PELVIS WITH CONTRAST CLINICAL INFORMATION: Fever and hypotension on meropenem. Assess for source of infection. COMPARISON: CT chest, abdomen, and pelvis 11/27/2016. DLP: 903 mGy-cm. TECHNIQUE: Axial images of the chest, abdomen, and pelvis were obtained utilizing 94 mL Optiray 320 contrast and oral contrast. Reformatted images were reviewed. No adverse reaction reported. FINDINGS: THORAX: Small right and trace left pleural effusion. There is right greater than left lower lobe atelectasis/consolidation dependently. There is subpleural linear opacification in the medial aspect of the left upper lobe, which likely represents atelectasis versus scarring. There is an unchanged 0.4 cm nodule in the left lung apex on image 72/968. Mild multifocal patchy groundglass opacification in the right middle lobe is nonspecific. The endotracheal tube terminates approximately 3 cm above the cori. Enteric tube courses below the diaphragm and terminates in the stomach. Unchanged appearance of the heterogeneous enlarged thyroid gland with multiple coarse calcifications. There are prominent mediastinal lymph nodes which measure up to 1.1 cm in the paratracheal region, unchanged. Scattered atherosclerotic disease including coronary artery calcification. ABDOMEN/PELVIS: No pneumoperitoneum or large volume ascites. Cholecystostomy tube is noted, with decompressed gallbladder. No suspicious hepatic lesion. No biliary ductal dilatation. The pancreas, spleen, and adrenal glands are unremarkable. Bilateral nephrograms are symmetric without hydronephrosis. Symmetric mild perinephric stranding is nonspecific. No renal or ureteral calculi. Bowel gas pattern is nonobstructive. No evidence of acute bowel inflammation. Scattered colonic diverticula without convincing evidence of diverticulitis. The appendix is normal. There is diffuse subcutaneous edema about the bilateral flanks. There is a heterogeneous mixed density collection within/along the right abdominal wall musculature, well visualized on axial images 75-85/121. This collection measures approximately 7.3 x 5.2 x 9.5 cm. Diffuse atherosclerotic calcification. Subcentimeter intra-abdominal lymph nodes without bulky adenopathy. Bladder is predominantly decompressed with Black catheter in place. The uterus is absent. No suspicious adnexal mass. Mild presacral stranding without discrete fluid collection. MUSCULOSKELETAL: Methylmethacrylate from prior vertebral augmentation at T11, L1, and L3. Unchanged superior endplate compression deformity at L4. No new osseous abnormality. At least mild multilevel degenerative changes of the spine. Decreased bone mineral density. IMPRESSION: 1. Mixed density, heterogeneous collection along/within the right lateral abdominal wall musculature (see correia images). It is unclear whether this represents a hematoma or infected collection. Consider targeted sonography to evaluate for a discrete/drainable fluid pocket. 2. Small bilateral pleural effusions, right greater than left. Adjacent dependent atelectasis/consolidation persists. Nonspecific patchy groundglass opacities in the right middle lobe, which could represent subtle local infection/inflammation. 3. Cholecystostomy tube in place. The gallbladder is decompressed. 4. No acute bowel pathology. 5. Diffuse atherosclerotic disease including coronary artery calcification. 6. Additional findings as described above.
--- NOTE | 2016-12-03 15:25 | ULTRASOUND REPORT ---
EXAMINATION: US ABDOMEN LIMITED CLINICAL INFORMATION: CT showed right flank fluid collection.. COMPARISON: CT scan earlier today. TECHNIQUE: Targeted sonography of the right flank was obtained. FINDINGS: There is a 7.8 x 6.0 x 5.8 cm heterogeneous, nonvascular collection along the right lateral abdominal wall inferior to the cholecystostomy tube. This demonstrates multiple tiny pockets of fluid, with the central aspects more echogenic/complex in nature. IMPRESSION: Redemonstration of the heterogeneous right flank collection. This collection would likely not be amenable to successful percutaneous drainage secondary to significant complexity. Favor this represents an abdominal wall hematoma over abscess; however, an infected hematoma is not excluded.
[2016-12-03 16:00] VITALS: BP 106/52
--- NOTE | 2016-12-03 18:13 | NUR ---
Patient alert/awake, follows commands, WARE, occasionally crying with moving of ETT and coughing. Given emotional reassurance. Remains ventilated w/ #8 to the left at 19 cm, rate of 14, Fio2 turned down to 35% on eves and tolerating well, peep remains at 5. Scattered rhonchi/diminished crackles/ and exp wheezes auscultated throughout. Deep and orally suctions for scant-mod frothy, white, thick sputum. D5-1/2NS @ 75 mls/hr x1 bag finished at 1700. NSR on the monitor 70s-90s. SBP=90s-110s. Abdomen soft/distended/nontender, +bowel sounds. OGT in place w/ Jevity 1.2 running at 30 mls/hr and increased to 60 mls/hr at 1600. No residuals noted. q4 hour water flushes of [address] draining clear yellow urine. +1 edema to LUE, trace generalized edema, +1 edema to R flank and yeast to groin w/ nystatin applied. Bruising to bilateral flanks. Inc of mod amounts of CDIFF positive brown/loose stool. Patient went down for CT scan Abdomen/chest showing a possible infective hematoma to R side of abdomen/flank. Patient denies pain in that area.
[2016-12-04] VITALS: BP 116/66
[2016-12-04 05:29] LABS: ABSOLUTE BASOPHIL COUNT 0 /CUMM (0.0-0.2); ABSOLUTE EOSINOPHIL COUNT 0.2 /CUMM (0.0-0.7); ABSOLUTE GRANULOCYTE CT 4.7 /CUMM (1.4-6.5); ABSOLUTE LYMPH COUNT 1.1 /CUMM (1.2-3.4); BASOPHIL % 0.4 % (0.0-2.0); EOSINOPHIL % 2.6 % (0-5); GRANULOCYTE % 67.5 % (42.2-75.2); HEMATOCRIT 29.5 % (37-47); MEAN CORPUSCULAR HGB 34.8 PG (27.0-31.0); MEAN CORPUSCULAR HGB CONC 32.9 G/DL (33.0-37.0); MEAN CORPUSCULAR VOLUME 105.7 FL (81.0-99.0); MEAN PLATELET VOLUME 8.5 FL (7.4-10.4); PLATELET COUNT 373 /CUMM (130-400); RBC DISTRIBUTION WIDTH 16.7 % (11.5-14.5); RED BLOOD CELL CT 2.79 /CUMM (4.20-5.40)
--- NOTE | 2016-12-04 06:00 | NUR ---
PATIENT ALERT. WILL FOLLOW COMMANDS AND SHAKE HEAD YES AND NO TO QUESTIONING. MONITOR SINUS RHYTHM TO SINUS TACHYCARDIA AT RATE OF 98 TO 106.NA=400/68. ETT TO VENTILATOR AT 35%.TUBE FEED AT GOAL AT 60 ML/HR.T TUBE TO GRAVITY DRAINAGE,DRAINING LIGHT GREEN DRAINAGE.
--- NOTE | 2016-12-04 06:55 | PN- Resident CRCU ---
KEVIN DE LEÓN,ELIZ 12/04/16 0655: Subjective HPI/CRCU Issues: Patient seen and examined at bedside this AM. She is resting comfortably in bed in no acute distress on mecahnical ventilation. She is tearful and using the alphabet chart to signify she is thinking about her mother and father. Patient denies pain. Patient had CDiff culture return POSITIVE yesterday at which time she was placed on contact isolation and started on PO flagyl 500 mg Q8. She was febrile to 101 (rectal temp) last night. 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 Vital signs last 24 hours: T 97.7-101, HR 78-108, RR 15-33, BP 97-126/46-88, O2 93-100% on AC 14, TV 500, FiO2 35% and 5 PEEP. Total intake last 24 hours: 2071 cc Total output last 24 hours: 2330 cc Objective Vital Signs & I&O Last 8 Hrs of Vitals and I&O: T 97.7-101, HR 78-108, RR 15-33, BP 97-126/46-88, O2 93-100% on AC 14, TV 500, FiO2 35% and 5 PEEP. Exam General Appearance: well developed/nourished, no apparent distress, alert, awake , comfortable, intubated Head: atraumatic, normal appearance Ears, Nose, Throat: normal pharynx, moist mucus membranes Neck: normal inspection, supple Respiratory: Occasional rhonchi Cardiovascular: regular rate/rhythm Gastrointestinal: normal bowel sounds, soft, non-tender Extremities: normal inspection, no edema Cranial Nerves: normal hearing, PERRL Skin: normal color, warm/dry Weaning Parameters NIF: 44 Minute Volume: 5.75 Resp rate: 36 Vt: 160 Heart Rate: 98 Weaning Schedule Start Time: 1900 Minute Volume: 11.0 Resp Rate: 30 Vt: 360 Heart Rate: 98 End Time: 1945 Minute Volume: 11.9 Resp Rate: 40 Vt: 290 Heart Rate: 102 Start Time: 1305 Minute Volume: 7.99 Resp Rate: 40 Vt: 360 Heart Rate: 96 Nutrition Nutrition: tube feeding Current Medications: Current Medications Sig/Shilpa Start time Last Medication Dose Route Stop Time Status Admin Acetaminophen 650 MG ONCE ONE 12/04 314 DC 12/04 PO 12/05 315 032 Acetylcysteine 2 ML BID 11/21 1235 AC 12/04 INH 0805 Albuterol Sulfate 3 ML EVERY 4 HRS/AWAKE 11/21 1600 AC 12/04 INH 1137 Levothyroxine Sodium 75 MCG DAILY 11/22 1000 AC 12/04 IV 1028 Magnesium Oxide 400 MG BID 12/04 1000 AC 12/04 PO 12/04 2201 0849 Metronidazole 500 MG Q8 12/03 2200 AC 12/04 PO 0533 Metronidazole 500 MG IQ8 12/03 1600 CAN N/A 1 UNIT IV Metronidazole 250 MG Q8 12/03 1400 DC PO Nystatin 1 ESTEFANY TIDPRN PRN 11/21 0330 AC 12/04 TOP 0849 Pantoprazole Sodium 40 MG DAILY 11/21 2011 AC 12/04 IV 0849 Potassium Chloride 20 MEQ ONCE ONE 12/04 0730 DC 12/04 PO 12/04 0731 0848 CXR Findings: IMPRESSION: 1. Endotracheal tube tip approximately 3 cm above the cori. 2. Mild bibasilar haziness which may reflect atelectasis. Impression/Plan Impression/Problem List Impression: Ms. Sánchez is a 76 year old female with PMH HTN, severe COPD, cigarette abuse (1 PPD), previous alcohol use, atrial fibrillation on Pradaxa and digoxin, GI bleed and hypothyroidism who presents with chief complaint of cough, decreased oral intake, fatigue, fever and chills for one week. Of note, patient did she her PCP Dr. Enma MD who prescribed her azithromycin for presumed bronchitis though her symptoms persisted prompting evaluation in our emergency department. In the ED: Vital signs showed T 95.0, HR 72, RR 22, BP 90/68, O2 86% RA. Labs were significant for WBC 15.3, 14 bands, 81% granulocytes, H&H 16.1/49.5, Plt 245, Na 120, K 5.4, Cl 79, HCO3 29, BUN 51, Cre 2.4, Glu 95, lactic acid 3.1 , TBili 2.1, DBili 1.4, AST/ALT 7358/2161, trop 0.25, INR 1.83. Abdominal US showed impacted gallstone in GB neck with GB wall thickening, wall edema and pericholecystic fluid. CXR showed cardiomegaly with a patchy opacity in the left lower lung field suggesting an evolving pneumonia. EKG showed non- specific ST elevations in leads [address] depressions in the high lateral leads I and L. Patient is admitted to the intensive care unit and the following is the management: 1. Septic shock requiring pressors with mutiorgan dysfunction, IMPROVING * Patient hypotensive, tachycardic and tachypneic on admission with likely source being intraabdominal pathology (aspiration pneumonia also on ddx) * Today, WBC 7.0; Tmax 101 overnight * ID consult appreciated * Cultures showing no growth, with no growth from bile culture, sputum only growing yeast * DISCONTINUED unasyn on 11/29/16 * CLOSTRIDIUM noted to be + on 12/03/16, patient started on PO flagyl and placed on isolation * Continue flagyl 500 mg PO Q8 * Patient hemodynamically stable OFF of pressors * Trend CBC, ICU bundle 2. Transaminitis and hyperbilirubinemia with acute cholecytsitis * Concern for acute cholecystitis with RUQ US findings of gallstones with wall thickening and edema * Patient is s/p percutaneous cholecystostomy tube with surgery, draining well * Bile showed no growth after 3 days * Hepatitis panel negative, tylenol level <10 * Transaminitis likely 2/2 shock liver in the setting of hypotension from sepsis , IMPROVED and have now normalized * GI consult appreciated; will consider eventual cholangiogram via cholecystostomy tube * Statin continues to be on hold, will likely resume prior to discharge * Continue tube feeds at goal rate (hold if patient to be extubated) 3. Elevated troponin * Troponins peaked at 0.35, have since trended down * Likely represents demand/supply mismatch (demand ischemia); unlikely to be ACS * Cardio consult with Dr. Vida MD appreciated * Aspirin, Plavix and IV heparin initially started but have been discontinued as patient possible surgical candidate, history of GIB and noted oropharyngeal bleeding * Follow up further cardio recommendations, continuous telemetry monitoring * Echo showed mild concentric LVH, normal EF >65%, stage 1 diastolic dysfunction 4. Possible pneumonia, aspiration vs. CAP * CXR on admission showed LLL abnormality suggestive of PNA * Follow up CT chest showed small/moderate pleural effusion with RML/partial RLL collapse; trace left pleural effusion * Continue mucomyst and chest PT until resolution * Continue MV for now, PSV trials continued, respiatory status improving * Plan for extubation in next few days 5. Paroxysmal atrial fibrillation with digitalis toxicity * Digoxin level elevated on admission requiring digibind; continue to hold digoxin * Hold off anticoagulation, aspirin, plavix at this point as patient was noted to have + oropharyngeal bleeding early during admission * Continuous telemetry monitoring * Follow up cardio recommendations * Hold metoprolol due to persistent borderline hypotension, restart once BP well controlled 6. Hyponatremia, STABLE * Likely hypovolemic hyponatremia in setting of severe dehydration and sepsis * Trend ICU bundle frequently * Watch patient off of fluids 7. Acute on chronic respiratory failure with severe COPD/emphysema in the setting of tobacco dependance * Patient noted to be 86% on RA during admission * Initially placed on BiPAP but was intubated due to increased work of breathing around 2200 on 11/20/16 * Continue AC ventilation and monitor for improvement in RLL collapse * Chest PT and mucomyst to continue * Titrate FiO2 down to keep O2 sat >92%, continue pressure support trials * IV protonix while intubated, daily CXR to ensure appropriate positioning 8. BETH * BUN 51, Cre 2.4 on admission, likely secondary to hypotension and severe sepsis (prerenal) * IMPROVING * Trend ICU bundle * Avoid nephrotoxins 9. Left lung nodule * 0.4 cm in left lung apex * Follow up as an outpatient with pulmonology for conitnued monitor 10. Clostridium dificile infection * Continue contact (special enteric) isolation * PO flagyl Q8 * Strict Is/Os * CT negative for acute bowel pathology FULL CODE DVTP: ALPS (no pharm DVTP at this time 2/2 oropharyngeal bleeding) Diet: TUBE FEEDS Mild pain pathway Problem List: 1. Clostridium difficile diarrhea 2. Acute cholecystitis 3. Multiorgan failure 4. Tobacco abuse 5. Acute respiratory failure with hypoxia and hypercarbia 6. Bacteria in urine Pain Ratin Tomorrow's Labs & Rationales: CBC, ICU bundle Plan DVT/Prophylaxis: CRISTINO Cabrales MD 12/04/16 0929: Attending MD Review Statement Attending Sign Off Attending Cosign Statement: I have: examined this patient, reviewed avalbl EMR data, personally reviewd images, discussd w/resident/PA/COMPUTING MACHINE OPERATOR, discussed mgmt plan w/rick, discussed mgmt plan w/CM, discussed mgmt plan w/pt, agreed w/resident/PA/COMPUTING MACHINE OPERATOR, amended to note. Other Findings: I, Cristino Gould M.D. have examined this patient, reviewed available EMR data, personally reviewed images, discussed with resident/PA/COMPUTING MACHINE OPERATOR, discussed management plan with housestaff and nursing staff, discussed managment plan all of healthcare providers, discussed management plan with patient and/or family, agreed with resident/PA/COMPUTING MACHINE OPERATOR. The past history and parts of the chart have been autopopulated. Impression 76 year old woman * resolved septic shock secondary to likely abdominal pathlogy, also with a pneumonia that can be likely aspiration vs. CAP * shock liver significantly improved and resolving * hyponatremia * digitalis toxicity * troponinemia - likely demand ischemia * respiratory failure - hypoxemic * tobacco dependence and severe COPD/emphysema Plan Respiratory -reduce fio2 as tolerated -no significant pleural effusion on lung ultrasound -plan for cpap trial when fio2 is 40% -trc/nebs ID -ID consultation appreciated -off Unasyn, monitor off abx -s/p cholecystostomy tube, f/u drainage CVS -monitor hemodynamics Heme -f/u cbc, coags, cardiology recommendations Metabolic -ins/outs -gi/surgery follow up -s/p cholecystomy tube Alimentary -f/u gi/surgery recommendations Neuro -sedation as necessary DVT prophylaxis at all times TTS 35 min
[2016-12-04 08:00] VITALS: BP 102/57
--- NOTE | 2016-12-04 09:13 | RADIOLOGY REPORT ---
EXAMINATION: XR PORTABLE CHEST CLINICAL INFORMATION: ET tube placement, respiratory failure COMPARISON: 12/03/2016 TECHNIQUE: Portable frontal view of the chest was obtained. FINDINGS: Endotracheal tube tip lies approximately 3 cm above the cori. Lung volumes are symmetric. There is mild haziness at the bilateral lung bases. The mid and upper lungs are essentially clear. No evidence of pneumothorax. Trace pleural effusions cannot be excluded. No overt pulmonary edema. Cardiac size is within normal limits. There is atherosclerotic calcification along the aorta. No acute osseous findings are seen. IMPRESSION: 1. Endotracheal tube tip approximately 3 cm above the cori. 2. Mild bibasilar haziness which may reflect atelectasis.
--- NOTE | 2016-12-04 09:54 | PN- Cardiology ---
Subjective Subjective: * No complaints. * sinus rhythm * C. diff positive Objective Vital Signs and I&Os Vital Signs Date Time Temp Pulse Resp B/P B/P Pulse O2 O2 Flow FiO2 Mean Ox Delivery Rate 06/ 0555 35 06/05 0423 101.0 06/05 0404 35 06/05 0400 95 Ventilator 35% 06/05 0324 101.0 06/05 0059 35 06/05 0000 99.0 102 15 116/66 93 Ventilator 35% 06/05 0000 93 Ventilator 35% 06/04 2257 35 06/04 2000 94 Ventilator 35% 06/04 1900 35 06/04 1610 40 06/04 1600 97.7 96 24 106/52 99 Ventilator 40% 06/04 1600 95 Ventilator 40% 06/04 1400 40 06/04 1213 40 06/04 1200 98 Ventilator 40% 06/04 1000 95 Ventilator 40% Intake & Output / 1600 06/05 0800 06/05 0000 06/04 1600 06/04 0800 06/04 0000 Intake Total 596 583 892 741 120 Output Total 685 930 474 376 6343 Balance -89 -347 177 166 -1305 Intake, IV 150 586 588 0 Intake, Other 165 Intake, Tube 406 338 131 58 120 Feeding Intake, Tube 190 95 10 95 Irrigant Number 1 0 0 Bowel Movements Output, Other 45 30 65 75 125 Output, Urine 640 900 247 155 9038 Physical Exam: General: WD/ WN female in NAD, awake and responsive Heart: RRR with 2/6 systolic murmur Lungs: no crackles, positive wheezing Extemities: no edema Assessment/Plan Assessment/Plan * Hemodynamically stable in NSR. * This patient likely has high pulmonary pressures related to her lung issues. This will inhibit RV contractility which is compensated for by increased heart rate to maintain an adequate cardiac output. We will hold off on adding digoxin for now. Avoid a dehydrated state since this patient may be preload dependent. * Continue treatment for C. difficile colitis. Continue telemetry? Yes
--- NOTE | 2016-12-04 10:42 | PN- Infect Dx ---
Subjective Subjective: MAXIMUM TEMPERATURE 101. She offers no complaints. She has had several loose bowel movements reported overnight. Objective Last 24 Hrs of Vital Signs/I&O Vital Signs Date Time Temp Pulse Resp B/P B/P Pulse O2 O2 Flow FiO2 Mean Ox Delivery Rate 12/04 0805 35 06/05 0555 35 06/ 0423 101.0 06/05 0404 35 06/05 0400 95 Ventilator 35% 06/05 0324 101.0 06/05 0059 35 06/05 0000 99.0 102 15 116/66 93 Ventilator 35% 06/05 0000 93 Ventilator 35% 06/04 2257 35 06/ 2000 94 Ventilator 35% 06/04 1900 35 06/04 1610 40 06/04 1600 97.7 96 24 106/52 99 Ventilator 40% /04 1600 95 Ventilator 40% /04 1400 40 06/04 1213 40 06/04 1200 98 Ventilator 40% Intake & Output 12/04 1600 06/05 0800 06/05 0000 Intake Total 596 583 Output Total 685 930 Balance -89 -347 Intake, IV 150 Intake, Tube 406 338 Feeding Intake, Tube 190 95 Irrigant Output, Other 45 30 Output, Urine 640 900 Physical Exam Other Physical Findings: She appears comfortable in no acute distress Lungs scattered rhonchi bilaterally Heart regular rhythm with no murmur Abdomen is soft, nontender with positive bowel sounds Back bilateral flank ecchymoses, tender to palpation, with no induration Extremities no cyanosis, clubbing or edema Black catheter remains in place Results Last 24 Hours of Lab Results: Laboratory Tests 12/04 0430 Chemistry Sodium (137 - 145 mmol/L) 130 L Potassium (3.5 - 5.1 mmol/L) 3.8 Chloride (98 - 107 mmol/L) 100 Carbon Dioxide (22 - 30 mmol/L) 24 Anion Gap (5 - 16) 7 BUN (7 - 17 mg/dL) 8 Creatinine (0.5 - 1.0 mg/dL) 0.5 Estimated GFR (>60 ml/min) > 60 Glucose (65 - 99 mg/dL) 111 H Calcium (8.4 - 10.2 mg/dL) 7.7 L Phosphorus (2.5 - 4.5 mg/dL) 3.6 Magnesium (1.6 - 2.3 mg/dL) 1.7 Total Bilirubin (0.2 - 1.3 mg/dL) 0.8 AST (14 - 36 U/L) 22 ALT (9 - 52 U/L) 54 H Albumin (3.5 - 5.0 g/dL) 2.2 L Hematology CBC w Diff NO MAN DIFF REQ WBC (4.8 - 10.8 /CUMM) 7.0 RBC (4.20 - 5.40 /CUMM) 2.79 L Hgb (12.0 - 16.0 G/DL) 9.7 L Hct (37 - 47 %) 29.5 L MCV (81.0 - 99.0 FL) 105.7 H MCH (27.0 - 31.0 PG) 34.8 H RDW (11.5 - 14.5 %) 16.7 H Plt Count (130 - 400 /CUMM) 373 MPV (7.4 - 10.4 FL) 8.5 Gran % (42.2 - 75.2 %) 67.5 Lymphocytes % (20.5 - 51.1 %) 15.5 L Monocytes % (1.7 - 9.3 %) 14.0 H Eosinophils % (0 - 5 %) 2.6 Basophils % (0.0 - 2.0 %) 0.4 Absolute Granulocytes (1.4 - 6.5 /CUMM) 4.7 Absolute Lymphocytes (1.2 - 3.4 /CUMM) 1.1 L Absolute Monocytes (0.10 - 0.60 /CUMM) 1.0 H Absolute Eosinophils (0.0 - 0.7 /CUMM) 0.2 Absolute Basophils (0.0 - 0.2 /CUMM) 0 PUBS MCHC (33.0 - 37.0 G/DL) 32.9 L Last 24 Hours of [place] Results: Stool C. difficile December 02 positive Blood cultures December 01 negative Recent Imaging Studies: CT of the chest, abdomen and pelvis December 03 revealed a mixed density, heterogeneous collection along the right lateral abdominal wall musculature, measuring 7 x 5 x 9.5 cm; small bilateral pleural effusions, right greater than left, with adjacent dependent atelectasis/consolidation; cholecystostomy tube remains in place with a decompressed gallbladder Abdominal ultrasound December 03 demonstrates the heterogeneous right flank collection inferior to the cholecystostomy tube with multiple tiny pockets of fluid Chest x-ray December 04 reveals mild bibasilar haziness Assessment/Plan Impression: New diagnosis of C. difficile, which likely explains her recent fevers, with her white blood cell count remaining normal now on Flagyl Day 1. The significance of the heterogeneous fluid collection noted on CT and ultrasound is unclear but likely represents a hematoma given her overlying flank ecchymosis, which is of unclear etiology, particularly as it appears to be bilateral. The possibility of an infected hematoma could be considered and, if her fevers persist, this may need to be ruled out. She is now 2 weeks status post placement of a cholecystostomy tube for acute cholecystitis. Suggestion: 1. Would remove Black catheter if I's and O's are not critical 2. Continue po Flagyl
--- NOTE | 2016-12-04 13:48 | Transfer of Care Summary ---
Hospital Course Course Hospital Course: Ms. Sánchez is a 76 year old female with PMH HTN, severe COPD, cigarette abuse (1 PPD), previous alcohol use, atrial fibrillation on Pradaxa and digoxin, GI bleed and hypothyroidism who presented with chief complaint of cough, decreased oral intake, fatigue, fever and chills for one week. Of note, patient did she her PCP Dr. Enma MD who prescribed her azithromycin for presumed bronchitis though her symptoms persisted prompting evaluation in our emergency department. In the ED: Vital signs showed T 95.0, HR 72, RR 22, BP 90/68, O2 86% RA. Labs were significant for WBC 15.3, 14 bands, 81% granulocytes, H&H 16.1/49.5, Plt 245, Na 120, K 5.4, Cl 79, HCO3 29, BUN 51, Cre 2.4, Glu 95, lactic acid 3.1 , TBili 2.1, DBili 1.4, AST/ALT 7358/2161, trop 0.25, INR 1.83. Abdominal US showed impacted gallstone in GB neck with GB wall thickening, wall edema and pericholecystic fluid. CXR showed cardiomegaly with a patchy opacity in the left lower lung field suggesting an evolving pneumonia. EKG showed non- specific ST elevations in leads [address] depressions in the high lateral leads I and L. Patient was admitted to the intensive care unit and the following was the management to date: 1. Septic shock: Patient initially presented with septic shock likely secondary to intra-abdominal pathology complicated by acute cholecystitis. Percutaneous cholecystostomy tube was inserted by IR and daily drainage was noted with decompression of gallbladder appreciated. Patient was intubated during this procedure and returned to the critical care unit intubated. Patient was empirically started on IV ceftriaxone and azithromycin and antibotics were quickly switched to IV flagyl. She was placed on aggressive hydration for sepsis and pressors were given for a short period of time (titrated off after a few days). ID was consulted and suggested switching antibiotics to IV vancomycin, flagyl and ceftriaxone as pulmonary source of infection was then considered on differential of septic shock (concern for aspiration). Microbiology had no significant growth so antibiotics were again switched and Helen was started on IV unasyn. White blood cell count quickly normalized. Per ID recommendations, C. Diff was sent and patient watched off of antibiotics as she remained afebrile and completed a course of unasyn. First C. Diff returned as negative but second was noted to be positive. Patient was started on PO flagyl 500 mg Q8 and she was placed on contact (enteric) isolation. TO DO: Continue to watch patient off of pressors, perform vital signs per protocol, continue to follow ID recommendations and complete course of PO flagyl. 2. Acute cholecystitis: Concern for acute cholecystitis with RUQ US findings of gallstones with wall thickening and edema. IR was consulted and a percutaneous cholecystostomy tube was placed. No growth was noted in the bile drained from the gall bladder. Flagyl was initially started but was subsequently discontinued as noted above. Continue percutaneous cholecystostomy drain and have Helen follow up with the automotive design layout drafter/surgery for eventual removal of the drain. 3. Clostridium difficile infection: Patient had noted worsening of clinical status (febrile, borderline hypotensive requiring IV fluid boluses) with unknown source of infection on November 27. C. Diff was sent but cancelled as stool was noted to be formed. Follow up C. Diff ordered on November 29 was sent and returned negative for clostridium difficile toxin A. Follow up C. Diff toxin A positive on December 02 and Helen was placed on PO flagyl as noted above. Patient should complete course and she should have close clinical monitoring for any sign of decompensation/complications associated with C. Diff. 4. Elevated troponin: In the setting of septic shock and respiratory failure, troponin and EKG were sent. Troponins were noted to be elevated with a peak of 0.35; no EKG changes consistent with STEMI appreciated. Cardiology consult with patient's ore roaster Dr. Vida MD placed and he recommended the initiation of IV heparin therapy along with aspirin and plavix. There was subsequent mild oropharyngeal bleeding appreciated and Dr. Vida MD aggreed that it was appropriate to discontinue this medical therapy as patient likely had demand/ supply mismatch (demand ischemia) and not true acute coronary syndrome. Echo was done and showed mild concentric LVH, normal EF >65%, stage 1 diastolic dysfunction. She was continued on the compliance monitor and no further troponins noted to be elevated. Continue current regimen, follow cardiac recommendations and once patient clinically stable, discuss with cardiology about further management and discharge medications/recommendations. 5. Acute on chronic respiratory failure with severe COPD/emphysema in the setting of tobacco dependance: During admission, patient noted to be saturating 86% on room air. She was initially placed on BiPAP but was intubated both due to increased work of breathing and planned IR guided procedure. The acute failure was likely due to a combination of hyptoension in the setting of septic shock and possible aspiration pneumonia or community acquired pneumonia (CXR on admission showed left lower lobe abnormality). Patient was given several courses of antibiotics as noted above, namely unasyn to cover aspiration pneumonia. She had a follow up chest CT that showed small/moderate pleural effusions with right middle and lower lobe collapse. She was started on mucomyst therapy and chest PT to improve this collapse. She had bilateral chest ultrasound performed which documented that the pleural effusions noted on chest CT were not large enough for thoracentesis. Patient is continued on mechanical ventilation with current pressure support ventilation trials with goal of extubation in the next few days. Continue daily CXR while intubated to monitor placement of ET tube and continue to follow pulmonary recommendations. 6. Paroxysmal atrial fibrillation with digitalis toxicity: Patient was noted to have elevated digoxin level on admission requiring digibind. She was placed on continuous compliance monitor with initial bradycardia appreciated. As digoxin was continued to be held, her heart rate improved. Cardiology consult with Dr. Vida MD placed and he also suggested holding metoprolol in the setting of septic shock/hypotension. These medications continue to remain on hold. Patient is now noted to be occasionally tachycardic which Dr. Vida MD reports is a reaction to the right middle/lower lobe collapse and there is no indication to provide digoxin at this time. Continue to follow cardiology recommendations and continue to monitor patient on compliance monitor. 7. Hyponatremia: Sodium low to 120 on admission and likely hypovolemic hyponatremia in setting of severe dehydration and sepsis. Labs were trended frequently and her sodium level responded to IV fluid resuscitation. Continue to monitor Na levels daily and address as needed. 8. BETH: BUN/cre on admission 51/2.4, likely secondary to end organ dysfunction from sepsis/hypotension. She was provided with IV fluids, nephrotoxins were avoided. Her renal function improved well over the first few days of admission and her renal function was soon within normal limits. 9. Left lung nodule: 0.4 cm left lung nodule noted on CT chest. This should be followed as an outpatient with Dr. Luis Fernando MD. 10. Code status: FULL 11. DVT Prophylaxis: ALPS (no pharm 2/2 bleeding) 12. Diet: Tube feeds at goal rate with Jevity 1.2. Complications: Patient self-extubated herself on 12/02/16 at 5:50 PM and she was subsequently reintubatd without complication. Assessment/Plan: See above. Attending MD Review Statement Documenting Attending: BRINA BENTON MD
[2016-12-04 16:00] VITALS: BP 118/60
--- NOTE | 2016-12-04 16:54 | NUR ---
PT. WEANED FOR 1/2 HR, THEN DESATED, RR RATE INTO 40'S, BP AND HR ELEVATION, PLACED BACK ON VENT, THEN 1/2 HR LATER FI02 INCREASED TO 40%
--- NOTE | 2016-12-04 22:16 | RADIOLOGY REPORT ---
EXAMINATION: XR ABDOMEN CLINICAL INDICATION: Pulled out OG tube. Re-inserted. COMPARISON: Chest x-ray 12/04/2016. Abdomen 11/21/2016. TECHNIQUE: AP view of the abdomen. FINDINGS: There is an enteric tube that descends the esophagus with tip in the body of the stomach. Kyphoplasty cement is seen at several levels. Lung bases are clear. Nonobstructive abdominal bowel gas pattern. IMPRESSION: Enteric tube with tip in the body the stomach.
--- NOTE | 2016-12-04 23:26 | NUR ---
avss.a/conf to time.follows commands.anxious/restless at times.pt pulled out ngt and reinserted catheter with no issues. and dr. morrison made aware.abd xray done and results verified per md.restarted tf with no issues.aspiration precaution maintained and hob elevated. remain ventilated with no vent setting change.oral care done.t-tube and faith intact.+bm and perineal care done. no pressure ulcers noted.plan of care reviewed.
[2016-12-05] VITALS: BP 131/67
--- NOTE | 2016-12-05 00:46 | NUR ---
PT AWAKE AND ALERT, COOPERATIVE. BILATERL AOFT WRIST RESTRAINT ON BECAUSE SHE PULLED OFF HER OGT. INTUBATED AT 40% FIO2, BILATERAL RHONCHI HEARD UPPER LOBES BILATERALLY. SATURATION 96%. TOLERATING TF FS JEVITY 1.2 AT 60ML/H, WITH WATER FLUSHES OF 95 ML Q4H. ABDOMEN SOFT, NORMOACTIVE BS. BALDERRAMA IN PLACE, ADEQUATE UO. T TUBE IN PLACE TO RIGHT ABDOMEN.
[2016-12-05 05:03] LABS: ABSOLUTE BASOPHIL COUNT 0.1 /CUMM (0.0-0.2); ABSOLUTE EOSINOPHIL COUNT 0.3 /CUMM (0.0-0.7); ABSOLUTE GRANULOCYTE CT 6.2 /CUMM (1.4-6.5); ABSOLUTE LYMPH COUNT 1.6 /CUMM (1.2-3.4); ABSOLUTE MONOCYTE COUNT 1.1 /CUMM (0.10-0.60); BASOPHIL % 0.8 % (0.0-2.0); EOSINOPHIL % 2.9 % (0-5); GRANULOCYTE % 66.9 % (42.2-75.2); HEMATOCRIT 32.3 % (37-47); MEAN CORPUSCULAR HGB 33.9 PG (27.0-31.0); MEAN CORPUSCULAR HGB CONC 32.2 G/DL (33.0-37.0); MEAN CORPUSCULAR VOLUME 105.2 FL (81.0-99.0); MEAN PLATELET VOLUME 9.6 FL (7.4-10.4); RBC DISTRIBUTION WIDTH 16.9 % (11.5-14.5); RED BLOOD CELL CT 3.07 /CUMM (4.20-5.40); WHITE BLOOD CELL COUNT 9.3 /CUMM (4.8-10.8)
[2016-12-05 05:34] LABS: PLATELET COUNT 376 /CUMM (130-400)
--- NOTE | 2016-12-05 07:24 | PN- Resident CRCU ---
CHACE DE LEÓN,ISARIL 12/05/16 0724: Subjective HPI/CRCU Issues: Alert but orientation cannot be assessed. Pt still intubated and mechanically ventilated. bilateral UE soft restrainers in place. Has a Black catheter in place. IV in place with no sign of infiltration or infection. Patient denies any current pain. 24 Hour Events: Tmax yesterday 101 HR 87-104 with average of 92 BP lowest 91/47 and highest 142/44 Yesterday I/O 2071/2330 Total balance to date (I/O) 40718/ 95830 Objective Vital Signs & I&O Last 8 Hrs of Vitals and I&O: Vital Signs Date Time Temp Pulse Resp B/P B/P Pulse O2 O2 Flow FiO2 Mean Ox Delivery Rate 12/05 0842 40 12/05 08 96 Ventilator 40% 12/05 08 98.7 92 19 120/80 94 Ventilator 40% 12/05 0549 40 12/05 0400 993 Nasal 4.0L Cannula 12/05 0329 40 Exam General Appearance: no apparent distress, alert, awake, intubated Head: atraumatic, normal appearance Neck: supple Respiratory: rhonchi Cardiovascular: regular rate/rhythm Gastrointestinal: normal bowel sounds, soft, non-tender Extremities: normal inspection, no edema Weaning Parameters NIF: 38 Minute Volume: 10.0 Resp rate: 32 Vt: 310 Heart Rate: 90 Weaning Schedule Start Time: 1225 Minute Volume: 10.8 Resp Rate: 33 Vt: 305 Heart Rate: 98 End Time: 1310 Minute Volume: 9.9 Resp Rate: 42 Vt: 299 Heart Rate: 105 Start Time: 1305 Minute Volume: 7.99 Resp Rate: 40 Vt: 360 Heart Rate: 96 Current Medications: Current Medications Sig/Shilpa Start time Last Medication Dose Route Stop Time Status Admin Acetylcysteine 2 ML BID 11/21 1235 AC 12/05 INH 0839 Albuterol Sulfate 3 ML EVERY 4 HRS/AWAKE 11/21 1600 AC 12/05 INH 0838 Levothyroxine Sodium 75 MCG DAILY 11/22 1000 AC 12/05 IV 1029 Magnesium Oxide 400 MG BID 12/04 1000 DC 12/04 PO 12/04 2201 2240 Magnesium Sulfate 1 GM Q2H 12/05 0600 DC 12/05 Dextrose/Water 100 ML IV 12/05 0959 0812 Metronidazole 500 MG Q8 12/03 2200 AC 12/05 PO 0502 Nystatin 1 ESTEFANY TIDPRN PRN 11/21 0330 AC 12/04 TOP 0849 Pantoprazole Sodium 40 MG DAILY 11/21 2011 AC 12/05 IV 1015 Potassium Chloride 10 MEQ ONCE ONE 12/05 829 DC 12/05 IV 12/05 830 1014 Impression/Plan Impression/Problem List Impression: Ms. Sánchez is a 76 year old female with PMH HTN, severe COPD, cigarette abuse (1 PPD), previous alcohol use, atrial fibrillation on Pradaxa and digoxin, GI bleed and hypothyroidism who presents with chief complaint of cough, decreased oral intake, fatigue, fever and chills for one week. Of note, patient did she her PCP Dr. Enma MD who prescribed her azithromycin for presumed bronchitis though her symptoms persisted prompting evaluation in our emergency department. In the ED: Vital signs showed T 95.0, HR 72, RR 22, BP 90/68, O2 86% RA. Labs were significant for WBC 15.3, 14 bands, 81% granulocytes, H&H 16.1/49.5, Plt 245, Na 120, K 5.4, Cl 79, HCO3 29, BUN 51, Cre 2.4, Glu 95, lactic acid 3.1 , TBili 2.1, DBili 1.4, AST/ALT 7358/2161, trop 0.25, INR 1.83. Abdominal US showed impacted gallstone in GB neck with GB wall thickening, wall edema and pericholecystic fluid. CXR showed cardiomegaly with a patchy opacity in the left lower lung field suggesting an evolving pneumonia. EKG showed non- specific ST elevations in leads [address] depressions in the high lateral leads I and L. Patient is admitted to the intensive care unit and the following is the management: 1. Septic shock requiring pressors with mutiorgan dysfunction, IMPROVING * Patient hypotensive, tachycardic and tachypneic on admission with likely source being intraabdominal pathology (aspiration pneumonia also on ddx) * Today, WBC 9.3; Tmax 101 overnight * Cultures showing no growth, with no growth from bile culture, sputum only growing yeast * DISCONTINUED unasyn on 11/29/16 * CLOSTRIDIUM noted to be + on 12/03/16, patient started on PO flagyl and placed on isolation * Continue flagyl 500 mg PO Q8 * Patient hemodynamically stable OFF of pressors 2. Transaminitis and hyperbilirubinemia with acute cholecytsitis * Concern for acute cholecystitis with RUQ US findings of gallstones with wall thickening and edema * Patient is s/p percutaneous cholecystostomy tube with surgery, draining well * Bile showed no growth * Hepatitis panel negative, tylenol level <10 * Transaminitis likely 2/2 shock liver in the setting of hypotension from sepsis , IMPROVED and have now normalized * GI consult appreciated; will consider eventual cholangiogram via cholecystostomy tube * Statin continues to be on hold, will likely resume prior to discharge * Continue tube feeds at goal rate (hold if patient to be extubated) 3. Elevated troponin * Troponins peaked at 0.35, have since trended down * Likely represents demand/supply mismatch (demand ischemia); unlikely to be ACS * Aspirin, Plavix and IV heparin initially started but have been discontinued as patient possible surgical candidate, history of GIB and noted oropharyngeal bleeding * Echo showed mild concentric LVH, normal EF >65%, stage 1 diastolic dysfunction 4. Possible pneumonia, aspiration vs. CAP * CXR on admission showed LLL abnormality suggestive of PNA * Follow up CT chest showed small/moderate pleural effusion with RML/partial RLL collapse; trace left pleural effusion * Continue mucomyst and chest PT until resolution * Continue MV for now, PSV trials continued, respiatory status improving * Plan for extubation today or tomorrow 5. Paroxysmal atrial fibrillation with digitalis toxicity * Digoxin level elevated on admission requiring digibind; continue to hold digoxin * Hold off anticoagulation, aspirin, plavix at this point as patient was noted to have + oropharyngeal bleeding early during admission * Follow up cardio recommendations * Hold metoprolol due to persistent borderline hypotension, restart once BP well controlled 6. Hyponatremia, STABLE * Likely hypovolemic hyponatremia in setting of severe dehydration and sepsis * Trend ICU bundle frequently * Watch patient off of fluids 7. Acute on chronic respiratory failure with severe COPD/emphysema in the setting of tobacco dependance * Patient noted to be 86% on RA during admission * Initially placed on BiPAP but was intubated due to increased work of breathing around 2200 on 11/20/16 * Continue AC ventilation and monitor for improvement in RLL collapse * Chest PT and mucomyst to continue * Titrate FiO2 down to keep O2 sat >92%, continue pressure support trials * IV protonix while intubated, daily CXR to ensure appropriate positioning 8. BETH * BUN 51, Cre 2.4 on admission, likely secondary to hypotension and severe sepsis (prerenal) * Now is 0.5 * Trend ICU bundle * Avoid nephrotoxins 9. Left lung nodule * 0.4 cm in left lung apex * Follow up as an outpatient with pulmonology for conitnued monitor 10. Clostridium dificile infection * Continue contact (special enteric) isolation * PO flagyl Q8 * Strict Is/Os * CT negative for acute bowel pathology FULL CODE DVTP: ALPS (no pharm DVTP at this time 2/2 oropharyngeal bleeding) Diet: TUBE FEEDS Mild pain pathway Problem List: 1. Clostridium difficile diarrhea 2. Multiorgan failure 3. Tobacco abuse 4. Acute respiratory failure with hypoxia and hypercarbia 5. Bacteria in urine Pain Ratin Tomorrow's Labs & Rationales: ICU bundle and CBC Plan DVT/Prophylaxis: mechanical CRISTINO BENTON MD 12/05/16 0936: Attending MD Review Statement Attending Sign Off Attending Cosign Statement: I have: examined this patient, reviewed avalbl EMR data, personally reviewd images, discussd w/resident/PA/AUTO SERVICER, discussed mgmt plan w/rick, discussed mgmt plan w/CM, discussed mgmt plan w/pt, agreed w/resident/PA/AUTO SERVICER, amended to note. Other Findings: ICristino M.D. have examined this patient, reviewed available EMR data, personally reviewed images, discussed with resident/PA/AUTO SERVICER, discussed management plan with housestaff and nursing staff, discussed managment plan all of healthcare providers, discussed management plan with patient and/or family, agreed with resident/PA/AUTO SERVICER. The past history and parts of the chart have been autopopulated. Impression 76 year old woman * resolved septic shock secondary to likely abdominal pathlogy, also with a pneumonia that can be likely aspiration vs. CAP * shock liver significantly improved and resolving * hyponatremia * digitalis toxicity * troponinemia - likely demand ischemia * respiratory failure - hypoxemic * tobacco dependence and severe COPD/emphysema Plan Respiratory -reduce fio2 as tolerated -no significant pleural effusion on lung ultrasound -plan for cpap trial when fio2 is 40% -trc/nebs ID -ID consultation appreciated -off Unasyn, monitor off abx -s/p cholecystostomy tube, f/u drainage CVS -monitor hemodynamics Heme -f/u cbc, coags, cardiology recommendations Metabolic -ins/outs -gi/surgery follow up -s/p cholecystomy tube Alimentary -f/u gi/surgery recommendations Neuro -sedation as necessary DVT prophylaxis at all times TTS 35 min DVT prophylaxis at all times TTS 35 min
--- NOTE | 2016-12-05 07:26 | RADIOLOGY REPORT ---
EXAMINATION: XR PORTABLE CHEST CLINICAL INFORMATION: ET tube placement. COMPARISON: 12/04/2016 TECHNIQUE: Portable frontal view of the chest was obtained. FINDINGS: The endotracheal tube is 3.9 cm above the cori without significant change from prior. Cardiomediastinal silhouette is stable. Lungs are hypoexpanded. Streaky atelectasis at the medial right lung base, unchanged. No significant pleural effusion seen. No pneumothorax. IMPRESSION: ET tube 3.9 cm above the cori without significant change from prior.
[2016-12-05 08:00] VITALS: BP 120/80
--- NOTE | 2016-12-05 08:45 | NUR ---
RECEIVED PATIENT ALERT/APPROPRIATE, ORIENTED TO SELF/ROOM/TUBES/DRAINS BALDERRAMA/BILATERAL WRIST RESTRAINTS RENEWED VENT SETTINGS REMAIN, #8/RIGHT/@19 CM, AC-14/TV-500/FIO-40%/PEEP-5 MOD FROTHY LIGHT YELLOW SECRETIONS WHEN DEEP SUCTIONED T TUBE TO R ABDOMEN W/ CLEAR LIGHT BROWN/YELLOW DRAINAGE, DSG CDI OGT IN PLACE GETTING JEVITY 1.2 @ GOAL OF 60 MLS/HR W/ Q4 H2O FLUSHES OF 95 ML TOLERATING WELL/NO RESIDUALS INC OF STOOL WHEN GOES, NONE NOTED AT THIS TIME, ABDOMEN SOFT/NONTENDER/+BS BALDERRAMA DRAINING LARGE CLEAR DONNA, MAG 1.5 AND REPLETED W/ 1GRAM IV X2 BRUISING TO BILATERAL FLANKS/TRACE GEN EDEMA/+1 LUE EDEMA/+1 R FLANK/HIP EDEMA BOTTOM RED/BLANCHING SAFETY MAINTAINED
--- NOTE | 2016-12-05 10:27 | PN- Infect Dx ---
Subjective Subjective: MAXIMUM TEMPERATURE 100.3. She has had no diarrhea overnight. She pulled out her OG tube overnight, which was replaced. She offers no complaints. Objective Last 24 Hrs of Vital Signs/I&O Vital Signs Date Time Temp Pulse Resp B/P B/P Pulse O2 O2 Flow FiO2 Mean Ox Delivery Rate 12/05 0842 40 12/05 0800 96 Ventilator 40% 12/05 0800 98.7 92 19 120/80 94 Ventilator 40% 12/05 0549 40 12/05 0400 993 Nasal 4.0L Cannula 12/05 0329 40 12/05 0109 40 12/05 0000 96 Ventilator 40% 12/05 0000 97.9 98 14 131/67 96 Ventilator 40% 12/04 2252 40 12/04 2000 95 Ventilator 40% 12/04 1955 40 12/04 1713 40 12/04 1600 96 Ventilator 40% / 1600 100.3 96 22 118/60 96 Ventilator 40% 06/05 1400 40 / 1200 92 Ventilator 35% /05 1142 35 Intake & Output 12/05 1600 12/05 0800 12/05 0000 Intake Total 670 515 Output Total 790 1170 Balance -120 -655 Intake, Tube 380 360 Feeding Intake, Tube 290 155 Irrigant Number 4 Bowel Movements Output, 80 Drainage Output, Other 70 Output, Urine 710 1100 Physical Exam Other Physical Findings: She appears anxious on the ventilator but in no acute distress Lungs rhonchi on the right Heart regular rhythm with no murmur Abdomen is soft, nontender with positive bowel sounds; cholecystostomy tube remains in place, with bilious drainage Extremities no cyanosis, clubbing or edema Black catheter remains in place Results Last 24 Hours of Lab Results: Laboratory Tests 12/05 0343 Chemistry Sodium (137 - 145 mmol/L) 131 L Potassium (3.5 - 5.1 mmol/L) 3.9 Chloride (98 - 107 mmol/L) 99 Carbon Dioxide (22 - 30 mmol/L) 23 Anion Gap (5 - 16) 9 BUN (7 - 17 mg/dL) 7 Creatinine (0.5 - 1.0 mg/dL) 0.5 Estimated GFR (>60 ml/min) > 60 Glucose (65 - 99 mg/dL) 106 H Calcium (8.4 - 10.2 mg/dL) 8.3 L Phosphorus (2.5 - 4.5 mg/dL) 3.7 Magnesium (1.6 - 2.3 mg/dL) 1.5 L Total Bilirubin (0.2 - 1.3 mg/dL) 0.9 AST (14 - 36 U/L) 26 ALT (9 - 52 U/L) 50 Albumin (3.5 - 5.0 g/dL) 2.3 L Hematology CBC w Diff NO MAN DIFF REQ WBC (4.8 - 10.8 /CUMM) 9.3 RBC (4.20 - 5.40 /CUMM) 3.07 L Hgb (12.0 - 16.0 G/DL) 10.4 L Hct (37 - 47 %) 32.3 L MCV (81.0 - 99.0 FL) 105.2 H MCH (27.0 - 31.0 PG) 33.9 H RDW (11.5 - 14.5 %) 16.9 H Plt Count (130 - 400 /CUMM) 376 MPV (7.4 - 10.4 FL) 9.6 Gran % (42.2 - 75.2 %) 66.9 Lymphocytes % (20.5 - 51.1 %) 17.3 L Monocytes % (1.7 - 9.3 %) 12.1 H Eosinophils % (0 - 5 %) 2.9 Basophils % (0.0 - 2.0 %) 0.8 Absolute Granulocytes (1.4 - 6.5 /CUMM) 6.2 Absolute Lymphocytes (1.2 - 3.4 /CUMM) 1.6 Absolute Monocytes (0.10 - 0.60 /CUMM) 1.1 H Absolute Eosinophils (0.0 - 0.7 /CUMM) 0.3 Absolute Basophils (0.0 - 0.2 /CUMM) 0.1 PUBS MCHC (33.0 - 37.0 G/DL) 32.2 L Last 24 Hours of [place] Results: No recent cultures Recent Imaging Studies: Chest x-ray December 05, personally reviewed, right base improved, with a persistent left lower lobe density Assessment/Plan Impression: Stable on Flagyl now Day 2 of treatment for C. difficile, with decreased diarrhea, temperatures lower grade and white blood cell count remaining normal. The heterogeneous fluid collection noted on CT and ultrasound likely represents a hematoma given her overlying flank ecchymosis, and, though this could theoretically be infected, if her fevers resolve this should not require further evaluation. She is now 15 days status post placement of a cholecystostomy tube for acute cholecystitis. Suggestion: 1. Would remove Black catheter if I's and O's are not critical 2. Continue po Flagyl
[2016-12-05 16:00] VITALS: BP 120/64
--- NOTE | 2016-12-05 22:14 | NUR ---
AVSS.A/INT CONFUSED.FOLLOW COMMANDS.ANXIOUS/RESTLESS AT TIMES AND ATIVAN X1 GIVEN WITH GOOD EFFECT.NO VENT CHANGES NOTED AND REMAIN VENTILATED WITH SATS >93%.ORAL CARE DONE.NPO.OGT PATENT WITH TF CONT.T-TUBE AND BALDERRAMA PATENT. PLAN OF CARE CONT ATC.
[2016-12-06] VITALS: BP 118/64
--- NOTE | 2016-12-06 01:35 | NUR ---
PT WIDE AWAKE, FOLLOWS COMMANDS, USING COMMUNICATION BOARD AND SHAKES HEAD YES OR NO, PT WANTING TO KNOW WHERE HER "CHECKS ARE". HR SR W/PAC'S 100'S. FIO2 40% RHONCHI AUSCULTATED IN ALL LOBES, SUCTIONED FOR MODERATE AMOUNTS OF YELLOW FROTHY SECRETIONS AND ORAL SECRETIONS. NO C/O PAIN. TOLERATING TUBE FEEDS NO RESIDUAL NOTED. BALDERRAMA IN PLACE ADEQUATE OUTPUT. PT REPOSITIONED FOR COMFORT.
[2016-12-06 04:32] LABS: ABSOLUTE BASOPHIL COUNT 0 /CUMM (0.0-0.2); ABSOLUTE EOSINOPHIL COUNT 0.3 /CUMM (0.0-0.7); ABSOLUTE LYMPH COUNT 1.7 /CUMM (1.2-3.4); BASOPHIL % 0.4 % (0.0-2.0); EOSINOPHIL % 3.7 % (0-5); GRANULOCYTE % 62.4 % (42.2-75.2); MEAN CORPUSCULAR HGB 34.5 PG (27.0-31.0); MEAN CORPUSCULAR HGB CONC 32.8 G/DL (33.0-37.0); MEAN PLATELET VOLUME 8.6 FL (7.4-10.4); PLATELET COUNT 537 /CUMM (130-400); RED BLOOD CELL CT 3.15 /CUMM (4.20-5.40)
--- NOTE | 2016-12-06 07:19 | PN- Resident CRCU ---
Subjective HPI/CRCU Issues: Afebrile, hemodynamically stable, intubated and mechanically ventilated, saturating 90s on 40% oxygen. She would like to have a tracheostomy if ventilatory failed again. No overnight events reported. Patient denies any current active complaints 24 Hour Events: Tmax 99 HR: 90- 106 with average being 92 BP: lowest 108/58 and highest 132/56 Patient is on ventilator with FiO2 40% Yesterday I/Os (negative) Total balance to date [id number] (positive) Objective Vital Signs & I&O Last 8 Hrs of Vitals and I&O: Vital Signs Date Time Temp Pulse Resp B/P B/P Pulse O2 O2 Flow FiO2 Mean Ox Delivery Rate 12/07 811 40 12/06 08 97.9 90 20 118/60 96 Ventilator 40% 12/06 08 96 Ventilator 40% 12/06 0601 40 12/06 0400 97 Ventilator 40% 12/06 0344 40 Exam General Appearance: alert, awake, intubated Head: atraumatic, normal appearance Respiratory: chest non-tender, rhonchi Cardiovascular: regular rate/rhythm Gastrointestinal: normal bowel sounds, soft, non-tender Extremities: normal inspection, normal capillary refill, normal range of motion, no edema Cranial Nerves: PERRL Weaning Parameters NIF: 38 Minute Volume: 10.0 Resp rate: 32 Vt: 310 Heart Rate: 90 Weaning Schedule Start Time: 0910 Minute Volume: 11.2 Resp Rate: 22 Vt: 475 Heart Rate: 89 End Time: 0912 Minute Volume: 14.5 Resp Rate: 38 Vt: 210 Heart Rate: 88 Start Time: 1305 Minute Volume: 7.99 Resp Rate: 40 Vt: 360 Heart Rate: 96 Current Medications: Current Medications Sig/Shilpa Start time Last Medication Dose Route Stop Time Status Admin Acetylcysteine 2 ML BID 11/21 1235 AC 12/06 INH 0822 Albuterol Sulfate 3 ML EVERY 4 HRS/AWAKE 11/21 1600 AC 12/06 INH 0822 Levothyroxine Sodium 75 MCG DAILY 11/22 1000 AC 12/05 IV 1029 Lorazepam 0.5 MG ONCE PRN 12/06 0945 DC 12/06 IV 0951 Lorazepam 0.5 MG ONCE PRN 12/05 1345 DC 12/05 IV 12/05 2200 2106 Magnesium Sulfate 1 GM Q2H 12/06 0545 DC 12/06 Dextrose/Water 100 ML IV 12/06 0944 0951 Magnesium Sulfate 1 GM Q2H 12/05 0600 SD 12/05 Dextrose/Water 100 ML IV 12/05 0959 0812 Metronidazole 500 MG Q8 12/03 2200 12/06 PO 0538 Nystatin 1 ESTEFANY TIDPRN PRN 11/21 0330 12/04 TOP 0849 Pantoprazole Sodium 40 MG DAILY 11/21 2011 12/06 IV 0951 Impression/Plan Impression/Problem List Impression: Ms. Sánchez is a 76 year old female with PMH HTN, severe COPD, cigarette abuse (1 PPD), previous alcohol use, atrial fibrillation on Pradaxa and digoxin, GI bleed and hypothyroidism who presents with chief complaint of cough, decreased oral intake, fatigue, fever and chills for one week. Of note, patient did she her PCP Dr. Enma MD who prescribed her azithromycin for presumed bronchitis though her symptoms persisted prompting evaluation in our emergency department. Respiratory Patient noted to be 86% on RA during admission. Initially placed on BiPAP but was intubated due to increased work of breathing on 11/20/16. Questionable aspiration pneumonia: CXR on admission showed LLL abnormality suggestive of PNA. Follow up CT chest showed small/moderate pleural effusion with RML/partial RLL collapse; trace left pleural effusion. Patient finished antibiotic. I'll culture came back negative. She still intubated and mechanically ventilated. Also she was found to have Left lung nodule: 0.4 cm in left lung apex. * today lungs has some scattered rhonchi on Physical Exam * Ventilator settings -Mode: VCV-A/C -FiO2: 40% -TV set: 500 -TV Act:519 -Patient's RR:14 -Ventilator's RR 18 -PEEP: 5 -Peak airway resistance 25 * Oxygen saturation is on mid 90s * Chest x-ray results this AM: ET tube in satisfactory position. Mild atelectasis within right lung base and probable trace right pleural effusion. Pulmonary medications * Albuterol Plan 1. We will try to wean off the mechanical ventilator 2.if continue require mechanical ventilator, we will plan a tracheostomy 3.Will be instructed to follow up as an outpatient for the lungs nodule Infectious disease Patient initially presented with septic shock secondary to intra-abdominal pathology complicated by acute cholecystitis. She was placed on aggressive hydration for sepsis and pressors were given for a short period of time. Percutaneous cholecystostomy tube was inserted by IR and decompression of gallbladder was appreciated. Patient was intubated during this procedure and returned to the ICU intubated. Patient was empirically started on IV ceftriaxone and azithromycin. There was a concern of aspiration pneumonia so antibiotic was switching to IV vancomycin, flagyl and ceftriaxone as per ID. Because no significant cultures growth was observed antibiotic was switched to IV unasyn( unasyn was discontinued on 11/29/16), after that she was found to be C. difficile positive on 12/03/16 and she was started on Metronidazole oral. * Tmax 99 * Current Temp is 97.9 * WBCs 8 * On Metronidazole 500 mg Q8 for C.diff Plan 1. Metronidazole 500 mg Q8 for C.diff Cardiovascular Elevated troponin ( peak at 0.35) in the setting of septic shock and respiratory failure. Cardiology Dr. Vida MD statement that this is monst likely demand ischemia. Echo was done and showed mild concentric LVH, normal EF >65%, stage 1 diastolic dysfunction. Paroxysmal atrial fibrillation with digitalis toxicity on admission requiring digibind. Dr. Vida MD suggested holding metoprolol in the setting of septic shock/hypotension. These medications continue to remain on hold. Patient is now noted to be occasionally tachycardic. * HR: 90- 106 with average being 92 * BP: lowest 108/58 and highest 132/56 * Patient is not on any cardiac medication Plan 1.Confirm with cardiology the need to restart metoprolol 2.Continue monitor vitals 3.Instructed to follow cardiology post discharge Hematology * H&H :10.9 & 33 * Plt count 537 Plan 1. CBC daily Neurology * Alert and follow commands * Strength 5/5 on UE B/L and 4/5 on LE B/L * Not on any sedative meds Plan 1.NTD GIT There was a concern for acute cholecystitis with RUQ US findings of gallstones with wall thickening and edema. IR was consulted and a percutaneous cholecystostomy tube was placed. No growth was noted in the bile drained from the gall bladder. Hepatitis panel negative and tylenol level <10. * Percutaneous cholecystostomy bag is filled with clear yellow fluid * Benign abdominal examination Plan 1.Continue hold statin 2.We will follow GI recommendation Renal BETH on admission likely secondary to sepsis/hypotension. She was provided with IV fluids, nephrotoxins were avoided until her kidney function became within normal limits. * Cr 0.9 * BUN 7 * Yesterday I/Os (negative) * Total balance to date [id number] (positive) Plan 1. Strict I's and O's 2. Renal function daily Endocrinology Patient had a history of hypothyroidism. on 11/20 TSH 1.53 and FT4 1.7. Plan 1. Continue levothyroxin 75 MCG IV daily Code status: FULL DVT: Prophylaxis: ALPS (no pharm 2/2 bleeding) GI Prophylaxis: Pantoprazole 40 mg IV Diet: Tube feeds at goal rate Problem List: 1. Multiorgan failure 2. Tobacco abuse 3. Clostridium difficile diarrhea Pain Ratin Tomorrow's Labs & Rationales: ICU bundle and CBC Plan DVT/Prophylaxis: mechanical
[2016-12-06 08:00] VITALS: BP 118/60
--- NOTE | 2016-12-06 08:10 | RADIOLOGY REPORT ---
EXAMINATION: XR PORTABLE CHEST CLINICAL INFORMATION: Hypoxic respiratory failure. ET tube placement. COMPARISON: CXR from TECHNIQUE: Portable frontal view of the chest was obtained. FINDINGS: Endotracheal tube is located 4 cm above the cori. Enteric tube extends below the diaphragm, into the stomach and beyond the [id number]. Lungs are symmetrically expanded. Linear streak of atelectasis is present in the right lower lobe. Hazy opacity in the right base probably represents layering of a trace right pleural effusion. Cardiac silhouette is mildly enlarged and the mitral valve annulus is calcified. Thoracic aorta is calcified. Bones appear diffusely osteopenic. IMPRESSION: 1. ET tube is in satisfactory position at 4 cm above the cori. 2. Cardiomegaly without evidence of active pulmonary edema or other significant interval change compared to the prior radiograph. 3. Mild atelectasis within right lung base and probable trace right pleural effusion.
--- NOTE | 2016-12-06 10:40 | PN- Infect Dx ---
Subjective Subjective: Afebrile without complaints. Her stools are becoming more formed. Objective Last 24 Hrs of Vital Signs/I&O Vital Signs Date Time Temp Pulse Resp B/P B/P Pulse O2 O2 Flow FiO2 Mean Ox Delivery Rate 12/06 0812 40 / 0800 97.9 90 20 118/60 96 Ventilator 40% 12/06 0800 96 Ventilator 40% / 0601 40 / 0400 97 Ventilator 40% 12/06 0344 40 / 0121 40 06/ 0000 95 Ventilator 40% 06/ 0000 97.9 97 21 118/64 95 Ventilator 40% / 2259 40 12/05 2021 40 12/05 2015 95 Ventilator 40% / 1705 40 / 1600 97.7 94 23 120/64 95 Ventilator 40% 12/05 1600 95 Ventilator 40% / 1345 40 / 1200 95 Ventilator 40% 12/05 1101 40 Intake & Output 12/06 1600 / 0800 06/ 0000 Intake Total 854 690 Output Total 750 680 Balance 104 10 Intake, IV 130 Intake, Oral 0 Intake, Other 280 Intake, Tube 444 480 Feeding Intake, Tube 210 Irrigant Number 2 1 Bowel Movements Output, Other 40 Output, Urine 750 640 Physical Exam Other Physical Findings: She appears comfortable in no acute distress Lungs scattered rhonchi on the right Heart regular rhythm with no murmur Abdomen is soft, nontender with positive bowel sounds; cholecystostomy tube in place with bilious output Extremities no cyanosis, clubbing or edema Black catheter remains in place Results Last 24 Hours of Lab Results: Laboratory Tests 12/06 0325 Chemistry Sodium (137 - 145 mmol/L) 130 L Potassium (3.5 - 5.1 mmol/L) 4.3 Chloride (98 - 107 mmol/L) 97 L Carbon Dioxide (22 - 30 mmol/L) 25 Anion Gap (5 - 16) 9 BUN (7 - 17 mg/dL) 7 Creatinine (0.5 - 1.0 mg/dL) 0.5 Estimated GFR (>60 ml/min) > 60 Glucose (65 - 99 mg/dL) 87 Calcium (8.4 - 10.2 mg/dL) 8.6 Phosphorus (2.5 - 4.5 mg/dL) 4.2 Magnesium (1.6 - 2.3 mg/dL) 1.6 Total Bilirubin (0.2 - 1.3 mg/dL) 0.8 AST (14 - 36 U/L) 24 ALT (9 - 52 U/L) 51 Albumin (3.5 - 5.0 g/dL) 2.6 L Hematology CBC w Diff NO MAN DIFF REQ WBC (4.8 - 10.8 /CUMM) 8.0 RBC (4.20 - 5.40 /CUMM) 3.15 L Hgb (12.0 - 16.0 G/DL) 10.9 L Hct (37 - 47 %) 33.0 L MCV (81.0 - 99.0 FL) 105.0 H MCH (27.0 - 31.0 PG) 34.5 H RDW (11.5 - 14.5 %) 17.0 H Plt Count (130 - 400 /CUMM) 537 H MPV (7.4 - 10.4 FL) 8.6 Gran % (42.2 - 75.2 %) 62.4 Lymphocytes % (20.5 - 51.1 %) 20.6 Monocytes % (1.7 - 9.3 %) 12.9 H Eosinophils % (0 - 5 %) 3.7 Basophils % (0.0 - 2.0 %) 0.4 Absolute Granulocytes (1.4 - 6.5 /CUMM) 5.0 Absolute Lymphocytes (1.2 - 3.4 /CUMM) 1.7 Absolute Monocytes (0.10 - 0.60 /CUMM) 1.0 H Absolute Eosinophils (0.0 - 0.7 /CUMM) 0.3 Absolute Basophils (0.0 - 0.2 /CUMM) 0 PUBS MCHC (33.0 - 37.0 G/DL) 32.8 L Last 24 Hours of [place] Results: No recent cultures Recent Imaging Studies: Chest x-ray December 06, personally reviewed, reveals mild atelectasis at the right base Assessment/Plan Impression: Doing well on Flagyl now Day 3 of treatment for C. difficile, with decreased diarrhea and with temperatures and white blood cell count normal now 16 days status post placement of a cholecystostomy tube for acute cholecystitis. She remains ventilator dependent with weaning trials in progress. Suggestion: 1. Continue po Flagyl
--- NOTE | 2016-12-06 10:57 | PN- CRCU ---
Subjective HPI/Critical Care Issues: pt seen and examined remains intubated awake and alert comfortable will continue aggressive cpap trials, will consider t-piece Objective Current Medications: Current Medications Sig/Shilpa Start time Last Medication Dose Route Stop Time Status Admin Acetylcysteine 2 ML BID 11/21 1235 AC 12/06 INH 0822 Albuterol Sulfate 3 ML EVERY 4 HRS/AWAKE 11/21 1600 AC 12/06 INH 0822 Levothyroxine Sodium 75 MCG DAILY 11/22 1000 AC 12/06 IV 1044 Lorazepam 0.5 MG ONCE PRN 12/06 0945 DC 12/06 IV 0951 Lorazepam 0.5 MG ONCE PRN 12/05 1345 DC 12/05 IV 12/05 2200 2106 Magnesium Sulfate 1 GM Q2H 12/06 0545 DC 12/06 Dextrose/Water 100 ML IV 12/06 0944 0951 Metronidazole 500 MG Q8 12/03 2200 AC 12/06 PO 0538 Nystatin 1 ESTEFANY TIDPRN PRN 11/21 0330 AC 12/04 TOP 0849 Pantoprazole Sodium 40 MG DAILY 11/21 2011 12/06 IV 0951 Vital Signs & I&O Last 24 Hrs of Vitals and I&O: Vital Signs Date Time Temp Pulse Resp B/P B/P Pulse O2 O2 Flow FiO2 Mean Ox Delivery Rate 12/06 0812 40 12/06 0800 97.9 90 20 118/60 96 Ventilator 40% 12/06 0800 96 Ventilator 40% 12/06 0601 40 12/06 0400 97 Ventilator 40% 12/06 0344 40 12/06 0121 40 12/06 0000 95 Ventilator 40% 12/06 0000 97.9 97 21 118/64 95 Ventilator 40% 12/05 2259 40 12/05 202 40 12/05 2014 95 Ventilator 40% / 1705 40 12/05 1600 97.7 94 23 120/64 95 Ventilator 40% 12/05 1600 95 Ventilator 40% 12/05 1345 40 12/05 1200 95 Ventilator 40% / 1101 40 Intake & Output 12/06 1600 12/06 0800 06/ 0000 Intake Total 854 690 Output Total 750 680 Balance 104 10 Intake, IV 130 Intake, Oral 0 Intake, Other 280 Intake, Tube 444 480 Feeding Intake, Tube 210 Irrigant Number 2 1 Bowel Movements Output, Other 40 Output, Urine 750 640 Exam Other Physical Findings: gen awake heent ett cvs s1, s2 lungs transmitted abd soft bs+ ext without edema Results Last 24 Hrs of Lab Results: Laboratory Tests 12/06/16 0325: Anion Gap 9, Estimated GFR > 60, Glucose 87, Calcium 8.6, Phosphorus 4.2, Magnesium 1.6, Total Bilirubin 0.8, AST 24, ALT 51, Albumin 2.6 L, CBC w Diff NO MAN DIFF REQ, RBC 3.15 L, MCV 105.0 H, MCH 34.5 H, RDW 17.0 H, MPV 8.6, Gran % 62.4, Lymphocytes % 20.6, Monocytes % 12.9 H, Eosinophils % 3.7, Basophils % 0.4, Absolute Granulocytes 5.0, Absolute Lymphocytes 1.7, Absolute Monocytes 1.0 H, Absolute Eosinophils 0.3, Absolute Basophils 0, PUBS MCHC 32.8 L Impression/Plan Impression/Plan Impression/Plan: Impression 76 year old woman * c.diff * respiratory failure - hypoxemic * tobacco dependence and severe COPD/emphysema Plan Respiratory -reduce fio2 as tolerted -cpap and consideration for t-piece trials, if continues to require intubation, will need a tracheostomy -trc/nebs ID -f/u ID, cont po flagyl CVS -monitor hemodynamics -a/c held given bleeding Heme -f/u cbc, coags, cardiology recommendations Metabolic -ins/outs -net negative fluid balance Alimentary -f/u gi/surgery recommendations Neuro -sedation as necessary TTS 35 min
--- NOTE | 2016-12-06 15:39 | NUR ---
Patient wanting/trying to pull ETT out. Spoke with Dr. Gould and housestaff. Patient to remain a full code and to be re-intubated if extubation doesn't go well. Patient to be placed on high flow O2 of bipap. Patient understanding and willing to be reintubated if necessary. Vitals stable. 0.5 mg IV ativan given previous to trialing. Trialed w/ PSV 10 from 1005 to 1119 when patient became apneic per Sarah, RT, desatting to 89%. Vent settings resumed. Patient unhappy that tube is still in place. Retaped at 1430 to center of mouth and patient continuing to try to pull tube out. Dr. Gould at bedside to extubate @ 1545 for trial.
[2016-12-06 16:00] VITALS: BP 120/60
--- NOTE | 2016-12-06 18:35 | NUR ---
1830: PATIENT PULLING AT LINES/GOWN. REORIENTED TO ROOM AND O2. STRIDOR NOTED UPON ASSESSMENT. O2 SAT 91%, HR 110S-120S, TYR=127I. REYMUNDO, RT AT THE BEDSIDE GIVEN RECEMEIC EPI TREATMENT. PATIENT DENIES SOB. DR. BENTON AWARE. CONTINUING TO MONITOR PATIENT AND PROVIDE SAFETY.
[2016-12-07] VITALS: BP 112/64
[2016-12-07 05:40] LABS: ABSOLUTE BASOPHIL COUNT 0 /CUMM (0.0-0.2); ABSOLUTE EOSINOPHIL COUNT 0 /CUMM (0.0-0.7); ABSOLUTE GRANULOCYTE CT 6.5 /CUMM (1.4-6.5); ABSOLUTE LYMPH COUNT 0.4 /CUMM (1.2-3.4); ABSOLUTE MONOCYTE COUNT 0.1 /CUMM (0.10-0.60); BASOPHIL % 0 % (0.0-2.0); EOSINOPHIL % 0 % (0-5); MEAN CORPUSCULAR HGB 34.5 PG (27.0-31.0); MEAN CORPUSCULAR HGB CONC 32.5 G/DL (33.0-37.0); MEAN CORPUSCULAR VOLUME 106.1 FL (81.0-99.0); MEAN PLATELET VOLUME 8.1 FL (7.4-10.4); PLATELET COUNT 611 /CUMM (130-400); RBC DISTRIBUTION WIDTH 16.5 % (11.5-14.5); RED BLOOD CELL CT 3.21 /CUMM (4.20-5.40); WHITE BLOOD CELL COUNT 6.9 /CUMM (4.8-10.8)
[2016-12-07 05:44] LABS: PT 13.5 SEC (9.4-12.5); PTT 31 SEC (25-37)
[2016-12-07 06:35] LABS: GRANULOCYTE % 93.7 % (42.2-75.2)
--- NOTE | 2016-12-07 07:18 | PN- Resident CRCU ---
CHACE DE LEÓN,[facility] 12/07/16 0718: Subjective HPI/CRCU Issues: Afebrile, hemodynamically stable, saturating well on BiPAP 60% oxygen, and mildly tachycardic . No overnight event reported. She denies any current active complaints. 24 Hour Events: * Tmax 99 * HR: 90- 163 with average being 126 * Multiple sinus tachycardia on the athletic monitor the highest reading was 163/Min * BP: lowest 93/80 and highest 149/66 * Patient is on ventilator with FiO2 40% * Yesterday I/Os 2397/2500 (negative balance) * Total balance to date 02784/07567 (overall positive balance) Objective Vital Signs & I&O Last 8 Hrs of Vitals and I&O: Vital Signs Date Time Temp Pulse Resp B/P B/P Pulse O2 O2 Flow FiO2 Mean Ox Delivery Rate 12/07 0808 95 BIPAP 60% 12/07 0807 79 95 12/07 0800 96 BIPAP 60% 12/07 0800 96.9 87 30 118/66 96 BIPAP 60% 12/07 0558 78 99 08 0400 94 BIPAP 60% 12/07 0327 84 98 /08 0128 93 95 06/08 0000 98.4 108 32 112/64 94 BIPAP 60% 12/07 0000 94 BIPAP 60% 12/06 2235 116 94 12/06 2014 122 91 / 2000 88 Nasal 50% Cannula 12/06 1830 91 Nasal 55% Cannula 12/06 1600 98.3 104 32 120/60 96 Nasal 50% Cannula 12/06 1600 96 Nasal 50% Cannula 12/06 1540 40 /07 1348 40 /07 1200 92 Ventilator 40% Intake & Output / 1600 06/08 0800 06/08 0000 Intake Total 376 194 Output Total 695 550 Balance -319 -356 Intake, IV 376 194 Number 1 1 Bowel Movements Output, Other 45 100 Output, Urine 650 450 Exam General Appearance: no apparent distress, alert, awake, comfortable, on BiPAP Head: atraumatic, normal appearance Neck: normal inspection Respiratory: normal breath sounds, chest non-tender, no respiratory distress Cardiovascular: regular rate/rhythm Gastrointestinal: normal bowel sounds, soft, non-tender Extremities: normal inspection, no edema Weaning Parameters NIF: 35 Minute Volume: 9.37 Resp rate: 32 Vt: 293 Heart Rate: 94 Weaning Schedule Start Time: 1005 Minute Volume: 10.7 Resp Rate: 32 Vt: 335 Heart Rate: 96 End Time: 1119 Minute Volume: 14.5 Resp Rate: 38 Vt: 210 Heart Rate: 88 Start Time: 1305 Minute Volume: 7.99 Resp Rate: 40 Vt: 360 Heart Rate: 96 Current Medications: Current Medications Sig/Shilpa Start time Last Medication Dose Route Stop Time Status Admin Acetylcysteine 2 ML BID 11/21 1235 DC 12/06 INH 0822 Albuterol Sulfate 3 ML EVERY 4 HRS/AWAKE 11/21 1600 AC 12/07 INH 1132 Dextrose/Sodium 1,000 ML Q20H 12/06 1945 AC 12/06 Chloride IV 2000 Dextrose/Sodium 1,000 ML Q20H 12/06 1845 DC 12/06 Chloride IV 12/07 1444 1856 Levothyroxine Sodium 75 MCG DAILY 11/22 1000 AC 12/07 IV 1023 Methylprednisolone 40 MG Q8 12/07 1400 AC IV Methylprednisolone 60 MG Q8 12/06 1930 DC 12/07 IV 0514 Methylprednisolone 60 MG ONCE ONE 12/06 1600 DC 12/06 IV 12/06 1601 1800 Metoprolol Tartrate 12.5 MG BID 12/07 1000 CAN PO Metronidazole 500 MG IQ8 12/06 1615 AC 12/07 N/A 1 UNIT IV 0830 Metronidazole 500 MG Q8 12/03 2200 DC 12/06 PO 0538 Nystatin 1 ESTEFANY TIDPRN PRN 11/21 0330 AC 12/04 TOP 0849 Pantoprazole Sodium 40 MG DAILY 11/21 2011 AC 12/07 IV 1022 Racepinephrine 0.5 ML Q6-PRN PRN 12/06 1915 AC 12/06 INH 1830 Impression/Plan Impression/Problem List Impression: Ms. Sánchez is a 76 year old female with PMH HTN, severe COPD, cigarette abuse (1 PPD), previous alcohol use, atrial fibrillation on Pradaxa and digoxin, GI bleed and hypothyroidism who presents with chief complaint of cough, decreased oral intake, fatigue, fever and chills for one week. Of note, patient did she her PCP Dr. Enma MD who prescribed her azithromycin for presumed bronchitis though her symptoms persisted prompting evaluation in our emergency department. Respiratory Patient noted to be 86% on RA during admission. Initially placed on BiPAP but was intubated due to increased work of breathing on 11/20/16. Questionable aspiration pneumonia: CXR on admission showed LLL abnormality suggestive of PNA. Follow up CT chest showed small/moderate pleural effusion with RML/partial RLL collapse; trace left pleural effusion. Patient finished antibiotic. All culture came back negative. Also she was found to have Left lung nodule: 0.4 cm in left lung apex. She was extubated yesterday after 17 days of intubation. This morning she was on BiPAP * Examination significant for mild scattered rhonchi * BiPAP setting -IPAP 16 -EPAP 6 -RR 20 -Fio2 60% * Oxygen saturation is on mid 90s Pulmonary medications * Albuterol * Solu-Medrol 40 mg every 8 IV Plan 1.Continue steroid 40 mg IV every 8 2.Will be instructed to follow up as an outpatient for the lungs nodule Infectious disease Patient initially presented with septic shock secondary to intra-abdominal pathology complicated by acute cholecystitis. She was placed on aggressive hydration for sepsis and pressors were given for a short period of time. Percutaneous cholecystostomy tube was inserted by IR and decompression of gallbladder was appreciated. Patient was intubated during this procedure and returned to the ICU intubated. Patient was empirically started on IV ceftriaxone and azithromycin. There was a concern of aspiration pneumonia so antibiotic was switching to IV vancomycin, flagyl and ceftriaxone as per ID. Because no significant cultures growth was observed antibiotic was switched to IV unasyn( unasyn was discontinued on 11/29/16), after that she was found to be C. difficile positive on 12/03/16 and she was started on Metronidazole oral. * Tmax 99 * Current Temp is 96.9 * WBCs 6.9 * On Metronidazole 500 mg Q8 for C.diff Plan 1. Metronidazole 500 mg Q8 for C.diff 2. Remove Black catheter Cardiovascular Elevated troponin ( peak at 0.35) in the setting of septic shock and respiratory failure. Cardiology Dr. Vida MD statement that this is monst likely demand ischemia. Echo was done and showed mild concentric LVH, normal EF >65%, stage 1 diastolic dysfunction. Paroxysmal atrial fibrillation with digitalis toxicity on admission requiring digibind. Dr. Vida MD suggested holding metoprolol in the setting of septic shock/hypotension. These medications continue to remain on hold. Patient is now noted to be occasionally tachycardic. * HR: 90- 163 with average being 126 * Multiple sinus tachycardia on the athletic monitor the highest reading was 163/Min * BP: lowest 93/80 and highest 149/66 * On Metoprolol 12.5 mg twice a day Plan 1.Start metoprolol 2.Continue monitor vitals 3.Avoid a dehydrated state since this patient may be preload dependent(as per cardio) 4.hold off on adding digoxin for now(as per cardio) 5.Instructed to follow cardiology post discharge Hematology * H&H :11.1 & 34 * Plt count 611 Plan 1. CBC daily Neurology * Alert and follow commands * Strength 11/03 X4 * Not on any sedative meds Plan 1.NTD GIT There was a concern for acute cholecystitis with RUQ US findings of gallstones with wall thickening and edema. IR was consulted and a percutaneous cholecystostomy tube was placed, Today is day 17 post PC tube placement. No growth was noted in the bile drained from the gall bladder. Hepatitis panel negative and tylenol level <10. * Percutaneous cholecystostomy bag is filled with clear yellow fluid * Benign abdominal examination Plan 1.Continue hold statin 2.We will follow GI recommendation Renal BETH on admission likely secondary to sepsis/hypotension. She was provided with IV fluids, nephrotoxins were avoided until her kidney function became within normal limits. * Cr 0.4 * BUN 10 * Yesterday I/Os 2397/2500 (negative balance) * Total balance to date 33920/26493 (overall positive balance) Plan 1. Strict I's and O's 2. Renal function daily Endocrinology Patient had a history of hypothyroidism. on 11/20 TSH 1.53 and FT4 1.7. Plan 1. Continue levothyroxin 75 MCG IV daily Code status: FULL DVT: Prophylaxis: ALPS (no pharm 2/2 bleeding) GI Prophylaxis: Pantoprazole 40 mg IV Diet: Tube feeds at goal rate Problem List: 1. Clostridium difficile diarrhea 2. Acute cholecystitis 3. Acute respiratory failure with hypoxia and hypercarbia 4. COPD exacerbation Pain Ratin Tomorrow's Labs & Rationales: ICU bundle and CBC Plan DVT/Prophylaxis: mechanical CRISTINO BENTON MD 12/07/16 0947: Attending MD Review Statement Attending Sign Off Attending Cosign Statement: I have: examined this patient, reviewed [facility] EMR data, personally reviewd images, discussd w/resident/PA/OYSTER CULTURIST, discussed mgmt plan w/rick, discussed mgmt plan w/CM, discussed mgmt plan w/pt, agreed w/resident/PA/OYSTER CULTURIST, amended to note. Other Findings: Cristino Moon M.D. have examined this patient, reviewed available EMR data, personally reviewed images, discussed with resident/PA/OYSTER CULTURIST, discussed management plan with housestaff and nursing staff, discussed managment plan all of healthcare providers, discussed management plan with patient and/or family, agreed with resident/PA/OYSTER CULTURIST. The past history and parts of the chart have been autopopulated. TTS 35 min
--- NOTE | 2016-12-07 07:49 | PN- Cardiology ---
Subjective Subjective: * Patient is now extubated and feels well. No chest discomfort, shortness of breath, lightheadedness or palptations. * sinus rhythm with occasional tachycardia Objective Vital Signs and I&Os Vital Signs Date Time Temp Pulse Resp B/P B/P Pulse O2 O2 Flow FiO2 Mean Ox Delivery Rate 12/07 0558 78 99 12/07 0400 94 BIPAP 60% 12/07 0327 84 98 /08 0128 93 95 06/08 0000 98.4 108 32 112/64 94 BIPAP 60% 12/07 0000 94 BIPAP 60% 12/06 2235 116 94 12/06 2014 122 91 12/06 2000 88 Nasal 50% Cannula 12/06 1830 91 Nasal 55% Cannula 12/06 1600 98.3 104 32 120/60 96 Nasal 50% Cannula 12/06 1600 96 Nasal 50% Cannula 12/06 1540 40 / 1348 40 06/07 1200 92 Ventilator 40% 12/06 1125 40 12/06 0812 40 / 0800 97.9 90 20 118/60 96 Ventilator 40% 12/06 0800 96 Ventilator 40% Intake & Output / 0800 06/08 0000 06/07 1600 06/07 0800 06/07 0000 /06 1600 Intake Total 376 194 504 736 262 8271 Output Total 977 219 7905 750 680 980 Balance -319 -356 -576 104 10 62 Intake, IV 376 194 100 130 380 Intake, Oral 0 Intake, Other 120 280 195 Intake, Tube 274 444 480 457 Feeding Intake, Tube 10 210 10 Irrigant Number 1 1 2 1 Bowel Movements Output, Other 45 100 105 40 80 Output, Urine 650 450 975 750 640 900 Physical Exam: General: WD/ WN female in NAD, awake and responsive Heart: RRR with 2/6 systolic murmur Lungs: no crackles or wheezing Extemities: no edema Assessment/Plan Assessment/Plan * Hemodynamically stable in NSR. Begin Metoprolol 12.5mg BID for mild tachycardia. * This patient likely has high pulmonary pressures related to her lung issues. This will inhibit RV contractility which is compensated for by increased heart rate to maintain an adequate cardiac output. We will hold off on adding digoxin for now. Avoid a dehydrated state since this patient may be preload dependent. Continue telemetry? Yes
[2016-12-07 08:00] VITALS: BP 118/66
--- NOTE | 2016-12-07 08:30 | NUR ---
RECEIVED THE PT ON BIPAP AT 60% WITH AN I=16 AND AN E=6 WELL A RATE OF 20. O2 SAT ON BIPAP IS 96%. PLACED ON A HIGH FLOW NASAL CANNULA(HFNC) OF 65% AT THIS TIME. RUL WITH AN INSPIRATORY WHEEZE AND ALL OTHER LOBES HAVE DECREASED BS. PT HAS A PRODUCTIVE COUGH. NO RESPIRATORY DISTRESS NOTED, DOES GET SL SOB WITH TALKING. PT IS A&OX3, WARE AND DENIES ANY PAIN, NUMBNESS OR TINGLING. REPOSITIONED TO THE R FOR COMFORT. 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 NO EDEMA NOTED. PT WAS ORDERED LOPRESSOR 12.5MG PO, PT HAS NOT HAD ANYTHING PO SINCE PRIOR TO BEING INTUBATED ON 11/20. DR NELI MONTALVO MADE AWARE. IN ADDITION, THE PT IS HR IS CURRENTLY IN THE 80'S. THE LOPRESSOR ORDER WAS CANCELLED AND A SWALLOW EVALUATION WAS ORDERED. ABD IS SOFT WITH NORMOACTIVE BOWEL SOUNDS. BALDERRAMA IN PLACE DRAINING CLEAR LIGHT DONNA URINE, RECEIVING D5NS AT 40ML/HR VIA A #20 TO THE RF.
--- NOTE | 2016-12-07 10:36 | PN- Infect Dx ---
Subjective Subjective: Afebrile. She was extubated yesterday afternoon and remains so, with no complaints at this time. She had one soft stool reported overnight. Objective Last 24 Hrs of Vital Signs/I&O Vital Signs Date Time Temp Pulse Resp B/P B/P Pulse O2 O2 Flow FiO2 Mean Ox Delivery Rate 12/08 807 95 BIPAP 60% 12/07 0807 79 95 12/07 0800 96 BIPAP 60% 12/07 0800 96.9 87 30 118/66 96 BIPAP 60% 12/07 0558 78 99 /08 0400 94 BIPAP 60% 12/07 0327 84 98 /08 0128 93 95 06/08 0000 98.4 108 32 112/64 94 BIPAP 60% 12/07 0000 94 BIPAP 60% 12/06 2235 116 94 12/06 2014 122 91 12/06 2000 88 Nasal 50% Cannula 12/06 1830 91 Nasal 55% Cannula 12/06 1600 98.3 104 32 120/60 96 Nasal 50% Cannula 12/06 1600 96 Nasal 50% Cannula 12/06 1540 40 /07 1348 40 06/07 1200 92 Ventilator 40% 07 1125 40 Intake & Output 12/07 1600 06/08 0800 06/08 0000 Intake Total 376 194 Output Total 695 550 Balance -319 -356 Intake, IV 376 194 Number 1 1 Bowel Movements Output, Other 45 100 Output, Urine 650 450 Physical Exam Other Physical Findings: She appears comfortable in no acute distress on BiPAP Lungs scattered rhonchi Heart regular rhythm with no murmur Abdomen soft, nontender with positive bowel sounds; cholecystostomy tube remains in place Extremities no cyanosis, clubbing or edema Black catheter remains in place Results Last 24 Hours of Lab Results: Laboratory Tests 12/07 12/07 0515 0410 Blood Gas pH (7.35 - 7.45 PH) 7.38 pCO2 (35 - 45 TORR) 45 pO2 (80 - 100 TORR) 89 HCO3 (21 - 28 MEQ/L) 26 ABG O2 Sat (Measured) (>96.0 %) 96.0 P-50 (Temp Corrected) Y Carboxyhemoglobin (1.5 - 5.0 %) 0.1 L O2 Concentration % 60% Temperature (97.0 - 100.0 FARH) 98.7 Respiration Rate (BPM) 20 O2 Delivery Method VISION-FFM Vent Mode ST Expiratory Pressure (CM H2O P) 6 Inspiratory Pressure (CM H2O P) 16 Chemistry Sodium (137 - 145 mmol/L) 133 L Potassium (3.5 - 5.1 mmol/L) 4.9 Chloride (98 - 107 mmol/L) 99 Carbon Dioxide (22 - 30 mmol/L) 25 Anion Gap (5 - 16) 9 BUN (7 - 17 mg/dL) 10 Creatinine (0.5 - 1.0 mg/dL) 0.4 L Estimated GFR (>60 ml/min) > 60 Glucose (65 - 99 mg/dL) 138 H Calcium (8.4 - 10.2 mg/dL) 8.4 Phosphorus (2.5 - 4.5 mg/dL) 5.1 H Magnesium (1.6 - 2.3 mg/dL) 1.7 Total Bilirubin (0.2 - 1.3 mg/dL) 0.7 AST (14 - 36 U/L) 24 ALT (9 - 52 U/L) 46 Albumin (3.5 - 5.0 g/dL) 2.6 L Coagulation PT (9.4 - 12.5 SEC) 13.5 H INR (0.90 - 1.19) 1.29 H APTT (25 - 37 SEC) 31 Hematology CBC w Diff NO MAN DIFF REQ WBC (4.8 - 10.8 /CUMM) 6.9 RBC (4.20 - 5.40 /CUMM) 3.21 L Hgb (12.0 - 16.0 G/DL) 11.1 L Hct (37 - 47 %) 34.0 L MCV (81.0 - 99.0 FL) 106.1 H MCH (27.0 - 31.0 PG) 34.5 H RDW (11.5 - 14.5 %) 16.5 H Plt Count (130 - 400 /CUMM) 611 H MPV (7.4 - 10.4 FL) 8.1 Gran % (42.2 - 75.2 %) 93.7 H Lymphocytes % (20.5 - 51.1 %) 5.5 L Monocytes % (1.7 - 9.3 %) 0.8 L Eosinophils % (0 - 5 %) 0 Basophils % (0.0 - 2.0 %) 0 L Absolute Granulocytes (1.4 - 6.5 /CUMM) 6.5 Absolute Lymphocytes (1.2 - 3.4 /CUMM) 0.4 L Absolute Monocytes (0.10 - 0.60 /CUMM) 0.1 L Absolute Eosinophils (0.0 - 0.7 /CUMM) 0 Absolute Basophils (0.0 - 0.2 /CUMM) 0 PUBS MCHC (33.0 - 37.0 G/DL) 32.5 L Miscellaneous Phlebotomy Draw Site LEFT RADIAL Last 24 Hours of [place] Results: No recent cultures Assessment/Plan Impression: Stable status post successful extubation yesterday with temperatures and white blood cell count remaining normal on Flagyl now Day 4 of treatment for C. difficile, with stools becoming more formed. She is now 17 days status post placement of a cholecystostomy tube for acute cholecystitis. Suggestion: 1. Remove Black catheter 2. Continue po Flagyl
[2016-12-07 16:00] VITALS: BP 118/70
--- NOTE | 2016-12-07 20:45 | NUR ---
PT A/OX3, FOLLOWS COMMANDS. DENIES ANY PAIN AT PRESENT. EXP WHEEZES THOUGHOUT BILATERALLY. NO SOB OR RESP DISTRESS NOTED AT PRESENT. PRODUCTIVE COUGH OF THICK CLEAR SECREATIONS. SEE FLOW SHEET FOR VS, 02 SATS, I/O'S. MONITOR SHOW NSR WITH 1ST DEGREE AV BLOCK, NO VENTRICULAR ECTOPY NOTED AT PRESENT.BP STABLE AT PRESENT. ABD SOFT, NONTENDER, NONDISTENDED, POSITIVE BOWEL SOUNDS. T TUBE IN PLACE-DRAINING BROWN DRAINAGE. INC OF URINE. GROIN WITH RED EXCORIATION, SKIN OTHERWISE INTACT
[2016-12-07 23:00] VITALS: BP 112/66
[2016-12-08 05:28] LABS: ABSOLUTE BASOPHIL COUNT 0 /CUMM (0.0-0.2); ABSOLUTE EOSINOPHIL COUNT 0 /CUMM (0.0-0.7); ABSOLUTE GRANULOCYTE CT 7.1 /CUMM (1.4-6.5); ABSOLUTE LYMPH COUNT 0.6 /CUMM (1.2-3.4); ABSOLUTE MONOCYTE COUNT 0.2 /CUMM (0.10-0.60); BASOPHIL % 0.1 % (0.0-2.0); EOSINOPHIL % 0 % (0-5); GRANULOCYTE % 89.7 % (42.2-75.2); HEMATOCRIT 34.2 % (37-47); MEAN CORPUSCULAR HGB 34.1 PG (27.0-31.0); MEAN CORPUSCULAR HGB CONC 32.3 G/DL (33.0-37.0); MEAN CORPUSCULAR VOLUME 105.7 FL (81.0-99.0); MEAN PLATELET VOLUME 8.6 FL (7.4-10.4); PLATELET COUNT 698 /CUMM (130-400); RBC DISTRIBUTION WIDTH 16.6 % (11.5-14.5); RED BLOOD CELL CT 3.23 /CUMM (4.20-5.40)
--- NOTE | 2016-12-08 07:29 | PN- Resident CRCU ---
Subjective HPI/CRCU Issues: Afebrile, hemodynamically stable, saturating lower 90s on high flow NC 40% oxygen. No acute overnight events reported. She has right eye subconjunctival hemorrhage. Patient denies any other current active complaints 24 Hour Events: * Tmax 97.9 * HR: 79- 95. average overnight is 92 * BP: lowest 104/72 and highest 127/63 * Patient is saturating lower 90s on high flow NC with Fio2 of 45% * Yesterday I/Os 1784/910 (negative balance) * Total balance to date 67521/10183. Objective Vital Signs & I&O Last 8 Hrs of Vitals and I&O: Vital Signs Date Time Temp Pulse Resp B/P B/P Pulse O2 O2 Flow FiO2 Mean Ox Delivery Rate 12/08 0926 78 118/70 12/08 0913 92 Nasal 40% Cannula 12/08 0400 89 Nasal 40% Cannula 12/08 0044 91 Nasal 40% Cannula 12/08 0000 89 Nasal 40% Cannula 12/07 2300 96.0 87 28 112/66 93 Nasal 40% Cannula 12/07 2119 102 22 121/69 12/07 2000 98 Nasal 45% Cannula 12/07 1631 98 Nasal 65% Cannula 12/07 1600 96 Nasal 65% Cannula 12/07 1600 97.5 90 26 118/70 96 Nasal 65% Cannula 12/07 1200 94 Nasal 65% Cannula Intake & Output 12/08 1600 12/08 0800 12/08 0000 Intake Total 431 644 Output Total 375 Balance 431 269 Intake, IV 311 324 Intake, Oral 120 320 Number 3 4 Bowel Movements Output, Other 100 Output, Urine 275 Exam General Appearance: no apparent distress, alert, awake, comfortable Head: atraumatic, normal appearance Respiratory: normal breath sounds, no respiratory distress, wheezing overlying bilaterally Cardiovascular: regular rate/rhythm Gastrointestinal: normal bowel sounds, soft, non-tender Extremities: normal inspection, no edema Weaning Parameters NIF: 35 Minute Volume: 9.37 Resp rate: 32 Vt: 293 Heart Rate: 94 Weaning Schedule Start Time: 1005 Minute Volume: 10.7 Resp Rate: 32 Vt: 335 Heart Rate: 96 End Time: 1119 Minute Volume: 14.5 Resp Rate: 38 Vt: 210 Heart Rate: 88 Start Time: 1305 Minute Volume: 7.99 Resp Rate: 40 Vt: 360 Heart Rate: 96 Current Medications: Current Medications Sig/Shilpa Start time Last Medication Dose Route Stop Time Status Admin Albuterol Sulfate 3 ML EVERY 4 HRS/AWAKE 11/21 1600 AC 12/08 INH 0912 Artificial Tears 2 GTT 4 TIMES/DAY PRN 12/08 0345 AC OPH Dextrose/Sodium 1,000 ML Q20H 12/06 1945 AC 12/07 Chloride IV 2241 Levothyroxine Sodium 0.15 MG DAILY AC 12/08 1000 AC 12/08 PO 0926 Levothyroxine Sodium 75 MCG DAILY 11/22 1000 DC 12/07 IV 1023 Methylprednisolone 40 MG Q12 12/08 2200 AC IV Methylprednisolone 40 MG Q8 12/07 1400 DC 12/08 IV 0612 Metoprolol Tartrate 12.5 MG BID 12/07 2200 AC 12/08 PO 0926 Metronidazole 500 MG Q8 12/07 1430 AC 12/08 PO 0606 Metronidazole 500 MG IQ8 12/06 1615 DC 12/07 N/A 1 UNIT IV 0830 Nystatin 1 ESTEFANY TIDPRN PRN 11/21 0330 AC 12/07 TOP 1448 Pantoprazole Sodium 40 MG DAILY 11/21 2011 AC 12/08 IV 0927 Racepinephrine 0.5 ML Q6-PRN PRN 12/06 1915 AC 12/06 INH 1830 Ramelteon 8 MG ONCE ONE 12/08 0045 DC 12/08 PO 12/08 0046 0055 Vitamin A/Vitamin D 1 ESTEFANY BID 12/08 1000 AC 12/08 TOP 0926 Zinc Oxide 1 ESTEFANY BID 12/08 1000 AC 12/08 TOP 0926 Impression/Plan Impression/Problem List Impression: Ms. Sánchez is a 76 year old female with PMH HTN, severe COPD, cigarette abuse (1 PPD), previous alcohol use, atrial fibrillation on Pradaxa and digoxin, GI bleed and hypothyroidism who presents with chief complaint of cough, decreased oral intake, fatigue, fever and chills for one week. Of note, patient did she her PCP Dr. Enma MD who prescribed her azithromycin for presumed bronchitis though her symptoms persisted prompting evaluation in our emergency department. Respiratory Patient noted to be 86% on RA during admission. Initially placed on BiPAP but was intubated due to increased work of breathing on 11/20/16. Questionable aspiration pneumonia: CXR on admission showed LLL abnormality suggestive of PNA. Follow up CT chest showed small/moderate pleural effusion with RML/partial RLL collapse; trace left pleural effusion. Patient finished antibiotic. All culture came back negative. Also she was found to have Left lung nodule: 0.4 cm in left lung apex. She was extubated on 12/07/16 after 17 days of intubation. This morning patient is on high flow NC at 40% oxygen * Examination significant for mild scattered rhonchi and wheezing * Oxygen saturation is on mid 90s on high flow NC 40% oxygen Pulmonary medications * Albuterol * Solu-Medrol 40 mg every 12 IV Plan 1.decrease steroid 40 mg IV every 8 to 40 mg IV every 12 hours 2.Will be instructed to follow up as an outpatient for the lungs nodule 3.Repeat x-ray tomorrow Infectious disease Patient initially presented with septic shock secondary to intra-abdominal pathology complicated by acute cholecystitis. She was placed on aggressive hydration for sepsis and pressors were given for a short period of time. Percutaneous cholecystostomy tube was inserted by IR and decompression of gallbladder was appreciated. Patient was intubated during this procedure and returned to the ICU intubated. Patient was empirically started on IV ceftriaxone and azithromycin. There was a concern of aspiration pneumonia so antibiotic was switching to IV vancomycin, flagyl and ceftriaxone as per ID. Because no significant cultures growth was observed antibiotic was switched to IV unasyn( unasyn was discontinued on 11/29/16), after that she was found to be C. difficile positive on 12/03/16 and she was started on Metronidazole oral. * Tmax 97.9 * Current Temp is 97.2 * WBCs 8 * On Metronidazole 500 mg Q8 for C.diff Plan 1. Continue Metronidazole 500 mg Q8 for C.diff Cardiovascular Elevated troponin ( peak at 0.35) in the setting of septic shock and respiratory failure. Cardiology Dr. Vida MD statement that this is monst likely demand ischemia. Echo was done and showed mild concentric LVH, normal EF >65%, stage 1 diastolic dysfunction. Paroxysmal atrial fibrillation with digitalis toxicity on admission requiring digibind. Dr. Vida MD suggested holding metoprolol in the setting of septic shock/hypotension. These medications continue to remain on hold. Patient is now noted to be occasionally tachycardic. * HR: 79- 95. average overnight is 92 * BP: lowest 104/72 and highest 127/63 * On Metoprolol 12.5 mg twice a day Plan 1.continue metoprolol 2.Continue monitor vitals 3.Avoid a dehydrated state since this patient may be preload dependent(as per cardio) 4.hold off on adding digoxin for now(as per cardio) 5.Instructed to follow cardiology post discharge Hematology * H&H :11 & 34.2 * Plt count 698 Plan 1. CBC daily Neurology * Alert and follow commands * Strength 5/5 X4 * Not on any sedative meds Plan 1.NTD GIT There was a concern for acute cholecystitis with RUQ US findings of gallstones with wall thickening and edema. IR was consulted and a percutaneous cholecystostomy tube was placed, Today is day 17 post PC tube placement. No growth was noted in the bile drained from the gall bladder. Hepatitis panel negative and tylenol level <10. * Percutaneous cholecystostomy bag is filled with clear yellow fluid * Benign abdominal examination Plan 1.Continue hold statin 2.We will follow GI recommendation Renal BETH on admission likely secondary to sepsis/hypotension. She was provided with IV fluids, nephrotoxins were avoided until her kidney function became within normal limits. * Cr 0.4 * BUN 11 * Yesterday I/Os 1784/910 (negative balance) * Total balance to date 68270/68453. Plan 1. Strict I's and O's 2. Renal function daily Endocrinology Patient had a history of hypothyroidism. on 11/20 TSH 1.53 and FT4 1.7. Plan 1. Continue levothyroxin 75 MCG IV daily Code status: FULL DVT: Prophylaxis: ALPS (no pharm 2/2 bleeding) GI Prophylaxis: Pantoprazole 40 mg IV Diet: Tube feeds at goal rate Patient is stable until tomorrow she will most likely downgraded to the floor Problem List: 1. Clostridium difficile diarrhea Pain Ratin Tomorrow's Labs & Rationales: ICU bundle and CBC Plan DVT/Prophylaxis: mechanical Plan DVT/Prophylaxis: mechanical
[2016-12-08 08:00] VITALS: BP 118/70
--- NOTE | 2016-12-08 08:05 | NUR ---
PT AWAKE THOUGHOUT NIGHT DESPITE ROZAREM DOSE-SEE EMAR. AT 0330 C/O RT EYE ITCHING-BLOOD NOTED OUTER CORNER OF RT EYE-REPORTED TO DR. HOOKER WHO EXAMINED PT-ARTIFICIAL TEARS ORDERED. DENIED ANY PAIN THOUGHOUT SHIFT. REMAINED ON HIGH FLOW AT 40% FOR SHIFT-PER RESP THERAPIST WOULD ACCEPT SATS >86%. DIMINISHED BREATH SOUNDS, PRODUCTIVE COUGH OF THICK CLEAR SECREATIONS, INCREASING IN FREQUENCY DURING THE NIGHT. MONITOR NSR, 1 ST DEGREE AVB, FREQUENT PAC'S FOR SHIFT. BP STABLE THOUGHOUT SHIFT. INC OF URINE AND STOOL. SKIN INTACT. T TUBE DRAINING BROWN DRAINAGE. NO OTHER CHANGE IN PT ASSESSMENTS THOUGHOUT SHIFT
--- NOTE | 2016-12-08 08:43 | PN- CRCU ---
Subjective HPI/Critical Care Issues: pt seen and examined extubated 12/06 fio2 now at 40%, however continues to saturate 89%-91% Objective Current Medications: Current Medications Sig/Shilpa Start time Last Medication Dose Route Stop Time Status Admin Albuterol Sulfate 3 ML EVERY 4 HRS/AWAKE 11/21 1600 AC 12/07 INH 2046 Artificial Tears 2 GTT 4 TIMES/DAY PRN 12/08 0345 AC OPH Dextrose/Sodium 1,000 ML Q20H 12/06 1945 AC 12/07 Chloride IV 2241 Levothyroxine Sodium 0.15 MG DAILY AC 12/08 1000 AC PO Levothyroxine Sodium 75 MCG DAILY 11/22 1000 DC 12/07 IV 1023 Methylprednisolone 40 MG Q8 12/07 1400 AC 12/08 IV 0612 Methylprednisolone 60 MG Q8 12/06 1930 DC 12/07 IV 0514 Metoprolol Tartrate 12.5 MG BID 12/07 2200 AC 12/07 PO 2119 Metronidazole 500 MG Q8 12/07 1430 AC 12/08 PO 0606 Metronidazole 500 MG IQ8 12/06 1615 DC 12/07 N/A 1 UNIT IV 0830 Nystatin 1 ESTEFANY TIDPRN PRN 11/21 0330 AC 12/07 TOP 1448 Pantoprazole Sodium 40 MG DAILY 11/21 2011 AC 12/07 IV 1022 Racepinephrine 0.5 ML Q6-PRN PRN 12/06 1915 AC 12/06 INH 1830 Ramelteon 8 MG ONCE ONE 12/08 0045 DC 12/08 PO 12/08 0046 0055 Vitamin A/Vitamin D 1 ESTEFANY BID 12/08 1000 AC TOP Zinc Oxide 1 ESTEFANY BID 12/08 1000 AC TOP Vital Signs & I&O Last 24 Hrs of Vitals and I&O: Vital Signs Date Time Temp Pulse Resp B/P B/P Pulse O2 O2 Flow FiO2 Mean Ox Delivery Rate 12/08 0400 89 Nasal 40% Cannula 12/08 0044 91 Nasal 40% Cannula 12/08 0000 89 Nasal 40% Cannula 12/07 2300 96.0 87 28 112/66 93 Nasal 40% Cannula 12/07 2119 102 22 121/69 12/07 2000 98 Nasal 45% Cannula 12/07 1631 98 Nasal 65% Cannula 12/07 1600 96 Nasal 65% Cannula 12/07 1600 97.5 90 26 118/70 96 Nasal 65% Cannula 12/07 1200 94 Nasal 65% Cannula Intake & Output 12/08 1600 12/08 0800 12/08 0000 Intake Total 431 644 Output Total 375 Balance 431 269 Intake, IV 311 324 Intake, Oral 120 320 Number 3 4 Bowel Movements Output, Other 100 Output, Urine 275 Exam Other Physical Findings: gen awake and alert heent nasal cannula cvs s1, s2 lungs rhonchi, bronchial sounds abd soft bs+ ext without edema Results Last 24 Hrs of Lab Results: Laboratory Tests 12/08/16 0313: Anion Gap 9, Estimated GFR > 60, Glucose 156 H, Calcium 8.7, Phosphorus 2.9, Magnesium 1.7, Total Bilirubin 0.7, AST 21, ALT 41, Albumin 2.8 L, CBC w Diff MAN DIFF ORDERED, RBC 3.23 L, MCV 105.7 H, MCH 34.1 H, RDW 16.6 H, MPV 8.6, Gran % 89.7 H, Lymphocytes % 7.4 L, Monocytes % 2.8, Eosinophils % 0, Basophils % 0.1, Absolute Granulocytes 7.1 H, Segmented Neutrophils 80 H, Band Neutrophils 10 H, Absolute Lymphocytes 0.6 L, Lymphocytes 6 L, Monocytes 4, Absolute Monocytes 0.2, Absolute Eosinophils 0, Absolute Basophils 0, Platelet Estimate INCREASED, Normochromic RBCs VERIFIED, Macrocytic Cells 2+, Stomatocytes RARE, PUBS MCHC 32.3 L, Fld Total RBCs Counted 100 Impression/Plan Impression/Plan Impression/Plan: Impression 76 year old woman * c.diff * respiratory failure - hypoxemic * tobacco dependence and severe COPD/emphysema Plan -reduce fio2 as tolerted -trc/nebs -reduce solumedrol to 40mg q12h ID -f/u ID, cont po flagyl CVS -monitor hemodynamics -a/c held given bleeding Heme -f/u cbc, coags, cardiology recommendations Metabolic -ins/outs -net negative fluid balance Alimentary -diet, aspiration precautions Neuro -no acute issues TTS 35 min Remain in ICU Will need to re-address code status PT If does well tomorrow can downgrade to floors
--- NOTE | 2016-12-08 09:23 | RADIOLOGY REPORT ---
EXAMINATION: XR PORTABLE CHEST CLINICAL INFORMATION: Requiring increased O2 COMPARISON: Multiple chest x-rays most recent prior dated 12/06/2016 TECHNIQUE: Portable frontal view of the chest was obtained. FINDINGS: Interval removal of the endotracheal tube. Stable Cardia mediastinal silhouette. Low lung volume. Minor hazy infiltrate or atelectasis noted in the left base. Right lung is clear. Bony thorax is intact. Subtle rounded opacity projecting upon the outer aspect left lower lung may be external to the patient. This was not seen on the previous examinations. IMPRESSION: Hazy minor infiltrate or atelectasis left lung base.
--- NOTE | 2016-12-08 10:46 | PN- Infect Dx ---
Subjective Subjective: Afebrile. She had a bad night secondary to an uncomfortable bed. She denies any shortness of breath but does report a cough, productive of whitish/slightly yellow sputum. She had 2 loose stools reported overnight. Objective Last 24 Hrs of Vital Signs/I&O Vital Signs Date Time Temp Pulse Resp B/P B/P Pulse O2 O2 Flow FiO2 Mean Ox Delivery Rate 12/08 925 78 118/70 12/08 912 92 Nasal 40% Cannula 12/08 0400 89 Nasal 40% Cannula 12/08 0044 91 Nasal 40% Cannula 12/08 0000 89 Nasal 40% Cannula 12/07 2300 96.0 87 28 112/66 93 Nasal 40% Cannula 12/07 2119 102 22 121/69 12/07 2000 98 Nasal 45% Cannula 12/07 1631 98 Nasal 65% Cannula 12/07 1600 96 Nasal 65% Cannula 12/07 1600 97.5 90 26 118/70 96 Nasal 65% Cannula 12/07 1200 94 Nasal 65% Cannula Intake & Output 12/08 1600 12/08 0800 12/08 0000 Intake Total 431 644 Output Total 375 Balance 431 269 Intake, IV 311 324 Intake, Oral 120 320 Number 3 4 Bowel Movements Output, Other 100 Output, Urine 275 Physical Exam Other Physical Findings: She appears comfortable on high flow oxygen in no acute distress Lungs scattered rhonchi bilaterally Heart regular rhythm with no murmur Abdomen soft, nontender with positive bowel sounds; cholecystostomy tube remains in place Extremities no cyanosis, clubbing or edema Results Last 24 Hours of Lab Results: Laboratory Tests 12/08 312 Chemistry Sodium (137 - 145 mmol/L) 135 L Potassium (3.5 - 5.1 mmol/L) 4.0 Chloride (98 - 107 mmol/L) 100 Carbon Dioxide (22 - 30 mmol/L) 26 Anion Gap (5 - 16) 9 BUN (7 - 17 mg/dL) 11 Creatinine (0.5 - 1.0 mg/dL) 0.4 L Estimated GFR (>60 ml/min) > 60 Glucose (65 - 99 mg/dL) 156 H Calcium (8.4 - 10.2 mg/dL) 8.7 Phosphorus (2.5 - 4.5 mg/dL) 2.9 Magnesium (1.6 - 2.3 mg/dL) 1.7 Total Bilirubin (0.2 - 1.3 mg/dL) 0.7 AST (14 - 36 U/L) 21 ALT (9 - 52 U/L) 41 Albumin (3.5 - 5.0 g/dL) 2.8 L Hematology CBC w Diff MAN DIFF ORDERED WBC (4.8 - 10.8 /CUMM) 8.0 RBC (4.20 - 5.40 /CUMM) 3.23 L Hgb (12.0 - 16.0 G/DL) 11.0 L Hct (37 - 47 %) 34.2 L MCV (81.0 - 99.0 FL) 105.7 H MCH (27.0 - 31.0 PG) 34.1 H RDW (11.5 - 14.5 %) 16.6 H Plt Count (130 - 400 /CUMM) 698 H MPV (7.4 - 10.4 FL) 8.6 Gran % (42.2 - 75.2 %) 89.7 H Lymphocytes % (20.5 - 51.1 %) 7.4 L Monocytes % (1.7 - 9.3 %) 2.8 Eosinophils % (0 - 5 %) 0 Basophils % (0.0 - 2.0 %) 0.1 Absolute Granulocytes (1.4 - 6.5 /CUMM) 7.1 H Segmented Neutrophils (42.2 - 75.2 %) 80 H Band Neutrophils (0.0 - 5.0 %) 10 H Absolute Lymphocytes (1.2 - 3.4 /CUMM) 0.6 L Lymphocytes (20.5 - 51.1 %) 6 L Monocytes (1.7 - 9.3 %) 4 Absolute Monocytes (0.10 - 0.60 /CUMM) 0.2 Absolute Eosinophils (0.0 - 0.7 /CUMM) 0 Absolute Basophils (0.0 - 0.2 /CUMM) 0 Platelet Estimate (ADEQUATE) INCREASED Normochromic RBCs VERIFIED Macrocytic Cells 2+ Stomatocytes RARE PUBS MCHC (33.0 - 37.0 G/DL) 32.3 L Other Body Source Fld Total RBCs Counted (%) 100 Last 24 Hours of [place] Results: No recent cultures Recent Imaging Studies: Chest x-ray December 08, personally reviewed, reveals improvement with a minimal density at the left base Assessment/Plan Impression: Overall improved status post successful extubation 2 days ago with temperatures and white blood cell count remaining normal on Flagyl now Day 5 of treatment for C. difficile, but with continued diarrhea suggesting a poor response to Flagyl. She is now 18 days status post placement of a cholecystostomy tube for acute cholecystitis. Suggestion: 1. Discontinue Flagyl 2. Begin Vancomycin 125 mg po every 6 hours
--- NOTE | 2016-12-08 11:16 | NUR ---
0800: RECEIVED PATIENT IN BED. ALERT AND ORIENTED. 1ST DEGREE AV BLOCK WITH MULTIPLE PAC'S. B/P 118/70. ON HIFLO AT 40% EXP WHEEZE NOTED WITH SOME RHONCHI. PRODUCTIVE COUGH. DENIES SOB. TOLERATING CHOPPED DIET. DENIES ANY ISSUES SWALLOWING. STILL HAVING LOOSE STOOLS, INCONTINENT OF URINE AT TIMES. BOTTOM EXCORIATED, DESITIN AND A&D OINTMENT ORDERED. GROIN RED. BILATERAL FLANK BRUISES NOTED. NO EDEMA. #20 RF D5-NS @ 40ML/HR #20 LF FLUSHING WELL. T TUBE TO RIGHT LOWER QUADRANT, FLUSHED WITH 10ML NS. BROWN LIQUID OUTPUT NOTED. DRESSING CD&I. PATIENT PLACED IN MARIBELL CHAIR WITH MAX ASSIST. PT CONSULT. WILL MONITOR.
[2016-12-08 12:00] VITALS: BP 128/76
--- NOTE | 2016-12-08 14:44 | NUR ---
PATIENT REFUSING SIZEWISE MATTRESS. REGULAR ICU BED PLACED IN ROOM. PATIENT WILL TRY THAT BED TONIGHT. TAKEN OFF HIFLO OXYGEN AND PLACED ON 5L NC.
[2016-12-08 16:00] VITALS: BP 118/66
--- NOTE | 2016-12-08 20:14 | PN- Cardiology ---
Subjective Subjective: * Patient extubated and communicative. She denies any symptoms at this time. She also denies chest discomfort or abdominal discomfort during any part of this illness although she does admit to a cough with shortness of breath. * sinus rhythm with PAC's Objective Vital Signs and I&Os Vital Signs Date Time Temp Pulse Resp B/P B/P Pulse O2 O2 Flow FiO2 Mean Ox Delivery Rate 12/08 1630 96 Nasal 5.0L Cannula 12/08 1600 91 Nasal 4.0L Cannula 12/08 1600 96.9 83 24 118/66 91 Nasal 4.0L Cannula 12/08 1200 Nasal 40% Cannula 12/08 1200 96.7 68 20 128/76 96 Nasal 40% Cannula 12/08 0926 78 118/70 12/08 0913 92 Nasal 40% Cannula 12/08 0800 Nasal 40% Cannula 12/08 08 97.6 78 22 118/70 92 Nasal 40% Cannula 12/08 0400 89 Nasal 40% Cannula 12/08 0044 91 Nasal 40% Cannula 12/08 0000 89 Nasal 40% Cannula 12/07 2300 96.0 87 28 112/66 93 Nasal 40% Cannula 12/07 2119 102 22 121/69 Intake & Output 12/08 1600 12/08 0800 /09 0000 /08 1600 / 0800 / 0000 Intake Total 922 431 644 709 376 194 Output Total 375 536 695 550 Balance 922 431 269 173 -319 -356 Intake, IV 322 311 324 409 376 194 Intake, Oral 600 120 320 300 Number 1 3 4 1 1 Bowel Movements Output, 50 Drainage Output, Other 100 45 100 Output, Stool 1 Output, Urine 275 485 650 450 Physical Exam: General: WD/ WN female in NAD, awake and responsive Heart: RRR with 2/6 systolic murmur Lungs: no crackles or wheezing Extemities: no edema Assessment/Plan Assessment/Plan * Hemodynamically stable in NSR. Continue Metoprolol 12.5mg BID for mild tachycardia. Continue telemetry? Yes
[2016-12-09] VITALS: BP 122/72
[2016-12-09 05:09] LABS: ABSOLUTE BASOPHIL COUNT 0 /CUMM (0.0-0.2); ABSOLUTE EOSINOPHIL COUNT 0.1 /CUMM (0.0-0.7); ABSOLUTE GRANULOCYTE CT 7.8 /CUMM (1.4-6.5); ABSOLUTE LYMPH COUNT 0.6 /CUMM (1.2-3.4); ABSOLUTE MONOCYTE COUNT 0.2 /CUMM (0.10-0.60); BASOPHIL % 0.1 % (0.0-2.0); EOSINOPHIL % 0.6 % (0-5); GRANULOCYTE % 89.8 % (42.2-75.2); HEMATOCRIT 32.8 % (37-47); MEAN CORPUSCULAR HGB 34.2 PG (27.0-31.0); MEAN CORPUSCULAR HGB CONC 32.6 G/DL (33.0-37.0); MEAN PLATELET VOLUME 8.4 FL (7.4-10.4); PLATELET COUNT 753 /CUMM (130-400); RBC DISTRIBUTION WIDTH 16.5 % (11.5-14.5); RED BLOOD CELL CT 3.12 /CUMM (4.20-5.40); WHITE BLOOD CELL COUNT 8.7 /CUMM (4.8-10.8)
[2016-12-09 08:00] VITALS: BP 122/64
--- NOTE | 2016-12-09 08:38 | PN- Resident CRCU ---
Subjective HPI/CRCU Issues: Afebrile, hemodynamically stable, saturating well on 4 L of oxygen, and mildly tachycardic during monitoring overnight. Patient sitting on recliner looks relaxed and comfortable. No acute overnight events reported. Patient denies any current active complaints. 24 Hour Events: Tmax 97.9 * HR: 68-106 * BP: lowest 103/48 and highest 135/81 * Patient is saturating well on 4 L, NC * Yesterday I/Os 1362/200 * Total balance to date 65864/64761. Objective Vital Signs & I&O Last 8 Hrs of Vitals and I&O: Vital Signs Date Time Temp Pulse Resp B/P B/P Pulse O2 O2 Flow FiO2 Mean Ox Delivery Rate 12/09 0903 94 Nasal 4.0L Cannula 12/09 0400 95 Nasal 4.0L Cannula 12/09 0000 95 Nasal 4.0L Cannula 12/09 0000 97.5 80 23 122/72 95 Nasal 4.0L Cannula 12/08 2138 90 12/08 2000 91 Nasal 4.0L Cannula 12/08 1630 96 Nasal 5.0L Cannula 12/08 1600 91 Nasal 4.0L Cannula 12/08 1600 96.9 83 24 118/66 91 Nasal 4.0L Cannula 12/08 1200 Nasal 40% Cannula 12/08 1200 96.7 68 20 128/76 96 Nasal 40% Cannula 12/08 0926 78 118/70 12/08 0913 92 Nasal 40% Cannula Intake & Output 12/09 1600 12/09 0800 06 0000 Intake Total 100 340 Output Total 80 Balance 20 340 Intake, IV 0 Intake, Oral 100 340 Number 1 Bowel Movements Output, Other 80 Exam General Appearance: well developed/nourished, no apparent distress, alert, awake , comfortable Head: atraumatic, normal appearance Ears, Nose, Throat: normal pharynx, normal ENT inspection, subconjunctival hemorrhage Respiratory: chest non-tender, no respiratory distress, very mild scattered rhonchi Cardiovascular: regular rate/rhythm Gastrointestinal: normal bowel sounds, soft, non-tender Extremities: normal inspection, no edema Weaning Parameters NIF: 35 Minute Volume: 9.37 Resp rate: 32 Vt: 293 Heart Rate: 94 Weaning Schedule Start Time: 1005 Minute Volume: 10.7 Resp Rate: 32 Vt: 335 Heart Rate: 96 End Time: 1119 Minute Volume: 14.5 Resp Rate: 38 Vt: 210 Heart Rate: 88 Start Time: 1305 Minute Volume: 7.99 Resp Rate: 40 Vt: 360 Heart Rate: 96 Current Medications: Current Medications Sig/Shilpa Start time Last Medication Dose Route Stop Time Status Admin Albuterol Sulfate 3 ML EVERY 4 HRS/AWAKE 11/21 1600 AC 12/09 INH 0843 Artificial Tears 2 GTT 4 TIMES/DAY PRN 12/08 0345 AC OPH Dextrose/Sodium 1,000 ML Q20H 12/06 1945 DC 12/07 Chloride IV 2241 Levothyroxine Sodium 0.15 MG DAILY AC 12/08 1000 AC 12/09 PO 0608 Magnesium Oxide 400 MG BID 12/09 1000 AC PO Methylprednisolone 40 MG DAILY 12/09 1000 AC IV Methylprednisolone 40 MG Q12 12/08 2200 DC 12/08 IV 2137 Metoprolol Tartrate 12.5 MG BID 12/07 2200 AC 12/08 PO 2138 Metronidazole 500 MG Q8 12/07 1430 DC 12/08 PO 0606 Nystatin 1 ESTEFANY TIDPRN PRN 11/21 0330 AC 12/07 TOP 1448 Pantoprazole Sodium 40 MG DAILY 11/20 2012 AC 12/08 IV 0927 Racepinephrine 0.5 ML Q6-PRN PRN 12/06 1915 AC 12/06 INH 1830 Vancomycin HCl 125 MG Q6 12/08 1200 AC 12/09 PO 0607 Vitamin A/Vitamin D 1 ESTEFANY BID 12/08 1000 AC 12/08 TOP 2138 Zinc Oxide 1 ESTEFANY BID 12/08 1000 AC 12/08 TOP 2138 Impression/Plan Impression/Problem List Impression: Ms. Sánchez is a 76 year old female with PMH HTN, severe COPD, cigarette abuse (1 PPD), previous alcohol use, atrial fibrillation on Pradaxa and digoxin, GI bleed and hypothyroidism who presents with chief complaint of cough, decreased oral intake, fatigue, fever and chills for one week. Of note, patient did she her PCP Dr. Enma MD who prescribed her azithromycin for presumed bronchitis though her symptoms persisted prompting evaluation in our emergency department. Respiratory Patient noted to be 86% on RA during admission. Initially placed on BiPAP but was intubated due to increased work of breathing on 11/20/16. Questionable aspiration pneumonia: CXR on admission showed LLL abnormality suggestive of PNA. Follow up CT chest showed small/moderate pleural effusion with RML/partial RLL collapse; trace left pleural effusion. Patient finished antibiotic. All culture came back negative. Also she was found to have Left lung nodule: 0.4 cm in left lung apex. She was extubated on 12/07/16 after 17 days of intubation. This morning patient is on high flow NC at 40% oxygen * Examination significant for mild scattered rhonchi * Oxygen saturation is on mid 90s on 4L of NC O2 Pulmonary medications * Albuterol * Solu-Medrol 40 mg every 12 IV Plan 1.decrease steroid 40 mg IV every 12 to 40 mg IV once daily 2.Will be instructed to follow up as an outpatient for the lungs nodule 3.Repeat x-ray today Infectious disease Patient initially presented with septic shock secondary to intra-abdominal pathology complicated by acute cholecystitis. She was placed on aggressive hydration for sepsis and pressors were given for a short period of time. Percutaneous cholecystostomy tube was inserted by IR and decompression of gallbladder was appreciated. Patient was intubated during this procedure and returned to the ICU intubated. Patient was empirically started on IV ceftriaxone and azithromycin. There was a concern of aspiration pneumonia so antibiotic was switching to IV vancomycin, flagyl and ceftriaxone as per ID. Because no significant cultures growth was observed antibiotic was switched to IV unasyn( unasyn was discontinued on 11/29/16), after that she was found to be C. difficile positive on 12/03/16 and she was started on Metronidazole oral, patient did not improve so she was switch to oral vancomycin. * Tmax 97.9 * Current Temp is 97.2 * WBCs 8.7 * On oral vancomycin for C. difficile Plan 1. Continue oral vancomycin for C. difficile day#2 Cardiovascular Elevated troponin ( peak at 0.35) in the setting of septic shock and respiratory failure. Cardiology Dr. Vida MD statement that this is monst likely demand ischemia. Echo was done and showed mild concentric LVH, normal EF >65%, stage 1 diastolic dysfunction. Paroxysmal atrial fibrillation with digitalis toxicity on admission requiring digibind. Dr. Vida MD suggested holding metoprolol in the setting of septic shock/hypotension. These medications continue to remain on hold. Patient is now noted to be occasionally tachycardic. * HR: 79- 95. average overnight is 92 * BP: lowest 104/72 and highest 127/63 * On Metoprolol 12.5 mg twice a day Plan 1.continue metoprolol 12.5 mg BID 2.Continue monitor vitals 3.Avoid a dehydrated state since this patient may be preload dependent(as per cardio) 4.hold off on adding digoxin for now(as per cardio) 5.Instructed to follow cardiology post discharge Hematology * H&H :10.7 & 32.8 * Plt count 753 Plan 1. CBC daily Neurology * Alert and follow commands * Strength 5/5 X4 * Not on any sedative meds Plan 1.NTD GIT There was a concern for acute cholecystitis with RUQ US findings of gallstones with wall thickening and edema. IR was consulted and a percutaneous cholecystostomy tube was placed, Today is day 17 post PC tube placement. No growth was noted in the bile drained from the gall bladder. Hepatitis panel negative and tylenol level <10. * Percutaneous cholecystostomy bag is filled with clear yellow fluid * Benign abdominal examination Plan 1.Continue hold statin 2.We will follow GI recommendation Renal BETH on admission likely secondary to sepsis/hypotension. She was provided with IV fluids, nephrotoxins were avoided until her kidney function became within normal limits. * Cr 0.6 * BUN 16 * Yesterday I/Os 1362/200 * Total balance to date 65824/59075. Plan 1. Strict I's and O's 2. Renal function daily Endocrinology Patient had a history of hypothyroidism. on 11/20 TSH 1.53 and FT4 1.7. Plan 1. Continue levothyroxin 75 MCG IV daily Code status: FULL DVT: Prophylaxis: ALPS (no pharm 2/2 bleeding) GI Prophylaxis: Pantoprazole 40 mg IV Diet: Tube feeds at goal rate Patient is stable, she will most likely downgraded to the general medicine floor later today Problem List: 1. COPD exacerbation 2. Clostridium difficile diarrhea Pain Ratin Tomorrow's Labs & Rationales: CBC and BEP Plan DVT/Prophylaxis: mechanical
--- NOTE | 2016-12-09 11:43 | RADIOLOGY REPORT ---
EXAMINATION: XR PORTABLE CHEST CLINICAL INFORMATION: Shortness of breath, now improving, status post recent extubation. COMPARISON: 12/08/2016 TECHNIQUE: Portable frontal view of the chest was obtained. FINDINGS: Lungs are symmetrically expanded. Minimal linear, hazy opacity in each lung base -- suggestive of atelectasis. No acute airspace opacification, pulmonary edema or overt pleural effusion. Stable appearance of the enlarged cardiac silhouette. Thoracic aorta is calcified. Mitral valve annulus is calcified. No acute skeletal abnormality. IMPRESSION: 1. Cardiomegaly without pulmonary edema. 2. Minimal bibasilar atelectasis is suspected. No acute pulmonary abnormality.
[2016-12-09 14:35] VITALS: BP 122/83
--- NOTE | 2016-12-09 15:49 | NUR ---
14:30- PT ICU TRANSFER. PT A/V/OX3. VSS. 02 4L NC. LUNGS WITH WHEEZING AND SCATTERED RHONCHI. T TUBE TO R FLANK DRAINING [place] YELLOW FLUID. BRUISING NOTED TO BILATERAL FLANK. DEIDRA AREA RED, EXCORIATED. PT WITH LOOSE STOOL AND WAS CLEANED. ORIENTED TO ROOM AND CALL LIGHT FOR ASSIST.
--- NOTE | 2016-12-09 18:45 | NUR ---
1500- PT R EYE WITH BLOOD TO SCLERA. PER BOOTH CASHIER KAREN, PT WAS COUGHING YESTERDAY AND CAPILLARY BURST IN R EYE. PT DENIES PAIN TO R EYE AND DENIES ANY LOSS OF VISION TO R EYE. WILL CONTINUE TO MONITOR.
[2016-12-09 22:11] VITALS: BP 110/60
[2016-12-10 06:41] VITALS: BP 140/60
--- NOTE | 2016-12-10 08:18 | PN- Housestaff ---
Subjective Follow-up For: C. diff Cholecystitis Acute on chronic hypercarbic and hypoxemic respiratory failure COPD Subjective: Patient seen and examined this morning. Resting comfortably in bed with no acute complaints. She reports feeling "excellent." Remains afebrile and HDS. Satting well on 4 liters of oxygen. Denies any fever, chills, chest discomfort, palpitations, abdominal pain, nausea, vomiting, headache. No events reported overnight. Review of Systems Constitutional: Reports: see HPI. Objective Last 24 Hrs of Vital Signs/I&O Vital Signs Date Time Temp Pulse Resp B/P B/P Pulse O2 O2 Flow FiO2 Mean Ox Delivery Rate 12/10 0826 98 Nasal 4.0L Cannula 12/10 0641 97.9 71 20 140/60 92 Nasal 4.0L Cannula 12/10 0000 94 Nasal 4.0L Cannula 12/09 2211 98.0 83 20 110/60 94 12/09 2109 83 110/60 12/09 1621 92 Nasal 4.0L Cannula 12/09 1600 92 Nasal 4.0L Cannula 12/09 1435 98.8 66 20 122/83 96 12/09 0946 86 122/64 12/09 0903 94 Nasal 4.0L Cannula Intake & Output 12/10 1600 12/10 0800 12/10 0000 Intake Total 220 360 Output Total 60 Balance 220 300 Intake, Oral 220 360 Number 2 1 Bowel Movements Output, Other 60 Physical Exam General Appearance: Alert, Cooperative, No Acute Distress Other Physical Findings: Head: atraumatic, normal appearance Ears, Nose, Throat: normal pharynx, normal ENT inspection, subconjunctival hemorrhage Respiratory: chest non-tender, no respiratory distress, very mild scattered rhonchi Cardiovascular: regular rate/rhythm Gastrointestinal: normal bowel sounds, soft, non-tender Extremities: normal inspection, no edema Current Medications: Current Medications Sig/Shilpa Start time Last Medication Dose Route Stop Time Status Admin Albuterol Sulfate 3 ML EVERY 4 HRS/AWAKE 11/21 1600 AC 12/10 INH 0810 Artificial Tears 2 GTT 4 TIMES/DAY PRN 12/08 0345 AC OPH Levothyroxine Sodium 0.15 MG DAILY AC 12/08 1000 AC 12/10 PO 0558 Magnesium Oxide 400 MG BID 12/09 1000 AC 12/09 PO 2109 Melatonin 3 MG ONCE ONE 12/09 2144 DC 12/09 PO 06/10 2146 2251 Methylprednisolone 40 MG DAILY 12/09 1000 AC 12/09 IV 0947 Methylprednisolone 40 MG Q12 12/08 2200 DC 12/08 IV 2137 Metoprolol Tartrate 12.5 MG BID 12/07 2200 AC 12/09 PO 2109 Nystatin 1 ESTEFANY BID PRN 12/09 1600 AC TOP Nystatin 1 ESTEFANY TIDPRN PRN 11/21 0330 DC 12/07 TOP 1448 Omeprazole 40 MG DAILY AC 12/09 0950 AC 12/10 PO 0557 Pantoprazole Sodium 40 MG DAILY 11/21 2011 DC 12/08 IV 0927 Racepinephrine 0.5 ML Q6-PRN PRN 12/06 1915 AC 12/06 INH 1830 Vancomycin HCl 125 MG Q6 12/08 1200 AC 12/10 PO 0558 Vitamin A/Vitamin D 1 ESTEFANY BID 12/08 1000 AC 12/09 TOP 2111 Zinc Oxide 1 ESTEFANY BID 12/08 1000 AC 12/09 TOP 2111 Last 24 Hrs of Lab/Chase Results Last 24 Hrs of Labs/Mics: Laboratory Tests 12/10/16 0720: Sodium Pending, Potassium Pending, Chloride Pending, Carbon Dioxide Pending, Anion Gap Pending, BUN Pending, Creatinine Pending, Glucose Pending, Calcium Pending, Phosphorus Pending, Magnesium Pending, Total Bilirubin Pending, AST Pending, ALT Pending, Albumin Pending, CBC w Diff Pending, WBC Pending, RBC Pending, Hgb Pending, Hct Pending, MCV Pending, MCH Pending, RDW Pending, Plt Count Pending, MPV Pending, PUBS MCHC Pending Assessment/Plan Assessment: COPD, atrial fibrillation, alcohol abuse and rheumatoid arthritis, treated with Azithromycin for the past week for a presumed pneumonia, admitted on November 20 with increasing shortness of breath and altered mental status, found to be hypothermic, hypotensive and hypoxic, requiring fluids, pressors and intubation, with a leukocytosis/bandemia, acute renal failure and elevated liver enzymes with imaging suggesting acute cholecystitis, for which a cholecystostomy tube was placed. # Acute on chronic hypercarbic and hypoxemic respiratory failure related to significant COPD Patient noted to be 86% on RA during admission. Initially placed on BiPAP but was intubated due to increased work of breathing on 11/20/16. Questionable aspiration pneumonia: CXR on admission showed LLL abnormality suggestive of PNA. Follow up CT chest showed small/moderate pleural effusion with RML/partial RLL collapse; trace left pleural effusion. Patient finished antibiotic. All culture came back negative. Also she was found to have Left lung nodule: 0.4 cm in left lung apex. She was extubated on 12/07/16 after 17 days of intubation. This morning patient is on high flow NC at 40% oxygen * Oxygen supplement and TRC neb as needed * Solu-Medrol 40mg IV daily * Pulm following, appreciate recs * Follow up as an outpatient for the lungs nodule # C.diff Patient initially presented with septic shock secondary to intra-abdominal pathology complicated by acute cholecystitis. She was placed on aggressive hydration for sepsis and pressors were given for a short period of time. Percutaneous cholecystostomy tube was inserted by IR and decompression of gallbladder was appreciated. Patient was intubated during this procedure and returned to the ICU intubated. Patient was empirically started on IV ceftriaxone and azithromycin. There was a concern of aspiration pneumonia so antibiotic was switching to IV vancomycin, flagyl and ceftriaxone as per ID. Because no significant cultures growth was observed antibiotic was switched to IV unasyn( unasyn was discontinued on 11/29/16), after that she was found to be C. difficile positive on 12/03/16 and she was started on Metronidazole oral, patient did not improve so she was switch to oral vancomycin. * Continue oral vancomycin for C. difficile * ID following, appreciate recs # Cholecystitis There was a concern for acute cholecystitis with RUQ US findings of gallstones with wall thickening and edema. IR was consulted and a percutaneous cholecystostomy tube was placed, Today is day 17 post PC tube placement. No growth was noted in the bile drained from the gall bladder. Hepatitis panel negative and tylenol level <10. * Percutaneous cholecystostomy tube intact, bag is filled with clear yellow fluid * Benign abdominal examination * Continue hold statin * Cont to appreciate GI recommendation # Paroxysmal atrial fibrillation Digitalis toxicity on admission requiring digibind. Dr. Vida MD suggested holding metoprolol in the setting of septic shock/hypotension. These medications continue to remain on hold. Patient is now noted to be occasionally tachycardic. * Continue metoprolol 12.5 mg BID * Continue to monitor vitals closely * Avoid a dehydrated state since this patient may be preload dependent(as per cardio) * Hold off on adding digoxin for now(as per cardio) * Cardio following, appreciate recs # Hypothyroidism On 11/20 TSH 1.53 and FT4 1.7. * Continue levothyroxin 75 MCG IV daily Code status: FULL DVT: Prophylaxis: ALPS (no pharm 2/2 bleeding) GI Prophylaxis: Pantoprazole 40 mg IV Diet: Tube feeds at goal rate Patient is stable, she will most likely downgraded to the general medicine floor later today Problem List: 1. COPD exacerbation 2. Hypokalemia 3. Hyponatremia 4. Hypoxia 5. New onset a-fib 6. Elevated MCV 7. Bacteria in urine 8. Acute respiratory failure with hypoxia and hypercarbia 9. Conjunctivitis 10. Tobacco abuse 11. Multiorgan failure 12. Acute cholecystitis 13. Clostridium difficile diarrhea Pain Ratin Pain Location: 0 Pain Goal: Remain pain free Pain Plan: Mild path Tomorrow's Labs & Rationales: CBC BEP 3. Hyponatremia 4. Hypoxia 5. New onset a-fib 6. Elevated MCV 7. Bacteria in urine 8. Acute respiratory failure with hypoxia and hypercarbia 9. Conjunctivitis 10. Tobacco abuse 11. Multiorgan failure 12. Acute cholecystitis 13. Clostridium difficile diarrhea Pain Ratin Pain Location: 0 Pain Goal: Remain pain free Pain Plan: Mild path Tomorrow's Labs & Rationales: CBC BEP
[2016-12-10 08:35] LABS: ABSOLUTE BASOPHIL COUNT 0 /CUMM (0.0-0.2); ABSOLUTE EOSINOPHIL COUNT 0 /CUMM (0.0-0.7); ABSOLUTE GRANULOCYTE CT 6.1 /CUMM (1.4-6.5); ABSOLUTE LYMPH COUNT 1.2 /CUMM (1.2-3.4); ABSOLUTE MONOCYTE COUNT 0.5 /CUMM (0.10-0.60); BASOPHIL % 0.6 % (0.0-2.0); EOSINOPHIL % 0 % (0-5); GRANULOCYTE % 78.2 % (42.2-75.2); HEMATOCRIT 34.6 % (37-47); MEAN CORPUSCULAR HGB 34.2 PG (27.0-31.0); MEAN CORPUSCULAR HGB CONC 32.2 G/DL (33.0-37.0); MEAN CORPUSCULAR VOLUME 106.3 FL (81.0-99.0); MEAN PLATELET VOLUME 8.7 FL (7.4-10.4); PLATELET COUNT 769 /CUMM (130-400); RBC DISTRIBUTION WIDTH 16.9 % (11.5-14.5); RED BLOOD CELL CT 3.25 /CUMM (4.20-5.40); WHITE BLOOD CELL COUNT 7.8 /CUMM (4.8-10.8)
--- NOTE | 2016-12-10 09:32 | PN- Infect Dx ---
Subjective Subjective: Afebrile. She continues to report diarrhea, though her stools are less frequent. She does not report any shortness of breath. Objective Last 24 Hrs of Vital Signs/I&O Vital Signs Date Time Temp Pulse Resp B/P B/P Pulse O2 O2 Flow FiO2 Mean Ox Delivery Rate 12/10 0826 98 Nasal 4.0L Cannula 12/10 0641 97.9 71 20 140/60 92 Nasal 4.0L Cannula 12/10 0000 94 Nasal 4.0L Cannula 12/09 2211 98.0 83 20 110/60 94 12/09 2109 83 110/60 12/09 1621 92 Nasal 4.0L Cannula 12/09 1600 92 Nasal 4.0L Cannula 12/09 1435 98.8 66 20 122/83 96 12/09 0946 86 122/64 Intake & Output 12/10 1600 12/10 0800 12/10 0000 Intake Total 220 360 Output Total 60 Balance 220 300 Intake, Oral 220 360 Number 2 1 Bowel Movements Output, Other 60 Physical Exam Other Physical Findings: She appears comfortable in no acute distress Lungs scattered rhonchi bilaterally Heart regular rhythm with no murmur Abdomen is soft, mildly tender on palpation over the left lower quadrant, with positive bowel sounds; cholecystostomy tube remains in place Extremities no cyanosis, clubbing or edema Results Last 24 Hours of Lab Results: Laboratory Tests 12/10 0720 Chemistry Sodium (137 - 145 mmol/L) 137 Potassium (3.5 - 5.1 mmol/L) 4.0 Chloride (98 - 107 mmol/L) 101 Carbon Dioxide (22 - 30 mmol/L) 30 Anion Gap (5 - 16) 5 BUN (7 - 17 mg/dL) 20 H Creatinine (0.5 - 1.0 mg/dL) 0.5 Estimated GFR (>60 ml/min) > 60 Glucose (65 - 99 mg/dL) 111 H Calcium (8.4 - 10.2 mg/dL) 8.9 Phosphorus (2.5 - 4.5 mg/dL) 3.0 Magnesium (1.6 - 2.3 mg/dL) 1.7 Total Bilirubin (0.2 - 1.3 mg/dL) 0.6 AST (14 - 36 U/L) 20 ALT (9 - 52 U/L) 33 Albumin (3.5 - 5.0 g/dL) 2.8 L Hematology CBC w Diff NO MAN DIFF REQ WBC (4.8 - 10.8 /CUMM) 7.8 RBC (4.20 - 5.40 /CUMM) 3.25 L Hgb (12.0 - 16.0 G/DL) 11.1 L Hct (37 - 47 %) 34.6 L MCV (81.0 - 99.0 FL) 106.3 H MCH (27.0 - 31.0 PG) 34.2 H RDW (11.5 - 14.5 %) 16.9 H Plt Count (130 - 400 /CUMM) 769 H MPV (7.4 - 10.4 FL) 8.7 Gran % (42.2 - 75.2 %) 78.2 H Lymphocytes % (20.5 - 51.1 %) 15.3 L Monocytes % (1.7 - 9.3 %) 5.9 Eosinophils % (0 - 5 %) 0 Basophils % (0.0 - 2.0 %) 0.6 Absolute Granulocytes (1.4 - 6.5 /CUMM) 6.1 Absolute Lymphocytes (1.2 - 3.4 /CUMM) 1.2 Absolute Monocytes (0.10 - 0.60 /CUMM) 0.5 Absolute Eosinophils (0.0 - 0.7 /CUMM) 0 Absolute Basophils (0.0 - 0.2 /CUMM) 0 PUBS MCHC (33.0 - 37.0 G/DL) 32.2 L Last 24 Hours of Chase Results: No recent cultures Recent Imaging Studies: Chest x-ray December 09 minimal bibasilar atelectasis Assessment/Plan Impression: Overall improved with some improvement in her diarrhea reported now on Vancomycin Day 2 of treatment for C. difficile that did not clearly responsive to 5 days of Flagyl. She remains afebrile with white blood cell count normal now 20 days status post placement of a cholecystostomy tube for acute cholecystitis. Suggestion: 1. Continue po Vancomycin
[2016-12-10 14:40] VITALS: BP 122/64
[2016-12-10 22:52] VITALS: BP 120/60
[2016-12-11 06:43] VITALS: BP 144/82
--- NOTE | 2016-12-11 06:45 | PN- Housestaff ---
See Addendum Subjective Follow-up For: Sepsis Hyponatremia BETH Demand ischemia Cholecystitis Shock liver Chronic atrial fibrillation Hypercarbic respiratory failure Subjective: Patient seen and examined at bedside this AM. She was sitting up comfortably in bed in no acute distress. She denies fever, chills, dizziness, shortness of breath or chest pain. She does endorse slight abdominal discomfort (not pain) for which her appetite is not at baseline. Patient is requesting follow up swallow evaluation as she is not happy with the chopped diet and would like to be advanced to a regular, heart healthy diet. Helen reports she feels more weak than prior to admission and is attempting to get out of bed to chair/commode. She is amenable to discharge to [facility] (will discuss bed options with case management). Review of Systems Constitutional: Denies: chills, fever. EENTM: Denies: visual changes, hearing changes. Cardiovascular: Denies: chest pain, palpitations. Respiratory: Reports: cough (Chronic). Denies: short of breath, wheezing. Gastrointestinal: Reports: see HPI. Denies: nausea, vomiting. Genitourinary: Denies: dysuria. Musculoskeletal: Denies: back pain, neck pain. Skin: Denies: rash. Neurological/Psychological: Denies: confusion, headache. Hematologic/Endocrine: Denies: bruising, bleeding. Immunologic/Allergic: Denies: splenectomy. Objective Last 24 Hrs of Vital Signs/I&O Vital Signs Date Time Temp Pulse Resp B/P B/P Pulse O2 O2 Flow FiO2 Mean Ox Delivery Rate 12/11 0643 98.0 90 22 144/82 96 Nasal Cannula 12/11 0000 Nasal 3.0L Cannula 12/10 2252 98.6 64 20 120/60 93 Nasal 3.0L Cannula 12/10 2224 65 122/64 12/10 1559 95 Nasal 3.0L Cannula 12/10 1440 98.5 65 18 122/64 95 Nasal 3.0L Cannula 12/10 1003 74 128/62 Intake & Output 12/11 1600 12/11 0800 12/11 0000 Intake Total 220 360 Output Total 55 85 Balance 165 275 Intake, Oral 220 360 Number 1 Bowel Movements Output, Other 55 85 Physical Exam General Appearance: Alert, Oriented X3, Cooperative, No Acute Distress Skin: No Significant Lesion Skin Temp/Moisture Exam: Warm/Dry HEENT: Atraumatic, PERRLA, EOMI, Mucous Membr. moist/pink, Right subconjunctival hemorrhage, improving Neck: Supple, No JVD, No thryomegaly Lymphatic: Cervical nl Cardiovascular: Normal S1, Normal S2, Irregular Lungs: Occasional wheeze (B/L) Abdomen: Normal Bowel Sounds, Soft, No Tenderness Neurological: Normal Speech, Normal Tone Extremities: No Clubbing, No Cyanosis, No Tenderness/Swelling Vascular: Pulses Symmetrical Current Medications: Current Medications Sig/Shilpa Start time Last Medication Dose Route Stop Time Status Admin Albuterol Sulfate 3 ML EVERY 4 HRS/AWAKE 11/21 1600 AC 12/10 INH 2051 Artificial Tears 2 GTT 4 TIMES/DAY PRN 12/08 0345 AC OPH Levothyroxine Sodium 0.15 MG DAILY AC 12/08 1000 AC 12/11 PO 0525 Magnesium Oxide 400 MG BID 12/09 1000 AC 12/10 PO 2225 Melatonin 3 MG ONCE ONE 12/10 2230 DC 12/10 PO 12/10 2231 2230 Methylprednisolone 40 MG DAILY 12/09 1000 AC 12/10 IV 1003 Metoprolol Tartrate 12.5 MG BID 12/07 2200 AC 12/10 PO 2224 Nystatin 1 ESTEFANY BID PRN 12/09 1600 AC TOP Omeprazole 40 MG DAILY AC 12/09 0950 AC 12/11 PO 0525 Racepinephrine 0.5 ML Q6-PRN PRN 12/06 1915 AC 12/06 INH 1830 Vancomycin HCl 125 MG Q6 12/08 1200 AC 12/11 PO 0526 Vitamin A/Vitamin D 1 ESTEFANY BID 12/08 1000 AC 12/10 TOP 2224 Zinc Oxide 1 ESTEFANY BID 12/08 1000 AC 12/10 TOP 2224 Last 24 Hrs of Lab/Chase Results Last 24 Hrs of Labs/Mics: Laboratory Tests 12/11/16 0720: CBC w Diff Pending, WBC Pending, RBC Pending, Hgb Pending, Hct Pending, MCV Pending, MCH Pending, RDW Pending, Plt Count Pending, MPV Pending, PUBS MCHC Pending Assessment/Plan Assessment: Ms. Sánchez is a 76 year old female with PMH HTN, severe COPD, cigarette abuse (1 PPD), previous alcohol use, atrial fibrillation on Pradaxa and digoxin, GI bleed and hypothyroidism who presented to [place] on 11/20 with chief complaint of cough, decreased oral intake, fatigue, fever and chills for one week. Of note, patient did she her PCP Dr. Enma MD who prescribed her azithromycin for presumed bronchitis though her symptoms persisted prompting evaluation in our emergency department. In the ED: Vital signs showed T 95.0, HR 72, RR 22, BP 90/68, O2 86% RA. Labs were significant for WBC 15.3, 14 bands, 81% granulocytes, H&H 16.1/49.5, Plt 245, Na 120, K 5.4, Cl 79, HCO3 29, BUN 51, Cre 2.4, Glu 95, lactic acid 3.1 , TBili 2.1, DBili 1.4, AST/ALT 7358/2161, trop 0.25, INR 1.83. Abdominal US showd impacted gallstone in GB neck with GB wall thickening, wall edema and pericholecystic fluid. CXR showed cardiomegaly with a patchy opacity left lower lung field abnormality. suggesting an evolving pneumonia EKG showed non-specific ST elevations in leads [address] depressions in the high lateral leads I and L. Patient was initially admitted to the intensive care unit but has since been transferred to the general medicine floor and the following is the management: 1. Septic shock, RESOLVED * Patient initially presented with septic shock likely secondary to intra- abdominal pathology complicated by acute cholecystitis. Percutaneous cholecystostomy tube was inserted by IR and daily drainage was noted with decompression of gallbladder appreciated. * Patient will require follow up with surgery for removal of perc. olimpia. tube after discharge * Patient has been on several different antibiotic regimens, including IV ceftriaxone/ azithromycin, IV flagyl, IV unasyn and IV vancoymcin * Currently, she is on oral vancomycin for clostridium difficile infection (no significant improvement with PO flagyl course of c.diff) * Continue to monitor for fevers, leukocytosis, hypotension * Continue to encourse PO intake of fluids * Patient stable for discharge to [facility] as she has only had one bowel movement and is clinically stable and much improved; she will likely go to [place] this afternoon 2. Acute cholecystitis * As noted above, patient had IR placement of perc. cholecystostomy tube early on in clinical course * Continues to have drainage * No growth from bile sent to the lab * Follow up as an outpatient for removal of tube (in 1-2 weeks) 3. Clostridium difficile infection Patient had noted worsening of clinical status (febrile, borderline hypotensive requiring IV fluid boluses) with unknown source of infection on November 27. C. Diff was sent but cancelled as stool was noted to be formed. Follow up C. Diff ordered on November 29 was sent and returned negative for clostridium difficile toxin A. Follow up C. Diff toxin A positive on December 02 and Helen was placed on PO flagyl as noted above * Patient initially started on oral flagyl without much improvement in clinical status * Has been switched to PO vancomycin with noted improvement (started on 12/09, goal 7-10 day course) * Continue special contact isolation * Continue to follow ID recommendations * Add lactobacillus today 4. Elevated troponin In the setting of septic shock and respiratory failure, troponin and EKG were sent. Troponins were noted to be elevated with a peak of 0.35; no EKG changes consistent with STEMI appreciated. Cardiology consult with patient's emergency vehicle dispatcher Dr. Vida MD placed and he recommended the initiation of IV heparin therapy along with aspirin and plavix. There was subsequent mild oropharyngeal bleeding appreciated and Dr. Vida MD aggreed that it was appropriate to discontinue this medical therapy as patient likely had demand/ supply mismatch (demand ischemia) and not true acute coronary syndrome. * Echo was done and showed mild concentric LVH, normal EF >65%, stage 1 diastolic dysfunction. * No further need for telemetry monitoring * Continue current cardiac regimen 5. Acute on chronic respiratory failure with severe COPD/emphysema in the setting of tobacco dependance During admission, patient noted to be saturating 86% on room air. She was initially placed on BiPAP but was intubated both due to increased work of breathing and planned IR guided procedure. The acute failure was likely due to a combination of hyptoension in the setting of septic shock and possible aspiration pneumonia or community acquired pneumonia (CXR on admission showed left lower lobe abnormality). Patient was given several courses of antibiotics as noted above, namely unasyn to cover aspiration pneumonia. She had a follow up chest CT that showed small/moderate pleural effusions with right middle and lower lobe collapse. She was started on mucomyst therapy and chest PT to improve this collapse. * Patient ulimately extubated after lung collapse improved, she was transitioned to HFNC then O2 via NC and ultimately has been transitioned to RA O2 * V solumdrol 40 mg daily discontinued, patient will be placed on slow taper that will be continued as an outpatient * Follow up with Dr. Luis Fernando MD and refer patient to his clinical after discharge * Continue to discuss tobacco cessation as patient is motivated to stop tobacco usage 6. Paroxysmal atrial fibrillation with digitalis toxicity on presentation Patient was noted to have elevated digoxin level on admission requiring digibind. She was placed on continuous exhibits manager with initial bradycardia appreciated. As digoxin was continued to be held, her heart rate improved. * Her metoprolol was initially held in the setting of septic shock, however as her clinical status has improved, metoprolol 12.5 mg PO BID has been resumed * Continue to follow up cardiology recommendations * No need for exhibits manager * Today, discussed with Dr. Vida MD in regards to digoxin- he suggested to continue holding digoxin even after discharge as HR is well controlled and patient was previously dig toxic; will have patient f/u with Dr. Vida MD after discharge for continued management of her atrial fibrillation 7. Hyponatremia Sodium low to 120 on admission and likely hypovolemic hyponatremia in setting of severe dehydration and sepsis. Labs were trended frequently and her sodium level responded to IV fluid resuscitation. * Continue to monitor Na levels daily and address as needed. * No need for fluids at this time, continue to encourse PO intake 8. BETH BUN/cre on admission 51/2.4, likely secondary to end organ dysfunction from sepsis/hypotension. She was provided with IV fluids, nephrotoxins were avoided. Her renal function improved well over the first few days of admission and her renal function was soon within normal limits. * Continue to avoid nephrotoxins and monitor renal function as an outpatient 9. Left lung nodule * 0.4 cm left lung nodule noted on CT chest. This should be followed as an outpatient with Dr. Luis Fernando MD. FULL CODE DVTP: ALPS Diet: Mechanical soft and ground Mild pain pathway Problem List: 1. COPD exacerbation 2. Hypokalemia 3. Hyponatremia 4. Elevated MCV 5. Acute respiratory failure with hypoxia and hypercarbia 6. Tobacco abuse 7. Multiorgan failure 8. Acute cholecystitis 9. Clostridium difficile diarrhea Pain Ratin Pain Location: Abdomen Pain Goal: Pain 4 or less Pain Plan: PRN pathway Tomorrow's Labs & Rationales: CBC (monitor for leukocytosis in setting of CDiff)
[2016-12-11 08:50] LABS: ABSOLUTE BASOPHIL COUNT 0 /CUMM (0.0-0.2); ABSOLUTE EOSINOPHIL COUNT 0 /CUMM (0.0-0.7); ABSOLUTE LYMPH COUNT 1.2 /CUMM (1.2-3.4); ABSOLUTE MONOCYTE COUNT 0.4 /CUMM (0.10-0.60); BASOPHIL % 0.2 % (0.0-2.0); EOSINOPHIL % 0 % (0-5); HEMATOCRIT 34.3 % (37-47); MEAN CORPUSCULAR HGB CONC 32.5 G/DL (33.0-37.0); MEAN CORPUSCULAR VOLUME 104.5 FL (81.0-99.0); MEAN PLATELET VOLUME 8.2 FL (7.4-10.4); PLATELET COUNT 752 /CUMM (130-400); RBC DISTRIBUTION WIDTH 16.3 % (11.5-14.5); RED BLOOD CELL CT 3.28 /CUMM (4.20-5.40); WHITE BLOOD CELL COUNT 7.6 /CUMM (4.8-10.8)
[2016-12-11] MEDS ORDERED: VANCOMYCIN HCL5 G1 PO (10:20)
[2016-12-11] MEDS ORDERED: PROBIOTIC & AC1 EACH PO (10:20)
[2016-12-11] MEDS ORDERED: S2 RACEPINEPHR1 EACH INH (10:20)
[2016-12-11] MEDS ORDERED: PREDNISONE10 M2 PO (10:20)
[2016-12-11] MEDS ORDERED: MAGNESIUM OXID400 M1 PO (10:20)
[2016-12-11] MEDS ORDERED: OMEPRAZOLE20 M2 PO (10:20)
--- NOTE | 2016-12-11 10:28 | Patient Discharge Instructions ---
Discharge Instructions General Discharge Information You were seen/treated for: Sepsis Cholecystitis Respiratory failure Clostridium difficile You had these procedures: Percutaneous cholecystostomy tube placement Watch for these problems: Fever, chills, redness around percutaneous cholecystostomy tube, worsening diarrhea, severe abdominal pain, persistent nausea or vomiting. Return to the hospital if any of these or other concerning symptoms noted. Call Surgeon to remove: Percutaneous cholecystostomy tube in about 1- 2 weeks Special Instructions: Please call to schedule an appointment with Dr. Kev MD for 1-2 weeks from now to remove percutaneous cholecystostomy tube. Please follow up with Dr. Luis Fernando MD for management of your COPD and to monitor pulmonary nodule seen on CT. Please follow up with your PCP Dr. Azul MD within 7 days of discharge. Please follow up with Dr. Vida MD within 7 days of discharge to continue managing your atrial fibrillation. PLease return to the hospital if you notice any concerning symptoms as listed above. Please take all medications as directed above, including your oral vancomycin for your c.diff. Diet Recommended Diet: Heart Healthy Activity Activity Self Limited: Yes Acute Coronary Syndrome Inclusion Criteria At DC or during hospital stay patient has or had the following: ACS DIAGNOSIS No Discharge Core Measures Meds if any: Prescribed or Continued at Discharge Meds if any: NOT Prescribed or Continued at Discharge Congestive Heart Failure Inclusion Criteria At DC or during hospital stay patient has or had the following: CHF DIAGNOSIS No Discharge Core Measures Meds if any: Prescribed or Continued at Discharge Meds if any: NOT Prescribed or Continued at Discharge Cerebrovascular accident Inclusion Criteria At DC or during hospital stay patient has or had the following: CVA/TIA Diagnosis No Discharge Core Measures Meds if any: Prescribed or Continued at Discharge Meds if any: NOT Prescribed or Continued at Discharge Venous thromboembolism Inclusion Criteria VTE Diagnosis No VTE Type NONE VTE Confirmed by (Test) NONE Discharge Core Measures - Per Current guidelines, there needs to be overlap - treatment for the first 5 days of Warfarin therapy. - If discharged on Warfarin prior to 5 days of - overlap therapy, the patient will need to be - assessed for post discharge needs including - *Post discharge parental anticoagulation - *Warfarin and/or parental anticoagulation education - *Follow up date to check INR post discharge At least 5 days overlap therapy as Inpatient No Meds if any: Prescribed or Continued at Discharge Note: Overlap Therapy is Warfarin and Anticoagulant Meds if any: NOT Prescribed or Continued at Discharge
--- NOTE | 2016-12-11 10:43 | Discharge Summary ---
Visit Information Visit Dates Admission Date: 11/20/16 Discharge Date: 12/12/2016 Hospital Course Course Attending Physician: Matti DE LEÓN Primary Care Physician: ALE DE LEÓN,KONSTANTIN Lunsford Hospital Course: Course Hospital Course: Ms. Ferguson is a 76 year old woman with PMH HTN, severe COPD, Hx of smoking 1 PPD X >30 years, previous alcohol use, atrial fibrillation on Pradaxa and digoxin, GI bleed and hypothyroidism who presented with chief complaint of cough, decreased oral intake, fatigue, fever and chills for one week. Of note, patient did she her PCP Dr. Enma MD who prescribed her azithromycin for presumed bronchitis though her symptoms persisted prompting evaluation in our emergency department. In the ED: Vital signs showed T 95.0, HR 72, RR 22, BP 90/68, O2 86% RA. Labs were significant for WBC 15.3, 14 bands, 81% granulocytes, H&H 16.1/49.5, Plt 245, Na 120, K 5.4, Cl 79, HCO3 29, BUN 51, Cre 2.4, Glu 95, lactic acid 3.1 , TBili 2.1, DBili 1.4, AST/ALT 7358/2161, trop 0.25, INR 1.83. Abdominal US showed impacted gallstone in GB neck with GB wall thickening, wall edema and pericholecystic fluid. CXR showed cardiomegaly with a patchy opacity in the left lower lung field suggesting an evolving pneumonia. EKG showed non- specific ST elevations in leads [address] depressions in the high lateral leads I and L. Patient was admitted to the intensive care unit and the following was the management to date: 1. Septic shock: Patient initially presented with septic shock likely secondary to intra-abdominal pathology complicated by acute cholecystitis. Percutaneous cholecystostomy tube was inserted by IR and daily drainage was noted with decompression of gallbladder appreciated. Patient was intubated during this procedure and returned to the critical care unit intubated. Patient was empirically started on IV ceftriaxone and azithromycin and antibotics were quickly switched to IV flagyl. She was placed on aggressive hydration for sepsis and pressors were given for a short period of time (titrated off after a few days). ID was consulted and suggested switching antibiotics to IV vancomycin, flagyl and ceftriaxone as pulmonary source of infection was then considered on differential of septic shock (concern for aspiration). Microbiology had no significant growth so antibiotics were again switched and Rohit was started on IV unasyn. White blood cell count quickly normalized. Per ID recommendations, C. Diff was sent and patient watched off of antibiotics as she remained afebrile and completed a course of unasyn. First C. Diff returned as negative but second was noted to be positive. Patient was started on PO flagyl 500 mg Q8 and she was placed on contact (enteric) isolation. Patient diarrhea and abdominal pain did not improve with PO flagyl and patient was started on PO vancomycin. Plan to D/C on PO vancomycin. 2. Acute cholecystitis: Concern for acute cholecystitis with RUQ US findings of gallstones with wall thickening and edema. IR was consulted and a percutaneous cholecystostomy tube was placed. No growth was noted in the bile drained from the gall bladder. Flagyl was initially started but was subsequently discontinued as noted above. No growth was noted in the bile drained from the gall bladder. Patient needs follow up visit with Dr. Kev DE LEÓN as an out patient for PC tube removal. 3. Clostridium difficile infection: Patient had noted worsening of clinical status (febrile, borderline hypotensive requiring IV fluid boluses) with unknown source of infection on November 27. C. Diff was sent but cancelled as stool was noted to be formed. Follow up C. Diff ordered on November 29 was sent and returned negative for clostridium difficile toxin A. Follow up C. Diff toxin A positive on December 02 and Rohit was placed on PO flagyl as noted above. She is plan to be discharged on PO Vancomycin. 4. Demand ischemia in the setting of respiratory failure and septic shock: Troponins were noted to be elevated with a peak of 0.35; no EKG changes consistent with STEMI appreciated. Cardiology consult with patient's commercial attorney Dr. Vida MD placed and he recommended the initiation of IV heparin therapy along with aspirin and plavix. There was subsequent mild oropharyngeal bleeding appreciated and Dr. Vida MD aggreed that it was appropriate to discontinue this medical therapy as patient likely had demand/ supply mismatch (demand ischemia) and not true acute coronary syndrome. Echo was done and showed mild concentric LVH, normal EF >65%, stage 1 diastolic dysfunction. 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 Patient is stable to be discharged. 5. Acute on chronic respiratory failure with severe COPD/emphysema in the setting of tobacco dependance: During admission, patient noted to be saturating 86% on room air. She was initially placed on BiPAP but was intubated both due to increased work of breathing and planned IR guided procedure. The acute failure was likely due to a combination of hyptoension in the setting of septic shock and possible aspiration pneumonia or community acquired pneumonia (CXR on admission showed left lower lobe abnormality). Patient was given several courses of antibiotics as noted above, namely unasyn to cover aspiration pneumonia. She had a follow up chest CT that showed small/moderate pleural effusions with right middle and lower lobe collapse. She was started on mucomyst therapy and chest PT to improve this collapse. She had bilateral chest ultrasound performed which documented that the pleural effusions noted on chest CT were not large enough for thoracentesis. Patient is continued on mechanical ventilation with current pressure support ventilation trials with goal of extubation in the next few days. Continue daily CXR while intubated to monitor placement of ET tube and continue to follow pulmonary recommendations. 6. Paroxysmal atrial fibrillation with digitalis toxicity: Patient was noted to have elevated digoxin level on admission requiring digibind. 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 As digoxin was continued to be held, her heart rate improved. Cardiology consult with Dr. Vida MD placed and he also suggested holding metoprolol in the setting of septic shock/hypotension. These medications continue to remain on hold. Patient is now noted to be occasionally tachycardic which Dr. Vida MD reports is a reaction to the right middle/lower lobe collapse and there is no indication to provide digoxin at this time. Remained stable, patient could be discharged on current regimen. 7. Hyponatremia: Resolved. 8. BETH: BUN/cre on admission 51/2.4, likely secondary to end organ dysfunction from sepsis/hypotension. On discharge BETH is resolved. 9. Left lung nodule: 0.4 cm left lung nodule noted on CT chest. This should be followed as an outpatient with Dr. Luis Fernando MD. Allergies: Coded Allergies: NO KNOWN ALLERGIES (10/05/11) Pertinent Lab Results: PATIENT: ROHIT FERGUSON PRESENT AGE: 76 PATIENT ACCOUNT NO: [id number] : 42 LOCATION: [facility] ORDERING PHYSICIAN: SANDOR ALCANTAR MD SERVICE DATE: 11/21/16- EXAM TYPE: CARD - ECHOCARDIOGRAM ROHIT FERGUSON Age: 76 : 1940 Gender: F Exam Date: 11/21/2016 11:12 Exam Location: [facility] Ht (in): 61 Wt (lb): 151 BSA: 1.74 BP: 140 / 70 Ordering Physician: SANDOR ALCANTAR M Referring Physician: SANDOR ALCANTAR MD Technologist: Ovi Hsieh [facility] Room Number: 110-1 Indications: AFIB/FLUTTER Rhythm: Sinus Technical Quality: Technically difficult study FINDINGS Left Ventricle Normal size left ventricle. Mild concentric left ventricular hypertrophy. No obvious regional wall motion abnormalities. Normal left ventricular ejection fraction visually estimated at 65%. Abnormal relaxation filling pattern of the left ventricle for age (stage 1 diastolic dysfunction). Right Ventricle Moderate right ventricular dilatation. Right Atrium Mild to moderate right atrial dilatation. Left Atrium Mild to moderate left atrial dilatation. Mitral Valve Mildly calcified mitral valve. Mildly thickened mitral valve leaflets. No mitral regurgitation. Aortic Valve Aortic valve not well visualized. Very mild aortic stenosis. No aortic regurgitation. Tricuspid Valve Structurally normal tricuspid valve. Mild tricuspid regurgitation. Moderate pulmonary hypertension. Right ventricular systolic pressure estimated to be elevated at 45 mmHg. Pulmonic Valve Pulmonic valve not well visualized, grossly normal. No pulmonic regurgitation. Pericardium No pericardial effusion. Great Vessels Normal size aortic root. Mildly dilated ascending aorta. Dilated inferior vena cava. CONCLUSIONS Normal size left ventricle. Mild concentric left ventricular hypertrophy. Normal left ventricular ejection fraction visually estimated at 65%. Abnormal relaxation filling pattern of the left ventricle for age (stage 1 diastolic dysfunction). Moderate right ventricular dilatation. Mild to moderate atrial dilatation. Very mild aortic stenosis. Mild tricuspid regurgitation. Moderate pulmonary hypertension. Mildly dilated ascending aorta. Dilated inferior vena cava. Dimitri Irizarry M.D. (Electronically Signed) Final Date: 21 Nov 2016 18:29 MEASUREMENTS (Male / Female) Normal Values 2D ECHO LV Diastolic Diameter PLAX 3.7 cm 4.2 - 5.9 / 3.9 - 5.3 cm LV Systolic Diameter PLAX 2.4 cm 2.1 - 4.0 cm LV Fractional Shortening PLAX 35.1 % 25 - 46 % LV Ejection Fraction 2D Teich 65.3 % IVS Diastolic Thickness 1.1 cm LVPW Diastolic Thickness 1.0 cm LV Relative Wall Thickness 0.6 RV Internal Dim ED PLAX 4.1 cm 1.9 - 3.8 cm LVOT Diameter 2.0 cm Aortic Root Diameter 3.0 cm LA Systolic Diameter LX 3.4 cm 3.0 - 4.0 / 2.7 - 3.8 cm Ascending Aorta Diameter 3.4 cm DOPPLER AV Peak Velocity 218.0 cm/s AV Peak Gradient 19.0 mmHg AV Mean Velocity 142.0 cm/s AV Mean Gradient 10.0 mmHg AV Velocity Time Integral 45.0 cm LVOT Peak Velocity 83.5 cm/s LVOT Peak Gradient 2.8 mmHg LVOT Mean Velocity 57.2 cm/s LVOT Mean Gradient 2.0 mmHg LVOT Velocity Time Integral 24.1 cm LVOT Stroke Volume 75.7 cm AV Area Cont Eq vti 1.7 cm AV Area Cont Eq pk 1.2 cm MV Peak Velocity 95.1 cm/s MV Peak Gradient 3.6 mmHg MV Mean Velocity 46.0 cm/s MV Mean Gradient 1.0 mmHg Mitral E Point Velocity 69.6 cm/s Mitral A Point Velocity 83.9 cm/s Mitral E to A Ratio 0.8 MV PHT Velocity 96.4 cm/s MV Deceleration [place] 304.0 cm/s MV Pressure Half Time 95.1 ms MV Area PHT 2.3 cm MV Deceleration Time 394.0 ms TR Peak Velocity 297.0 cm/s TR Peak Gradient 35.3 mmHg Right Atrial Pressure 10.0 mmHg Pulmonary Artery Systolic Pressu 45.3 mmHg Right Ventricular Systolic Press 45.3 mmHg PV Peak Velocity 93.0 cm/s PV Peak Gradient 3.5 mmHg PV Mean Velocity 62.4 cm/s PV Mean Gradient 2.0 mmHg PV Velocity Time Integral 21.3 cm LV E' Lateral Velocity 9.6 cm/s Mitral E to LV E' Lateral Ratio 7.3 LV E' Septal Velocity 6.6 cm/s Mitral E to LV E' Septal Ratio 10.5 DICTATED BY: DIMITRI IRIZARRY MD DATE/TIME DICTATED:11/21/161828 [employer] TEACHER:SABRINA DATE/TIME TRANSCRIBED:11/21/161828 CONFIDENTIAL, DO NOT COPY WITHOUT APPROPRIATE AUTHORIZATION. <Electronically signed in Other Vendor System> SIGNED BY: DIMITRI IRIZARRY MD 11/21/161828 Disposition Summary Disposition Principal Diagnosis: Septic shock secondary to acute cholecyctitis Additional Diagnosis: Demand ischemia hyponatremia acute kidney injury Discharge Disposition: SNF Discharge Instructions General Discharge Information Code Status: Full Code Patient's Diet: Heart Healthy diet Patient's Activity: as tolerated Follow-Up Instructions/Appts: Follow up as an out patient with Dr. Angulo within 1-2 week for PC tube removal Follow up as an out patient with Dr. Gould for long nodule assessment Medications at Discharge Discharge Medications: Stop taking the following medications: Naproxen Sodium (Aleve) 220 MG TAB ORAL DAILY as needed for PAIN Digoxin (Lanoxin-Digoxin 0.125MG Tab) 0.125 MG TAB ORAL 5 PM Qty = 30 Continue taking these medications: Folic Acid (Folic Acid) 1 MG TAB 1 Milligram ORAL DAILY Comments: Last Taken: 09/09/15 Time: 915 AM Levothyroxine Sodium (Levothroid) 0.15 MG TAB 1 Tablet ORAL DAILY BEFORE BREAKFAST Comments: Last Taken: 09/09/15 Time: 630 AM Oxazepam (Oxazepam) 10 MG CAP 1 Tablet ORAL EVERY 8 HOURS as needed for ANXIETY Comments: Last Taken: 09/08/15 Time: 915 PM Cholecalciferol (Vitamin D3) 1,000 IU TAB 1 Tablet ORAL DAILY Comments: Last Taken: 09/09/15 Time: 915 AM Acetaminophen (Pain Relief) 500 MG TAB 2 Tablet ORAL DAILY as needed for PAIN Comments: NOT GIVEN IN HOSPITAL FLUTICASONE/SALMETEROL (Advair 250-50 Diskus) 1 DSK DSK 1 PUFF Inhale through mouth TWICE DAILY Comments: NOT GIVEN IN HOSPITAL Zinc Oxide (Diaper Relief) 1 OIN OIN 1 Application On the skin TWICE DAILY Days = 30 Comments: Last Taken: 09/09/15 TIME: 915 AM Albuterol Sulfate/Ipratropiu (Duoneb) 3 MG/3 ML NEB 2 PUFF Inhale through mouth EVERY SIX HOURS Days = 30 Comments: Last Taken: 09/05/15 Time: 8PM Nicotine (Nicotine Patch) 14 MG/24 HR TDM 1 Patch On the skin DAILY Qty = 28 Comments: Last Taken: 09/09/15 Time: 945 AM Metoprolol Tartrate (Lopressor) 12.5 MG TAB 1 Tablet ORAL TWICE DAILY Days = 60 Comments: Last Taken: 09/09/15 Time: 0915 Aspirin (Aspirin*) 81 MG TAB.CHEW 1 Tablet ORAL DAILY Start taking the following new medications: Vancomycin HCl (Vancomycin HCl) 900 MCG/MG (NOT LESS THAN, HALF-WAY) POWDER 125 Milligram ORAL EVERY SIX HOURS Days = 10 No Refills Instructions: for total 10 days Lactobac Cmb #3/Fos/Pantethine (Probiotic & Acidophilus Cap) 300MM-250 CAPSULE 1 Capsule ORAL TWICE DAILY Qty = 60 No Refills Prednisone (Prednisone) 10 MG TABLET 0 ORAL See Instructions Qty = 26 No Refills Instructions: 12/12/16-12/13/16 take 4 tabs daily 12/14/16-12/16/16 take 3 tabs daily 12/17/16-12/19/16 take 2 tabs daily 12/20/16-12/22/16 take 1 tab daily then stop. Magnesium Chloride (Slow-Mag) 71.5 MG TABLET.DR 1 Tablet ORAL DAILY Qty = 7 No Refills Ranitidine HCl (Zantac) 150 MG TABLET 1 Tablet ORAL DAILY as needed for heart burn Qty = 30 No Refills Copies To: ALE DE LEÓN,KONSTANTIN Lunsford Attending MD Review Statement Documenting Attending: HUSAM DE LEÓN,DENISA REINOSO Other Findings: PATIENT: ROHIT FERGUSON PRESENT AGE: 76 PATIENT ACCOUNT NO: [id number] : 42 LOCATION: [facility] ORDERING PHYSICIAN: MIRANDA RAMON MD SERVICE DATE: 12/03/16- EXAM TYPE: CAT - CT ABD & PELVIS W IV CONTRAST; CT CHEST W IV CONTRAST EXAMINATION: CT SCAN OF THE CHEST WITH CONTRAST CT SCAN OF THE ABDOMEN AND PELVIS WITH CONTRAST CLINICAL INFORMATION: Fever and hypotension on meropenem. Assess for source of infection. COMPARISON: CT chest, abdomen, and pelvis 11/27/2016. DLP: 903 mGy-cm. TECHNIQUE: Axial images of the chest, abdomen, and pelvis were obtained utilizing 94 mL Optiray 320 contrast and oral contrast. Reformatted images were reviewed. No adverse reaction reported. FINDINGS: THORAX: Small right and trace left pleural effusion. There is right greater than left lower lobe atelectasis/consolidation dependently. There is subpleural linear opacification in the medial aspect of the left upper lobe, which likely represents atelectasis versus scarring. There is an unchanged 0.4 cm nodule in the left lung apex on image 72/968. Mild multifocal patchy groundglass opacification in the right middle lobe is nonspecific. The endotracheal tube terminates approximately 3 cm above the cori. Enteric tube courses below the diaphragm and terminates in the stomach. Unchanged appearance of the heterogeneous enlarged thyroid gland with multiple coarse calcifications. There are prominent mediastinal lymph nodes which measure up to 1.1 cm in the paratracheal region, unchanged. Scattered atherosclerotic disease including coronary artery calcification. ABDOMEN/PELVIS: No pneumoperitoneum or large volume ascites. Cholecystostomy tube is noted, with decompressed gallbladder. No suspicious hepatic lesion. No biliary ductal dilatation. The pancreas, spleen, and adrenal glands are unremarkable. Bilateral nephrograms are symmetric without hydronephrosis. Symmetric mild perinephric stranding is nonspecific. No renal or ureteral calculi. Bowel gas pattern is nonobstructive. No evidence of acute bowel inflammation. Scattered colonic diverticula without convincing evidence of diverticulitis. The appendix is normal. There is diffuse subcutaneous edema about the bilateral flanks. There is a heterogeneous mixed density collection within/along the right abdominal wall musculature, well visualized on axial images 75-85/121. This collection measures approximately 7.3 x 5.2 x 9.5 cm. Diffuse atherosclerotic calcification. Subcentimeter intra-abdominal lymph nodes without bulky adenopathy. Bladder is predominantly decompressed with Black catheter in place. The uterus is absent. No suspicious adnexal mass. Mild presacral stranding without discrete fluid collection. MUSCULOSKELETAL: Methylmethacrylate from prior vertebral augmentation at T11, L1, and L3. Unchanged superior endplate compression deformity at L4. No new osseous abnormality. At least mild multilevel degenerative changes of the spine. Decreased bone mineral density. IMPRESSION: 1. Mixed density, heterogeneous collection along/within the right lateral abdominal wall musculature (see correia images). It is unclear whether this represents a hematoma or infected collection. Consider targeted sonography to evaluate for a discrete/drainable fluid pocket. 2. Small bilateral pleural effusions, right greater than left. Adjacent dependent atelectasis/consolidation persists. Nonspecific patchy groundglass opacities in the right middle lobe, which could represent subtle local infection/inflammation. 3. Cholecystostomy tube in place. The gallbladder is decompressed. 4. No acute bowel pathology. 5. Diffuse atherosclerotic disease including coronary artery calcification. 6. Additional findings as described above. DICTATED BY: LUZMA HEREDIA MD DATE/TIME DICTATED:12/03/161099 [employer] TEACHER:SABRINA DATE/TIME TRANSCRIBED:12/03/161099 CONFIDENTIAL, DO NOT COPY WITHOUT APPROPRIATE AUTHORIZATION. <Electronically signed in Other Vendor System> SIGNED BY: LUZMA HEREDIA MD 12/03/16 1150 PATIENT: ROHIT FERGUSON PRESENT AGE: 76 PATIENT ACCOUNT NO: [id number] : 42 LOCATION: [facility] ORDERING PHYSICIAN: ELIZ BROWN MD SERVICE DATE: 12/03/16- EXAM TYPE: US - US-LIMITED ABDOMEN EXAMINATION: US ABDOMEN LIMITED CLINICAL INFORMATION: CT showed right flank fluid collection.. COMPARISON: CT scan earlier today. TECHNIQUE: Targeted sonography of the right flank was obtained. FINDINGS: There is a 7.8 x 6.0 x 5.8 cm heterogeneous, nonvascular collection along the right lateral abdominal wall inferior to the cholecystostomy tube. This demonstrates multiple tiny pockets of fluid, with the central aspects more echogenic/complex in nature. IMPRESSION: Redemonstration of the heterogeneous right flank collection. This collection would likely not be amenable to successful percutaneous drainage secondary to significant complexity. Favor this represents an abdominal wall hematoma over abscess; however, an infected hematoma is not excluded. DICTATED BY: LUZMA HEREDIA MD DATE/TIME DICTATED:12/03/161516 [facility] TEACHER:SABRINA DATE/TIME TRANSCRIBED:12/03/161516 CONFIDENTIAL, DO NOT COPY WITHOUT APPROPRIATE AUTHORIZATION. <Electronically signed in Other Vendor System> SIGNED BY: LUZMA HEREDIA MD 12/03/16 1525 SIGNED BY: LUZMA HEREDIA MD 12/03/16 1525
[2016-12-11] MEDS ORDERED: SLOW-MAG71.5 MG PO (11:43)
[2016-12-11] MEDS ORDERED: ZANTAC150 M1 PO (11:43)
[2016-12-11 13:40] VITALS: BP 130/82
--- NOTE | 2016-12-11 14:33 | PN- Infect Dx ---
Subjective Subjective: Afebrile without complaints She has had 2 formed stools today. Objective Last 24 Hrs of Vital Signs/I&O Vital Signs Date Time Temp Pulse Resp B/P B/P Pulse O2 O2 Flow FiO2 Mean Ox Delivery Rate 12/11 1340 98.0 80 20 130/82 12/11 1101 80 130/82 12/11 1025 Nasal 3.0L Cannula 12/11 0848 98 Nasal 3.0L Cannula 12/11 0800 Nasal 3.0L Cannula 12/11 0643 98.0 90 22 144/82 96 Nasal Cannula 12/11 0000 Nasal 3.0L Cannula 12/10 2252 98.6 64 20 120/60 93 Nasal 3.0L Cannula 12/10 2224 65 122/64 12/10 1559 95 Nasal 3.0L Cannula 12/10 1440 98.5 65 18 122/64 95 Nasal 3.0L Cannula Intake & Output 12/11 1600 12/11 0800 12/11 0000 Intake Total 220 360 Output Total 55 85 Balance 165 275 Intake, Oral 220 360 Number 2 1 Bowel Movements Output, Other 55 85 Physical Exam Other Physical Findings: She appears comfortable in no acute distress Abdomen soft, nontender Results Last 24 Hours of Lab Results: Laboratory Tests 12/11 0720 Hematology CBC w Diff NO MAN DIFF REQ WBC (4.8 - 10.8 /CUMM) 7.6 RBC (4.20 - 5.40 /CUMM) 3.28 L Hgb (12.0 - 16.0 G/DL) 11.1 L Hct (37 - 47 %) 34.3 L MCV (81.0 - 99.0 FL) 104.5 H MCH (27.0 - 31.0 PG) 34.0 H RDW (11.5 - 14.5 %) 16.3 H Plt Count (130 - 400 /CUMM) 752 H MPV (7.4 - 10.4 FL) 8.2 Gran % (42.2 - 75.2 %) 79.0 H Lymphocytes % (20.5 - 51.1 %) 15.8 L Monocytes % (1.7 - 9.3 %) 5.0 Eosinophils % (0 - 5 %) 0 Basophils % (0.0 - 2.0 %) 0.2 Absolute Granulocytes (1.4 - 6.5 /CUMM) 6.0 Absolute Lymphocytes (1.2 - 3.4 /CUMM) 1.2 Absolute Monocytes (0.10 - 0.60 /CUMM) 0.4 Absolute Eosinophils (0.0 - 0.7 /CUMM) 0 Absolute Basophils (0.0 - 0.2 /CUMM) 0 PUBS MCHC (33.0 - 37.0 G/DL) 32.5 L Last 24 Hours of Chase Results: No recent cultures Assessment/Plan Impression: Improved with temperatures and white blood cell count remaining normal and with stools now formed on Vancomycin Day 3 of treatment for C. difficile that did not clearly responsive to 5 days of Flagyl. She is now 21 days status post placement of a cholecystostomy tube for acute cholecystitis. Suggestion: 1. Will need surgical follow-up as an outpatient regarding her cholecystostomy tube and eventual cholecystectomy 2. Continue po Vancomycin to complete a 10-14 day course of treatment
== END 2016-12-11 14:50 | DRG 870 ==
LOC: ERH 12:32 → ERHI 15:11 → CRI 15:11 → 2NA 15:11 → ENRESERV 16:50 → CRI 17:24 → 2NA 12-09 14:07 → ENPENDDIS 12-11 12:26 → 2NA 12-11 14:50
PROVIDERS: Dermatology; Emergency Medicine; Internal Medicine; Ophthalmology; Student in an Organized Health Care Education/Training Program; ADMIT Internal Medicine Pulmonary Disease
PROC: 0F9430Z Drainage of Gallbladder with Drainage Device, Percutaneous Approach (ICD-10-PCS; principal; 2016-11-20)
PROC: 5A1955Z Respiratory Ventilation, Greater than 96 Consecutive Hours (ICD-10-PCS; 2016-11-20)
PROC: 02HV33Z Insertion of Infusion Device into Superior Vena Cava, Percutaneous Approach (ICD-10-PCS; 2016-11-20)
PROC: 0BH18EZ Insertion of Endotracheal Airway into Trachea, Via Natural or Artificial Opening Endoscopic (ICD-10-PCS; 2016-11-20)
DX: A41.9 Sepsis, unspecified organism (principal); J96.21 Acute and chronic respiratory failure with hypoxia; K72.00 Acute and subacute hepatic failure without coma; J69.0 Pneumonitis due to inhalation of food and vomit; R65.21 Severe sepsis with septic shock; I47.2 Ventricular tachycardia; K81.0 Acute cholecystitis; I95.9 Hypotension, unspecified; I24.8 Other forms of acute ischemic heart disease; J96.22 Acute and chronic respiratory failure with hypercapnia; J44.1 Chronic obstructive pulmonary disease with (acute) exacerbation; N17.9 Acute kidney failure, unspecified; A04.7 Enterocolitis due to Clostridium difficile; E87.1 Hypo-osmolality and hyponatremia; R91.1 Solitary pulmonary nodule; I48.0 Paroxysmal atrial fibrillation; I10 Essential (primary) hypertension; E03.9 Hypothyroidism, unspecified; E86.0 Dehydration; E87.5 Hyperkalemia; E55.9 Vitamin D deficiency, unspecified; M06.9 Rheumatoid arthritis, unspecified; D69.6 Thrombocytopenia, unspecified; Z79.01 Long term (current) use of anticoagulants; F17.210 Nicotine dependence, cigarettes, uncomplicated
CPT/HCPCS: 2NAP; 84133; 84300; 87075; CCU; 36415; 74000; 74176; 74177; 80307; 81001; 82436; 82570; 87040; 87070; 87071; 87086; 87449; 87450; 93005; 93010; 93306; 94799; 96374; 96375; 97110-GO; 97161-GP; 97530-GO; 99291; G0480; J0131; J0456; J0696; J0713; J1162; J1644; J1815; J1940; J2060; J2920; J2930; J3010; J3370; J3490; J7040; J7042; J7608

== ENCOUNTER 2017-08-10 10:52 | Inpatient (IN) | payer OTHER, MEDICARE ==
[~2017-08-10] VITALS: Ht 154.9 cm; Wt 67.1 kg
[~2017-08-10 10:52] MED LIST changes: +ASPIRIN81 M4 PO; +DAILY MULTIPLE1 EACH PO; +MAGNESIUM OXID400 M1 PO; +OMEPRAZOLE20 M2 PO; +PREDNISONE10 M2 PO; +PREDNISONE5 M1 PO; +PROBIOTIC & AC1 EACH PO; +S2 RACEPINEPHR1 EACH INH; +SLOW-MAG71.5 MG PO; +VANCOMYCIN HCL5 G1 PO; +ZANTAC150 M1 PO
--- NOTE | 2017-08-10 11:13 | ED GENERAL ADULT ---
"See Addendum History of Present Illness General Chief Complaint: General Adult Stated Complaint: COUGH FEVER SOB FLU SYMPTOMS ABDULLAHI Source: patient, family Exam Limitations: no limitations Vital Signs & Intake/Output Vital Signs & Intake/Output Vital Signs Date Time Temp Pulse Resp B/P B/P Pulse O2 O2 Flow FiO2 Mean Ox Delivery Rate 08/10 1801 Venti Mask 50% 08/10 1630 Nasal 2.0L Cannula 08/10 1600 98.0 90 19 118/60 08/10 1553 94 Venti Mask 08/10 1552 106 89 Nasal 4.0L Cannula 08/10 1529 99.9 08/10 1514 99.9 111 22 121/58 93 Nasal 4.0L Cannula 08/10 1402 94 Nasal 4.0L Cannula 08/10 1401 98.9 107 110/70 91 Nasal 4.0L Cannula 08/10 1246 94 Nasal 4.0L Cannula 08/10 1228 92 Nasal 4.0L Cannula 08/10 1149 97 Nasal 2.0L Cannula 08/10 1129 86 Nasal 4.0L Cannula 08/10 1101 97.7 109 20 118/56 78 Allergies Coded Allergies: NO KNOWN ALLERGIES (10/05/11) Reconcile Medications Albuterol Sulfate/Ipratropiu (Duoneb) 3 MG/3 ML NEB 2 PUFF INH Q6 copd Aspirin (Aspirin*) 81 MG TAB.CHEW 1 TAB PO DAILY HEART (Reported) Cholecalciferol (Vitamin D3) 1,000 IU TAB 1 TAB PO DAILY BONES (Reported) Folic Acid 1 MG TAB 1 MG PO DAILY FOLIC ACID SUPPLEMENT (Reported) Levothyroxine Sodium (Levothroid) 0.15 MG TAB 1 TAB PO DAILY AC HYPOTHYROIDISM (Reported) Magnesium Chloride (Nu-Mag) 71.5 MG TABLET.DR 1 TAB PO D SUPPLEMENT (Reported ) Metoprolol Tartrate (Lopressor) 12.5 MG TAB 1 TAB PO BID AFIB Multivitamin (Daily Multiple Vitamin) 1 EACH TABLET 1 TAB PO DAILY PROPHO ( Reported) Oxazepam 10 MG CAP 1 TAB PO Q8 PRN ANXIETY (Reported) Prednisone 5 MG TABLET 1 TAB PO DAILY COPD (Reported) Triage Note: PT HAS EMPHASEMA AND C/O COLD LIKE S/S FOR [address] PT [address] FREEMAN AND DGT STATES WHEN SHE NOTED HER 02 SAT TO BE LOW SHE JUST BROUGHT PT IN. PT C/O COUGH WITH YELLOW MUCOUS 02 SAT 72% ON RA. PT IS ON 02 2L VIA NC AT HS ONLY. Triage Nurses Notes Reviewed? yes Onset: Abrupt Duration: day(s): Timing: recent history HPI: 08/10/17 12:22 PM 77-year-old female presents to the emergency department complaining of difficulty breathing. The patient states she has a history of COPD. She complains of a cough and low-grade fever over the past several days. She says her operating room scheduler is Dr. Gould. She denies any chest pain. She does admit to fever. She says she has a cough productive of yellow sputum. She does smoke. She is on O2 2 L at night. She had significant hypoxemia on arrival with sats in the high 60s. Currently after treatments and on oxygen her saturation is in the low 90s and she is awake and alert. Past History Travel History Traveled to [place] past 21 day No Medical History Any Pertinent Medical History? 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 Other Medical Hx: vertebral fracture s/p vertebralplasty GI bleed Hypothyroidism hysterectomy with unilateral oophorectomy hemorrhoidectomy ATRIAL FIBRILLATION (427.31 | I48.91) COPD (CHRONIC OBSTRUCTIVE PULMONARY DISEASE) (496 | J44.9) Arthritis SHORTNESS OF BREATH ON EXERTION (786.05 | R06.02) ANEMIA (285.9 | D64.9) ETOH DEPENDENCE (303.90 | F10.20) COMMUNITY ACQUIRED PNEUMONIA (486 | J18.9) History of MRSA: No History of VRE: No History of CDIFF: Yes Surgical History Surgical History: hysterectomy (with unilateral oophorectomy), spinal fusion, vertebral fracture s/p vertebraplasty hemorrhoidectomy Psychosocial History Who do you live with Patient/Self Services at Home None What is your primary language Occitan Tobacco Use: Current Daily Use Daily Tobacco Use Amount/Type: => 5 Cigarettes daily ETOH Use: occasional use Illicit Drug Use: denies illicit drug use Family History Hx Contributory? No Review of Systems Review of Systems Constitutional: Reports: chills, fever. EENTM: Denies: visual changes. Respiratory: Reports: cough, short of breath. Cardiovascular: Denies: chest pain. GI: Denies: abdominal pain. Genitourinary: Reports: no symptoms. Musculoskeletal: Reports: no symptoms. Skin: Reports: no symptoms. Neurological/Psychological: Reports: no symptoms. Hematologic/Endocrine: Reports: no symptoms. Immunologic/Allergic: Reports: no symptoms. Physical Exam Physical Exam General Appearance: alert, awake, anxious, moderate distress Head: atraumatic, normal appearance Eyes: Bilateral: normal appearance, PERRL, EOMI. Ears, Nose, Throat: normal pharynx, normal ENT inspection Neck: normal inspection, supple, full range of motion Respiratory: decreased breath sounds, rhonchi, wheezing Cardiovascular: tachycardia Peripheral Pulses: 4+ radial (R), 4+ radial (L) Gastrointestinal: soft, non-tender Back: decreased range of motion Extremities: pedal edema Neurologic/Psych: no motor/sensory deficits, awake, alert, oriented x 3 Skin: intact, normal color, warm/dry Core Measures ACS in differential dx? No CVA/TIA Diagnosis: No Sepsis Present: No Sepsis Focused Exam Completed? No Progress Differential Diagnoses I considered the following diagnoses in my evaluation of the patient: Pneumonia, influenza, COPD, bronchitis, pulmonary embolism] Plan of Care: Orders Procedure Date/time Status Heart Healthy Diet 08/10 D Active Pathway - chart 08/10 2037 Active RT: Evaluation 08/10 1800 Active Vital Signs 08/10 1659 Active Teach/Educate 08/10 165 Active Pain Treatment and Response 08/10 165 Active Nutritional Intake, Monitor 08/10 1659 Active Isolation 08/10 1659 Active Intake & Output 08/10 1659 Active Patient Care Conference 08/10 1659 Active Activity/Ambulation 08/10 1659 Active RAPID VIRAL INFLUENZA A 08/10 1514 Complete TRC EVALUATION (GEN) 08/10 1453 Complete OXYGEN SETUP (GEN) 08/10 1453 Complete Patient Data 08/10 1414 Active Admit to inpatient 08/10 1357 Active Vital Signs 08/10 1357 Active Code Status 08/10 1357 Active Add-on Test (ER Only) 08/10 1211 Active BLOOD CULTURE 08/10 1211 Active Intake & Output 08/10 1204 Active LACTIC ACID 08/10 1152 Complete OXYGEN SETUP (GEN) 08/10 1134 Complete Saline Lock 08/10 1134 Active TROPONIN LEVEL 08/10 1134 Complete COMPREHENSIVE METABOLIC PANEL 08/10 1134 Complete CBC WITHOUT DIFFERENTIAL 08/10 1134 Complete EKG 08/10 1114 Active BLOOD CULTURE 08/10 0000 Active THERAPIST ORDERS 08/10 UNK Complete BIPAP 08/10 UNK Complete ARTERIAL BLOOD GAS (GEN) 08/10 UNK Active Current Medications Sig/Shilpa Start time Last Medication Dose Stop Time Status Admin Levothyroxine Sodium 0.15 MG DAILY AC 08/11 0700 AC (Synthroid) Methylprednisolone 40 MG Q8 08/10 2199 AC (Solumedrol) Metoprolol Tartrate 25 MG BID 08/10 2199 AC (Lopressor) Acetaminophen 650 MG Q6P PRN 08/10 2044 AC (Tylenol) Oxycodone/ 1 TAB Q6P PRN 08/10 2044 AC Acetaminophen (Percocet) Magnesium Chloride 71.5 MG .[D] 08/10 2014 UNVr (Slow-Mag) Oxazepam 10 MG AT BEDTIME PRN 08/10 2014 AC (Serax 10 MG Capsule) 08/17 2013 Cholecalciferol 1,000 IU DAILY 08/10 2009 AC (Vitamin D) Folic Acid 1 MG DAILY 08/10 2009 AC (Folic Acid) Multivitamins 1 TAB DAILY 08/10 2009 AC Therapeutic (Theragran-M Vitamins Tabs) Aspirin 81 MG DAILY 08/10 2008 AC (Aspirin) Albuterol Sulfate 3 ML EVERY 4 HRS/AWAKE 08/10 1999 AC (Proventil) Azithromycin 500 MG DAILY@1700 08/10 1700 AC 08/10 (Zithromax) 183 Dextrose/Water 250 ML (D5W) Ceftriaxone Sodium 1,000 MG DAILY@1700 08/10 1700 AC 08/10 (Rocephin) 1836 Laboratory Tests 08/10/17 1610: pH 7.29 *L, pCO2 61 *H, pO2 77 L, HCO3 28, ABG O2 Sat (Measured) 92.0 L, Carboxyhemoglobin 2.8, O2 Concentration % 50, O2 Delivery Method V/M, Phlebotomy Draw Site RIGHT RADIAL 08/10/17 1152: Anion Gap 12, Estimated GFR > 60, BUN/Creatinine Ratio 31.4 H, Glucose 71, Lactic Acid 1.1, Calcium 9.1, Total Bilirubin 0.8, AST 17, ALT 18, Alkaline Phosphatase 102, Troponin I 0.02, Total Protein 7.2, Albumin 3.7, Globulin 3.5, Albumin/Globulin Ratio 1.1, CBC w Diff NO MAN DIFF REQ, RBC 5.16, MCV 95.4, MCH 31.1 H, MCHC 32.6 L, RDW 16.3 H, MPV 8.2, Gran % 82.1 H, Lymphocytes % 9.2 L, Monocytes % 7.5, Eosinophils % 0.1, Basophils % 1.1, Absolute Granulocytes 10.9 H, Absolute Lymphocytes 1.2, Absolute Monocytes 1.0 H, Absolute Eosinophils 0, Absolute Basophils 0.1 Microbiology 08/10 1519 NASOPHARYN: Influenza Virus A & B Rapid Smear - COMP 08/10 1210 BLOOD: Blood Culture - RECD 08/10 1200 BLOOD: Blood Culture - RECD Initial ED EKG: NSR Departure Departure Disposition: STILL A PATIENT Condition: Stable Clinical Impression Primary Impression: COPD (chronic obstructive pulmonary disease) Secondary Impressions: Hypoxia Referrals: Addison Liang MD (PCP/Family) Departure Forms: Customer Survey General Discharge Information Comments Chest x-ray results shown below IMPRESSION: Hazy prominence of the reticular markings bilateral lungs may represent interstitial edema. Similar appearance can be seen with interstitial or viral pneumonia in the appropriate clinical setting. Mild cardiomegaly. DICTATED BY: Ivory Khanna MD DATE/TIME DICTATED:08/10/171312 WOMEN'S GARMENT FITTER:SABRINA DATE/TIME TRANSCRIBED:08/10/171312 CONFIDENTIAL, DO NOT COPY WITHOUT APPROPRIATE AUTHORIZATION. <Electronically signed in Other Vendor System> SIGNED BY: Ivory Khanna MD 08/10/17 1318 Influenza test negative EKG reveals sinus rhythm She revealed multiple treatments in the ED was placed on oxygen IV steroids were given She was admitted to the hospital for further care secondary to hypoxia and exacerbation of COPD Admission Note Spoke With: Phyllis Pearce MD Documentation of Exam: Documentation of any treatments & extenuating circumstances including Concerns Regarding Discharge (functional status, medication knowledge or non-compliance, living conditions, etc.) that warrant an admission rather than observation: [ Patient needs admission for IV steroids, IV antibiotics, oxygen, consider pulmonary consultation] Critical Care Note Critical Care Note Critical Care Time: 30-74 min"
[2017-08-10 11:58] LABS: ABSOLUTE BASOPHIL COUNT 0.1 /CUMM (0.0-0.2); ABSOLUTE EOSINOPHIL COUNT 0 /CUMM (0.0-0.7); ABSOLUTE GRANULOCYTE CT 10.9 /CUMM (1.4-6.5); ABSOLUTE LYMPH COUNT 1.2 /CUMM (1.2-3.4); BASOPHIL % 1.1 % (0.0-2.0); EOSINOPHIL % 0.1 % (0-5); GRANULOCYTE % 82.1 % (42.2-75.2); HEMATOCRIT 49.2 % (37-47); MEAN CORPUSCULAR HGB 31.1 PG (27.0-31.0); MEAN CORPUSCULAR HGB CONC 32.6 G/DL (33.0-37.0); MEAN CORPUSCULAR VOLUME 95.4 FL (81.0-99.0); MEAN PLATELET VOLUME 8.2 FL (7.4-10.4); PLATELET COUNT 196 /CUMM (130-400); RBC DISTRIBUTION WIDTH 16.3 % (11.5-14.5); RED BLOOD CELL CT 5.16 /CUMM (4.20-5.40); WHITE BLOOD CELL COUNT 13.2 /CUMM (4.8-10.8)
--- NOTE | 2017-08-10 13:18 | RADIOLOGY REPORT ---
EXAMINATION: XR PORTABLE CHEST CLINICAL INFORMATION: Shortness of breath COMPARISON: Chest x-rays most recent prior dated 02/01/2017 TECHNIQUE: Portable frontal view of the chest was obtained. FINDINGS: Mild cardiomegaly. Mild central pulmonary vascular congestion. Increased prominence of the pulmonary and reticular markings bilateral lungs. No focal consolidation. Visualized bony thorax is intact. IMPRESSION: Hazy prominence of the reticular markings bilateral lungs may represent interstitial edema. Similar appearance can be seen with interstitial or viral pneumonia in the appropriate clinical setting. Mild cardiomegaly.
[2017-08-10] MEDS ORDERED: NU-MAG71.5 MG PO (14:29)
--- NOTE | 2017-08-10 14:41 | History & Physical ---
"Etta DE LEÓN,Lissett 08/10/17 1441: General Information and HPI MD Statement: I have seen and personally examined ROHIT FERGUSON and documented this H&P. The patient is a 77 year old F who presented with a patient stated chief complaint of []. Source of Information: patient Exam Limitations: no limitations History of Present Illness: Patient is a 77-year-old actively smoking female with severe steroid-dependent COPD, paroxysmal atrial fibrillation (not on anticoagulation), hypothyroidism, recently started on 2 L of nocturnal oxygen, hypothyroidism, anxiety presented to [facility] with 1 week history of flulike symptoms. She started experiencing runny nose with cough with cold which progressively got worse with fevers 2 days ago. She did have greenish phlegm production this morning. She was recently tested for with a nocturnal pulse ox and started on 2 L home oxygen. She didn't report her cough became horrible today and she was profoundly short of breath after the cough which prompted her to come to ER. She denies any shortness of breath with exertion, did report increased shortness of breath with lying down ( as orthopnea), denies any increased swelling of the legs or weight gain. She denies any chest pain, palpitations. Her oxygen saturations dropped down to 72% on room air. Her shear assembler is Dr. Gould, her child development consultant is Dr. Mcpherson Allergies/Medications Allergies: Coded Allergies: NO KNOWN ALLERGIES (10/05/11) Home Med list Albuterol Sulfate/Ipratropiu (Duoneb) 3 MG/3 ML NEB 2 PUFF INH Q6 copd Aspirin (Aspirin*) 81 MG TAB.CHEW 1 TAB PO DAILY HEART (Reported) Cholecalciferol (Vitamin D3) 1,000 IU TAB 1 TAB PO DAILY BONES (Reported) Folic Acid 1 MG TAB 1 MG PO DAILY FOLIC ACID SUPPLEMENT (Reported) Levothyroxine Sodium (Levothroid) 0.15 MG TAB 1 TAB PO DAILY AC HYPOTHYROIDISM (Reported) Magnesium Chloride (Nu-Mag) 71.5 MG TABLET.DR 1 TAB PO D SUPPLEMENT (Reported ) Metoprolol Tartrate (Lopressor) 12.5 MG TAB 1 TAB PO BID AFIB Multivitamin (Daily Multiple Vitamin) 1 EACH TABLET 1 TAB PO DAILY PROPHO ( Reported) Oxazepam 10 MG CAP 1 TAB PO Q8 PRN ANXIETY (Reported) Prednisone 5 MG TABLET 1 TAB PO DAILY COPD (Reported) Compliance With Home Meds: GOOD Past History Travel History Traveled to [place] past 21 day No Medical History Neurological: NONE EENT: hearing loss Cardiovascular: AFIB, hypertension Respiratory: COPD, pneumonia Gastrointestinal: upper GI bleed Hepatic: NONE Renal: NONE Musculoskeletal: ARTHRITIS Psychiatric: alcohol dependence, anxiety, depression Endocrine: hypothyroidism Blood Disorders: anemia 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 Other Medical Hx: vertebral fracture s/p vertebralplasty GI bleed Hypothyroidism hysterectomy with unilateral oophorectomy hemorrhoidectomy ATRIAL FIBRILLATION (427.31 | I48.91) COPD (CHRONIC OBSTRUCTIVE PULMONARY DISEASE) (496 | J44.9) Arthritis SHORTNESS OF BREATH ON EXERTION (786.05 | R06.02) ANEMIA (285.9 | D64.9) ETOH DEPENDENCE (303.90 | F10.20) COMMUNITY ACQUIRED PNEUMONIA (486 | J18.9) History of MRSA: No History of VRE: No History of CDIFF: Yes Surgical History Surgical History: hysterectomy (with unilateral oophorectomy), spinal fusion, vertebral fracture s/p vertebraplasty hemorrhoidectomy Past Family/Social History Psychosocial History Where do you live? Home Who Do You Live With? self Services at Home: None Primary Language: Kenyan ETOH Use: occasional use Illicit Drug Use: denies illicit drug use Functional Ability ADLs Independent: dressing, eating, toileting, bathing. Ambulation: independent Review of Systems Review of Systems Constitutional: Reports: see HPI. EENTM: Reports: see HPI. Cardiovascular: Reports: orthopena. Respiratory: Reports: cough, orthopnea, sputum production, wheezing. GI: Reports: see HPI. Genitourinary: Reports: see HPI. Exam & Diagnostic Data Last 24 Hrs of Vital Signs/I&O Vital Signs Date Time Temp Pulse Resp B/P B/P Pulse O2 O2 Flow FiO2 Mean Ox Delivery Rate 08/10 1402 94 Nasal 4.0L Cannula 08/10 1401 98.9 107 110/70 91 Nasal 4.0L Cannula 08/10 1246 94 Nasal 4.0L Cannula 08/10 1228 92 Nasal 4.0L Cannula 08/10 1149 97 Nasal 2.0L Cannula 08/10 1129 86 Nasal 4.0L Cannula 08/10 1101 97.7 109 20 118/56 78 Intake & Output 08/10 1600 08/10 0800 08/10 0000 Intake Total Output Total Balance Patient 67.132 kg Weight Weight Reported by Patient Measurement Method Physical Exam General Appearance Alert, Oriented X3, Cooperative, Mild Distress Skin No Rashes, No Breakdown HEENT Atraumatic, PERRLA, EOMI Neck Supple, No JVD Cardiovascular Normal S1, Normal S2 Lungs diffusely rhochorous with decreased air entry Abdomen Normal Bowel Sounds, Soft, No Tenderness Last 24 Hrs of Labs/Chase: Laboratory Tests 08/10/17 1610: pH 7.29 *L, pCO2 61 *H, pO2 77 L, HCO3 28, ABG O2 Sat (Measured) 92.0 L, Carboxyhemoglobin 2.8, O2 Concentration % 50, O2 Delivery Method V/M, Phlebotomy Draw Site RIGHT RADIAL 08/10/17 1152: Anion Gap 12, Estimated GFR > 60, BUN/Creatinine Ratio 31.4 H, Glucose 71, Lactic Acid 1.1, Calcium 9.1, Total Bilirubin 0.8, AST 17, ALT 18, Alkaline Phosphatase 102, Troponin I 0.02, Total Protein 7.2, Albumin 3.7, Globulin 3.5, Albumin/Globulin Ratio 1.1, CBC w Diff NO MAN DIFF REQ, RBC 5.16, MCV 95.4, MCH 31.1 H, MCHC 32.6 L, RDW 16.3 H, MPV 8.2, Gran % 82.1 H, Lymphocytes % 9.2 L, Monocytes % 7.5, Eosinophils % 0.1, Basophils % 1.1, Absolute Granulocytes 10.9 H, Absolute Lymphocytes 1.2, Absolute Monocytes 1.0 H, Absolute Eosinophils 0, Absolute Basophils 0.1 Microbiology 08/10 1519 NASOPHARYN: Influenza Virus A & B Rapid Smear - COMP 08/10 1210 BLOOD: Blood Culture - RECD 08/10 1200 BLOOD: Blood Culture - RECD Diagnostic Data EKG Results NSR, Normal axis with no ST T wave changes CXR Results IMPRESSION: Hazy prominence of the reticular markings bilateral lungs may represent interstitial edema. Similar appearance can be seen with interstitial or viral pneumonia in the appropriate clinical setting. Mild cardiomegaly. Assessment/Plan Assessment: Patient is a 77-year-old actively smoking female with severe steroid-dependent COPD, paroxysmal atrial fibrillation (not on anticoagulation), recently started on 2 L of nocturnal oxygen, hypothyroidism, anxiety presented to [facility] with 1 week history of flulike symptoms. VS are significant for tachycardia, desaturation with acidosis secodary to carbondioxide retention requiring BIPAP. Physical exam did show diffuse expiratory wheezing with poor air entry. Heart S1-S2 normal. Legs no edema/cyanosis/clubbing. Labs due to leukocytosis with granulocytosis, hypochloremia on BEP. ABG did show persistent is ago to pH with hypercarbia despite on BiPAP for several hours. Acute COPD exacerbation secondary to respiratory infection Admit to general medicine floor Plan Acute hypoxic hypercarbic respiratory failure secondary to COPD exacerbation She was recently started on nocturnal oxygen 2 L as needed. She was started on BiPAP in the ER. Start on IV steroids with azithromycin and ceftriaxone. Follow-up blood, lower respiratory cultures. Follow-up Urine Legionella and Streptococcus antigen. If ABG persistently shows hypercarbia she might need pulmonary consult with repeat chest x-ray. History of hypothyroidism Continue levothyroxine History of anxiety Continue oxazepam 10 mg at bedtime History of paroxysmal A. fib Continue metoprolol tartrate 12.5 mg twice a day Although patient couldn't recall why she was not on anticoagulation. Apparently her atrial fibrillation is secondary to alcohol abuse. As per Dr. Mcpherson note in October 2016 it is an apparent that Pradaxa was stopped due to GI bleed. During her previous admission digoxin was discontinued in view of her elevated right ventricular pressure in order to avoid further compromise of cardiac output. DVT prophylaxis Subcutaneous heparin CODE STATUS DNR/DNI As Ranked By This Provider Problem List: 1. COPD exacerbation 2. Hypoxia 3. COPD (chronic obstructive pulmonary disease) 4. Tobacco abuse Core Measures/Misc (03/18) Acute Coronary Syndrome ACS Diagnosis: No Congestive Heart Failure Congestive Heart Failure Diagnosis No Cerebrovascular Accident CVA/TIA Diagnosis: No VTE (View Protocol) VTE Risk Factors Acute Medical Illness No Mechanical VTE Prophylaxis d/t N/A MechProphylax Ordered No VTE Pharm Prophylaxis d/t NA PharmProphylax ordered Sepsis (View protocol) Sepsis Present: No Resident Review Statement Resident Statement: examined this patient, discussed with inclusion internship, agreed with inclusion internship, discussed with family, reviewed EMR data (avail), discussed with nursing , discussed with case mgmt, reviewed images, amended to note Other Findings: ABOVE Phyllis Pearce 08/10/17 1533: Attending MD Review Statement Attending Statement Attending MD Statement: examined this patient, discuss w/resident/PA/CAMP ADVISOR, agreed w/resident/PA/CAMP ADVISOR, discussed with family, reviewed EMR data (avail), discussed with nursing, discussed with case mgmt, reviewed images, amended to note Attending Assessment/Plan: Ms. Ferguson is a 76 year old woman with PMH HTN, severe COPD, Hx of smoking 1 PPD X >30 years, previous alcohol use, atrial fibrillation on Pradaxa and digoxin, GI bleed and hypothyroidism comes with shortness of breath and oxygen at arrival to ER. Patient is tachycardic and found to have abnormal chest xray with interstitial or atypical pneumonia like presentation. Labs reveal leukocytosis with eleavted hematocrit. Electrolytes wnl. Chest xray with interstitial or atypical pneumonia like presentation. Patient is being admitted to inpatient medical services for Acute respiratroy failure with COPD exacerbation likely atypical pneumonia presentation. Patient started on iv steroids, iv antibiotics, chekc for influenza, consider tamiflu, oxygen supplementation, bronchodialtors, pulm consult if no improvement. Resume home meds. gi/dvt prophyalxis full code."
[2017-08-10 16:00] VITALS: BP 118/60
[2017-08-10 22:05] VITALS: BP 120/74
[2017-08-11 06:21] VITALS: BP 112/70
--- NOTE | 2017-08-11 08:21 | PN- Housestaff ---
See Addendum Subjective Follow-up For: acute hypoxic hypercarbic respiratory failure Subjective: Seen and examined Lying comfortably in the bed. Reports her breathing is better however feels sleepy. She does report her cough is better now although it appears more week. Review of Systems Constitutional: Reports: see HPI. Objective Last 24 Hrs of Vital Signs/I&O Vital Signs Date Time Temp Pulse Resp B/P B/P Pulse O2 O2 Flow FiO2 Mean Ox Delivery Rate 08/11 0621 98.4 86 20 112/70 91 BIPAP 08/11 0000 Venti Mask 50% 08/10 2216 90 120/74 08/10 2205 97.9 90 19 120/74 91 BIPAP 08/10 1801 Venti Mask 50% 08/10 1630 Nasal 2.0L Cannula 08/10 1600 98.0 90 19 118/60 08/10 1553 94 Venti Mask 08/10 1552 106 89 Nasal 4.0L Cannula 08/10 1529 99.9 08/10 1514 99.9 111 22 121/58 93 Nasal 4.0L Cannula 08/10 1402 94 Nasal 4.0L Cannula 08/10 1401 98.9 107 110/70 91 Nasal 4.0L Cannula 08/10 1246 94 Nasal 4.0L Cannula 08/10 1228 92 Nasal 4.0L Cannula 08/10 1149 97 Nasal 2.0L Cannula 08/10 1129 86 Nasal 4.0L Cannula 08/10 1101 97.7 109 20 118/56 78 Intake & Output 08/11 1600 08/11 0800 08/11 0000 Intake Total 100 375 Output Total Balance 100 375 Intake, IV 275 Intake, Oral 100 100 Patient 67.132 kg Weight Weight Reported by Patient Measurement Method Physical Exam General Appearance: Alert, Oriented X3, Cooperative Skin: No Rashes, No Breakdown HEENT: Atraumatic, PERRLA Neck: Supple Cardiovascular: Normal S1, Normal S2 Lungs: diffuse rhonchi and wheezing throughout the lung heard Abdomen: Normal Bowel Sounds, Soft, No Tenderness Neurological: Normal Speech, Strength at 5/5 X4 Ext, Normal Tone Extremities: No Clubbing, No Cyanosis, No Edema Vascular: Normal Pulses, Pulses Symmetrical Current Medications: Current Medications Sig/Shilpa Start time Last Medication Dose Route Stop Time Status Admin Acetaminophen 650 MG Q6P PRN 08/10 2044 AC PO Acetaminophen 650 MG ONCE ONE 08/10 1530 DC 08/10 PO 08/10 1531 1529 Acetaminophen 0 .STK-MED ONE 08/10 1529 DC PO Albuterol Sulfate 3 ML EVERY 4 HRS/AWAKE 08/10 1999 AC INH Albuterol Sulfate 3 ML ONCE ONE 08/10 1145 DC 08/10 INH 08/10 1146 1139 Albuterol Sulfate 3 ML ONCE ONE 08/10 1145 DC 08/10 INH 08/10 1146 1142 Albuterol Sulfate 2 PUF STAT STA 08/10 1133 CAN INH 08/10 1134 Albuterol Sulfate 3 ML ONCE ONE 08/10 1130 DC 08/10 INH 08/10 1131 1126 Aspirin 81 MG DAILY 08/10 2008 AC 08/10 PO 2216 Azithromycin 500 MG DAILY@1700 08/10 1700 AC 08/10 Dextrose/Water 250 ML IV 1837 Ceftriaxone Sodium 1,000 MG DAILY@1700 08/10 1700 AC 08/10 IV 1836 Cholecalciferol 1,000 IU DAILY 08/10 2009 AC 08/10 PO 2216 Folic Acid 1 MG DAILY 08/10 2009 AC 08/10 PO 2216 Heparin Sodium 5,000 UNIT Q8 08/11 0600 AC 08/11 (Porcine) SC 0608 Ipratropium [place] 2.5 ML ONCE ONE 08/10 1145 DC 08/10 INH 08/10 1146 1139 Ipratropium [place] 2.5 ML ONCE ONE 08/10 1145 DC 08/10 INH 08/10 1146 1139 Ipratropium [place] 2.5 ML ONCE ONE 08/10 1130 DC 08/10 INH 08/10 1131 1126 Levothyroxine Sodium 0.15 MG DAILY AC 08/11 0700 AC 08/11 PO 0608 Magnesium Chloride 64 MG DAILY 08/11 1000 AC PO Magnesium Chloride 71.5 MG .[D] 08/10 2014 DC PO Methylprednisolone 40 MG Q8 08/10 2200 AC 08/11 IV 0608 Methylprednisolone 0 .STK-MED ONE 08/10 1205 DC .ROUTE Methylprednisolone 125 MG ONCE ONE 08/10 1145 DC 08/10 IV 08/10 1146 1226 Metoprolol Tartrate 25 MG BID 08/100 AC 08/10 PO 2216 Multivitamins 1 TAB DAILY 08/10 2009 AC 08/10 Therapeutic PO 2216 Oxazepam 10 MG AT BEDTIME PRN 08/10 2014 AC PO 08/17 2013 Oxycodone/ 1 TAB Q6P PRN 08/10 2044 AC Acetaminophen PO Last 24 Hrs of Lab/Chase Results Last 24 Hrs of Labs/Mics: Laboratory Tests 08/11/17 0300: pH 7.26 *L, pCO2 60 *H, pO2 69 L, HCO3 27, ABG O2 Sat (Measured) 90.0 L, Carboxyhemoglobin 1.6, O2 Concentration % .4, Respiration Rate 26, O2 Delivery Method BIPAP, Vent Mode ST, Expiratory Pressure 4, Inspiratory Pressure 18, Phlebotomy Draw Site RIGHT BRACHIAL 08/10/17 2140: pH 7.23 *L, pCO2 69 *H, pO2 74 L, HCO3 28, ABG O2 Sat (Measured) 91.0 L, Carboxyhemoglobin 1.6, O2 Concentration % 40, Respiration Rate 16, O2 Delivery Method BIPAP, Vent Mode ST, Expiratory Pressure 5, Inspiratory Pressure 15, Phlebotomy Draw Site RIGHT RADIAL 08/10/17 1610: pH 7.29 *L, pCO2 61 *H, pO2 77 L, HCO3 28, ABG O2 Sat (Measured) 92.0 L, Carboxyhemoglobin 2.8, O2 Concentration % 50, O2 Delivery Method V/M, Phlebotomy Draw Site RIGHT RADIAL 08/10/17 1152: Anion Gap 12, Estimated GFR > 60, BUN/Creatinine Ratio 31.4 H, Glucose 71, Lactic Acid 1.1, Calcium 9.1, Total Bilirubin 0.8, AST 17, ALT 18, Alkaline Phosphatase 102, Troponin I 0.02, Total Protein 7.2, Albumin 3.7, Globulin 3.5, Albumin/Globulin Ratio 1.1, CBC w Diff NO MAN DIFF REQ, RBC 5.16, MCV 95.4, MCH 31.1 H, MCHC 32.6 L, RDW 16.3 H, MPV 8.2, Gran % 82.1 H, Lymphocytes % 9.2 L, Monocytes % 7.5, Eosinophils % 0.1, Basophils % 1.1, Absolute Granulocytes 10.9 H, Absolute Lymphocytes 1.2, Absolute Monocytes 1.0 H, Absolute Eosinophils 0, Absolute Basophils 0.1 Microbiology 08/10 2201 URINE ROUT: Legionella Antigen - COLB 08/10 2201 URINE ROUT: Streptococcus pneumoniae Antigen (M - COLB 08/10 2201 LOWER RESP: Respiratory Culture - COLB 08/10 2201 LOWER RESP: Gram Stain - COLB 08/10 1519 NASOPHARYN: Influenza Virus A & B Rapid Smear - COMP 08/10 1210 BLOOD: Blood Culture - RECD 08/10 1200 BLOOD: Blood Culture - RECD Assessment/Plan Assessment: salvador is a 77-year-old actively smoking female with severe steroid-dependent COPD, paroxysmal atrial fibrillation (not on anticoagulation), recently started on 2 L of nocturnal oxygen, hypothyroidism, anxiety presented to [place] with 1 week history of flulike symptoms. VS are significant for tachycardia, desaturation with acidosis secodary to carbondioxide retention requiring BIPAP. Physical exam did show diffuse expiratory wheezing with poor air entry. Heart S1-S2 normal. Legs no edema/cyanosis/clubbing. Labs due to leukocytosis with granulocytosis, hypochloremia on BEP. ABG did show persistent is ago to pH with hypercarbia despite on BiPAP for several hours. Acute COPD exacerbation secondary to respiratory infection Admit to general medicine floor Plan Acute hypoxic hypercarbic respiratory failure secondary to COPD exacerbation She was recently started on nocturnal oxygen 2 L as needed. She was started on BiPAP in the ER. Start on IV steroids with azithromycin and ceftriaxone. Follow-up blood, lower respiratory cultures. Follow-up Urine Legionella and Streptococcus antigen. ABG demand persistently hypercarbic and acidotic overnight. Needs continous BiPAP atleast till ABG returns near normal. await pulmonary recommendations. History of hypothyroidism Continue levothyroxine History of anxiety Continue oxazepam 10 mg at bedtime History of paroxysmal A. fib Continue metoprolol tartrate 12.5 mg twice a day Although patient couldn't recall why she was not on anticoagulation. Apparently her atrial fibrillation is secondary to alcohol abuse. As per Dr. Mcpherson note in October 2016 it is an apparent that Pradaxa was stopped due to GI bleed. During her previous admission digoxin was discontinued in view of her elevated right ventricular pressure in order to avoid further compromise of cardiac output. DVT prophylaxis Subcutaneous heparin CODE STATUS DNR/DNI Problem List: 1. COPD (chronic obstructive pulmonary disease) 2. COPD exacerbation 3. Acute respiratory failure with hypoxia and hypercarbia Pain Ratin Pain Location: chest Pain Goal: Pain 4 or less Pain Plan: tylenol Tomorrow's Labs & Rationales: cbc, bep
--- NOTE | 2017-08-11 11:07 | Cons- Pulmonary ---
"General Information and HPI Consulting Request Date of Consult: 08/11/17 Requested By: Dr. Whalen Reason for Consult: Acute on chronic hypercapnic respiratory failure History of Present Illness: Patient is 77-year-old with severe COPD chronic oxygen dependent with chronic hypoxic respiratory failure actively smoking admitted with acute on chronic hypercarbic respiratory failure. Patient has had increasing symptoms of cough congestion but continued to smoke. She was admitted with worsening shortness of breath and respiratory acidosis. He is presently awake alert and feels improved she has been intubated in the past Allergies/Medications Allergies: Coded Allergies: NO KNOWN ALLERGIES (10/05/11) Home Med List: Albuterol Sulfate/Ipratropiu (Duoneb) 3 MG/3 ML NEB 2 PUFF INH Q6 copd Aspirin (Aspirin*) 81 MG TAB.CHEW 1 TAB PO DAILY HEART (Reported) Cholecalciferol (Vitamin D3) 1,000 IU TAB 1 TAB PO DAILY BONES (Reported) Folic Acid 1 MG TAB 1 MG PO DAILY FOLIC ACID SUPPLEMENT (Reported) Levothyroxine Sodium (Levothroid) 0.15 MG TAB 1 TAB PO DAILY AC HYPOTHYROIDISM (Reported) Magnesium Chloride (Nu-Mag) 71.5 MG TABLET.DR 1 TAB PO D SUPPLEMENT (Reported ) Metoprolol Tartrate (Lopressor) 12.5 MG TAB 1 TAB PO BID AFIB Multivitamin (Daily Multiple Vitamin) 1 EACH TABLET 1 TAB PO DAILY PROPHO ( Reported) Oxazepam 10 MG CAP 1 TAB PO Q8 PRN ANXIETY (Reported) Prednisone 5 MG TABLET 1 TAB PO DAILY COPD (Reported) Review of Systems Review of Systems Constitutional: Denies: chills, fever. Cardiovascular: Denies: chest pain, edema. Respiratory: Reports: cough, short of breath, sputum production, wheezing. Denies: hemoptysis. GI: Denies: abdominal pain, diarrhea, melena. 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 Home Who Do You Live With? self Services at Home: None Primary Language: Kyrgyz Smoking Status: Current Everyday Smoker ETOH Use: occasional use Illicit Drug Use: denies illicit drug use Functional Ability ADLs Independent: dressing, eating, toileting, bathing. Ambulation: independent Exam & Diagnostic Data Last 24 Hrs of Vital Signs/I&O Vital Signs Date Time Temp Pulse Resp B/P B/P Pulse O2 O2 Flow FiO2 Mean Ox Delivery Rate 08/11 1020 86 112/70 08/11 0850 94 Nasal 4.0L Cannula 08/11 0621 98.4 86 20 112/70 91 BIPAP 08/11 0000 Venti Mask 50% 08/10 2216 90 120/74 08/10 2205 97.9 90 19 120/74 91 BIPAP 08/10 1801 Venti Mask 50% 08/10 1630 Nasal 2.0L Cannula 08/10 1600 98.0 90 19 118/60 08/10 1553 94 Venti Mask 08/10 1552 106 89 Nasal 4.0L Cannula 08/10 1529 99.9 08/10 1514 99.9 111 22 121/58 93 Nasal 4.0L Cannula 08/10 1402 94 Nasal 4.0L Cannula 08/10 1401 98.9 107 110/70 91 Nasal 4.0L Cannula 08/10 1246 94 Nasal 4.0L Cannula 08/10 1228 92 Nasal 4.0L Cannula 08/10 1149 97 Nasal 2.0L Cannula 08/10 1129 86 Nasal 4.0L Cannula Intake & Output 08/11 1600 08/11 0800 08/11 0000 Intake Total 100 375 Output Total Balance 100 375 Intake, IV 275 Intake, Oral 100 100 Number 1 Bowel Movements Patient 148 lb Weight Weight Reported by Patient Measurement Method Patient is awake alert conversant oxygen saturation 94% on 4 L exam for chest shows markedly diminished breath sounds there are no wheezes cardiac exam shows regular S1 and S2 abdomen is soft nontender she has no edema Last 48 Hrs of Labs/Chase: Laboratory Tests 08/11/17 0300: pH 7.26 *L, pCO2 60 *H, pO2 69 L, HCO3 27, ABG O2 Sat (Measured) 90.0 L, Carboxyhemoglobin 1.6, O2 Concentration % .4, Respiration Rate 26, O2 Delivery Method BIPAP, Vent Mode ST, Expiratory Pressure 4, Inspiratory Pressure 18, Phlebotomy Draw Site RIGHT BRACHIAL 08/10/17 2140: pH 7.23 *L, pCO2 69 *H, pO2 74 L, HCO3 28, ABG O2 Sat (Measured) 91.0 L, Carboxyhemoglobin 1.6, O2 Concentration % 40, Respiration Rate 16, O2 Delivery Method BIPAP, Vent Mode ST, Expiratory Pressure 5, Inspiratory Pressure 15, Phlebotomy Draw Site RIGHT RADIAL 08/10/17 1610: pH 7.29 *L, pCO2 61 *H, pO2 77 L, HCO3 28, ABG O2 Sat (Measured) 92.0 L, Carboxyhemoglobin 2.8, O2 Concentration % 50, O2 Delivery Method V/M, Phlebotomy Draw Site RIGHT RADIAL 08/10/17 1152: Anion Gap 12, Estimated GFR > 60, BUN/Creatinine Ratio 31.4 H, Glucose 71, Lactic Acid 1.1, Calcium 9.1, Total Bilirubin 0.8, AST 17, ALT 18, Alkaline Phosphatase 102, Troponin I 0.02, Total Protein 7.2, Albumin 3.7, Globulin 3.5, Albumin/Globulin Ratio 1.1, CBC w Diff NO MAN DIFF REQ, RBC 5.16, MCV 95.4, MCH 31.1 H, MCHC 32.6 L, RDW 16.3 H, MPV 8.2, Gran % 82.1 H, Lymphocytes % 9.2 L, Monocytes % 7.5, Eosinophils % 0.1, Basophils % 1.1, Absolute Granulocytes 10.9 H, Absolute Lymphocytes 1.2, Absolute Monocytes 1.0 H, Absolute Eosinophils 0, Absolute Basophils 0.1 Microbiology 08/10 1519 NASOPHARYN: Influenza Virus A & B Rapid Smear - COMP Assessment/Plan Impression/Plan: 77-year-old with severe COPD actively smoking counseled regarding the need for smoking cessation admitted with acute on chronic hypercapnic history failure. Chest x-ray showed just a component of edema. Recommendations: Nocturnal BiPAP. Taper FiO2 his saturations allow. Continue steroids and antibiotics. Obtain BNP. Consult Acknowledgment - Thank you for your consult request."
[2017-08-11 15:46] VITALS: BP 110/80
[2017-08-11 17:17] LABS: ABSOLUTE BASOPHIL COUNT 0 /CUMM (0.0-0.2); ABSOLUTE EOSINOPHIL COUNT 0 /CUMM (0.0-0.7); ABSOLUTE LYMPH COUNT 0.5 /CUMM (1.2-3.4); ABSOLUTE MONOCYTE COUNT 0.3 /CUMM (0.10-0.60); BASOPHIL % 0.1 % (0.0-2.0); EOSINOPHIL % 0 % (0-5); HEMATOCRIT 45.2 % (37-47); MEAN CORPUSCULAR HGB 31.2 PG (27.0-31.0); MEAN CORPUSCULAR HGB CONC 32.2 G/DL (33.0-37.0); MEAN PLATELET VOLUME 8.4 FL (7.4-10.4); PLATELET COUNT 212 /CUMM (130-400); RBC DISTRIBUTION WIDTH 16.5 % (11.5-14.5); RED BLOOD CELL CT 4.66 /CUMM (4.20-5.40); WHITE BLOOD CELL COUNT 8.8 /CUMM (4.8-10.8)
[2017-08-11 17:19] LABS: GRANULOCYTE % 90.6 % (42.2-75.2)
[2017-08-11 22:46] VITALS: BP 120/60
[2017-08-12 06:20] VITALS: BP 112/68
--- NOTE | 2017-08-12 10:39 | PN- Pulmonary ---
Subjective HPI/Critical Care Issues: Patient continues to feel short of breath and remain hypercarbic Objective Current Medications: Current Medications Sig/Shilpa Start time Last Medication Dose Route Stop Time Status Admin Acetaminophen 650 MG Q6P PRN 08/10 2044 AC PO Albuterol Sulfate 3 ML EVERY 4 HRS/AWAKE 08/10 1999 AC 08/11 INH 2200 Aspirin 81 MG DAILY 08/10 2008 AC 08/12 PO 0916 Azithromycin 500 MG DAILY@1700 08/10 1700 AC 08/11 Dextrose/Water 250 ML IV 1825 Ceftriaxone Sodium 1,000 MG DAILY@1700 08/10 1700 AC 08/11 IV 1822 Cholecalciferol 1,000 IU DAILY 08/10 2009 AC 08/12 PO 0916 Folic Acid 1 MG DAILY 08/10 2009 AC 08/12 PO 0916 Heparin Sodium 5,000 UNIT Q8 08/11 06 AC 08/12 (Porcine) SC 0543 Levothyroxine Sodium 0.15 MG DAILY AC 08/11 0700 AC 08/12 PO 0604 Magnesium Chloride 64 MG DAILY 08/11 1000 AC 08/12 PO 0916 Methylprednisolone 40 MG Q8 08/10 220 AC 08/12 IV 0543 Metoprolol Tartrate 25 MG BID 08/10 2199 AC 08/12 PO 0916 Multivitamins 1 TAB DAILY 08/10 2009 AC 08/12 Therapeutic PO 0916 Oxazepam 10 MG AT BEDTIME PRN 08/10 2014 AC 08/11 PO 08/17 Oxycodone/ 1 TAB Q6P PRN 08/10 2044 AC Acetaminophen PO Vital Signs & I&O Last 24 Hrs of Vitals and I&O: Vital Signs Date Time Temp Pulse Resp B/P B/P Pulse O2 O2 Flow FiO2 Mean Ox Delivery Rate 08/12 0816 112/68 08/12 0620 98.2 95 20 112/68 92 Nasal Cannula 08/12 0000 98 Nasal 4.0L Cannula 08/11 224 98.1 90 20 120/60 98 Nasal Cannula 08/11 2245 90 93 08/11 1800 94 Nasal 4.0L Cannula 08/11 1546 98.1 82 24 110/80 94 Intake & Output 08/12 1600 08/12 0800 08/12 0000 Intake Total 251 130 Output Total 300 Balance -49 130 Intake, IV 11 10 Intake, Oral 240 120 Number 1 Bowel Movements Output, Urine 300 Since saturation 4 L 92% exam for chest shows diminished breath sounds there are no wheezes cardiac exam shows regular S1 and S2 no BMP is greater than 5000 Impression/Plan Impression/Plan Impression/Plan: 77-year-old with severe COPD actively smoking counseled regarding the need for smoking cessation admitted with acute on chronic hypercapnic history failure. Chest x-ray showed just a component of edema. BNP is markedly elevated Recommendations: Nocturnal BiPAP. Taper FiO2 his saturations allow. Continue steroids and antibiotics. Achieved mild negative fluid balance and view of chest x-ray findings and elevated BNP
--- NOTE | 2017-08-12 10:45 | PN- Housestaff ---
See Addendum Subjective Follow-up For: acute hypoxic hypercarbic respiratory failure steroid dependent Complaints: no complaints Subjective: Patient lying in bed, in moderate respiratory distress; face mask on with nebulizing treatments. She reports feeling a little better and would like to go home. Review of Systems Constitutional: Reports: no symptoms. Objective Last 24 Hrs of Vital Signs/I&O Vital Signs Date Time Temp Pulse Resp B/P B/P Pulse O2 O2 Flow FiO2 Mean Ox Delivery Rate 08/12 1041 93 Nasal 3.0L Cannula 08/12 0916 112/68 08/12 0620 98.2 95 20 112/68 92 Nasal Cannula 08/12 0000 98 Nasal 4.0L Cannula 08/11 2246 98.1 90 20 120/60 98 Nasal Cannula 08/11 2245 90 93 08/11 1800 94 Nasal 4.0L Cannula 08/11 1546 98.1 82 24 110/80 94 Intake & Output 08/12 1600 08/12 0800 08/12 0000 Intake Total 251 130 Output Total 300 Balance -49 130 Intake, IV 11 10 Intake, Oral 240 120 Number 1 Bowel Movements Output, Urine 300 Physical Exam General Appearance: Alert, Oriented X3, Cooperative, Moderate Distress Skin: No Significant Lesion HEENT: Mucous Membr. moist/pink Cardiovascular: Regular Rate, Normal S1, Normal S2 Lungs: decreased air entry overall and mild epiratory wheezing throughout Abdomen: Normal Bowel Sounds, Soft, No Tenderness Extremities: No Cyanosis, No Edema Current Medications: Current Medications Sig/Shilpa Start time Last Medication Dose Route Stop Time Status Admin Acetaminophen 650 MG Q6P PRN 08/105 AC PO Albuterol Sulfate 3 ML EVERY 4 HRS/AWAKE 08/10 1999 AC 08/12 INH 1039 Aspirin 81 MG DAILY 08/10 2008 AC 08/12 PO 0916 Azithromycin 500 MG DAILY@1700 08/10 1700 AC 08/11 Dextrose/Water 250 ML IV 1825 Ceftriaxone Sodium 1,000 MG DAILY@1700 08/10 1700 AC 08/11 IV 1822 Cholecalciferol 1,000 IU DAILY 08/10 2009 AC 08/12 PO 0916 Folic Acid 1 MG DAILY 08/10 2009 AC 08/12 PO 0916 Heparin Sodium 5,000 UNIT Q8 08/11 06 AC 08/12 (Porcine) SC 0543 Levothyroxine Sodium 0.15 MG DAILY AC 08/11 0700 AC 08/12 PO 0604 Magnesium Chloride 64 MG DAILY 08/11 1000 AC 08/12 PO 0916 Methylprednisolone 40 MG Q8 08/10 2199 AC 08/12 IV 0543 Metoprolol Tartrate 25 MG BID 08/10 2199 AC 08/12 PO 0916 Multivitamins 1 TAB DAILY 08/10 2009 AC 08/12 Therapeutic PO 0916 Oxazepam 10 MG AT BEDTIME PRN 08/10 2014 AC 08/11 PO 08/17 Oxycodone/ 1 TAB Q6P PRN 08/10 2044 AC Acetaminophen PO Lines/Diet/Fluids Lines: peripheral lines Assessment/Plan Assessment: Patient is a 77-year-old actively smoking female with severe steroid-dependent COPD, paroxysmal atrial fibrillation (not on anticoagulation), recently started on 2 L of nocturnal oxygen, hypothyroidism, anxiety who presented to [place] with 1 week history of flu-like symptoms. 1. Acute hypoxic hypercarbic respiratory failure secondary to COPD exacerbation She is saturating 93% on 3 L of nasal cannula oxygen Continue nocturnal BiPAP Continue IV steroids with azithromycin and ceftriaxone. Blood cultures negative Urine Legionella, Streptococcus antigen and lower respiratory culturesorders were cancelled by lab due to specimen not being received-will reorder Last ABG on 08/11/17 remains persistently hypercarbic and acidotic, continue BIPAP and await pulmonary recommendations. Consider repeat. 2. History of hypothyroidism Continue levothyroxine 3. History of anxiety Continue oxazepam 10 mg at bedtime 4. History of paroxysmal A. fib Continue metoprolol tartrate 12.5 mg twice a day Although patient couldn't recall why she was not on anticoagulation. Apparently her atrial fibrillation is secondary to alcohol abuse. As per Dr. Mcpherson note in October 2016 it is an apparent that Pradaxa was stopped due to GI bleed. During her previous admission digoxin was discontinued in view of her elevated right ventricular pressure in order to avoid further compromise of cardiac output. DVT prophylaxis Subcutaneous heparin CODE STATUS DNR/DNI Problem List: 1. Acute respiratory failure with hypoxia and hypercarbia Pain Ratin Pain Location: n/a Pain Goal: Remain pain free Pain Plan: tylenol if needed Tomorrow's Labs & Rationales: BEP, cbc DVT/Prophylaxis: pharmacological
[2017-08-12 13:37] VITALS: BP 120/68
[2017-08-12 23:22] VITALS: BP 110/60
[2017-08-13 06:20] VITALS: BP 120/68
--- NOTE | 2017-08-13 08:09 | PN- Pulmonary ---
Subjective HPI/Critical Care Issues: She feels improved and anxious to go home positive pneumococcal antigen noted Objective Current Medications: Current Medications Sig/Shilpa Start time Last Medication Dose Route Stop Time Status Admin Acetaminophen 650 MG Q6P PRN 08/10 2044 AC PO Albuterol Sulfate 3 ML EVERY 4 HRS/AWAKE 08/10 1999 AC 08/12 INH 2040 Aspirin 81 MG DAILY 08/10 2008 AC 08/12 PO 0916 Azithromycin 500 MG DAILY@1700 08/10 1700 AC 08/12 Dextrose/Water 250 ML IV 1818 Ceftriaxone Sodium 1,000 MG DAILY@1700 08/10 1700 AC 08/12 IV 1818 Cholecalciferol 1,000 IU DAILY 08/10 2009 AC 08/12 PO 0916 Folic Acid 1 MG DAILY 08/10 2009 AC 08/12 PO 0916 Furosemide 20 MG ONCE ONE 08/12 1315 CAN PO 08/12 1316 Furosemide 20 MG ONCE ONE 08/12 1245 DC 08/12 PO 08/12 1246 1432 Heparin Sodium 5,000 UNIT Q8 08/11 06 AC 08/13 (Porcine) SC 0638 Levothyroxine Sodium 0.15 MG DAILY AC 08/11 07 AC 08/13 PO 0638 Magnesium Chloride 64 MG DAILY 08/11 1000 AC 08/12 PO 0916 Methylprednisolone 40 MG Q8 08/10 2199 AC 08/13 IV 0638 Metoprolol Tartrate 25 MG BID 08/10 2199 AC 08/12 PO 2154 Multivitamins 1 TAB DAILY 08/10 2009 AC 08/12 Therapeutic PO 0916 Oxazepam 10 MG AT BEDTIME PRN 08/10 2014 AC 08/11 PO 08/17 Oxycodone/ 1 TAB Q6P PRN 08/10 2044 AC Acetaminophen PO Vital Signs & I&O Last 24 Hrs of Vitals and I&O: Vital Signs Date Time Temp Pulse Resp B/P B/P Pulse O2 O2 Flow FiO2 Mean Ox Delivery Rate 08/13 0620 98.2 90 20 120/68 98 Nasal Cannula 08/13 0000 Nasal 2.0L Cannula 08/12 2322 98.0 92 20 110/60 93 Nasal Cannula 08/12 2241 74 95 08/12 2154 93 118/50 08/12 1655 97 Nasal 3.0L Cannula 08/12 1600 93 Nasal 3.0L Cannula 08/12 1337 98.0 68 20 120/68 93 08/12 1041 93 Nasal 3.0L Cannula 08/12 0916 112/68 Intake & Output 08/13 1600 08/13 0800 08/13 0000 Intake Total 350 Output Total 275 500 Balance -275 -150 Intake, IV 250 Intake, Oral 100 Number 2 2 Bowel Movements Output, Urine 275 500 Since saturation 2 L 98% exam for chest shows diminished breath sounds there are no wheezes cardiac exam shows regular S1 and S2 without murmurs Impression/Plan Impression/Plan Impression/Plan: 77-year-old with severe COPD actively smoking counseled regarding the need for smoking cessation admitted with acute on chronic hypercapnic history failure. Chest x-ray showed just a component of edema. BNP is markedly elevated overall status is improved with improved oxygenation. Recommendations: Nocturnal BiPAP. Taper FiO2 his saturations allow. Taper steroids and narrow antibiotics. Achieved mild negative fluid balance and view of chest x-ray findings and elevated BNP
--- NOTE | 2017-08-13 08:14 | PN- Housestaff ---
Lit DE LEÓN,Cris 08/13/1714: Subjective Follow-up For: acute hypoxic hypercarbic respiratory failure steroid dependent Subjective: Patient is on 2L. She is not complaining of any dyspnea on interview. She did attempt to use BIPAP overnight but states that the air pressure hurt her stomach , so she stopped using it. she does not agree to use it this evening as suggested by dr. morgan, cutting and boning supervisor. Review of Systems Constitutional: Reports: weakness. Cardiovascular: Reports: no symptoms. Respiratory: Reports: cough. Gastrointestinal: Reports: no symptoms. Musculoskeletal: Reports: back pain. Objective Last 24 Hrs of Vital Signs/I&O Vital Signs Date Time Temp Pulse Resp B/P B/P Pulse O2 O2 Flow FiO2 Mean Ox Delivery Rate 08/13 1605 93 Nasal 2.0L Cannula 08/13 1406 98.0 51 20 120/68 93 08/13 0832 90 Nasal 2.0L Cannula 08/13 0806 98.2 90 20 120/68 08/13 0800 Nasal 2.0L Cannula 08/13 0620 98.2 90 20 120/68 98 Nasal Cannula 08/13 0000 Nasal 2.0L Cannula 08/12 2322 98.0 92 20 110/60 93 Nasal Cannula 08/12 2241 74 95 08/12 2154 93 118/50 Intake & Output 08/13 1600 08/13 0800 08/13 0000 Intake Total 800 120 350 Output Total 502 275 500 Balance 298 -155 -150 Intake, IV 20 250 Intake, Oral 800 100 100 Number 1 2 2 Bowel Movements Output, Stool 2 Output, Urine 500 275 500 Physical Exam General Appearance: Alert, Oriented X3, Cooperative, No Acute Distress HEENT: Atraumatic Cardiovascular: Regular Rate, Normal S1, Normal S2, No Murmurs Lungs: wheezing mild throughout Abdomen: Normal Bowel Sounds, Soft, No Tenderness Extremities: No Clubbing, No Cyanosis, No Edema, Normal Pulses, No Tenderness/ Swelling Vascular: Normal Pulses Current Medications: Current Medications Sig/Shilpa Start time Last Medication Dose Route Stop Time Status Admin Acetaminophen 650 MG Q6P PRN 08/10 2044 AC PO Albuterol Sulfate 3 ML EVERY 4 HRS/AWAKE 08/10 1999 AC 08/13 INH 1605 Aspirin 81 MG DAILY 08/10 2008 AC 08/13 PO 0805 Azithromycin 500 MG DAILY@1700 02/09 1700 AC 08/13 Dextrose/Water 250 ML IV 1631 Ceftriaxone Sodium 1,000 MG DAILY@1700 08/10 1700 AC 08/13 IV 1631 Cholecalciferol 1,000 IU DAILY 08/10 2009 AC 08/13 PO 08 Folic Acid 1 MG DAILY 08/10 2009 AC 08/13 PO 0805 Heparin Sodium 5,000 UNIT Q8 08/11 0600 AC 08/13 (Porcine) SC 1313 Levothyroxine Sodium 0.15 MG DAILY AC 08/11 07 AC 08/13 PO 0638 Magnesium Chloride 64 MG DAILY 08/11 1000 AC 08/13 PO 0806 Methylprednisolone 40 MG Q12 08/13 2199 AC IV Methylprednisolone 40 MG Q8 08/10 2200 DC 08/13 IV 0638 Metoprolol Tartrate 25 MG BID 08/10 2199 AC 08/13 PO 08 Multivitamins 1 TAB DAILY 08/10 2009 AC 08/13 Therapeutic PO 08 Oxazepam 10 MG AT BEDTIME PRN 08/10 2014 AC 08/11 PO 08/17 Oxycodone/ 1 TAB Q6P PRN 08/10 2044 AC Acetaminophen PO Last 24 Hrs of Lab/Chase Results Last 24 Hrs of Labs/Mics: Laboratory Tests 08/13/17 0737: Anion Gap 9, Estimated GFR > 60, BUN/Creatinine Ratio 34.3 H, CBC w Diff NO MAN DIFF REQ, RBC 4.86, MCV 96.1, MCH 31.2 H, MCHC 32.5 L, RDW 16.3 H, MPV 8.5, Gran % 89.8 H, Lymphocytes % 6.5 L, Monocytes % 3.2, Eosinophils % 0.1, Basophils % 0.4, Absolute Granulocytes 6.4, Absolute Lymphocytes 0.5 L, Absolute Monocytes 0.2, Absolute Eosinophils 0, Absolute Basophils 0 Microbiology 08/13 1226 STOOL: Clostridium difficile Toxin A & B - COLB Assessment/Plan Assessment: Patient is a 77-year-old actively smoking female with severe steroid-dependent COPD, paroxysmal atrial fibrillation (not on anticoagulation), recently started on 2 L of nocturnal oxygen, hypothyroidism, anxiety who presented to [place] with 1 week history of flu-like symptoms. 1. Acute hypoxic hypercarbic respiratory failure secondary to COPD exacerbation She is saturating 94% on 2 L of nasal cannula oxygen Continue IV steroids with azithromycin and ceftriaxone. Blood cultures negative Strep antigen positive but no evidence of pneumonia on CXR. It may be possible that CXR has not caught up and that repeat would show pneumonia. In the meantime we will continue abx. ABG hypercarbic and acidotic, continue BIPAP as per pulmonary recommendations. 2. History of hypothyroidism Continue levothyroxine 3. History of anxiety Continue oxazepam 10 mg at bedtime 4. History of paroxysmal A. fib Continue metoprolol tartrate 12.5 mg twice a day Patient couldn't recall why she was not on anticoagulation. Apparently her atrial fibrillation is secondary to alcohol abuse. As per Dr. Mcpherson note in October 2016 it is an apparent that Pradaxa was stopped due to GI bleed. During her previous admission digoxin was discontinued in view of her elevated right ventricular pressure in order to avoid further compromise of cardiac output. DVT prophylaxis Subcutaneous heparin CODE STATUS DNR/DNI Problem List: 1. COPD (chronic obstructive pulmonary disease) 2. Infection, streptococcus pneumoniae Pain Ratin Pain Location: back Pain Goal: Pain 4 or less Pain Plan: prn percocet tylenol Tomorrow's Labs & Rationales: cbc bep Phyllis Pearce 08/13/17 1231: Attending MD Review Statement Attending Statement Attending MD Statement: examined this patient, discuss w/resident/PA/FORKLIFT TRUCK MECHANIC, agreed w/resident/PA/FORKLIFT TRUCK MECHANIC, discussed with family, reviewed EMR data (avail), discussed with nursing, discussed with case mgmt, reviewed images, amended to note Attending Assessment/Plan: Ms. Sánchez is a 76 year old woman with PMH HTN, severe COPD, Hx of smoking 1 PPD X >30 years, previous alcohol use, atrial fibrillation on Pradaxa and digoxin, GI bleed and hypothyroidism comes with shortness of breath 2/2 acute on chronic respiratroy failure needing bipap at admission. labs noted with improvement. Patient is being admitted to inpatient medical services for COPD exacerbation likely atypical pneumonia presentation. Strep pneumonia antigen is positive. Pulmoanry apprecaited. Taper iv steroids, PO antibiotics, oxygen supplementation , bronchodialtors. f/u pulmoanry recs, anticipate dc planning. gi/dvt prophyalxis DNR/DNI.
[2017-08-13 08:55] LABS: ABSOLUTE BASOPHIL COUNT 0 /CUMM (0.0-0.2); ABSOLUTE EOSINOPHIL COUNT 0 /CUMM (0.0-0.7); ABSOLUTE GRANULOCYTE CT 6.4 /CUMM (1.4-6.5); ABSOLUTE LYMPH COUNT 0.5 /CUMM (1.2-3.4); ABSOLUTE MONOCYTE COUNT 0.2 /CUMM (0.10-0.60); BASOPHIL % 0.4 % (0.0-2.0); EOSINOPHIL % 0.1 % (0-5); HEMATOCRIT 46.7 % (37-47); MEAN CORPUSCULAR HGB 31.2 PG (27.0-31.0); MEAN CORPUSCULAR HGB CONC 32.5 G/DL (33.0-37.0); MEAN CORPUSCULAR VOLUME 96.1 FL (81.0-99.0); MEAN PLATELET VOLUME 8.5 FL (7.4-10.4); RBC DISTRIBUTION WIDTH 16.3 % (11.5-14.5); RED BLOOD CELL CT 4.86 /CUMM (4.20-5.40); WHITE BLOOD CELL COUNT 7.1 /CUMM (4.8-10.8)
[2017-08-13 10:00] LABS: PLATELET COUNT 250 /CUMM (130-400)
[2017-08-13 10:01] LABS: GRANULOCYTE % 89.8 % (42.2-75.2)
--- NOTE | 2017-08-13 13:36 | PN- Student ---
Subjective Subjective: Follow up for: Acute on Chronic hypoxic hypercarbic respiratory failure Pneumonia No overnight events.Patient is alert,oriented and in good spirits.Patient is anxious to go home and wishes that her daughter is kept aware of her treatment.Patient is on 2L of oxygen via nasal cannula and used the BiPaP last.She removed said BiPAP in the middle of the night as she reported that it gave her chest and stomach pain.She reports no pain this monring. Review of Systems Review of Systems Constitutional: Denies: chills, diaphoresis, fever. EENTM: Denies: visual changes. Cardiovascular: Denies: chest pain, palpitations. Respiratory: Reports: cough, short of breath, sputum production (sputum is white in color). GI: Denies: abdominal pain, constipation. Genitourinary: Reports: no symptoms. Musculoskeletal: Reports: no symptoms. Skin: Reports: no symptoms. Objective Objective: Vital Signs Date Time Temp Pulse Resp B/P B/P Pulse O2 O2 Flow FiO2 Mean Ox Delivery Rate 08/13 0832 90 Nasal 2.0L Cannula 08/13 0806 98.2 90 20 120/68 08/13 0800 Nasal 2.0L Cannula 08/13 0620 98.2 90 20 120/68 98 Nasal Cannula 08/13 0000 Nasal 2.0L Cannula 08/12 2322 98.0 92 20 110/60 93 Nasal Cannula 08/12 2241 74 95 08/12 2154 93 118/50 08/12 1655 97 Nasal 3.0L Cannula 08/12 1600 93 Nasal 3.0L Cannula 08/12 1337 98.0 68 20 120/68 93 Intake & Output 08/13 1600 08/13 0800 08/13 0000 Intake Total 120 350 Output Total 275 500 Balance -155 -150 Intake, IV 20 250 Intake, Oral 100 100 Number 2 2 Bowel Movements Output, Urine 275 500 Current Medications Sig/Shilpa Start time Last Medication Dose Route Stop Time Status Admin Acetaminophen 650 MG Q6P PRN 08/10 2044 AC PO Albuterol Sulfate 3 ML EVERY 4 HRS/AWAKE 08/10 1999 AC 08/13 INH 1204 Aspirin 81 MG DAILY 08/10 2008 AC 08/13 PO 0805 Azithromycin 500 MG DAILY@1700 08/10 1700 AC 08/12 Dextrose/Water 250 ML IV 1818 Ceftriaxone Sodium 1,000 MG DAILY@08/10 1700 AC 08/12 IV 1818 Cholecalciferol 1,000 IU DAILY 08/10 2009 AC 08/13 PO 08 Folic Acid 1 MG DAILY 08/10 2009 AC 08/13 PO 0805 Furosemide 20 MG ONCE ONE 08/12 1315 CAN PO 08/12 1316 Heparin Sodium 5,000 UNIT Q8 08/11 0600 AC 08/13 (Porcine) SC 0638 Levothyroxine Sodium 0.15 MG DAILY AC 08/11 0700 AC 08/13 PO 0638 Magnesium Chloride 64 MG DAILY 08/11 1000 AC 08/13 PO 0806 Methylprednisolone 40 MG Q12 08/13 2199 AC IV Methylprednisolone 40 MG Q8 08/10 220 DC 08/13 IV 0638 Metoprolol Tartrate 25 MG BID 08/10 2199 AC 08/13 PO 08 Multivitamins 1 TAB DAILY 08/10 2009 AC 08/13 Therapeutic PO 08 Oxazepam 10 MG AT BEDTIME PRN 08/10 2014 AC 08/11 PO 08/17 Oxycodone/ 1 TAB Q6P PRN 08/10 2044 AC Acetaminophen PO Results Results: Laboratory Tests 08/13/17 0737: Anion Gap 9, Estimated GFR > 60, BUN/Creatinine Ratio 34.3 H, CBC w Diff NO MAN DIFF REQ, RBC 4.86, MCV 96.1, MCH 31.2 H, MCHC 32.5 L, RDW 16.3 H, MPV 8.5, Gran % 89.8 H, Lymphocytes % 6.5 L, Monocytes % 3.2, Eosinophils % 0.1, Basophils % 0.4, Absolute Granulocytes 6.4, Absolute Lymphocytes 0.5 L, Absolute Monocytes 0.2, Absolute Eosinophils 0, Absolute Basophils 0 08/11/17 1602: Anion Gap 8, Estimated GFR > 60, BUN/Creatinine Ratio 38.6 H, CBC w Diff NO MAN DIFF REQ, RBC 4.66, MCV 97.0, MCH 31.2 H, MCHC 32.2 L, RDW 16.5 H, MPV 8.4, Gran % 90.6 H, Lymphocytes % 6.1 L, Monocytes % 3.2, Eosinophils % 0, Basophils % 0.1, Absolute Granulocytes 8.0 H, Absolute Lymphocytes 0.5 L, Absolute Monocytes 0.3, Absolute Eosinophils 0, Absolute Basophils 0 08/11/17 0300: pH 7.26 *L, pCO2 60 *H, pO2 69 L, HCO3 27, ABG O2 Sat (Measured) 90.0 L, Carboxyhemoglobin 1.6, O2 Concentration % .4, Respiration Rate 26, O2 Delivery Method BIPAP, Vent Mode ST, Expiratory Pressure 4, Inspiratory Pressure 18, Phlebotomy Draw Site RIGHT BRACHIAL 08/10/17 2203: Urine Color Cancelled, Urine Clarity Cancelled, Urine pH Cancelled, Ur Specific Leroy Cancelled, Urine Protein Cancelled, Urine Ketones Cancelled, Urine Nitrite Cancelled, Urine Bilirubin Cancelled, Urine Urobilinogen Cancelled, Ur Leukocyte Esterase Cancelled, Ur Microscopic Cancelled, Urine Hemoglobin Cancelled, Urine Glucose Cancelled 08/10/17 2140: pH 7.23 *L, pCO2 69 *H, pO2 74 L, HCO3 28, ABG O2 Sat (Measured) 91.0 L, Carboxyhemoglobin 1.6, O2 Concentration % 40, Respiration Rate 16, O2 Delivery Method BIPAP, Vent Mode ST, Expiratory Pressure 5, Inspiratory Pressure 15, Phlebotomy Draw Site RIGHT RADIAL 08/10/17 1610: pH 7.29 *L, pCO2 61 *H, pO2 77 L, HCO3 28, ABG O2 Sat (Measured) 92.0 L, Carboxyhemoglobin 2.8, O2 Concentration % 50, O2 Delivery Method V/M, Phlebotomy Draw Site RIGHT RADIAL Microbiology 08/13 1226 STOOL: Clostridium difficile Toxin A & B - ORD 08/12 173 URINE ROUT: Legionella Antigen - COMP 08/12 1734 URINE ROUT: Streptococcus pneumoniae Antigen (M - COMP STREP PNEUMO BACTERIAL AG 08/12 110 LOWER RESP: Respiratory Culture - COLB 08/12 1109 LOWER RESP: Gram Stain - COLB 08/10 2201 URINE ROUT: Legionella Antigen - CAN Cancelled: SPECIMEN NOT RECEIVED IN LABORATORY 08/10 2201 URINE ROUT: Streptococcus pneumoniae Antigen (M - CAN Cancelled: SPECIMEN NOT RECEIVED IN LABORATORY 08/10 2201 LOWER RESP: Respiratory Culture - CAN Cancelled: SPECIMEN NOT RECEIVED IN LABORATORY 08/10 2201 LOWER RESP: Gram Stain - CAN Cancelled: SPECIMEN NOT RECEIVED IN LABORATORY 08/10 1519 NASOPHARYN: Influenza Virus A & B Rapid Smear - COMP Physical Exam Physical Exam General Appearance: no apparent distress, alert, awake, comfortable Head: normal appearance Eyes: Bilateral: PERRL. Respiratory: decreased breath sounds, wheezing Cardiovascular: regular rate/rhythm Gastrointestinal: normal bowel sounds, soft, non-tender Core Measures ACS in differential dx? No CVA/TIA Diagnosis: No Sepsis Present: No Sepsis Focused Exam Completed? No Assessment/Plan Assessment: Patient is a 77-year-old actively smoking female with severe steroid-dependent COPD, paroxysmal atrial fibrillation (not on anticoagulation), recently started on 2 L of nocturnal oxygen, hypothyroidism, anxiety who presented to [place] with 1 week history of flu-like symptoms. Problems: 1)Acute hypoxic hypercarbic respiratory failure secondary to COPD exacerbation 2)Pneumonia Plan: 1)Acute hypoxic hypercarbic respiratory failure secondary to COPD exacerbation Patient was admitted to hospital due to complaints of shortness of breath and flu like symptoms for 1 week.Oxygen saturation at that time was found to be 72% and had a cough with purulent green/yellow sputum indicative of an infectious process.ABG at time also showed a pH 7.29,pCO2 61,pO2 77,ABG O2 92.0% and given the patient's COPD history it is likely an exacerbation w acute hypoxic hypercarbic respiratory failure.Patient has been started on nocturnal BiPAP and is on 2L O2 via nasal cannula saturating at 98%. -continue noctournal BiPAP -Taper IV steroids with eventual switch to oral -repeat ABG -Taper FiO2 saturations as patient would allow Pneumonia Chest Xray findings of Hazy prominence of the reticular markings bilateral lungs may represent interstitial edema. Similar appearance can be seen with interstitial or viral pneumonia in the appropriate clinical setting and leukocytosis on labs point towards some type of atypical pneumonia.Urine culture came back positive for S.Pneumoniae making that the most likely infectious cause. -continue antibiotics Diet: Regular Diet DVT prophylaxis:sucutaneous heparin CODE Status; DNR/DNI
[2017-08-13] MEDS ORDERED: AUGMENTIN 875-1 EACH PO (13:47)
[2017-08-13] MEDS ORDERED: PREDNISONE10 M2 PO (13:47)
--- NOTE | 2017-08-13 13:51 | Patient Discharge Instructions ---
See Addendum Discharge Instructions General Discharge Information You were seen/treated for: 1. COPD 2. PNEUMONIA Special Instructions: 1. PLEASE FOLLOW UP WITH YOUR PCP IN ONE WEEK 2. PLEASE FOLLOW UP WITH YOUR SATELLITE PROJECT SITE MONITOR DR. BENTON IN ONE WEEK Diet Continue normal diet: Yes Activity Full Activity/No Limits: Yes Acute Coronary Syndrome Inclusion Criteria At DC or during hospital stay patient has or had the following: ACS DIAGNOSIS No Discharge Core Measures Meds if any: Prescribed or Continued at Discharge Meds if any: NOT Prescribed or Continued at Discharge Congestive Heart Failure Inclusion Criteria At DC or during hospital stay patient has or had the following: CHF DIAGNOSIS No Discharge Core Measures Meds if any: Prescribed or Continued at Discharge Meds if any: NOT Prescribed or Continued at Discharge Cerebrovascular accident Inclusion Criteria At DC or during hospital stay patient has or had the following: CVA/TIA Diagnosis No Discharge Core Measures Meds if any: Prescribed or Continued at Discharge Meds if any: NOT Prescribed or Continued at Discharge Venous thromboembolism Inclusion Criteria VTE Diagnosis No VTE Type NONE VTE Confirmed by (Test) NONE Discharge Core Measures - Per Current guidelines, there needs to be overlap - treatment for the first 5 days of Warfarin therapy. - If discharged on Warfarin prior to 5 days of - overlap therapy, the patient will need to be - assessed for post discharge needs including - *Post discharge parental anticoagulation - *Warfarin and/or parental anticoagulation education - *Follow up date to check INR post discharge At least 5 days overlap therapy as Inpatient No Meds if any: Prescribed or Continued at Discharge Note: Overlap Therapy is Warfarin and Anticoagulant Meds if any: NOT Prescribed or Continued at Discharge
[2017-08-13 14:06] VITALS: BP 120/68
[2017-08-13 23:01] VITALS: BP 119/50
[2017-08-14 06:12] VITALS: BP 120/70
--- NOTE | 2017-08-14 07:48 | PN- Housestaff ---
Maxx Barnes MD,[facility] 08/14/17 0748: Subjective Follow-up For: acute hypoxic hypercarbic respiratory failure COPD/pneumonia steroid dependent Subjective: Patient visited today, was lying in bed comfortably in no acute distress, was alert and oriented. occasionally coughs. No fever or chills, improved shortness of breathing, has still cough and sputum. no chest pain, no other events. Did not use BIPAP overnight. ON 2l o2. Patient was asking to be discharged. Talked with daughter over phone who is the main caregiver of patient at home. She wanted to make sure she is in stable situation before discharge. Patient had couple episodes of loose stool and Cdiff was sent. Review of Systems Constitutional: Reports: see HPI. Objective Last 24 Hrs of Vital Signs/I&O Vital Signs Date Time Temp Pulse Resp B/P B/P Pulse O2 O2 Flow FiO2 Mean Ox Delivery Rate 08/14 0819 94 Nasal 2.0L Cannula 08/14 0800 Nasal 2.0L Cannula 08/14 0612 97.8 77 20 120/70 93 08/14 0000 Nasal 2.0L Cannula 08/13 2301 98.0 90 20 119/50 93 Nasal Cannula 08/13 2136 90 118/58 08/13 1605 93 Nasal 2.0L Cannula 08/13 1406 98.0 51 20 120/68 93 Intake & Output 08/14 1600 08/14 0800 08/14 0000 Intake Total 240 190 Output Total 450 300 Balance -210 -110 Intake, IV 10 Intake, Oral 240 180 Number 1 Bowel Movements Output, Urine 450 300 Physical Exam General Appearance: Alert, Oriented X3, Cooperative, No Acute Distress Skin Temp/Moisture Exam: Warm/Dry Sepsis Skin Exam (color): Normal for Ethnicity HEENT: Atraumatic, EOMI, Mucous Membr. moist/pink Cardiovascular: Regular Rate, Normal S1, Normal S2 Lungs: Wheezing and ronchi Abdomen: Soft, No Tenderness Neurological: Normal Speech, Strength at 5/5 X4 Ext Extremities: No Edema Current Medications: Current Medications Sig/Shilpa Start time Last Medication Dose Route Stop Time Status Admin Acetaminophen 650 MG Q6P PRN 08/10 2044 AC PO Albuterol Sulfate 3 ML EVERY 4 HRS/AWAKE 08/10 1999 AC 08/14 INH 0817 Aspirin 81 MG DAILY 08/10 2008 AC 08/13 PO 0805 Azithromycin 500 MG DAILY@1700 08/10 1700 AC 08/13 Dextrose/Water 250 ML IV 1631 Ceftriaxone Sodium 1,000 MG DAILY@1700 08/10 1700 AC 08/13 IV 1631 Cholecalciferol 1,000 IU DAILY 08/10 2009 AC 08/13 PO 08 Folic Acid 1 MG DAILY 08/10 2009 AC 08/13 PO 0805 Heparin Sodium 5,000 UNIT Q8 08/11 0600 AC 08/14 (Porcine) SC 0532 Levothyroxine Sodium 0.15 MG DAILY AC 08/11 07 AC 08/14 PO 0532 Magnesium Chloride 64 MG DAILY 08/11 1000 AC 08/13 PO 0806 Methylprednisolone 40 MG Q12 08/130 AC 08/13 IV 213 Methylprednisolone 40 MG Q8 08/10 2200 DC 08/13 IV 0638 Metoprolol Tartrate 25 MG BID 08/10 2199 AC 08/13 PO 213 Multivitamins 1 TAB DAILY 08/10 2009 AC 08/13 Therapeutic PO 08 Oxazepam 10 MG AT BEDTIME PRN 08/10 2014 AC 08/13 PO 08/17 Oxycodone/ 1 TAB Q6P PRN 08/10 2044 AC Acetaminophen PO Last 24 Hrs of Lab/Chase Results Last 24 Hrs of Labs/Mics: Laboratory Tests 08/14/17 0728: Sodium Pending, Potassium Pending, Chloride Pending, Carbon Dioxide Pending, Anion Gap Pending, BUN Pending, Creatinine Pending, BUN/Creatinine Ratio Pending , CBC w Diff Pending, WBC Pending, RBC Pending, Hgb Pending, Hct Pending, MCV Pending, MCH Pending, MCHC Pending, RDW Pending, Plt Count Pending, MPV Pending Microbiology 08/13 2101 STOOL: Clostridium difficile Toxin A & B - RECD Assessment/Plan Assessment: Patient is a 77-year-old actively smoking female with severe steroid-dependent COPD, paroxysmal atrial fibrillation (not on anticoagulation), recently started on 2 L of nocturnal oxygen, hypothyroidism, anxiety who presented to [place] with 1 week history of flu-like symptoms. Acute hypoxic hypercarbic respiratory failure Most likely multifactorial, COPD exacerbation and pneumonia. Blood cultures were negative. Urine antigen was positive for strep. She is saturating>90% on 2 L of nasal cannula oxygen - Continue nocturnal BiPAP - IV steroids, taper today, pO prednisolone from tomorrow - azithromycin and ceftriaxone, today day 5, discontinue after recieveing today dose History of hypothyroidism, anxiety We continued home medication - Continue levothyroxine - Continue oxazepam 10 mg at bedtime History of paroxysmal A. fib Continue metoprolol tartrate 12.5 mg twice a day Although patient couldn't recall why she was not on anticoagulation. Apparently her atrial fibrillation was secondary to alcohol abuse. As per Dr. Mcpherson note in October 2016 it is an apparent that Pradaxa was stopped due to GI bleed. During her previous admission digoxin was discontinued in view of her elevated right ventricular pressure in order to avoid further compromise of cardiac output. DVT prophylaxis Subcutaneous heparin CODE STATUS: DNR/DNI Problem List: 1. COPD exacerbation 2. Infection, streptococcus pneumoniae Pain Ratin Pain Location: None Pain Goal: Pain 4 or less Pain Plan: NA Tomorrow's Labs & Rationales: CBC BEP Phyllis Pearce 08/14/17 1343: Attending MD Review Statement Attending Statement Attending MD Statement: examined this patient, discuss w/resident/PA/PULMONOLOGY PHYSICIAN, agreed w/resident/PA/PULMONOLOGY PHYSICIAN, discussed with family, reviewed EMR data (avail), discussed with nursing, discussed with case mgmt, reviewed images, amended to note Attending Assessment/Plan: 76 year old woman with PMH HTN, severe COPD, Hx of smoking 1 PPD X >30 years, previous alcohol use, atrial fibrillation on Pradaxa and digoxin, GI bleed and hypothyroidism comes with shortness of breath 2/2 acute on chronic respiratroy failure needing bipap at admission. Patient is admitted to inpatient medical services for COPD exacerbation likely atypical pneumonia presentation. Strep pneumonia antigen is positive. Pulmoanry apprecaited. Taper iv steroids, Complete antibiotics, oxygen supplementation, bronchodialtors. f/u pulmoanry recs, anticipate dc planning to home care services. Inform family/daughter. Anticipate dc soon. gi/dvt prophyalxis DNR/DNI.
--- NOTE | 2017-08-14 08:13 | PN- Student ---
Subjective Subjective: Follow up for: Acute on Chronic hypercarbic respiratory failure Pneumonia No overnight events.Patient reports no SOB,fevers,chillls or night sweats.Reports she slept well without the use of BiPAP.She still has a cough but it is not productive of sputum.Patient is anxious to go home but understands that she may be here for one more day.Patients family was spoken to this morning by the recruiting internship about her progress and possible discharge time. Review of Systems Review of Systems Constitutional: Reports: no symptoms. EENTM: Reports: no symptoms. Cardiovascular: Denies: chest pain, palpitations. Respiratory: Reports: cough. Denies: short of breath, sputum production. GI: Reports: no symptoms. Genitourinary: Reports: no symptoms. Musculoskeletal: Reports: no symptoms. Objective Objective: Vital Signs Date Time Temp Pulse Resp B/P B/P Pulse O2 O2 Flow FiO2 Mean Ox Delivery Rate 08/14 0819 94 Nasal 2.0L Cannula 08/14 0800 Nasal 2.0L Cannula 08/14 0612 97.8 77 20 120/70 93 08/14 0000 Nasal 2.0L Cannula 08/13 2301 98.0 90 20 119/50 93 Nasal Cannula 08/13 2136 90 118/58 08/13 1605 93 Nasal 2.0L Cannula 08/13 1406 98.0 51 20 120/68 93 Intake & Output 08/14 1600 08/14 0800 08/14 0000 Intake Total 240 190 Output Total 450 300 Balance -210 -110 Intake, IV 10 Intake, Oral 240 180 Number 1 Bowel Movements Output, Urine 450 300 Physical Exam Physical Exam General Appearance: no apparent distress, alert, awake, comfortable Head: normal appearance Eyes: Bilateral: PERRL. Respiratory: decreased breath sounds Cardiovascular: regular rate/rhythm Gastrointestinal: normal bowel sounds, soft, non-tender Results Results: Laboratory Tests 08/14/17 0728: Sodium Pending, Potassium Pending, Chloride Pending, Carbon Dioxide Pending, Anion Gap Pending, BUN Pending, Creatinine Pending, BUN/Creatinine Ratio Pending , CBC w Diff Pending, WBC Pending, RBC Pending, Hgb Pending, Hct Pending, MCV Pending, MCH Pending, MCHC Pending, RDW Pending, Plt Count Pending, MPV Pending 08/13/17 0737: Anion Gap 9, Estimated GFR > 60, BUN/Creatinine Ratio 34.3 H, CBC w Diff NO MAN DIFF REQ, RBC 4.86, MCV 96.1, MCH 31.2 H, MCHC 32.5 L, RDW 16.3 H, MPV 8.5, Gran % 89.8 H, Lymphocytes % 6.5 L, Monocytes % 3.2, Eosinophils % 0.1, Basophils % 0.4, Absolute Granulocytes 6.4, Absolute Lymphocytes 0.5 L, Absolute Monocytes 0.2, Absolute Eosinophils 0, Absolute Basophils 0 08/11/17 1602: Anion Gap 8, Estimated GFR > 60, BUN/Creatinine Ratio 38.6 H, CBC w Diff NO MAN DIFF REQ, RBC 4.66, MCV 97.0, MCH 31.2 H, MCHC 32.2 L, RDW 16.5 H, MPV 8.4, Gran % 90.6 H, Lymphocytes % 6.1 L, Monocytes % 3.2, Eosinophils % 0, Basophils % 0.1, Absolute Granulocytes 8.0 H, Absolute Lymphocytes 0.5 L, Absolute Monocytes 0.3, Absolute Eosinophils 0, Absolute Basophils 0 Microbiology 08/13 2102 STOOL: Clostridium difficile Toxin A & B - RECD 08/12 1735 URINE ROUT: Legionella Antigen - COMP 08/12 1735 URINE ROUT: Streptococcus pneumoniae Antigen (M - COMP STREP PNEUMO BACTERIAL AG 08/12 1109 LOWER RESP: Respiratory Culture - CAN Cancelled: SPECIMEN NOT RECEIVED IN LABORATORY 08/12 1109 LOWER RESP: Gram Stain - CAN Cancelled: SPECIMEN NOT RECEIVED IN LABORATORY Assessment/Plan Assessment: Patient is a 77-year-old actively smoking female with past medical history of severe steroid-dependent COPD, paroxysmal atrial fibrillation (not on anticoagulation), recently started on 2 L of nocturnal oxygen, hypothyroidism, anxiety who presented to [facility] with 1 week history of flu-like symptoms. Problems: 1)Acute hypercarbic respiratory failure secondary to COPD exacerbation 2)Pneumonia Plan: 1)Acute hypoxic hypercarbic respiratory failure secondary to COPD exacerbation Patient was admitted to hospital due to complaints of shortness of breath and flu like symptoms for 1 week.Oxygen saturation at that time was found to be 72% and had a cough with purulent green/yellow sputum indicative of an infectious process.ABG at time also showed a pH 7.29,pCO2 61,pO2 77,ABG O2 92.0% and given the patient's COPD history it is likely an exacerbation w acute hypoxic hypercarbic respiratory failure.Patient has been started on nocturnal BiPAP but is not compliant as the air gives her stomach and chest pain.Patient is on 2L O2 via nasal cannula saturating at 94%. Chest X ray also showed mild cardiomegaly and BNP was elevated indicative of heart failure most likely due to chronic COPD.Overall patients status is improved with improved oxygenation. Respiratory status appears to be approaching baseline.Achieved mild negative fluid balance. -continue noctournal BiPAP -DC IV steroids and taper by mouth -repeat ABG -Taper FiO2 saturations as patient would allow - 2)Pneumonia Chest Xray findings of Hazy prominence of the reticular markings bilateral lungs may represent interstitial edema. Similar appearance can be seen with interstitial or viral pneumonia in the appropriate clinical setting and leukocytosis on labs point towards some type of atypical pneumonia.Urine culture came back positive for S.Pneumoniae making that the most likely infectious cause. -continue antibiotics Diet: Regular Diet DVT prophylaxis:sucutaneous heparin CODE Status; DNR/DNI
--- NOTE | 2017-08-14 08:22 | PN- Pulmonary ---
Subjective HPI/Critical Care Issues: Patient's respiratory status is improved she is comfortable on 2 L awake and alert Objective Current Medications: Current Medications Sig/Shilpa Start time Last Medication Dose Route Stop Time Status Admin Acetaminophen 650 MG Q6P PRN 08/10 2044 AC PO Albuterol Sulfate 3 ML EVERY 4 HRS/AWAKE 08/10 1999 AC 08/14 INH 0817 Aspirin 81 MG DAILY 08/10 2008 AC 08/13 PO 0805 Azithromycin 500 MG DAILY@1700 08/10 1700 AC 08/13 Dextrose/Water 250 ML IV 1631 Ceftriaxone Sodium 1,000 MG DAILY@1700 08/10 1700 AC 08/13 IV 1631 Cholecalciferol 1,000 IU DAILY 08/10 2009 AC 08/13 PO 0806 Folic Acid 1 MG DAILY 08/10 2009 AC 08/13 PO 0805 Heparin Sodium 5,000 UNIT Q8 08/11 06 AC 08/14 (Porcine) SC 0532 Levothyroxine Sodium 0.15 MG DAILY AC 08/11 07 AC 08/14 PO 0532 Magnesium Chloride 64 MG DAILY 08/11 1000 AC 08/13 PO 0806 Methylprednisolone 40 MG Q12 08/13 220 AC 08/13 IV 2136 Methylprednisolone 40 MG Q8 08/10 2200 DC 08/13 IV 0638 Metoprolol Tartrate 25 MG BID 08/10 2199 AC 08/13 PO 2136 Multivitamins 1 TAB DAILY 08/10 2009 AC 08/13 Therapeutic PO 0806 Oxazepam 10 MG AT BEDTIME PRN 08/10 2014 AC 08/13 PO 08/17 2013 214 Oxycodone/ 1 TAB Q6P PRN 08/10 2044 AC Acetaminophen PO Vital Signs & I&O Last 24 Hrs of Vitals and I&O: Vital Signs Date Time Temp Pulse Resp B/P B/P Pulse O2 O2 Flow FiO2 Mean Ox Delivery Rate 08/14 0819 94 Nasal 2.0L Cannula 08/14 06 97.8 77 20 120/70 93 08/14 0000 Nasal 2.0L Cannula 08/13 2301 98.0 90 20 119/50 93 Nasal Cannula 08/13 2136 90 118/58 08/13 1605 93 Nasal 2.0L Cannula 08/13 1406 98.0 51 20 120/68 93 08/13 0832 90 Nasal 2.0L Cannula Intake & Output 02/13 1600 08/14 0800 08/14 0000 Intake Total 240 190 Output Total 450 300 Balance -210 -110 Intake, IV 10 Intake, Oral 240 180 Number 1 Bowel Movements Output, Urine 450 300 Oxygen saturation 2 L 94% exam for chest shows diminished breath sounds are no wheezes cardiac exam shows normal S1 and S2 without murmurs Impression/Plan Impression/Plan Impression/Plan: 77-year-old with severe COPD actively smoking counseled regarding the need for smoking cessation admitted with acute on chronic hypercapnic history failure. Chest x-ray showed just a component of edema. BNP is markedly elevated overall status is improved with improved oxygenation. Respiratory status appears to be approaching baseline Recommendations: Nocturnal BiPAP. Taper FiO2 his saturations allow. DC IV steroids and taper by mouth steroids and narrow antibiotics. Achieved mild negative fluid balance and view of chest x-ray findings and elevated BNP patient appears stable from a respiratory standpoint for discharge
[2017-08-14 08:39] LABS: ABSOLUTE BASOPHIL COUNT 0 /CUMM (0.0-0.2); ABSOLUTE EOSINOPHIL COUNT 0 /CUMM (0.0-0.7); ABSOLUTE GRANULOCYTE CT 5.1 /CUMM (1.4-6.5); ABSOLUTE LYMPH COUNT 0.5 /CUMM (1.2-3.4); ABSOLUTE MONOCYTE COUNT 0.1 /CUMM (0.10-0.60); BASOPHIL % 0.2 % (0.0-2.0); EOSINOPHIL % 0 % (0-5); HEMATOCRIT 46.8 % (37-47); MEAN CORPUSCULAR HGB 31.2 PG (27.0-31.0); MEAN CORPUSCULAR HGB CONC 32.4 G/DL (33.0-37.0); MEAN CORPUSCULAR VOLUME 96.1 FL (81.0-99.0); MEAN PLATELET VOLUME 8.4 FL (7.4-10.4); PLATELET COUNT 245 /CUMM (130-400); RED BLOOD CELL CT 4.87 /CUMM (4.20-5.40); WHITE BLOOD CELL COUNT 5.7 /CUMM (4.8-10.8)
[2017-08-14 09:31] LABS: GRANULOCYTE % 89.1 % (42.2-75.2)
[2017-08-14 14:20] VITALS: BP 110/60
[2017-08-14 22:33] VITALS: BP 124/60
[2017-08-15 06:20] VITALS: BP 132/68
[2017-08-15 08:04] LABS: ABSOLUTE BASOPHIL COUNT 0 /CUMM (0.0-0.2); ABSOLUTE EOSINOPHIL COUNT 0 /CUMM (0.0-0.7); ABSOLUTE GRANULOCYTE CT 5.6 /CUMM (1.4-6.5); ABSOLUTE LYMPH COUNT 0.7 /CUMM (1.2-3.4); ABSOLUTE MONOCYTE COUNT 0.2 /CUMM (0.10-0.60); BASOPHIL % 0.2 % (0.0-2.0); EOSINOPHIL % 0.1 % (0-5); HEMATOCRIT 45.6 % (37-47); MEAN CORPUSCULAR HGB 31.5 PG (27.0-31.0); MEAN CORPUSCULAR HGB CONC 32.6 G/DL (33.0-37.0); MEAN CORPUSCULAR VOLUME 96.6 FL (81.0-99.0); MEAN PLATELET VOLUME 8.6 FL (7.4-10.4); RBC DISTRIBUTION WIDTH 16.1 % (11.5-14.5); RED BLOOD CELL CT 4.72 /CUMM (4.20-5.40); WHITE BLOOD CELL COUNT 6.6 /CUMM (4.8-10.8)
--- NOTE | 2017-08-15 08:10 | PN- Pulmonary ---
Subjective HPI/Critical Care Issues: Patient shortness breath is markedly improved as is her cough and congestion Objective Current Medications: Current Medications Sig/Shilpa Start time Last Medication Dose Route Stop Time Status Admin Acetaminophen 650 MG Q6P PRN 08/10 2044 AC PO Albuterol Sulfate 3 ML EVERY 4 HRS/AWAKE 08/10 1999 AC 08/14 INH 1955 Aspirin 81 MG DAILY 08/10 2008 AC 08/14 PO 0918 Azithromycin 500 MG DAILY@1700 09 1700 DC 08/14 Dextrose/Water 250 ML IV 08/15 0700 1633 Ceftriaxone Sodium 1,000 MG DAILY@1700 09 1700 DC 08/14 IV 08/15 0700 1632 Cholecalciferol 1,000 IU DAILY 08/10 2009 AC 08/14 PO 0918 Folic Acid 1 MG DAILY 08/10 2009 AC 08/14 PO 0918 Heparin Sodium 5,000 UNIT Q8 08/11 06 AC 08/15 (Porcine) SC 0555 Levothyroxine Sodium 0.15 MG DAILY AC 08/11 0700 AC 08/15 PO 0555 Magnesium Chloride 64 MG DAILY 08/11 1000 AC 08/14 PO 0918 Methylprednisolone 40 MG Q12 08/13 2200 DC 08/14 IV 0917 Metoprolol Tartrate 25 MG BID 08/10 2200 AC 08/14 PO 2159 Multivitamins 1 TAB DAILY 08/10 2009 AC 08/14 Therapeutic PO 0918 Nicotine 7 MG DAILY 08/14 1805 AC 08/14 TOP 2157 Oxazepam 10 MG AT BEDTIME PRN 08/10 2014 AC 08/14 PO 08/17 2013 2205 Oxycodone/ 1 TAB Q6P PRN 08/105 AC Acetaminophen PO Prednisone 10 MG DAILY 08/22 1000 AC PO 08/24 0959 Prednisone 20 MG DAILY 08/20 1000 AC PO 08/22 0959 Prednisone 30 MG DAILY 08/17 1000 AC PO 08/20 0959 Prednisone 40 MG DAILY 08/15 1000 CAN PO 08/24 0859 Prednisone 40 MG DAILY 08/15 1000 AC PO 08/17 0859 Prednisone 40 MG ONCE ONE 08/15 0930 DC PO 08/15 0931 Vital Signs & I&O Last 24 Hrs of Vitals and I&O: Vital Signs Date Time Temp Pulse Resp B/P B/P Pulse O2 O2 Flow FiO2 Mean Ox Delivery Rate 08/15 619 97.8 75 18 132/68 94 Nasal 2.0L Cannula 08/15 0000 Nasal 2.5L Cannula 08/14 2233 97.7 60 18 124/60 96 Nasal 2.0L Cannula 08/14 2159 80 20 120/70 08/14 1957 93 Nasal 2.0L Cannula 08/14 1613 95 Nasal 2.0L Cannula 08/14 1420 98.1 69 18 110/60 94 08/14 0918 97.8 77 20 120/70 08/14 0819 94 Nasal 2.0L Cannula Intake & Output 08/15 1600 08/15 0800 08/15 0000 Intake Total 400 Output Total 300 Balance -300 400 Intake, Oral 400 Number 0 Bowel Movements Output, Urine 300 Saturation 2 L 94% exam for chest shows diminished breath sounds are no wheezes or crackles cardiac exam shows a regular S1 and S2 without murmurs Impression/Plan Impression/Plan Impression/Plan: 77-year-old with severe COPD actively smoking counseled regarding the need for smoking cessation admitted with acute on chronic hypercapnic history failure. Chest x-ray showed just a component of edema. BNP is markedly elevated overall status is improved with improved oxygenation. Respiratory status appears to be approaching baseline discharge planning Recommendations: Nocturnal BiPAP. Taper FiO2 his saturations allow. DC IV steroids and taper by mouth steroids and narrow antibiotics. Achieved mild negative fluid balance and view of chest x-ray findings and elevated BNP patient appears stable from a respiratory standpoint for discharge no further pulmonary suggestions patient can be seen in the office for follow-up
--- NOTE | 2017-08-15 08:23 | PN- Housestaff ---
Contreras DE LEÓN,[facility] 08/15/17 0823: Subjective Follow-up For: copd exascerbation Subjective: No acute events overnight. States sob is better. Feels ready to be discharged. Review of Systems Constitutional: Reports: see HPI. Cardiovascular: Reports: no symptoms. Respiratory: Reports: see HPI (sob better). Gastrointestinal: Reports: no symptoms. Genitourinary: Reports: no symptoms. Musculoskeletal: Reports: no symptoms. Objective Last 24 Hrs of Vital Signs/I&O Vital Signs Date Time Temp Pulse Resp B/P B/P Pulse O2 O2 Flow FiO2 Mean Ox Delivery Rate 08/15 1555 97 Nasal 2.0L Cannula 08/15 1414 98.3 74 20 120/70 94 08/15 0904 75 132/68 08/15 0823 93 Nasal 2.0L Cannula 08/15 0800 Nasal 2.0L Cannula 08/15 0620 97.8 75 18 132/68 94 Nasal 2.0L Cannula Intake & Output 08/16 0800 08/16 0000 08/15 1600 Intake Total 1400 Output Total Balance 1400 Intake, Oral 1400 Number 1 Bowel Movements Physical Exam General Appearance: Alert, Oriented X3, Cooperative, No Acute Distress Cardiovascular: Regular Rate, Normal S1, Normal S2 Lungs: Clear to Auscultation, Normal Air Movement Abdomen: Normal Bowel Sounds, Soft, No Tenderness Extremities: 2+ radial pulses Last 24 Hrs of Lab/Chase Results Last 24 Hrs of Labs/Mics: Laboratory Tests 08/15/17 0704: Anion Gap 8, Estimated GFR > 60, BUN/Creatinine Ratio 31.4 H, CBC w Diff NO MAN DIFF REQ, RBC 4.72, MCV 96.6, MCH 31.5 H, MCHC 32.6 L, RDW 16.1 H, MPV 8.6, Gran % 85.1 H, Lymphocytes % 10.9 L, Monocytes % 3.7, Eosinophils % 0.1, Basophils % 0.2, Absolute Granulocytes 5.6, Absolute Lymphocytes 0.7 L, Absolute Monocytes 0.2, Absolute Eosinophils 0, Absolute Basophils 0 Assessment/Plan Assessment: Patient is a 77-year-old actively smoking female with severe steroid-dependent COPD, paroxysmal atrial fibrillation (not on anticoagulation), recently started on 2 L of nocturnal oxygen, hypothyroidism, anxiety who presented to [place] with 1 week history of flu-like symptoms. 1. Acute hypoxic hypercarbic respiratory failure secondary to COPD exacerbation/ strep pneumo + penumonia Strep antigen positive but no evidence of pneumonia on CXR. It may be possible that CXR has not caught up and that repeat would show pneumonia. In the meantime we will continue abx. -minimal desaturation with ambulation with o2 and w/o O2 -discharge with home oxygen for night time -discharge with prednisone taper -discharge with augmentin x2 days complete 7 days course of CAP coverage ( previously on azithromycin and ceftriaxone) -ABG hypercarbic and acidotic, continue BIPAP as per pulmonary recommendations. 2. History of hypothyroidism Continue levothyroxine 3. History of anxiety Continue oxazepam 10 mg at bedtime 4. History of paroxysmal A. fib Continue metoprolol tartrate 12.5 mg twice a day Patient couldn't recall why she was not on anticoagulation. Apparently her atrial fibrillation is secondary to alcohol abuse. As per Dr. Mcpherson note in October 2016 it is an apparent that Pradaxa was stopped due to GI bleed. During her previous admission digoxin was discontinued in view of her elevated right ventricular pressure in order to avoid further compromise of cardiac output. DVT prophylaxis Subcutaneous heparin CODE STATUS DNR/DNI Problem List: 1. COPD (chronic obstructive pulmonary disease) 2. Infection, streptococcus pneumoniae Pain Ratin Pain Location: none Pain Goal: Pain 4 or less Pain Plan: pain pathway Tomorrow's Labs & Rationales: none, pt being discharged Phyllis Pearce 08/15/17 1220: Attending MD Review Statement Attending Statement Attending MD Statement: examined this patient, discuss w/resident/PA/WASHATERIA ATTENDANT, agreed w/resident/PA/WASHATERIA ATTENDANT, discussed with family, reviewed EMR data (avail), discussed with nursing, discussed with case mgmt, reviewed images, amended to note Attending Assessment/Plan: 76 year old woman with PMH HTN, severe COPD, Hx of smoking 1 PPD X >30 years, previous alcohol use, atrial fibrillation on Pradaxa and digoxin, GI bleed and hypothyroidism comes with shortness of breath 2/2 acute on chronic respiratroy failure needing bipap at admission. Patient is admitted to inpatient medical services for COPD exacerbation likely atypical pneumonia presentation. Strep pneumonia antigen is positive. Pulmoanry apprecaited. PO steroids, Complete antibiotics, oxygen supplementation, bronchodialtors. f/u pulmoanry recs, Anticipate dc planning to home care services. Anticipate dc soon. Patient medically stable for discharge. gi/dvt prophyalxis DNR/DNI FOLLOW UP PCP in 3-5 days of discharge Pulmonary in 1-2 weeks of discharge.
[2017-08-15 08:43] LABS: GRANULOCYTE % 85.1 % (42.2-75.2); PLATELET COUNT 246 /CUMM (130-400)
[2017-08-15] MEDS ORDERED: NICOTINE PATCH1 EAC1 TOP (11:48)
[2017-08-15] MEDS ORDERED: PREDNISONE10 M2 PO (11:48)
[2017-08-15 14:14] VITALS: BP 120/70
--- NOTE | 2017-08-16 07:20 | Discharge Summary ---
Hospital Course Allergies: Coded Allergies: NO KNOWN ALLERGIES (10/05/11) Discharge Instructions Medications at Discharge Discharge Medications: Continue taking these medications: Folic Acid (Folic Acid) 1 MG TAB 1 Milligram ORAL DAILY Comments: Last Taken: 09/09/15 Time: 915 AM Levothyroxine Sodium (Levothroid) 0.15 MG TAB 1 Tablet ORAL DAILY BEFORE BREAKFAST Comments: Last Taken: 09/09/15 Time: 630 AM Oxazepam (Oxazepam) 10 MG CAP 1 Tablet ORAL EVERY 8 HOURS as needed for ANXIETY Comments: Last Taken: 09/08/15 Time: 915 PM Cholecalciferol (Vitamin D3) 1,000 IU TAB 1 Tablet ORAL DAILY Comments: Last Taken: 09/09/15 Time: 915 AM Albuterol Sulfate/Ipratropiu (Duoneb) 3 MG/3 ML NEB 2 PUFF Inhale through mouth EVERY SIX HOURS Days = 30 Comments: Last Taken: 09/05/15 Time: 8PM Metoprolol Tartrate (Lopressor) 12.5 MG TAB 1 Tablet ORAL TWICE DAILY Days = 60 Comments: Last Taken: 09/09/15 Time: 0915 Aspirin (Aspirin*) 81 MG TAB.CHEW 1 Tablet ORAL DAILY Comments: Last Taken: 08/15/17 Time: 900AM Multivitamin (Daily Multiple Vitamin) 1 EACH TABLET 1 Tablet ORAL DAILY Comments: Last Taken: 08/15/17 Time: 900AM Prednisone (Prednisone) 5 MG TABLET 1 Tablet ORAL DAILY Comments: OTHER DOSE GIVEN Magnesium Chloride (Nu-Mag) 71.5 MG TABLET.DR 1 Tablet ORAL Every Day Qty = 60 Start taking the following new medications: Prednisone (Prednisone) 10 MG TABLET 0 ORAL SEE INSTRUCTIONS Qty = 26 No Refills Instructions: DATE TABS 08/16-08/17 4 08/18-08/20 3 08/21-08/23 2 08/24-08/26 1 Comments: Last Taken: 08/15/17 Time: 900AM Nicotine (Nicotine Patch) 7 MG/24 HOUR PATCH.TD24 7 Milligram On the skin DAILY Qty = 30 No Refills Comments: Last Taken: 08/15/17 Time: 900AM Amoxicillin/Potassium Clav (Augmentin 875-125 Tablet) 875 MG-125 MG TABLET 1 Tablet ORAL TWICE DAILY Qty = 4 No Refills Comments: NOT GIVEN Attending MD Review Statement Documenting Attending: Phyllis Pearce MD Other Findings: 76 year old woman with PMH HTN, severe COPD, Hx of smoking 1 PPD X >30 years, previous alcohol use, atrial fibrillation on Pradaxa and digoxin, GI bleed and hypothyroidism comes with shortness of breath 2/2 acute on chronic respiratroy failure needing bipap at admission. Patient is admitted to inpatient medical services for COPD exacerbation likely atypical pneumonia presentation. Strep pneumonia antigen is positive. Pulmoanry apprecaited. PO steroids, Complete antibiotics, oxygen supplementation, bronchodialtors. f/u pulmoanry recs, Anticipate dc planning to home care services. Anticipate dc soon. Patient medically stable for discharge. gi/dvt prophyalxis DNR/DNI FOLLOW UP PCP in 3-5 days of discharge Pulmonary in 1-2 weeks of discharge.
== END 2017-08-15 17:00 | disposition home health service (06) | DRG 189 ==
LOC: ERH 10:52 → ERHI 13:57 → 2NA 13:57 → ENRESERV 14:41 → ENTRNSPT 16:07 → EDTRNSPT 16:10 → EDTRNSPTSTS 16:10 → 2NA 16:19 → CMPTRNSPT 16:34 → ENPENDDIS 08-15 12:30 → ENTRNSPT 08-15 16:40 → EDTRNSPTSTS 08-15 16:51 → 2NA 08-15 17:00 → CMPTRNSPT 08-15 17:06
PROVIDERS: Emergency Medicine; Radiology Vascular & Interventional Radiology; Student in an Organized Health Care Education/Training Program
DX: J96.21 Acute and chronic respiratory failure with hypoxia (principal); I48.0 Paroxysmal atrial fibrillation; Z99.81 Dependence on supplemental oxygen; J44.0 Chronic obstructive pulmonary disease with (acute) lower respiratory infection; J44.1 Chronic obstructive pulmonary disease with (acute) exacerbation; J96.22 Acute and chronic respiratory failure with hypercapnia; D64.9 Anemia, unspecified; F17.200 Nicotine dependence, unspecified, uncomplicated; E03.9 Hypothyroidism, unspecified; F41.9 Anxiety disorder, unspecified; Z79.52 Long term (current) use of systemic steroids; F32.9 Major depressive disorder, single episode, unspecified; F10.20 Alcohol dependence, uncomplicated; I10 Essential (primary) hypertension
CPT/HCPCS: 2NAP; 36415; 71045; 82436; 87040; 87070; 87449; 87450; 87804; 87804-59; 93005; 93010; 96374; 97116-GO; 97161-GP; J0456; J0696; J1644; J2920; J2930; J3490; J7060